=== PATIENT | male | born 1960 | race Caucasian/White ===

== ENCOUNTER → 2016-04-26 | Outpatient (CLI) | payer OTHER ==
[~2016-04-26] MED LIST: /LOR25TA PO; /PREG100CA PO; ASPI81TA85 PO; BACL10TA2 PO; BUPR1TAB17 PO; COLA50CA3 PO; CYCL5TAB PO; FENT12PA TOP; GABA100C PO; GABA300C2 PO; GABA600T PO; LIDOCAINE PRILOCAINE TOP; META800T82 PO; MOBI15TA PO; NICO21DI5 TD; NICO2GUM8 PO; OMEP40CA2 PO; OXYC15TA76 PO; PANT20TA PO; PERC7.5T12 PO; TIZA4CAP PO; TIZA4TAB3 PO; ULTR50TA PO
--- NOTE | 2016-05-07 00:36 | ECWPNPC ---
PATIENT NAME: FEDERICO FERREIRA : 1960 GENDER: MALE VISIT DATE: 04/26/2016 DISCHARGE DATE: 04/26/16 1024 VISIT LOCKED DATE TIME: PHYSICIAN: LAMINE SANTIAGO RESOURCE: LAMINE SANTIAGO REASON FOR APPOINTMENT 1. FOLLOWUP-LOW BACK HISTORY OF PRESENT ILLNESS HISTORY OF PRESENT ILLNESS: HERE FOR POST PROC. F/U.HAD TPI .REPORTS NO IMPROVEMENT IN PAIN POST PROCEDURE.INTERVENTIONS DONE HERE HAVE NOT PROVEN TO BE HELPFUL.CONTINUES W SEVERE LBP W RADIATION INTO LEGS BILAT.L>R.PAIN AGGREVATED WITH WALKING OR PROLONGED SITTING.DESCRIBES PAIN CONSTANT ACHING AND BURNING.HAS SEDENTARY LIFESTYLE.REVIEWED MEDICATION AND TREATMENT OPTIONS.RATING PAIN VAS 9/10. PAIN THE PATIENT DESCRIBES THE PAIN... THE PATIENT DESCRIBES THE PAIN... PAIN THE PATIENT DESCRIBES THE PAIN... THE PATIENT DESCRIBES THE PAIN... FALL RISK SCREENING: SCREENING :NO FALLS IN THE PAST YEAR CURRENT MEDICATIONS TAKING ASPIRIN ADULT LOW DOSE 81 MG TABLET DELAYED RELEASE 1 TABLET ORALLY ONCE A DAY TAKING LIDOCAINE-PRILOCAINE 2.5-2.5 % CREAM EXTERNALLY TAKING PANTOPRAZOLE SODIUM 20 MG TABLET DELAYED RELEASE 2 TABLETS ORALLY ONCE A DAY TAKING LORATADINE 10 MG TABLET 1 TABLET ORALLY ONCE A DAY TAKING FLUTICASONE PROPIONATE 50 MCG/DOSE SUSPENSION 1 SPRAY IN EACH NOSTRIL NASALLY ONCE A DAY TAKING LASIX 20 MG TABLET 1 TABLET ORALLY ONCE A DAY, PRN TAKING POTASSIUM CHLORIDE 10 MEQ CAPSULE PO DAILY PRN TAKING ALBUTEROL SULFATE HFA 108 (90 BASE) MCG/ACT AEROSOL SOLUTION 2 PUFFS NEEDED INHALATION EVERY 4 HRS TAKING ADVAIR DISKUS 250-50 MCG/DOSE AEROSOL POWDER BREATH ACTIVATED 1 PUFF INHALATION TWICE A DAY TAKING CYMBALTA 30 MG CAPSULE DELAYED RELEASE PARTICLES 1 CAPSULE ORALLY ONCE A DAY TAKING GABAPENTIN 600 600 MG TABLET 1 TAB(S) ORAL TID FOR PAIN TAKING TOPIRAMATE 50 MG TABLET 1 TABLET ORALLY TWICE A DAY TAKING SUCRALFATE 1 GM TABLET 1 TABLET ON AN EMPTY STOMACH ORALLY TWICE A DAY TAKING OXYBUTYNIN CHLORIDE 5 MG TABLET 1 TABLET ORALLY TWICE A DAY NOT-TAKING IBUPROFEN 800 MG TABLET 1 TABLET ORALLY WITH FOOD THREE TIMES A DAY FOR PAIN MDD3 NOT-TAKING GUAIFENESIN 400 MG TABLET 1 TABLET NEEDED ORALLY EVERY 4 HRS NOT-TAKING VALIUM 10 MG TABLET 1 ORALLY 1 TAB 1HR PRE PROC. MDD1 NOT-TAKING CIPROFLOXACIN HCL 750 MG TABLET 1 TABLET ORALLY BID NOT-TAKING TIZANIDINE HCL 2 MG TABLET 1 TO 2 TABLET NEEDED ORALLY AT NIGHT FOR SPASMS AND PAIN NOT-TAKING TIZANIDINE HCL 4 MG TABLET 1 TABLET NEEDED ORALLY DAILY AT BEDTIME NOT-TAKING TOPIRAMATE 50 MG TABLET 1 TABLET ORALLY TWICE A DAY NOT-TAKING OXYCODONE HCL 15 MG TABLET 1 TABLET NEEDED ORALLY EVERY 6 HRS MEDICATION LIST REVIEWED AND RECONCILED WITH THE PATIENT PAST MEDICAL HISTORY HEADACHE, NECK PAIN SLEEP AOPNEA ARTHRITIS DEPRESSION TINNITUS GERD LOWER BACK, NECK PROBLMES ARTHRITIS NERVE DAMAGE COPD SEASONAL ALLERGIES ALLERGIES SEASONAL: NASAL CONGESTION: ALLERGY SOCIAL HISTORY GENERAL: TOBACCO USE ARE YOU A:NONSMOKER LEARNING BARRIERS / SPECIAL NEEDS ORIENTED TO PLAN OF CARE: PATIENT, PAIN MANAGEMENT PATIENT, ORIENTED TO PLAN OF CARE: PATIENT, PAIN MANAGEMENT PATIENT. NEW PATIENT PAIN DIARY TODAY'S VISITNOTES FROM 0-10, WHAT LEVEL IS YOUR PAIN TODAY?0 PAIN CLINIC PFS, CLERGY, PUBLIC HEALTH REFERRALS PFS REFERRAL NEEDED?NO CLERGY REFERRAL NEEDED?NO PUBLIC HEALTH REFERRAL NEEDED?NO WAS THE PROVIDER NOTIFIED OF ANY PERTINENT INFO?NO PFS REFERRAL NEEDED?NO CLERGY REFERRAL NEEDED?NO PUBLIC HEALTH REFERRAL NEEDED?NO WAS THE PROVIDER NOTIFIED OF ANY PERTINENT INFO?NO REVIEW OF SYSTEMS CONSTITUTIONAL: ANY CHANGE IN YOUR MEDICAL CONDITION? NO . CHILLS NO . FEVER NO . INFECTION: DO YOU HAVE NEW INFECTIONS? NO . DO YOU HAVE HISTORY OF MRSA? NO . MUSCULOSKELETAL: ANY NEW PATTERNS OF PAIN OR NUMBNESS? NO . GASTROENTEROLOGY: ANY NEW CHANGE IN BOWEL CONTROL? NO . GENITOURINARY: ANY NEW CHANGE IN BLADDER CONTROL? YES PT REPORTS OVERACTIVE BLADDER, SEEING UROLOGY FOR THIS. . IS THERE A CHANCE YOU COULD BE ? NO . HEMATOLOGY/LYMPH: DO YOU TAKE ANY BLOOD THINNERS? (FOR EXAMPLE- COUMADIN, PLAVIX, AGGRENOX, PLATEL, PRADAXA, OR XARELTO) NO . WHEN WAS YOUR LAST DOSE? DATE: TIME: . NEUROLOGY: HAVE YOU FALLEN IN THE PAST 6 MONTHS? NO . ANY NEW EXTREMITY NUMBNESS OR WEAKNESS? NO . CARDIOLOGY: DO YOU HAVE A PACEMAKER OR DEFIBRILLATOR? NO . RESPIRATORY: HAVE YOU BEEN SICK IN THE PAST WEEK? NO . FEVER NO . FLU LIKE SYMPTOMS? NO . COUGH NO . INTEGUMENTARY: DO YOU HAVE ANY RASHES OR OPEN SORES? NO . ALLERGIC/IMMUNO: ARE YOU ALLERGIC TO SHELLFISH OR IV DYE? NO . ANY NEW ALLERGIES? NO . PSYCHIATRIC: DO YOU HAVE THOUGHTS OF HURTING YOURSELF OR SOMEONE ELSE? NO . ARE YOU ABUSED, NEGLECTED, OR IN AN UNSAFE ENVIRONMENT? NO . ENDOCRINOLOGY: ARE YOU DIABETIC? NO . OTHER: DO YOU NEED ANY PRESCRIPTIONS? NO . IF YES, PLEASE LIST: ____ . ANY NEW PROBLEMS WITH YOUR MEDICATIONS? NO . WHEN DID YOU LAST EAT? ____ . WHEN DID YOU LAST DRINK? ____ . WHAT DID YOU LAST DRINK? ____ . NAME OF PERSON DRIVING YOU HOME? ____ . DO YOU HAVE ANY OTHER QUESTIONS OR CONCERNS PT REPORTS HE TIRES EASILY, AND HAS A DRY COUGH. HE STATES HE COUGHS SO HARD, IT MAKES HIM DIZZY AND GIVES HIM A HEADACHE. . REVIEWED BY: PROVIDER: LAMINE WALLACE . VITAL SIGNS WT 231 LBS, HT 69 IN, BMI 34.11 INDEX, BP 140/86 MM HG, HR 66 /MIN, RR 16 /MIN, TEMP 97.4 F, OXYGEN SAT % 95%, SAFE IN ENV? (Y/N) YES, REVIEWED BY: MAXIMILIAN. EXAMINATION GENERAL EXAMINATION: LUNGS:LUNG SOUNDS ARE CLEAR. HEART:HEART RATE REGULAR. MUSCULOSKELETAL:*, MUSCLE STRENGTH TESTING 3/5 BILATERAL LOWER EXT., PALPATION: POSITIVE FOR PAIN OVER L/S SPINE. POSITIVE FOR PAIN OVER L/S PARSPINALS, DECREASED ROJM W/ COMPLAINTS OF INCREASED LBP.. DIAGNOSTIC:MRI-L/S SPINE-SEVERE OSTEOARTHRITIS L4/L5.. 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 IT IS NOT A COPY OF THE [employer] PROGRESS NOTE. MTDD
== END ==
LOC: M PAIN 09:20
PROVIDERS: ATTEND Nurse Practitioner Family
DX: Z09 Encounter for follow-up examination after completed treatment for conditions other than malignant neoplasm (principal); M12.88 Other specific arthropathies, not elsewhere classified, other specified site; M54.16 Radiculopathy, lumbar region; R51 Headache; M54.2 Cervicalgia; G47.30 Sleep apnea, unspecified; F32.9 Major depressive disorder, single episode, unspecified; K21.9 Gastro-esophageal reflux disease without esophagitis; J44.9 Chronic obstructive pulmonary disease, unspecified; J30.2 Other seasonal allergic rhinitis; Z79.82 Long term (current) use of aspirin; Z79.891 Long term (current) use of opiate analgesic; Z79.899 Other long term (current) drug therapy

== ENCOUNTER → 2016-07-07 | Outpatient (CLI) | payer OTHER ==
--- NOTE | 2016-07-07 10:02 | REP ---
Chest two views HISTORY: Epididymal cyst Comparison: None The lungs are clear. The heart is normal in size. The pulmonary vasculature is normal in appearance. The bony structure is intact. IMPRESSION: No acute disease. Signed by Zach Kelley MD 07/07/2016 09:53 A
[2016-07-07 10:22] LABS: MEAN CORPUSCULAR HEMOGLOBIN 30.7 pg (27.0-33.0); MEAN CORPUSCULAR HGB CONC 33.6 g/dl (32.0-36.5); MEAN CORPUSCULAR VOLUME 91.3 fl (80.0-96.0); RED CELL DISTRIBUTION WIDTH 12.8 % (11.5-14.5); WHITE BLOOD COUNT 4.9 K/mm3 (4.0-10.0)
[2016-07-07 10:24] LABS: INR 0.96
[2016-07-07 10:40] LABS: ANION GAP 6 MEQ/L (8-16); BLOOD UREA NITROGEN 17 MG/DL (7-18); CARBON DIOXIDE LEVEL 27 MEQ/L (21-32); CHLORIDE LEVEL 109 MEQ/L (98-107); CREATININE FOR GFR 1.13 MG/DL (0.70-1.30); GLOMERULAR FILTRATION RATE > 60.0 (>56); GLUCOSE, FASTING 85 MG/DL (70-105); POTASSIUM SERUM 4.2 MEQ/L (3.5-5.1); SODIUM LEVEL 142 MEQ/L (136-145)
--- NOTE | 2016-07-07 22:16 | ECGEPIP ---
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
== END ==
LOC: M LAB 09:22
PROVIDERS: ATTEND Urology
DX: Z01.818 Encounter for other preprocedural examination (principal); N50.3 Cyst of epididymis

== ENCOUNTER → 2016-07-18 | Day surgery (SDC) | payer OTHER ==
[~2016-07-18] VITALS: Ht 175.3 cm; Wt 107.5 kg
[~2016-07-18] MED LIST changes: +ADV100INH INH; +ASPI1TAB PO; +AZEL0.1S3; +BUPIVACAINE HCL 0.25% 30 ML VIAL As Ordered ONE; +CLAR10CA3 PO; +DULO1CAP3 PO; +FLOM5CAP PO; +FLUT1SPR2; +GLYCOPYRROLATE INJ 0.2 MG/ML 2 ML VIAL As Ordered ONE; +LIDOCAINE 1% SDV INJ 30 ML VIAL As Ordered ONE; +LIDOCAINE 2% INJ 100 MG/5 ML SDV (FOR ANES.) As Ordered ONE; +LR 1,000 ML IV SCH; +MIDAZOLAM INJ 2 MG/2 ML VIAL (J2250) As Ordered ONE; +ONDANSETRON 4MG/2ML VIAL (J2405) As Ordered ONE; +ONDANSETRON 4MG/2ML VIAL (J2405) IV PRN; +PERCOCET 5MG/325MG TAB As Ordered ONE; +PERCOCET 5MG/325MG TAB PO PRN; +PHENYLephrine HCL 500 MCG/5 ML (100MCG/ML) SYRINGE (J2370) As Ordered ONE; +PROPOFOL 200 MG/20 ML VIAL As Ordered ONE; +SUCCINYLCHOLINE 100 MG/5 ML SYRINGE (J0330) As Ordered ONE; +TOPA50TA7 PO; +dexameTHASONE 4 MG/ML 1ML VIAL (J1100) As Ordered ONE; +ePHEDrine SULFATE 25 MG/5 ML(5MG/ML) SYRINGE As Ordered ONE; +fentaNYL 100 MCG/2 ML INJECTION (J3010) IV PRN; +fentaNYL 250 MCG/5 ML INJECTION (J3010) As Ordered ONE
[2016-07-18] MEDS: PERCOCET 5MG/325MG TAB PO PRN ×2 (14:48→15:59)
[2016-07-18 16:10] VITALS: BP 120/79
--- NOTE | 2016-07-18 23:56 | RO ---
DATE OF PROCEDURE: 07/18/2016 PREPROCEDURE DIAGNOSIS: Left epididymal cyst. POSTPROCEDURE DIAGNOSIS: Left epididymal cyst. PROCEDURE: Left scrotal exploration with removal of epididymal cyst. SURGEON: Nate Tierney MD LICENSED PSYCHOLOGIST DIRECTOR: None. ANESTHESIA: General. OPERATIVE INDICATIONS: This is a 56-year-old male with large left epididymal cysts, and he appears to be symptomatic with them He was brought to the operating room today for the above listed procedure. DESCRIPTION OF PROCEDURE: Patient brought to the operating room and general anesthesia induced. Prophylactic antibiotics were infused. He was then prepped and draped in the supine position. An approximately 4 cm transverse incision was made over the left hemiscrotum. We then dissected down through the scrotal wall layers using a combination of scalpel and Bovie electrocautery. The testicle was then delivered out of the left hemiscrotum. The tunica vaginalis was opened, and multiple large left epididymal cysts were seen. We then carefully dissected the epididymal cysts away from the testicle and the epididymis. This was done using a combination of scissors and Bovie electrocautery. Once the cyst was completely dissected away, it was handed off and sent for pathologic analysis. At this point, we checked for hemostasis and any areas of bleeding were controlled with Bovie electrocautery. Once hemostasis was adequate, we examined the rest of the testicle and it appeared unremarkable. The testicle appeared viable. No other structures were damaged. We then placed the testicle back into the scrotum in its normal anatomic position. Once that was done, the left hemiscrotum was thoroughly irrigated out. We then closed the dartos with a running #3-0 chromic suture. Skin was closed with interrupted #2-0 chromic suture. Local anesthetic was then applied followed by application of a dressing, and this marked the conclusion of the procedure. The patient was then awakened from anesthesia and transported to the recovery room in stable condition. ESTIMATED BLOOD LOSS: Is 5 mL. COMPLICATIONS: None. SPECIMENS: Left epididymal cysts. PLAN: The patient will followup in the clinic in a few weeks for a postoperative visit.
== END ==
LOC: M SDC 10:55
PROVIDERS: ATTEND Urology
DX: N50.3 Cyst of epididymis (principal); N32.81 Overactive bladder; G47.30 Sleep apnea, unspecified; F32.9 Major depressive disorder, single episode, unspecified; H93.19 Tinnitus, unspecified ear; K21.9 Gastro-esophageal reflux disease without esophagitis; M54.9 Dorsalgia, unspecified; J44.9 Chronic obstructive pulmonary disease, unspecified; M19.90 Unspecified osteoarthritis, unspecified site; G58.9 Mononeuropathy, unspecified; K44.9 Diaphragmatic hernia without obstruction or gangrene; G43.909 Migraine, unspecified, not intractable, without status migrainosus; N40.0 Benign prostatic hyperplasia without lower urinary tract symptoms; Z79.899 Other long term (current) drug therapy; Z79.82 Long term (current) use of aspirin; Z79.51 Long term (current) use of inhaled steroids; Z79.2 Long term (current) use of antibiotics; Z88.8 Allergy status to other drugs, medicaments and biological substances; Z87.891 Personal history of nicotine dependence

== ENCOUNTER → 2016-08-05 | Outpatient (CLI) | payer OTHER ==
[~2016-08-05] MED LIST changes: -BUPIVACAINE HCL 0.25% 30 ML VIAL As Ordered ONE; -GLYCOPYRROLATE INJ 0.2 MG/ML 2 ML VIAL As Ordered ONE; -LIDOCAINE 1% SDV INJ 30 ML VIAL As Ordered ONE; -LIDOCAINE 2% INJ 100 MG/5 ML SDV (FOR ANES.) As Ordered ONE; -LR 1,000 ML IV SCH; -MIDAZOLAM INJ 2 MG/2 ML VIAL (J2250) As Ordered ONE; -ONDANSETRON 4MG/2ML VIAL (J2405) As Ordered ONE; -ONDANSETRON 4MG/2ML VIAL (J2405) IV PRN; -PERCOCET 5MG/325MG TAB As Ordered ONE; -PERCOCET 5MG/325MG TAB PO PRN; -PHENYLephrine HCL 500 MCG/5 ML (100MCG/ML) SYRINGE (J2370) As Ordered ONE; -PROPOFOL 200 MG/20 ML VIAL As Ordered ONE; -SUCCINYLCHOLINE 100 MG/5 ML SYRINGE (J0330) As Ordered ONE; -dexameTHASONE 4 MG/ML 1ML VIAL (J1100) As Ordered ONE; -ePHEDrine SULFATE 25 MG/5 ML(5MG/ML) SYRINGE As Ordered ONE; -fentaNYL 100 MCG/2 ML INJECTION (J3010) IV PRN; -fentaNYL 250 MCG/5 ML INJECTION (J3010) As Ordered ONE
--- NOTE | 2016-08-16 01:55 | ECWPNPC ---
PATIENT NAME: FEDERICO FERREIRA : 1960 GENDER: MALE VISIT DATE: 08/05/2016 DISCHARGE DATE: 08/05/16 1012 VISIT LOCKED DATE TIME: PHYSICIAN: LAMINE SANTIAGO RESOURCE: LAMINE SANTIAGO REASON FOR APPOINTMENT 1. BACK AND NECK HISTORY OF PRESENT ILLNESS HISTORY OF PRESENT ILLNESS: HERE FOR F/U.HAD TPI .INTERVENTIONS DONE HERE HAVE NOT PROVEN TO BE HELPFUL.CONTINUES W SEVERE LBP W RADIATION INTO LEGS BILAT.L>R.PAIN AGGREVATED WITH WALKING OR PROLONGED SITTING.DESCRIBES PAIN CONSTANT ACHING AND BURNING.HAS SEDENTARY LIFESTYLE.REVIEWED MEDICATION AND TREATMENT OPTIONS.RATING PAIN VAS 9/10.REPORTING NEW ONSET LEFT INNER LEG PAIN.THIS IS INTERMITTENT AND SHARP.HX OF CHRONIC NUMBNESS AND TINGLING IN LEFT LEG. PAIN THE PATIENT DESCRIBES THE PAIN... THE PATIENT DESCRIBES THE PAIN... THE PATIENT DESCRIBES THE PAIN... THE PATIENT DESCRIBES THE PAIN... FALL RISK SCREENING: SCREENING :NO FALLS IN THE PAST YEAR CURRENT MEDICATIONS TAKING ASPIRIN ADULT LOW DOSE 81 MG TABLET DELAYED RELEASE 1 TABLET ORALLY ONCE A DAY TAKING PANTOPRAZOLE SODIUM 20 MG TABLET DELAYED RELEASE 2 TABLETS ORALLY ONCE A DAY TAKING LORATADINE 10 MG TABLET 1 TABLET ORALLY ONCE A DAY TAKING FLUTICASONE PROPIONATE 50 MCG/DOSE SUSPENSION 1 SPRAY IN EACH NOSTRIL NASALLY ONCE A DAY TAKING ALBUTEROL SULFATE HFA 108 (90 BASE) MCG/ACT AEROSOL SOLUTION 2 PUFFS NEEDED INHALATION EVERY 4 HRS TAKING ADVAIR DISKUS 250-50 MCG/DOSE AEROSOL POWDER BREATH ACTIVATED 1 PUFF INHALATION TWICE A DAY TAKING GABAPENTIN 600 600 MG TABLET 1 TAB(S) ORAL TID FOR PAIN TAKING TOPIRAMATE 50 MG TABLET 1 TABLET ORALLY TWICE A DAY TAKING SUCRALFATE 1 GM TABLET 1 TABLET ON AN EMPTY STOMACH ORALLY TWICE A DAY TAKING OXYBUTYNIN CHLORIDE 5 MG TABLET 1 TABLET ORALLY TWICE A DAY TAKING FLOMAX 0.4 MG CAPSULE 1 CAPSULE ORALLY ONCE A DAY TAKING CYMBALTA 60 MG CAPSULE DELAYED RELEASE PARTICLES 1 CAPSULE ORALLY ONCE A DAY TAKING LIDOCAINE-PRILOCAINE 2.5-2.5 % CREAM SMALL AMT TO NECK/LOW BACK EXTERNALLY BID PRN TAKING MYRBETRIQ 50 MG TABLET 1 TABLET ORALLY ONCE A DAY TAKING DIFLUCAN 150 MG TABLET 1 TABLET ORALLY DAILY TAKING CLOTRIMAZOLE 1 % CREAM 1 APPLICATION TO AFFECTED AREA EXTERNALLY TWICE A DAY NOT-TAKING CEPHALEXIN 500 MG TABLET 1 TABLET ORALLY THREE TIMES DAILY NOT-TAKING PYRIDIUM 200 MG TABLET 1 TABLET AFTER MEALS ORALLY THREE TIMES A DAY NOT-TAKING PERCOCET 5-325 MG TABLET 1-2 TABLET(S) ORALLY EVERY 6 HRS NEEDED FOR PAIN (MDD 8) NOT-TAKING LASIX 20 MG TABLET 1 TABLET ORALLY ONCE A DAY, PRN NOT-TAKING POTASSIUM CHLORIDE 10 MEQ CAPSULE PO DAILY PRN NOT-TAKING CIPRO 500 MG TABLET 1 TABLET ORALLY DIRECTED- 1 HOUR PRIOR TO CYSTOSCOPY NOT-TAKING IBUPROFEN 800 MG TABLET 1 TABLET ORALLY WITH FOOD THREE TIMES A DAY FOR PAIN MDD3 NOT-TAKING GUAIFENESIN 400 MG TABLET 1 TABLET NEEDED ORALLY EVERY 4 HRS NOT-TAKING VALIUM 10 MG TABLET 1 ORALLY 1 TAB 1HR PRE PROC. MDD1 NOT-TAKING CIPROFLOXACIN HCL 750 MG TABLET 1 TABLET ORALLY BID NOT-TAKING TIZANIDINE HCL 2 MG TABLET 1 TO 2 TABLET NEEDED ORALLY AT NIGHT FOR SPASMS AND PAIN NOT-TAKING TIZANIDINE HCL 4 MG TABLET 1 TABLET NEEDED ORALLY DAILY AT BEDTIME NOT-TAKING TOPIRAMATE 50 MG TABLET 1 TABLET ORALLY TWICE A DAY NOT-TAKING OXYCODONE HCL 15 MG TABLET 1 TABLET NEEDED ORALLY EVERY 6 HRS MEDICATION LIST REVIEWED AND RECONCILED WITH THE PATIENT PAST MEDICAL HISTORY HEADACHE, NECK PAIN SLEEP AOPNEA ARTHRITIS DEPRESSION TINNITUS GERD LOWER BACK, NECK PROBLMES ARTHRITIS NERVE DAMAGE COPD SEASONAL ALLERGIES ALLERGIES SEASONAL: NASAL CONGESTION: ALLERGY SOCIAL HISTORY GENERAL: PAIN CLINIC PFS, CLERGY, PUBLIC HEALTH REFERRALS CLERGY REFERRAL NEEDED?NO WAS THE PROVIDER NOTIFIED OF ANY PERTINENT INFO?NO PFS REFERRAL NEEDED?NO PUBLIC HEALTH REFERRAL NEEDED?NO PATIENT: ____. REVIEW OF SYSTEMS CONSTITUTIONAL: ANY CHANGE IN YOUR MEDICAL CONDITION? YES . CHILLS NO . FEVER NO . INFECTION: DO YOU HAVE NEW INFECTIONS? NO . DO YOU HAVE HISTORY OF MRSA? NO . MUSCULOSKELETAL: ANY NEW PATTERNS OF PAIN OR NUMBNESS? YES . GASTROENTEROLOGY: ANY NEW CHANGE IN BOWEL CONTROL? NO . GENITOURINARY: ANY NEW CHANGE IN BLADDER CONTROL? NO . IS THERE A CHANCE YOU COULD BE ? NO . HEMATOLOGY/LYMPH: DO YOU TAKE ANY BLOOD THINNERS? (FOR EXAMPLE- COUMADIN, PLAVIX, AGGRENOX, PLATEL, PRADAXA, OR XARELTO) NO . WHEN WAS YOUR LAST DOSE? DATE: TIME: . NEUROLOGY: HAVE YOU FALLEN IN THE PAST 6 MONTHS? NO . ANY NEW EXTREMITY NUMBNESS OR WEAKNESS? NO . CARDIOLOGY: DO YOU HAVE A PACEMAKER OR DEFIBRILLATOR? NO . RESPIRATORY: HAVE YOU BEEN SICK IN THE PAST WEEK? NO . FEVER NO . FLU LIKE SYMPTOMS? NO . COUGH NO . INTEGUMENTARY: DO YOU HAVE ANY RASHES OR OPEN SORES? NO . ALLERGIC/IMMUNO: ARE YOU ALLERGIC TO SHELLFISH OR IV DYE? NO . ANY NEW ALLERGIES? NO . PSYCHIATRIC: DO YOU HAVE THOUGHTS OF HURTING YOURSELF OR SOMEONE ELSE? NO . ARE YOU ABUSED, NEGLECTED, OR IN AN UNSAFE ENVIRONMENT? NO . ENDOCRINOLOGY: ARE YOU DIABETIC? NO . OTHER: DO YOU NEED ANY PRESCRIPTIONS? NO . IF YES, PLEASE LIST: ____ . ANY NEW PROBLEMS WITH YOUR MEDICATIONS? NO . WHEN DID YOU LAST EAT? ____ . WHEN DID YOU LAST DRINK? ____ . WHAT DID YOU LAST DRINK? ____ . NAME OF PERSON DRIVING YOU HOME? ____ . DO YOU HAVE ANY OTHER QUESTIONS OR CONCERNS NO . REVIEWED BY: PROVIDER: LAMINE WALLACE . VITAL SIGNS WT 234 LBS, HT 69 IN, BMI 34.55 INDEX, BP 137/90 MM HG, HR 75 /MIN, RR 16 /MIN, TEMP 98.0 F, OXYGEN SAT % 98%, NA INITIALS SC 09:19. EXAMINATION GENERAL EXAMINATION: LUNGS:LUNG SOUNDS ARE CLEAR. HEART:HEART RATE REGULAR. MUSCULOSKELETAL:*, MUSCLE STRENGTH TESTING 3/5 BILATERAL LOWER EXT., PALPATION: POSITIVE FOR PAIN OVER L/S SPINE. POSITIVE FOR PAIN OVER L/S PARSPINALS, DECREASED ROJM W/ COMPLAINTS OF INCREASED LBP.. DIAGNOSTIC:MRI-L/S SPINE-SEVERE OSTEOARTHRITIS L4/L5.. 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) LUMBAR RADICULAR PAIN - M54.16 TREATMENT FACET ARTHROPATHY OF SPINE CONTINUE GABAPENTIN 600 TABLET, 600 MG, 1 TAB(S), ORAL, TID FOR PAIN CONTINUE CYMBALTA CAPSULE DELAYED RELEASE PARTICLES, 60 MG, 1 CAPSULE, ORALLY, ONCE A DAY START MOBIC TABLET, 15 MG, 1 TABLET, ORALLY, ONCE A DAY, 30 DAY(S), 30, REFILLS 2 LAB: ERYTHROCYTE SEDIMENTATION RATE LAB: RHEUMATOID FACTOR QUANT LAB: THYROID PROFILE LAB: [facility] LAB: LUPUS TYPE ANTICOAGULANT SCREE LAB: LYME DISEASE SCRN WITH CONFIRM PROCEDURE CODES FA211 ESTABILISHED PATIENT [facility] CHARGE DISPOSITION & COMMUNICATION FOLLOW UP 4 WEEKS ELECTRONICALLY SIGNED BY RODRIGO VALLE ON 08/15/2016 AT 04:27 PM EDT DISCLAIMER : THIS IS A VISIT SUMMARY EXTRACTED FROM THE [employer] CHART. IT IS NOT A COPY OF THE [employer] PROGRESS NOTE. NERY
== END | disposition home or self-care (01) ==
LOC: M PAIN 09:00
PROVIDERS: ATTEND Nurse Practitioner Family
DX: G89.29 Other chronic pain (principal); M12.88 Other specific arthropathies, not elsewhere classified, other specified site; M54.16 Radiculopathy, lumbar region; J44.9 Chronic obstructive pulmonary disease, unspecified; K21.9 Gastro-esophageal reflux disease without esophagitis; F33.9 Major depressive disorder, recurrent, unspecified; G47.30 Sleep apnea, unspecified; M54.2 Cervicalgia; J30.9 Allergic rhinitis, unspecified; Z79.899 Other long term (current) drug therapy; Z79.82 Long term (current) use of aspirin; Z79.51 Long term (current) use of inhaled steroids

== ENCOUNTER → 2016-08-16 | Outpatient (REF) ==
--- NOTE | 2016-08-17 03:04 | REP ---
Clinical: Pain and disability. Technique: AP, lateral, coned-down views of the lumbosacral spine. Findings: Alignment and lordosis maintained. No acute fracture / compression injury or subluxation. Moderate multilevel degenerative changes include anterior spurring, endplate sclerosis, minimal disc space narrowing and hypertrophic facet changes. Findings are most pronounced at the L5-S1, L3-L4, L4-L5 levels. Impression: Moderate multilevel degenerative changes. Signed by Lorenzo Zaldivar MD 08/17/2016 02:56 A
--- NOTE | 2016-08-17 03:07 | REP ---
Clinical: Pain and disability. Technique: AP, lateral, open mouth views of the cervical spine. Findings: Straightening and mild reversal of normal lordosis is suggested by lateral radiograph. Moderate degenerative disc osteophyte complex at the C5-6 and C6-7 levels noted including osteophytosis, endplate sclerosis and disc space narrowing. Chronic 2 mm of anterolisthesis at the C3-4 level suggested. No acute fracture / compression injury. Impression: Moderate degenerative changes as noted above. Signed by Lorenzo Zaldivar MD 08/17/2016 02:58 A
== END ==
LOC: M SMT 13:01
PROVIDERS: ATTEND Internal Medicine
DX: M51.37 Other intervertebral disc degeneration, lumbosacral region (principal); M50.30 Other cervical disc degeneration, unspecified cervical region

== ENCOUNTER → 2016-08-30 | Outpatient (REF) | payer OTHER ==
[2016-08-30 20:31] LABS: CALCIUM OXALATE CRYSTALS MODERATE
== END ==
LOC: M SMT 17:05
PROVIDERS: ATTEND Nurse Practitioner Family
DX: R35.0 Frequency of micturition (principal)

== ENCOUNTER → 2016-09-06 | Outpatient (CLI) | payer OTHER ==
--- NOTE | 2016-09-29 01:50 | ECWPNPC ---
PATIENT NAME: FEDERICO FERREIRA : 1960 GENDER: MALE VISIT DATE: 09/06/2016 DISCHARGE DATE: 09/06/16 1604 VISIT LOCKED DATE TIME: PHYSICIAN: LAMINE SANTIAGO RESOURCE: LAMINE SANTIAGO REASON FOR APPOINTMENT 1. BACK AND NECK HISTORY OF PRESENT ILLNESS HISTORY OF PRESENT ILLNESS: HERE FOR F/U OFLOW BACK PAIN AND GENERALIZED NEUROPATHY .INTERVENTIONS DONE HERE HAVE NOT PROVEN TO BE HELPFUL.CONTINUES W SEVERE LBP W RADIATION INTO LEGS BILAT.L>R.PAIN AGGREVATED WITH WALKING OR PROLONGED SITTING.DESCRIBES PAIN CONSTANT ACHING AND BURNING.HAS SEDENTARY LIFESTYLE.REVIEWED MEDICATION AND TREATMENT OPTIONS.RATING PAIN VAS 10/10.CONTINUES WITH COMPLAINTS OF LEFT INNER LEG PAIN.THIS IS INTERMITTENT AND SHARP.HX OF CHRONIC NUMBNESS AND TINGLING IN LEFT LEG. PAIN THE PATIENT DESCRIBES THE PAIN... THE PATIENT DESCRIBES THE PAIN... THE PATIENT DESCRIBES THE PAIN... THE PATIENT DESCRIBES THE PAIN... THE PATIENT DESCRIBES THE PAIN... FALL RISK SCREENING: SCREENING :NO FALLS IN THE PAST YEAR CURRENT MEDICATIONS TAKING ASPIRIN ADULT LOW DOSE 81 MG TABLET DELAYED RELEASE 1 TABLET ORALLY ONCE A DAY TAKING PANTOPRAZOLE SODIUM 20 MG TABLET DELAYED RELEASE 2 TABLETS ORALLY ONCE A DAY TAKING LORATADINE 10 MG TABLET 1 TABLET ORALLY ONCE A DAY TAKING FLUTICASONE PROPIONATE 50 MCG/DOSE SUSPENSION 1 SPRAY IN EACH NOSTRIL NASALLY ONCE A DAY TAKING ALBUTEROL SULFATE HFA 108 (90 BASE) MCG/ACT AEROSOL SOLUTION 2 PUFFS NEEDED INHALATION EVERY 4 HRS TAKING ADVAIR DISKUS 250-50 MCG/DOSE AEROSOL POWDER BREATH ACTIVATED 1 PUFF INHALATION TWICE A DAY TAKING TOPIRAMATE 50 MG TABLET 1 TABLET ORALLY TWICE A DAY TAKING SUCRALFATE 1 GM TABLET 1 TABLET ON AN EMPTY STOMACH ORALLY TWICE A DAY TAKING OXYBUTYNIN CHLORIDE 10 MG TABLET EXTENDED RELEASE 1 TABLET ORALLY ONCE A DAY TAKING FLOMAX 0.4 MG CAPSULE 1 CAPSULE ORALLY ONCE A DAY TAKING LIDOCAINE-PRILOCAINE 2.5-2.5 % CREAM SMALL AMT TO NECK/LOW BACK EXTERNALLY BID PRN TAKING MYRBETRIQ 50 MG TABLET 1 TABLET ORALLY ONCE A DAY TAKING DIFLUCAN 150 MG TABLET 1 TABLET ORALLY DAILY TAKING CLOTRIMAZOLE 1 % CREAM 1 APPLICATION TO AFFECTED AREA EXTERNALLY TWICE A DAY TAKING GABAPENTIN 600 600 MG TABLET 1 TAB(S) ORAL TID FOR PAIN TAKING CYMBALTA 60 MG CAPSULE DELAYED RELEASE PARTICLES 1 CAPSULE ORALLY ONCE A DAY TAKING MOBIC 15 MG TABLET 1 TABLET ORALLY ONCE A DAY TAKING VIAGRA 100 MG TABLET 1 TABLET NEEDED ORALLY ONCE A DAY TAKING OXYBUTYNIN CHLORIDE ER 10 MG TABLET EXTENDED RELEASE 24 HOUR 1 TABLET ORALLY ONCE A DAY NOT-TAKING CEPHALEXIN 500 MG TABLET 1 TABLET ORALLY THREE TIMES DAILY NOT-TAKING PYRIDIUM 200 MG TABLET 1 TABLET AFTER MEALS ORALLY THREE TIMES A DAY NOT-TAKING PERCOCET 5-325 MG TABLET 1-2 TABLET(S) ORALLY EVERY 6 HRS NEEDED FOR PAIN (MDD 8) NOT-TAKING LASIX 20 MG TABLET 1 TABLET ORALLY ONCE A DAY, PRN NOT-TAKING POTASSIUM CHLORIDE 10 MEQ CAPSULE PO DAILY PRN NOT-TAKING CIPRO 500 MG TABLET 1 TABLET ORALLY DIRECTED- 1 HOUR PRIOR TO CYSTOSCOPY NOT-TAKING IBUPROFEN 800 MG TABLET 1 TABLET ORALLY WITH FOOD THREE TIMES A DAY FOR PAIN MDD3 NOT-TAKING GUAIFENESIN 400 MG TABLET 1 TABLET NEEDED ORALLY EVERY 4 HRS NOT-TAKING VALIUM 10 MG TABLET 1 ORALLY 1 TAB 1HR PRE PROC. MDD1 NOT-TAKING CIPROFLOXACIN HCL 750 MG TABLET 1 TABLET ORALLY BID NOT-TAKING TIZANIDINE HCL 2 MG TABLET 1 TO 2 TABLET NEEDED ORALLY AT NIGHT FOR SPASMS AND PAIN NOT-TAKING TIZANIDINE HCL 4 MG TABLET 1 TABLET NEEDED ORALLY DAILY AT BEDTIME NOT-TAKING TOPIRAMATE 50 MG TABLET 1 TABLET ORALLY TWICE A DAY NOT-TAKING OXYCODONE HCL 15 MG TABLET 1 TABLET NEEDED ORALLY EVERY 6 HRS MEDICATION LIST REVIEWED AND RECONCILED WITH THE PATIENT PAST MEDICAL HISTORY HEADACHE, NECK PAIN SLEEP AOPNEA ARTHRITIS DEPRESSION TINNITUS GERD LOWER BACK, NECK PROBLMES ARTHRITIS NERVE DAMAGE COPD SEASONAL ALLERGIES ALLERGIES SEASONAL: NASAL CONGESTION: ALLERGY REVIEW OF SYSTEMS CONSTITUTIONAL: ANY CHANGE IN YOUR MEDICAL CONDITION? NO . CHILLS NO . FEVER NO . INFECTION: DO YOU HAVE NEW INFECTIONS? NO . DO YOU HAVE HISTORY OF MRSA? NO . MUSCULOSKELETAL: ANY NEW PATTERNS OF PAIN OR NUMBNESS? YES. PT STATES PAIN HAS GOTTEN WORSE TO BILAT LOWER BACK & LEFT LEG. PT RATES PAIN TODAY 01/24. . GASTROENTEROLOGY: ANY NEW CHANGE IN BOWEL CONTROL? NO . GENITOURINARY: ANY NEW CHANGE IN BLADDER CONTROL? YES, PT STATES HE URINATES ALOT AND NIGHT AND DURING THE DAY. PT STATES HE IS SEEING A UROLOGIST FOR THIS. . IS THERE A CHANCE YOU COULD BE ? NO . HEMATOLOGY/LYMPH: DO YOU TAKE ANY BLOOD THINNERS? (FOR EXAMPLE- COUMADIN, PLAVIX, AGGRENOX, PLATEL, PRADAXA, OR XARELTO) NO . WHEN WAS YOUR LAST DOSE? DATE: TIME: . NEUROLOGY: HAVE YOU FALLEN IN THE PAST 6 MONTHS? NO . ANY NEW EXTREMITY NUMBNESS OR WEAKNESS? NO . CARDIOLOGY: DO YOU HAVE A PACEMAKER OR DEFIBRILLATOR? NO . RESPIRATORY: HAVE YOU BEEN SICK IN THE PAST WEEK? NO . FEVER NO . FLU LIKE SYMPTOMS? NO . COUGH NO . INTEGUMENTARY: DO YOU HAVE ANY RASHES OR OPEN SORES? NO . ALLERGIC/IMMUNO: ARE YOU ALLERGIC TO SHELLFISH OR IV DYE? NO . ANY NEW ALLERGIES? NO . PSYCHIATRIC: DO YOU HAVE THOUGHTS OF HURTING YOURSELF OR SOMEONE ELSE? NO . ARE YOU ABUSED, NEGLECTED, OR IN AN UNSAFE ENVIRONMENT? NO . ENDOCRINOLOGY: ARE YOU DIABETIC? NO . OTHER: DO YOU NEED ANY PRESCRIPTIONS? YES, MELOXICAM, DULOXETINE . IF YES, PLEASE LIST: ____ . ANY NEW PROBLEMS WITH YOUR MEDICATIONS? NO . WHEN DID YOU LAST EAT? ____ . WHEN DID YOU LAST DRINK? ____ . WHAT DID YOU LAST DRINK? ____ . NAME OF PERSON DRIVING YOU HOME? ____ . DO YOU HAVE ANY OTHER QUESTIONS OR CONCERNS NO . REVIEWED BY: PROVIDER: LAMINE WALLACE . VITAL SIGNS WT 238 LBS, HT 69 IN, BMI 35.14 INDEX, BP 151/93 MM HG, HR 75 /MIN, RR 18 /MIN, TEMP 98.1 F, OXYGEN SAT % 97%, SAFE IN ENV? (Y/N) Y, NA INITIALS SC 15:15, REVIEWED BY: EM. EXAMINATION GENERAL EXAMINATION: LUNGS:LUNG SOUNDS ARE CLEAR. HEART:HEART RATE REGULAR. MUSCULOSKELETAL:*, MUSCLE STRENGTH TESTING 3/5 BILATERAL LOWER EXT., PALPATION: POSITIVE FOR PAIN OVER L/S SPINE. POSITIVE FOR PAIN OVER L/S PARSPINALS, DECREASED ROJM W/ COMPLAINTS OF INCREASED LBP.. DIAGNOSTIC:MRI-L/S SPINE-SEVERE OSTEOARTHRITIS L4/L5.. 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 PROCEDURE CODES FA211 ESTABILISHED PATIENT [facility] CHARGE DISPOSITION & COMMUNICATION FOLLOW UP 2WK POST (REASON: I AM GOING TO REQUEST A LUMBAR INTERLAMINAR EPIDURAL STEROID INJECTION L4/5) ELECTRONICALLY SIGNED BY RODRIGO VALLE ON 09/28/2016 AT 01:50 PM EDT DISCLAIMER : THIS IS A VISIT SUMMARY EXTRACTED FROM THE [employer] CHART. IT IS NOT A COPY OF THE [employer] PROGRESS NOTE. NERY
== END | disposition home or self-care (01) ==
LOC: M PAIN 15:00
PROVIDERS: ATTEND Nurse Practitioner Family
DX: G89.29 Other chronic pain (principal); M54.16 Radiculopathy, lumbar region; M48.06 Spinal stenosis, lumbar region; M54.2 Cervicalgia; G47.30 Sleep apnea, unspecified; M19.90 Unspecified osteoarthritis, unspecified site; K21.9 Gastro-esophageal reflux disease without esophagitis; J44.9 Chronic obstructive pulmonary disease, unspecified; J30.9 Allergic rhinitis, unspecified; Z79.899 Other long term (current) drug therapy; Z79.82 Long term (current) use of aspirin; Z79.51 Long term (current) use of inhaled steroids

== ENCOUNTER → 2016-09-21 | Outpatient (CLI) | payer OTHER ==
[~2016-09-21] MED LIST changes: +ISOVUE-M 300 61% 15ML VIAL (Q9967) As Ordered ONE; +LIDOCAINE 1% SDV INJ 30 ML VIAL As Ordered ONE; +diazePAM 5 MG TAB As Ordered ONE; +methylPREDNISolone SUSP 40 MG/ML (DEPO-medrol) VIAL (J1030) As Ordered ONE; +oxyCODONE 5MG TAB As Ordered ONE
--- NOTE | 2016-09-21 15:22 | REP ---
PARTIAL LUMBAR SPINE SERIES: Three views. HISTORY: Lumbar epidural steroid injection for pain. 12 seconds of fluoroscopy time is reported. FINDINGS: A sequence of three last image hold fluoro spot radiographs of the lumbar spine document needle position and contrast injection associated with lumbar epidural injection procedure. Signed by Delano Recinos MD 09/21/2016 04:32 P
--- NOTE | 2016-10-04 01:12 | ECWPNPC ---
PATIENT NAME: FEDERICO FERREIRA : 1960 GENDER: MALE VISIT DATE: 09/21/2016 DISCHARGE DATE: 09/21/16 1311 VISIT LOCKED DATE TIME: PHYSICIAN: SANDY STORY RESOURCE: SANDY STORY REASON FOR APPOINTMENT 1. INTERLAMINAL LE, L4/5 HISTORY OF PRESENT ILLNESS HISTORY OF PRESENT ILLNESS: PAIN THE PATIENT DESCRIBES THE PAIN... FALL RISK SCREENING: SCREENING :NO FALLS IN THE PAST YEAR CURRENT MEDICATIONS TAKING ASPIRIN ADULT LOW DOSE 81 MG TABLET DELAYED RELEASE 1 TABLET ORALLY ONCE A DAY, NOTES: 09-20-16799 TAKING PANTOPRAZOLE SODIUM 20 MG TABLET DELAYED RELEASE 2 TABLETS ORALLY ONCE A DAY, NOTES: 09-20-16799 TAKING LORATADINE 10 MG TABLET 1 TABLET ORALLY ONCE A DAY, NOTES: 09-20-16799 TAKING FLUTICASONE PROPIONATE 50 MCG/DOSE SUSPENSION 1 SPRAY IN EACH NOSTRIL NASALLY ONCE A DAY, NOTES: 09-20-16799 TAKING ALBUTEROL SULFATE HFA 108 (90 BASE) MCG/ACT AEROSOL SOLUTION 2 PUFFS NEEDED INHALATION EVERY 4 HRS, NOTES: NONE TAKING TOPIRAMATE 50 MG TABLET 1 TABLET ORALLY TWICE A DAY, NOTES: 09-20-16799 TAKING SUCRALFATE 1 GM TABLET 1 TABLET ON AN EMPTY STOMACH ORALLY TWICE A DAY, NOTES: 09-20-16799 TAKING FLOMAX 0.4 MG CAPSULE 1 CAPSULE ORALLY ONCE A DAY, NOTES: 09-20-16799 TAKING LIDOCAINE-PRILOCAINE 2.5-2.5 % CREAM SMALL AMT TO NECK/LOW BACK EXTERNALLY BID PRN, NOTES: NONE TAKING MYRBETRIQ 50 MG TABLET 1 TABLET ORALLY ONCE A DAY, NOTES: 09-20-16 TAKING CLOTRIMAZOLE 1 % CREAM 1 APPLICATION TO AFFECTED AREA EXTERNALLY TWICE A DAY TAKING GABAPENTIN 600 600 MG TABLET 1 TAB(S) ORAL TID FOR PAIN, NOTES: 09-20-16799 TAKING VIAGRA 100 MG TABLET 1 TABLET NEEDED ORALLY ONCE A DAY, NOTES: NONE TAKING CYMBALTA 60 MG CAPSULE DELAYED RELEASE PARTICLES 1 CAPSULE ORALLY ONCE A DAY, NOTES: 09-20-16799 TAKING MOBIC 15 MG TABLET 1 TABLET ORALLY ONCE A DAY, NOTES: 09-20-16799 NOT-TAKING ADVAIR DISKUS 250-50 MCG/DOSE AEROSOL POWDER BREATH ACTIVATED 1 PUFF INHALATION TWICE A DAY NOT-TAKING CEPHALEXIN 500 MG TABLET 1 TABLET ORALLY THREE TIMES DAILY NOT-TAKING PYRIDIUM 200 MG TABLET 1 TABLET AFTER MEALS ORALLY THREE TIMES A DAY NOT-TAKING PERCOCET 5-325 MG TABLET 1-2 TABLET(S) ORALLY EVERY 6 HRS NEEDED FOR PAIN (MDD 8) NOT-TAKING LASIX 20 MG TABLET 1 TABLET ORALLY ONCE A DAY, PRN NOT-TAKING POTASSIUM CHLORIDE 10 MEQ CAPSULE PO DAILY PRN NOT-TAKING CIPRO 500 MG TABLET 1 TABLET ORALLY DIRECTED- 1 HOUR PRIOR TO CYSTOSCOPY NOT-TAKING IBUPROFEN 800 MG TABLET 1 TABLET ORALLY WITH FOOD THREE TIMES A DAY FOR PAIN MDD3 NOT-TAKING GUAIFENESIN 400 MG TABLET 1 TABLET NEEDED ORALLY EVERY 4 HRS NOT-TAKING VALIUM 10 MG TABLET 1 ORALLY 1 TAB 1HR PRE PROC. MDD1 NOT-TAKING CIPROFLOXACIN HCL 750 MG TABLET 1 TABLET ORALLY BID NOT-TAKING TIZANIDINE HCL 2 MG TABLET 1 TO 2 TABLET NEEDED ORALLY AT NIGHT FOR SPASMS AND PAIN NOT-TAKING TIZANIDINE HCL 4 MG TABLET 1 TABLET NEEDED ORALLY DAILY AT BEDTIME NOT-TAKING TOPIRAMATE 50 MG TABLET 1 TABLET ORALLY TWICE A DAY NOT-TAKING OXYCODONE HCL 15 MG TABLET 1 TABLET NEEDED ORALLY EVERY 6 HRS DISCONTINUED OXYBUTYNIN CHLORIDE 10 MG TABLET EXTENDED RELEASE 1 TABLET ORALLY ONCE A DAY DISCONTINUED DIFLUCAN 150 MG TABLET 1 TABLET ORALLY DAILY DISCONTINUED OXYBUTYNIN CHLORIDE ER 10 MG TABLET EXTENDED RELEASE 24 HOUR 1 TABLET ORALLY ONCE A DAY DISCONTINUED CYMBALTA 30 MG CAPSULE DELAYED RELEASE PARTICLES 1 CAPSULE ORALLY ONCE A DAY MEDICATION LIST REVIEWED AND RECONCILED WITH THE PATIENT PAST MEDICAL HISTORY HEADACHE, NECK PAIN SLEEP AOPNEA ARTHRITIS DEPRESSION TINNITUS GERD LOWER BACK, NECK PROBLMES ARTHRITIS NERVE DAMAGE COPD SEASONAL ALLERGIES ALLERGIES SEASONAL: NASAL CONGESTION: ALLERGY REVIEW OF SYSTEMS CONSTITUTIONAL: ANY CHANGE IN YOUR MEDICAL CONDITION? NO . CHILLS NO . FEVER NO . INFECTION: DO YOU HAVE NEW INFECTIONS? NO . DO YOU HAVE HISTORY OF MRSA? NO . MUSCULOSKELETAL: ANY NEW PATTERNS OF PAIN OR NUMBNESS? YES, ARMS AND LEGS FEEL WEAK AT TIMES. PAIN GOING INTO THE HIPS. . GASTROENTEROLOGY: ANY NEW CHANGE IN BOWEL CONTROL? NO . GENITOURINARY: ANY NEW CHANGE IN BLADDER CONTROL? YES, BEING TREATED . IS THERE A CHANCE YOU COULD BE ? NO . HEMATOLOGY/LYMPH: DO YOU TAKE ANY BLOOD THINNERS? (FOR EXAMPLE- COUMADIN, PLAVIX, AGGRENOX, PLATEL, PRADAXA, OR XARELTO) NO . WHEN WAS YOUR LAST DOSE? DATE: TIME: . NEUROLOGY: HAVE YOU FALLEN IN THE PAST 6 MONTHS? NO . ANY NEW EXTREMITY NUMBNESS OR WEAKNESS? NO . CARDIOLOGY: DO YOU HAVE A PACEMAKER OR DEFIBRILLATOR? NO . RESPIRATORY: HAVE YOU BEEN SICK IN THE PAST WEEK? NO . FEVER NO . FLU LIKE SYMPTOMS? NO . COUGH NO . INTEGUMENTARY: DO YOU HAVE ANY RASHES OR OPEN SORES? NO . ALLERGIC/IMMUNO: ARE YOU ALLERGIC TO SHELLFISH OR IV DYE? NO . ANY NEW ALLERGIES? NO . PSYCHIATRIC: DO YOU HAVE THOUGHTS OF HURTING YOURSELF OR SOMEONE ELSE? NO . ARE YOU ABUSED, NEGLECTED, OR IN AN UNSAFE ENVIRONMENT? NO . ENDOCRINOLOGY: ARE YOU DIABETIC? NO . OTHER: DO YOU NEED ANY PRESCRIPTIONS? NO . IF YES, PLEASE LIST: ____ . ANY NEW PROBLEMS WITH YOUR MEDICATIONS? NO . WHEN DID YOU LAST EAT? 09-20-16 PM . WHEN DID YOU LAST DRINK? 09-21-16 0900 . WHAT DID YOU LAST DRINK? WATER . NAME OF PERSON DRIVING YOU HOME? WARD FERREIRA . DO YOU HAVE ANY OTHER QUESTIONS OR CONCERNS NO . REVIEWED BY: PROVIDER: . VITAL SIGNS WT 238.6 LBS, HT 69 IN, BMI 35.23 INDEX, BP 152/77 MM HG, HR 64 /MIN, RR 18 /MIN, TEMP 97.7 F, OXYGEN SAT % 99%, NA INITIALS SC 11:18, REVIEWED BY: CM. 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 I EVALUATE THE PATIENT AND REVIEWED THE CHART. I WENT OVER THE RISKS, ALTERNATIVES, AND BENEFITS ASSOCIATED WITH THIS PROCEDURE. THE PATIENT WOULD LIKE TO PROCEED AND GIVE CONSENT TO PERFORMED THE PROCEDURE. THE PATIENT DENIES UNEXPLAINABLE WEIGHT LOSS, FEVER, CHILLS, OR NEW CHANGES IN URINARY OR BOWEL CONTROL DESCRIPTION OF PROCEDURE THE PATIENT WAS BROUGHT TO THE PROCEDURE ROOM AND PLACED IN THE PRONE POSITION. THE LUMBOSACRAL AREA WAS CLEANED WITH BETADINE SOLUTION AND DRAPED ASEPTICALLY. THE PROCEDURE WAS DONE UNDER STERILE CONDITIONS. I CHECKED LATERALITY AND THE LEVEL WHERE THE PROCEDURE WAS GOING TO BE PERFORMED WITH THE PATIENT AND THE SUPPORTING STAFF AT THE MOMENT OF THE TIME OUT IN THE PROCEDURE ROOM. UNDER FLUOROSCOPIC GUIDANCE, THE TARGET POINT WAS SELECTED AT THE INTERLAMINAR LEVEL OF L4-L5. LIDOCAINE WAS USED TO NUMB THE SKIN AND THE SUBCUTANEOUS TISSUE BELOW IT. EPIDURAL TUOHY NEEDLE, 17-GAUGE, WAS ADVANCED UNDER FLUOROSCOPIC GUIDANCE AND FOLLOWING PATIENT FEEDBACK UNTIL THE EPIDURAL SPACE WAS REACHED, 7 CM DEEP INTO THE SKIN BY THE LOSS OF RESISTANCE TECHNIQUE. ISOVUE M DYE 30%, 0.25 ML, WAS INJECTED SHOWING ADEQUATE SPREAD OF THE DYE. THEN, A SOLUTION OF 3 ML OF NORMAL SALINE WITH DEPO-MEDROL 60 MG WAS INJECTED SLOWLY FOLLOWING PATIENT FEEDBACK. THERE WAS NO EVIDENCE OF BLOOD, PARESTHESIA OR CEREBROSPINAL FLUID DURING THE PROCEDURE. THE PATIENT WAS SENT TO THE RECOVERY ROOM. THE PATIENT WAS MOVING THE EXTREMITIES AND DOING WELL. THERE WAS NO COMPLICATION DURING THE PROCEDURE. FLUOROSCOPY TIME WAS 11 SECONDS POST PROCEDURE NOTE THE PATIENT WILL BE SEEN IN A FOLLOW UP IN THE NEXT FEW WEEKS. INSTRUCTIONS WERE GIVEN, QUESTIONS WERE ANSWERED, AND THE PATIENT EXPRESSED UNDERSTANDING AND AGREES WITH THE PLAN. I, STEFANIE TREVINO, DOCUMENTED THE ABOVE INFORMATION ACTING A SCRIBE FOR DR. STORY. I HAVE REVIEWED THE ABOVE DOCUMENT, WRITTEN BY STEFANIE LEE AND I VERIFY THAT IT IS [facility]AGNOST[facility] FLUORO GUIDE SPINE INJECTION (PAIN)[id number] PROCEDURE CODES 78669 LUMBAR/SACRAL W/ IMAGING 6045F RADXPS IN END [id number] PXD DISPOSITION & COMMUNICATION FOLLOW UP 3 WEEKS ELECTRONICALLY SIGNED BY SANDY STORY MD ON 10/03/2016 AT 03:10 PM EDT DISCLAIMER : THIS IS A VISIT SUMMARY EXTRACTED FROM THE [employer] CHART. IT IS NOT A COPY OF THE [employer] PROGRESS NOTE. [email or web address]
== END | disposition home or self-care (01) ==
LOC: M PAIN 11:40
PROVIDERS: ATTEND Anesthesiology
DX: G89.29 Other chronic pain (principal); M51.15 Intervertebral disc disorders with radiculopathy, thoracolumbar region; G47.30 Sleep apnea, unspecified; M19.90 Unspecified osteoarthritis, unspecified site; F33.9 Major depressive disorder, recurrent, unspecified; K21.9 Gastro-esophageal reflux disease without esophagitis; J44.9 Chronic obstructive pulmonary disease, unspecified; J30.9 Allergic rhinitis, unspecified; Z79.899 Other long term (current) drug therapy; Z79.51 Long term (current) use of inhaled steroids; Z79.82 Long term (current) use of aspirin

== ENCOUNTER → 2016-10-10 | Outpatient (CLI) | payer OTHER ==
[~2016-10-10] MED LIST changes: -ISOVUE-M 300 61% 15ML VIAL (Q9967) As Ordered ONE; -LIDOCAINE 1% SDV INJ 30 ML VIAL As Ordered ONE; -diazePAM 5 MG TAB As Ordered ONE; -methylPREDNISolone SUSP 40 MG/ML (DEPO-medrol) VIAL (J1030) As Ordered ONE; -oxyCODONE 5MG TAB As Ordered ONE
--- NOTE | 2016-10-10 23:02 | ECWPNPC ---
PATIENT NAME: FEDERICO FERREIRA : 1960 GENDER: MALE VISIT DATE: 10/10/2016 DISCHARGE DATE: 10/10/16 1502 VISIT LOCKED DATE TIME: PHYSICIAN: LAMINE SANTIAGO RESOURCE: LAMINE SANTIAGO HISTORY OF PRESENT ILLNESS HISTORY OF PRESENT ILLNESS: HERE FOR POST PROCEDURE F/U.HAD LESI ON 09-21-16.REPORTS NO IMPROVEMENT POST PROCEDURE. HAS LOW BACK PAIN AND GENERALIZED NEUROPATHY .INTERVENTIONS DONE HERE HAVE NOT PROVEN TO BE HELPFUL.CONTINUES W SEVERE LBP W RADIATION INTO LEGS BILAT.L>R.PAIN AGGREVATED WITH WALKING OR PROLONGED SITTING.DESCRIBES PAIN CONSTANT ACHING AND BURNING.HAS SEDENTARY LIFESTYLE.REVIEWED MEDICATION AND TREATMENT OPTIONS.RATING PAIN VAS 10/10.CONTINUES WITH COMPLAINTS OF LEFT INNER LEG PAIN.THIS IS INTERMITTENT AND SHARP.HX OF CHRONIC NUMBNESS AND TINGLING IN LEFT LEG.HAS TRIALED MULTIPLE DIFFERENT PAIN MEDICATIONS AND THEY HAVE NOT HELPED.COMPLAINING OF NECK PAIN AND HEADACHE WHICH IS A CHRONIC ISSUE.HAS RESPONDED TO TPI IN PAST. PAIN THE PATIENT DESCRIBES THE PAIN... THE PATIENT DESCRIBES THE PAIN... THE PATIENT DESCRIBES THE PAIN... THE PATIENT DESCRIBES THE PAIN... THE PATIENT DESCRIBES THE PAIN... THE PATIENT DESCRIBES THE PAIN... FALL RISK SCREENING: SCREENING :NO FALLS IN THE PAST YEAR CURRENT MEDICATIONS TAKING ASPIRIN ADULT LOW DOSE 81 MG TABLET DELAYED RELEASE 1 TABLET ORALLY ONCE A DAY TAKING PANTOPRAZOLE SODIUM 20 MG TABLET DELAYED RELEASE 2 TABLETS ORALLY ONCE A DAY TAKING LORATADINE 10 MG TABLET 1 TABLET ORALLY ONCE A DAY TAKING FLUTICASONE PROPIONATE 50 MCG/DOSE SUSPENSION 1 SPRAY IN EACH NOSTRIL NASALLY ONCE A DAY TAKING ALBUTEROL SULFATE HFA 108 (90 BASE) MCG/ACT AEROSOL SOLUTION 2 PUFFS NEEDED INHALATION EVERY 4 HRS TAKING TOPIRAMATE 50 MG TABLET 1 TABLET ORALLY TWICE A DAY TAKING LIDOCAINE-PRILOCAINE 2.5-2.5 % CREAM SMALL AMT TO NECK/LOW BACK EXTERNALLY BID PRN TAKING CLOTRIMAZOLE 1 % CREAM 1 APPLICATION TO AFFECTED AREA EXTERNALLY TWICE A DAY TAKING GABAPENTIN 600 600 MG TABLET 1 TAB(S) ORAL TID FOR PAIN TAKING VIAGRA 100 MG TABLET 1 TABLET NEEDED ORALLY ONCE A DAY TAKING CYMBALTA 60 MG CAPSULE DELAYED RELEASE PARTICLES 1 CAPSULE ORALLY ONCE A DAY TAKING MOBIC 15 MG TABLET 1 TABLET ORALLY ONCE A DAY TAKING OXYBUTYNIN CHLORIDE ER 10 MG TABLET EXTENDED RELEASE 24 HOUR 1 TABLET ORALLY ONCE A DAY TAKING AZELASTINE HCL 0.1 % SOLUTION 1 PUFF IN EACH NOSTRIL NASALLY TWICE A DAY TAKING OXYBUTYNIN CHLORIDE ER 10 MG TABLET EXTENDED RELEASE 24 HOUR 1 TABLET ORALLY ONCE A DAY TAKING FLOMAX 0.4 MG CAPSULE 1 CAPSULE ORALLY ONCE A DAY NOT-TAKING SUCRALFATE 1 GM TABLET 1 TABLET ON AN EMPTY STOMACH ORALLY TWICE A DAY NOT-TAKING MYRBETRIQ 50 MG TABLET 1 TABLET ORALLY ONCE A DAY, NOTES: 09-20-16 NOT-TAKING ADVAIR DISKUS 250-50 MCG/DOSE AEROSOL POWDER BREATH ACTIVATED 1 PUFF INHALATION TWICE A DAY NOT-TAKING CEPHALEXIN 500 MG TABLET 1 TABLET ORALLY THREE TIMES DAILY NOT-TAKING PYRIDIUM 200 MG TABLET 1 TABLET AFTER MEALS ORALLY THREE TIMES A DAY NOT-TAKING PERCOCET 5-325 MG TABLET 1-2 TABLET(S) ORALLY EVERY 6 HRS NEEDED FOR PAIN (MDD 8) NOT-TAKING LASIX 20 MG TABLET 1 TABLET ORALLY ONCE A DAY, PRN NOT-TAKING POTASSIUM CHLORIDE 10 MEQ CAPSULE PO DAILY PRN NOT-TAKING CIPRO 500 MG TABLET 1 TABLET ORALLY DIRECTED- 1 HOUR PRIOR TO CYSTOSCOPY NOT-TAKING IBUPROFEN 800 MG TABLET 1 TABLET ORALLY WITH FOOD THREE TIMES A DAY FOR PAIN MDD3 NOT-TAKING GUAIFENESIN 400 MG TABLET 1 TABLET NEEDED ORALLY EVERY 4 HRS NOT-TAKING VALIUM 10 MG TABLET 1 ORALLY 1 TAB 1HR PRE PROC. MDD1 NOT-TAKING CIPROFLOXACIN HCL 750 MG TABLET 1 TABLET ORALLY BID NOT-TAKING TIZANIDINE HCL 2 MG TABLET 1 TO 2 TABLET NEEDED ORALLY AT NIGHT FOR SPASMS AND PAIN NOT-TAKING TIZANIDINE HCL 4 MG TABLET 1 TABLET NEEDED ORALLY DAILY AT BEDTIME NOT-TAKING TOPIRAMATE 50 MG TABLET 1 TABLET ORALLY TWICE A DAY NOT-TAKING OXYCODONE HCL 15 MG TABLET 1 TABLET NEEDED ORALLY EVERY 6 HRS MEDICATION LIST REVIEWED AND RECONCILED WITH THE PATIENT PAST MEDICAL HISTORY HEADACHE, NECK PAIN SLEEP AOPNEA ARTHRITIS DEPRESSION TINNITUS GERD LOWER BACK, NECK PROBLMES ARTHRITIS NERVE DAMAGE COPD SEASONAL ALLERGIES ALLERGIES SEASONAL: NASAL CONGESTION: ALLERGY REVIEW OF SYSTEMS REVIEWED BY: PROVIDER: LAMINE WALLACE . CONSTITUTIONAL: ANY CHANGE IN YOUR MEDICAL CONDITION? NO . CHILLS NO . FEVER NO . INFECTION: DO YOU HAVE NEW INFECTIONS? NO . DO YOU HAVE HISTORY OF MRSA? NO . MUSCULOSKELETAL: ANY NEW PATTERNS OF PAIN OR NUMBNESS? NO . GASTROENTEROLOGY: ANY NEW CHANGE IN BOWEL CONTROL? NO . GENITOURINARY: ANY NEW CHANGE IN BLADDER CONTROL? YES, PT STATES HE IS SEEING UROLOGIST FOR BLADDER . IS THERE A CHANCE YOU COULD BE ? NO . HEMATOLOGY/LYMPH: DO YOU TAKE ANY BLOOD THINNERS? (FOR EXAMPLE- COUMADIN, PLAVIX, AGGRENOX, PLATEL, PRADAXA, OR XARELTO) NO . WHEN WAS YOUR LAST DOSE? DATE: TIME: . NEUROLOGY: HAVE YOU FALLEN IN THE PAST 6 MONTHS? NO . ANY NEW EXTREMITY NUMBNESS OR WEAKNESS? NO . CARDIOLOGY: DO YOU HAVE A PACEMAKER OR DEFIBRILLATOR? NO . RESPIRATORY: HAVE YOU BEEN SICK IN THE PAST WEEK? NO . FEVER NO . FLU LIKE SYMPTOMS? NO . COUGH NO . INTEGUMENTARY: DO YOU HAVE ANY RASHES OR OPEN SORES? NO . ALLERGIC/IMMUNO: ARE YOU ALLERGIC TO SHELLFISH OR IV DYE? NO . ANY NEW ALLERGIES? NO . PSYCHIATRIC: DO YOU HAVE THOUGHTS OF HURTING YOURSELF OR SOMEONE ELSE? NO . ARE YOU ABUSED, NEGLECTED, OR IN AN UNSAFE ENVIRONMENT? NO . ENDOCRINOLOGY: ARE YOU DIABETIC? NO . OTHER: DO YOU NEED ANY PRESCRIPTIONS? YES, MELOXICAM . IF YES, PLEASE LIST: ____ . ANY NEW PROBLEMS WITH YOUR MEDICATIONS? NO . WHEN DID YOU LAST EAT? ____ . WHEN DID YOU LAST DRINK? ____ . WHAT DID YOU LAST DRINK? ____ . NAME OF PERSON DRIVING YOU HOME? ____ . DO YOU HAVE ANY OTHER QUESTIONS OR CONCERNS NO . VITAL SIGNS WT 236.8 LBS, HT 69 IN, BMI 34.97 INDEX, BP 140/93 MM HG, HR 84 /MIN, RR 18 /MIN, TEMP 98.0 F, OXYGEN SAT % 95%, SAFE IN ENV? (Y/N) Y, NA INITIALS VT 13:53, REVIEWED BY: ANGELINA. EXAMINATION GENERAL EXAMINATION: GENERAL APPEARANCE:ALERT /ORIENTED. LUNGS:LUNG VIDAL ARE CLEAR TO AUSCULTATION BILATERALLY. GOOD MOVEMENT OF AIR. HEART:S1, S2 IN A REGULAR RATE AND RHYTHM. NO SIGNIFICANT MURMURS, RUBS OR GALLOPS NOTED. CERVICAL SPINE/NECK: VERTEBRAL SPINE TENDERNESS:PRESENT OVER CERVICAL AND LUMBAR SPINE. MYOFASCIAL TRIGGER POINTS:TRAPEZIUS BILAT. 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 PROCEDURE CODES FA211 ESTABILISHED PATIENT [facility] CHARGE DISPOSITION & COMMUNICATION FOLLOW UP 2WK POST (REASON: TPI NECK) ELECTRONICALLY SIGNED BY RODRIGO VALLE ON 10/10/2016 AT 04:44 PM EDT DISCLAIMER : THIS IS A VISIT SUMMARY EXTRACTED FROM THE [employer] CHART. IT IS NOT A COPY OF THE [employer] PROGRESS NOTE. NERY
== END | disposition home or self-care (01) ==
LOC: M PAIN 12:40
PROVIDERS: ATTEND Nurse Practitioner Family
DX: G89.29 Other chronic pain (principal); M12.88 Other specific arthropathies, not elsewhere classified, other specified site; M43.02 Spondylolysis, cervical region; M79.1 Myalgia; G47.30 Sleep apnea, unspecified; F33.9 Major depressive disorder, recurrent, unspecified; K21.9 Gastro-esophageal reflux disease without esophagitis; J44.9 Chronic obstructive pulmonary disease, unspecified; Z79.899 Other long term (current) drug therapy; Z79.82 Long term (current) use of aspirin; J30.9 Allergic rhinitis, unspecified

== ENCOUNTER → 2016-11-03 | Outpatient (CLI) | payer OTHER ==
[~2016-11-03] MED LIST changes: +BUPIVACAINE HCL 0.25% 10 ML VIAL As Ordered ONE; +BUPIVACAINE HCL 0.25% 30 ML VIAL As Ordered ONE; -BUPR1TAB17 PO; +BUPR1TAB53 PO; -TOPA50TA7 PO; +TOPA50TA8 PO; +TRIAMCINOLONE ACETONIDE SUSP 40 MG/ML VIAL (J3301) As Ordered ONE; +diazePAM 5 MG TAB As Ordered ONE; +oxyCODONE 5MG TAB As Ordered ONE
--- NOTE | 2016-11-13 23:29 | ECWPNPC ---
PATIENT NAME: FEDERICO FERREIRA : 1960 GENDER: MALE VISIT DATE: 11/03/2016 DISCHARGE DATE: 11/03/16 1001 VISIT LOCKED DATE TIME: PHYSICIAN: SANDY STORY RESOURCE: SANDY STORY REASON FOR APPOINTMENT 1. WC TPI HISTORY OF PRESENT ILLNESS HISTORY OF PRESENT ILLNESS: PAIN THE PATIENT DESCRIBES THE PAIN... FALL RISK SCREENING: SCREENING :NO FALLS IN THE PAST YEAR CURRENT MEDICATIONS TAKING ASPIRIN ADULT LOW DOSE 81 MG TABLET DELAYED RELEASE 1 TABLET ORALLY ONCE A DAY, NOTES: 11-02-16799 TAKING PANTOPRAZOLE SODIUM 20 MG TABLET DELAYED RELEASE 2 TABLETS ORALLY ONCE A DAY, NOTES: 11-02-16799 TAKING LORATADINE 10 MG TABLET 1 TABLET ORALLY ONCE A DAY, NOTES: 11-02-16799 TAKING FLUTICASONE PROPIONATE 50 MCG/DOSE SUSPENSION 1 SPRAY IN EACH NOSTRIL NASALLY ONCE A DAY, NOTES: 11-02-16799 TAKING ALBUTEROL SULFATE HFA 108 (90 BASE) MCG/ACT AEROSOL SOLUTION 2 PUFFS NEEDED INHALATION EVERY 4 HRS, NOTES: NONE TAKING TOPIRAMATE 50 MG TABLET 1 TABLET ORALLY TWICE A DAY, NOTES: 11-02-16799 TAKING LIDOCAINE-PRILOCAINE 2.5-2.5 % CREAM SMALL AMT TO NECK/LOW BACK EXTERNALLY BID PRN TAKING CLOTRIMAZOLE 1 % CREAM 1 APPLICATION TO AFFECTED AREA EXTERNALLY TWICE A DAY TAKING GABAPENTIN 600 600 MG TABLET 1 TAB(S) ORAL TID FOR PAIN, NOTES: 11-02-16799 TAKING VIAGRA 100 MG TABLET 1 TABLET NEEDED ORALLY ONCE A DAY TAKING CYMBALTA 60 MG CAPSULE DELAYED RELEASE PARTICLES 1 CAPSULE ORALLY ONCE A DAY, NOTES: 11-02-16799 TAKING MOBIC 15 MG TABLET 1 TABLET ORALLY ONCE A DAY, NOTES: 11-02-16799 TAKING OXYBUTYNIN CHLORIDE ER 10 MG TABLET EXTENDED RELEASE 24 HOUR 1 TABLET ORALLY ONCE A DAY, NOTES: 11-02-16799 TAKING AZELASTINE HCL 0.1 % SOLUTION 1 PUFF IN EACH NOSTRIL NASALLY TWICE A DAY, NOTES: 11-02-16799 TAKING FLOMAX 0.4 MG CAPSULE 1 CAPSULE ORALLY ONCE A DAY, NOTES: 11-02-16799 NOT-TAKING SUCRALFATE 1 GM TABLET 1 TABLET ON AN EMPTY STOMACH ORALLY TWICE A DAY NOT-TAKING MYRBETRIQ 50 MG TABLET 1 TABLET ORALLY ONCE A DAY, NOTES: 09-20-160800 NOT-TAKING ADVAIR DISKUS 250-50 MCG/DOSE AEROSOL POWDER BREATH ACTIVATED 1 PUFF INHALATION TWICE A DAY NOT-TAKING CEPHALEXIN 500 MG TABLET 1 TABLET ORALLY THREE TIMES DAILY NOT-TAKING PYRIDIUM 200 MG TABLET 1 TABLET AFTER MEALS ORALLY THREE TIMES A DAY NOT-TAKING PERCOCET 5-325 MG TABLET 1-2 TABLET(S) ORALLY EVERY 6 HRS NEEDED FOR PAIN (MDD 8) NOT-TAKING LASIX 20 MG TABLET 1 TABLET ORALLY ONCE A DAY, PRN NOT-TAKING POTASSIUM CHLORIDE 10 MEQ CAPSULE PO DAILY PRN NOT-TAKING CIPRO 500 MG TABLET 1 TABLET ORALLY DIRECTED- 1 HOUR PRIOR TO CYSTOSCOPY NOT-TAKING IBUPROFEN 800 MG TABLET 1 TABLET ORALLY WITH FOOD THREE TIMES A DAY FOR PAIN MDD3 NOT-TAKING GUAIFENESIN 400 MG TABLET 1 TABLET NEEDED ORALLY EVERY 4 HRS NOT-TAKING VALIUM 10 MG TABLET 1 ORALLY 1 TAB 1HR PRE PROC. MDD1 NOT-TAKING CIPROFLOXACIN HCL 750 MG TABLET 1 TABLET ORALLY BID NOT-TAKING TIZANIDINE HCL 2 MG TABLET 1 TO 2 TABLET NEEDED ORALLY AT NIGHT FOR SPASMS AND PAIN NOT-TAKING TIZANIDINE HCL 4 MG TABLET 1 TABLET NEEDED ORALLY DAILY AT BEDTIME NOT-TAKING TOPIRAMATE 50 MG TABLET 1 TABLET ORALLY TWICE A DAY NOT-TAKING OXYCODONE HCL 15 MG TABLET 1 TABLET NEEDED ORALLY EVERY 6 HRS DISCONTINUED OXYBUTYNIN CHLORIDE ER 10 MG TABLET EXTENDED RELEASE 24 HOUR 1 TABLET ORALLY ONCE A DAY MEDICATION LIST REVIEWED AND RECONCILED WITH THE PATIENT PAST MEDICAL HISTORY HEADACHE, NECK PAIN SLEEP AOPNEA ARTHRITIS DEPRESSION TINNITUS GERD LOWER BACK, NECK PROBLMES ARTHRITIS NERVE DAMAGE COPD SEASONAL ALLERGIES ALLERGIES SEASONAL: NASAL CONGESTION: ALLERGY REVIEW OF SYSTEMS REVIEWED BY: PROVIDER: . CONSTITUTIONAL: ANY CHANGE IN YOUR MEDICAL CONDITION? NO . CHILLS NO . FEVER NO . INFECTION: DO YOU HAVE NEW INFECTIONS? NO . DO YOU HAVE HISTORY OF MRSA? NO . MUSCULOSKELETAL: ANY NEW PATTERNS OF PAIN OR NUMBNESS? NO . GASTROENTEROLOGY: ANY NEW CHANGE IN BOWEL CONTROL? NO . GENITOURINARY: ANY NEW CHANGE IN BLADDER CONTROL? NO . IS THERE A CHANCE YOU COULD BE ? NO . HEMATOLOGY/LYMPH: DO YOU TAKE ANY BLOOD THINNERS? (FOR EXAMPLE- COUMADIN, PLAVIX, AGGRENOX, PLATEL, PRADAXA, OR XARELTO) NO . WHEN WAS YOUR LAST DOSE? DATE: TIME: . NEUROLOGY: HAVE YOU FALLEN IN THE PAST 6 MONTHS? NO . ANY NEW EXTREMITY NUMBNESS OR WEAKNESS? NO . CARDIOLOGY: DO YOU HAVE A PACEMAKER OR DEFIBRILLATOR? NO . RESPIRATORY: HAVE YOU BEEN SICK IN THE PAST WEEK? NO . FEVER NO . FLU LIKE SYMPTOMS? NO . COUGH NO . INTEGUMENTARY: DO YOU HAVE ANY RASHES OR OPEN SORES? NO . ALLERGIC/IMMUNO: ARE YOU ALLERGIC TO SHELLFISH OR IV DYE? NO . ANY NEW ALLERGIES? NO . PSYCHIATRIC: DO YOU HAVE THOUGHTS OF HURTING YOURSELF OR SOMEONE ELSE? NO . ARE YOU ABUSED, NEGLECTED, OR IN AN UNSAFE ENVIRONMENT? NO . ENDOCRINOLOGY: ARE YOU DIABETIC? NO . OTHER: DO YOU NEED ANY PRESCRIPTIONS? NO . IF YES, PLEASE LIST: ____ . ANY NEW PROBLEMS WITH YOUR MEDICATIONS? NO . WHEN DID YOU LAST EAT? 11-02-16 PM . WHEN DID YOU LAST DRINK? 11-03-16 0530 . WHAT DID YOU LAST DRINK? WATER . NAME OF PERSON DRIVING YOU HOME? WARD FERREIRA . DO YOU HAVE ANY OTHER QUESTIONS OR CONCERNS YES, NECK AND BACK, LEFT LEG IS HURTING. WORSE PAIN AND NUMBNESS DOESN'T LET UP. &NBSP;. VITAL SIGNS WT 234.4 LBS, HT 69 IN, BMI 34.61 INDEX, BP 139/91 MM HG, HR 65 /MIN, RR 18 /MIN, TEMP 97.4 F, OXYGEN SAT % 97%, NA INITIALS SC 08:42, REVIEWED BY: CM. ASSESSMENTS MYALGIA - M79.1 (PRIMARY) PROCEDURES PN TRIGGER POINT INJECTION WITH STEROIDS PRE PROCEDURE DIAGNOSIS 1. MYALGIA 2. PAIN AT BILATERAL NECK AREA AND LEFT SHOULDER AREA POST PROCEDURE DIAGNOSIS 1. MYALGIA 2. PAIN AT BILATERAL NECK AREA AND LEFT SHOULDER AREA PROCEDURE TRIGGER POINT INJECTION AT BILATERAL NECK AREA AND LEFT SHOULDER AREA SURGEON DR. SANDY STORY PHARMACY TECHNICIAN ASSISTANT NONE ANESTHESIA LOCAL PRE PROCEDURE NOTE THE PATIENT HAS A HISTORY OF CHRONIC PAIN AT THE RIGHT AND LEFT NECK AREA AND LEFT SHOULDER AREA. I EVALUATE THE PATIENT AND REVIEWED THE CHART. THERE IS EVIDENCE OF BANDS OF TISSUE WITH RESTRICTION OF MOVEMENT AND PRESENCE OF TRIGGER POINT AT THE AFFECTED AREA. I WENT OVER THE RISKS, ALTERNATIVES, AND BENEFITS ASSOCIATED WITH THIS PROCEDURE. THE PATIENT WOULD LIKE TO PROCEED AND GIVE CONSENT TO PERFORMED THE PROCEDURE. THE PATIENT DENIES UNEXPLAINABLE WEIGHT LOSS, FEVER, CHILLS, OR NEW CHANGES IN URINARY OR BOWEL CONTROL DESCRIPTION OF PROCEDURE THE PATIENT WAS BROUGHT TO THE PROCEDURE ROOM AND PLACED IN THE SITTING POSITION. THE AREA WAS CLEANED WITH ALCOHOL. THE PROCEDURE WAS DONE USING ASEPTIC STERILE TECHNIQUE. I CHECKED LATERALITY AND THE LEVEL WHERE THE PROCEDURE WAS GOING TO BE PERFORMED WITH THE PATIENT AND THE SUPPORTING STAFF AT THE MOMENT OF THE TIME OUT IN THE PROCEDURE ROOM. USING A 25-GAUGE NEEDLE, TRIGGER POINTS WERE INJECTED AT THE RIGHT AND LEFT NECK AREA AND LEFT SHOULDER AREA WITH A TOTAL OF 40 ML OF BUPIVACAINE 0.25% AND KENALOG 40 MG. THERE WAS NO EVIDENCE OF BLOOD, PARESTHESIA OR CEREBROSPINAL FLUID DURING THE PROCEDURE. THE PATIENT WAS SENT TO THE RECOVERY ROOM. THE PATIENT WAS MOVING THE EXTREMITIES AND DOING WELL. THERE WAS NO COMPLICATION DURING THE PROCEDURE POST PROCEDURE NOTE THE PATIENT WILL BE SEEN IN A FOLLOW UP IN THE NEXT FEW WEEKS. INSTRUCTIONS WERE GIVEN, QUESTIONS WERE ANSWERED, AND THE PATIENT EXPRESSED UNDERSTANDING AND AGREES WITH THE PLAN. I, STEFANIE TREVINO, DOCUMENTED THE ABOVE INFORMATION ACTING A SCRIBE FOR DR. STORY. I HAVE REVIEWED THE ABOVE DOCUMENT, WRITTEN BY STEFANIE LEE AND I VERIFY THAT IT IS ACCURATE PROCEDURE CODES 81210 INJECT TRIGGER POINTS 3/> DISPOSITION & COMMUNICATION FOLLOW UP 3 WEEKS ELECTRONICALLY SIGNED BY SANDY STORY MD ON 11/13/2016 AT 08:24 PM EDT DISCLAIMER : THIS IS A VISIT SUMMARY EXTRACTED FROM THE [employer] CHART. IT IS NOT A COPY OF THE [employer] PROGRESS NOTE. NERY
== END ==
LOC: M PAIN 08:30
PROVIDERS: ATTEND Anesthesiology
DX: M79.1 Myalgia (principal); G89.29 Other chronic pain; Z79.82 Long term (current) use of aspirin; Z79.899 Other long term (current) drug therapy; J30.9 Allergic rhinitis, unspecified

== ENCOUNTER → 2016-11-15 | Outpatient (CLI) | payer OTHER ==
[~2016-11-15] MED LIST changes: -BUPIVACAINE HCL 0.25% 10 ML VIAL As Ordered ONE; -BUPIVACAINE HCL 0.25% 30 ML VIAL As Ordered ONE; +METHACHOLINE KIT (J7674) INH ONE; -TRIAMCINOLONE ACETONIDE SUSP 40 MG/ML VIAL (J3301) As Ordered ONE; -diazePAM 5 MG TAB As Ordered ONE; -oxyCODONE 5MG TAB As Ordered ONE
--- NOTE | 2016-11-15 08:58 | PFTRPT ---
Tech: Mary MCKEON RRT Age: 56 Sex: Male Race: Height: 68.50 Inches Weight: 237.00 Lbs BSA: 2.21 Diagnosis: R06.00 METHACHOLINE CHALLENGE REPORT: ORDERING PROVIDER: Austin Coronado MD DATE OF SERVICE: 11/15/16 INTERPRETATION: The study was of excellent technical quality. Under protocol, methacholine was administered. At a dose of 2.5 mg (13.875 CDUs), a 34% decline in the FEV1 was noted. The PC20 of 0.5 is significant. Flow rates returned to baseline post bronchodilator administration. IMPRESSION: Positive methacholine challenge study. MTDD
== END ==
LOC: M CARPUL 07:50
PROVIDERS: ATTEND Internal Medicine Pulmonary Disease
DX: R06.00 Dyspnea, unspecified (principal)

== ENCOUNTER → 2016-11-17 | Outpatient (CLI) | payer OTHER ==
[~2016-11-17] MED LIST changes: -METHACHOLINE KIT (J7674) INH ONE
--- NOTE | 2016-12-02 00:35 | ECWPNPC ---
PATIENT NAME: FEDERICO FERREIRA : 1960 GENDER: MALE VISIT DATE: 11/17/2016 DISCHARGE DATE: 11/17/1659 VISIT LOCKED DATE TIME: PHYSICIAN: LAMINE SANTIAGO RESOURCE: LAMINE SANTIAGO REASON FOR APPOINTMENT 1. POST TPI HISTORY OF PRESENT ILLNESS HISTORY OF PRESENT ILLNESS: HERE FOR POST PROC. F/U.HAD TPI 11-03-16.NO IMPROVEMENT AND SOME AGGREVATION IN NECK AND SHOULDER PAIN BUT LESS FREQUENT AND LESS INTENSE LEFT POSTERIOR OCCIPITAL HEADACHE PAIN SINCE TPI.RATING PAIN VAS 8/10.CHIEF AREA OF PAIN IS LOW BACK WITH RADIATION INTO HIPSL>R.DISCUSSED MEDICATION AND TREATMENT OPTIONS. PAIN THE PATIENT DESCRIBES THE PAIN... FALL RISK SCREENING: SCREENING :NO FALLS IN THE PAST YEAR CURRENT MEDICATIONS TAKING ASPIRIN ADULT LOW DOSE 81 MG TABLET DELAYED RELEASE 1 TABLET ORALLY ONCE A DAY TAKING PANTOPRAZOLE SODIUM 20 MG TABLET DELAYED RELEASE 2 TABLETS ORALLY ONCE A DAY TAKING LORATADINE 10 MG TABLET 1 TABLET ORALLY ONCE A DAY TAKING FLUTICASONE PROPIONATE 50 MCG/DOSE SUSPENSION 1 SPRAY IN EACH NOSTRIL NASALLY ONCE A DAY TAKING ALBUTEROL SULFATE HFA 108 (90 BASE) MCG/ACT AEROSOL SOLUTION 2 PUFFS NEEDED INHALATION EVERY 4 HRS TAKING TOPIRAMATE 50 MG TABLET 1 TABLET ORALLY TWICE A DAY TAKING LIDOCAINE-PRILOCAINE 2.5-2.5 % CREAM SMALL AMT TO NECK/LOW BACK EXTERNALLY BID PRN TAKING GABAPENTIN 600 600 MG TABLET 1 TAB(S) ORAL TID FOR PAIN TAKING VIAGRA 100 MG TABLET 1 TABLET NEEDED ORALLY ONCE A DAY TAKING CYMBALTA 60 MG CAPSULE DELAYED RELEASE PARTICLES 1 CAPSULE ORALLY ONCE A DAY TAKING MOBIC 15 MG TABLET 1 TABLET ORALLY ONCE A DAY TAKING OXYBUTYNIN CHLORIDE ER 10 MG TABLET EXTENDED RELEASE 24 HOUR 1 TABLET ORALLY ONCE A DAY TAKING AZELASTINE HCL 0.1 % SOLUTION 1 PUFF IN EACH NOSTRIL NASALLY TWICE A DAY TAKING FLOMAX 0.4 MG CAPSULE 1 CAPSULE ORALLY ONCE A DAY NOT-TAKING CLOTRIMAZOLE 1 % CREAM 1 APPLICATION TO AFFECTED AREA EXTERNALLY TWICE A DAY NOT-TAKING SUCRALFATE 1 GM TABLET 1 TABLET ON AN EMPTY STOMACH ORALLY TWICE A DAY NOT-TAKING MYRBETRIQ 50 MG TABLET 1 TABLET ORALLY ONCE A DAY, NOTES: 09-20-16 NOT-TAKING ADVAIR DISKUS 250-50 MCG/DOSE AEROSOL POWDER BREATH ACTIVATED 1 PUFF INHALATION TWICE A DAY NOT-TAKING CEPHALEXIN 500 MG TABLET 1 TABLET ORALLY THREE TIMES DAILY NOT-TAKING PYRIDIUM 200 MG TABLET 1 TABLET AFTER MEALS ORALLY THREE TIMES A DAY NOT-TAKING PERCOCET 5-325 MG TABLET 1-2 TABLET(S) ORALLY EVERY 6 HRS NEEDED FOR PAIN (MDD 8) NOT-TAKING LASIX 20 MG TABLET 1 TABLET ORALLY ONCE A DAY, PRN NOT-TAKING POTASSIUM CHLORIDE 10 MEQ CAPSULE PO DAILY PRN NOT-TAKING CIPRO 500 MG TABLET 1 TABLET ORALLY DIRECTED- 1 HOUR PRIOR TO CYSTOSCOPY NOT-TAKING IBUPROFEN 800 MG TABLET 1 TABLET ORALLY WITH FOOD THREE TIMES A DAY FOR PAIN MDD3 NOT-TAKING GUAIFENESIN 400 MG TABLET 1 TABLET NEEDED ORALLY EVERY 4 HRS NOT-TAKING VALIUM 10 MG TABLET 1 ORALLY 1 TAB 1HR PRE PROC. MDD1 NOT-TAKING CIPROFLOXACIN HCL 750 MG TABLET 1 TABLET ORALLY BID NOT-TAKING TIZANIDINE HCL 2 MG TABLET 1 TO 2 TABLET NEEDED ORALLY AT NIGHT FOR SPASMS AND PAIN NOT-TAKING TIZANIDINE HCL 4 MG TABLET 1 TABLET NEEDED ORALLY DAILY AT BEDTIME NOT-TAKING TOPIRAMATE 50 MG TABLET 1 TABLET ORALLY TWICE A DAY NOT-TAKING OXYCODONE HCL 15 MG TABLET 1 TABLET NEEDED ORALLY EVERY 6 HRS MEDICATION LIST REVIEWED AND RECONCILED WITH THE PATIENT PAST MEDICAL HISTORY HEADACHE, NECK PAIN SLEEP AOPNEA ARTHRITIS DEPRESSION TINNITUS GERD LOWER BACK, NECK PROBLMES ARTHRITIS NERVE DAMAGE COPD SEASONAL ALLERGIES ALLERGIES SEASONAL: NASAL CONGESTION: ALLERGY SOCIAL HISTORY GENERAL: TOBACCO USE ARE YOU A:FORMER SMOKER HOW LONG HAS IT BEEN SINCE YOU LAST SMOKED?1-5 YEARS EPISCOPAL [id number] NONE LEARNING BARRIERS / SPECIAL NEEDS CHANGE FROM LAST VISIT?NO BARRIERS TO LEARNING?NO HEARING IMPAIRED?NO VISION IMPAIRED?YES :CORRECTIVE LENSES COGNITIVELY IMPAIRED?NO READINESS TO LEARN?YES LEARNING PREFERENCES?NO LEARNING CAPABILITIES PRESENT?YES EMOTIONAL BARRIERS?NO SPECIAL DEVICES?NO COMPUTER GAME PROGRAMMER NEEDED?NO PAIN CLINIC PFS, CLERGY, PUBLIC HEALTH REFERRALS PFS REFERRAL NEEDED?NO CLERGY REFERRAL NEEDED?NO PUBLIC HEALTH REFERRAL NEEDED?NO WAS THE PROVIDER NOTIFIED OF ANY PERTINENT INFO?NO HAS THE PATIENT BEEN EDUCATED REGARDING HIS/HER PLAN OF CARE?YES HAS THE PATIENT BEEN EDUCATED REGARDING PAIN, THE RISK FOR PAIN, THE IMPORTANCE OF EFFECTIVE PAIN MANAGEMENT, AND THE PAIN ASSESSMENT PROCESS?YES PATIENT: ____. ADVANCE DIRECTIVES HEALTH CARE PROXY?NO WOULD YOU LIKE MORE INFORMATION?NO DO YOU HAVE A DNR?NO WOULD YOU LIKE MORE INFORMATION?NO LIVING WILL?NO WOULD YOU LIKE MORE INFORMATION?NO POWER OF GRAPHICS EDIT TECHNICIAN?NO WOULD YOU LIKE MORE INFORMATION?NO REVIEW OF SYSTEMS REVIEWED BY: PROVIDER: LAMINE WALLCAE . CONSTITUTIONAL: ANY CHANGE IN YOUR MEDICAL CONDITION? NO . CHILLS NO . FEVER NO . INFECTION: DO YOU HAVE NEW INFECTIONS? NO . DO YOU HAVE HISTORY OF MRSA? NO . MUSCULOSKELETAL: ANY NEW PATTERNS OF PAIN OR NUMBNESS? YES, BEHIND LEFT KNEE CAP . GASTROENTEROLOGY: ANY NEW CHANGE IN BOWEL CONTROL? NO . GENITOURINARY: ANY NEW CHANGE IN BLADDER CONTROL? YES, BEING TREATED BY DR. MCKEON . IS THERE A CHANCE YOU COULD BE ? NO . HEMATOLOGY/LYMPH: DO YOU TAKE ANY BLOOD THINNERS? (FOR EXAMPLE- COUMADIN, PLAVIX, AGGRENOX, PLATEL, PRADAXA, OR XARELTO) NO . WHEN WAS YOUR LAST DOSE? DATE: TIME: . NEUROLOGY: HAVE YOU FALLEN IN THE PAST 6 MONTHS? NO . ANY NEW EXTREMITY NUMBNESS OR WEAKNESS? NO . CARDIOLOGY: DO YOU HAVE A PACEMAKER OR DEFIBRILLATOR? NO . RESPIRATORY: HAVE YOU BEEN SICK IN THE PAST WEEK? NO . FEVER NO . FLU LIKE SYMPTOMS? NO . COUGH NO . INTEGUMENTARY: DO YOU HAVE ANY RASHES OR OPEN SORES? NO . ALLERGIC/IMMUNO: ARE YOU ALLERGIC TO SHELLFISH OR IV DYE? NO . ANY NEW ALLERGIES? NO . PSYCHIATRIC: DO YOU HAVE THOUGHTS OF HURTING YOURSELF OR SOMEONE ELSE? NO . ARE YOU ABUSED, NEGLECTED, OR IN AN UNSAFE ENVIRONMENT? NO . ENDOCRINOLOGY: ARE YOU DIABETIC? NO . OTHER: DO YOU NEED ANY PRESCRIPTIONS? NO . IF YES, PLEASE LIST: ____ . ANY NEW PROBLEMS WITH YOUR MEDICATIONS? NO . WHEN DID YOU LAST EAT? ____ . WHEN DID YOU LAST DRINK? ____ . WHAT DID YOU LAST DRINK? ____ . NAME OF PERSON DRIVING YOU HOME? ____ . DO YOU HAVE ANY OTHER QUESTIONS OR CONCERNS YES,LEFT LEG BEHIND KNEE CAP SWELLS AND CAN FEEL A LUMP IN THERE AND HURTS TO WALK ON AND MOVE. . VITAL SIGNS WT 234.8 LBS, HT 69 IN, BMI 34.67 INDEX, BP 148/92 MM HG, HR 71 /MIN, RR 18 /MIN, TEMP 97.2 F, OXYGEN SAT % 98, SAFE IN ENV? (Y/N) Y, NA INITIALS MP 9:02, REVIEWED BY: ELIJAH. EXAMINATION GENERAL EXAMINATION: GENERAL APPEARANCE:ALERT /ORIENTED. LUNGS:LUNG VIDAL ARE CLEAR TO AUSCULTATION BILATERALLY. GOOD MOVEMENT OF AIR. HEART:S1, S2 IN A REGULAR RATE AND RHYTHM. NO SIGNIFICANT MURMURS, RUBS OR GALLOPS NOTED. CERVICAL SPINE/NECK: VERTEBRAL SPINE TENDERNESS:PRESENT OVER CERVICAL AND LUMBAR SPINE. MYOFASCIAL TRIGGER POINTS:TRAPEZIUS BILAT. 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 PREVENTIVE MEDICINE PAIN CLINIC TEACHING: MEDICATIONS ADDITIONAL 30 MG CYMBALTA DAILY. PATIENT VERBALIZES UNDERSTANDING.. PROCEDURE CODES FA211 ESTABILISHED PATIENT [facility] CHARGE DISPOSITION & COMMUNICATION FOLLOW UP F/U DEC/JAN (REASON: PT 2XWK X 6WK-MYOFASCIAL RELEASE UPPER BACK AND NECK L>R-REQUEST FIDELLIS) ELECTRONICALLY SIGNED BY RODRIGO VALLE ON 12/01/2016 AT 08:04 PM EDT DISCLAIMER : THIS IS A VISIT SUMMARY EXTRACTED FROM THE [employer] CHART. IT IS NOT A COPY OF THE [employer] PROGRESS NOTE. NERY
== END | disposition home or self-care (01) ==
LOC: M PAIN 09:00
PROVIDERS: ATTEND Nurse Practitioner Family
DX: G89.29 Other chronic pain (principal); M43.02 Spondylolysis, cervical region; M79.1 Myalgia; M19.90 Unspecified osteoarthritis, unspecified site; F33.9 Major depressive disorder, recurrent, unspecified; K21.9 Gastro-esophageal reflux disease without esophagitis; J44.9 Chronic obstructive pulmonary disease, unspecified; Z79.899 Other long term (current) drug therapy; Z79.82 Long term (current) use of aspirin; Z87.891 Personal history of nicotine dependence

== ENCOUNTER → 2016-12-28 | Outpatient (CLI) | payer OTHER ==
--- NOTE | 2017-01-08 23:42 | ECWPNPC ---
PATIENT NAME: FEDERICO FERREIRA : 1960 GENDER: MALE VISIT DATE: 12/28/2016 DISCHARGE DATE: 12/28/16 0943 VISIT LOCKED DATE TIME: PHYSICIAN: LAMINE SANTIAGO RESOURCE: LAMINE SANTIAGO REASON FOR APPOINTMENT 1. BACK/NECK HISTORY OF PRESENT ILLNESS HISTORY OF PRESENT ILLNESS: HERE FOR F/U.HAD TPI 11-03-16.NO IMPROVEMENT AND SOME AGGREVATION IN NECK AND SHOULDER PAIN BUT LESS FREQUENT AND LESS INTENSE LEFT POSTERIOR OCCIPITAL HEADACHE PAIN SINCE TPI.RATING PAIN VAS 8/10.CHIEF AREA OF PAIN IS LOW BACK WITH RADIATION INTO HIPSL>R.DISCUSSED MEDICATION AND TREATMENT OPTIONS.COMPLAINING OF MUSCLE SPASM TYPE LOW BACK PAIN. PAIN THE PATIENT DESCRIBES THE PAIN... THE PATIENT DESCRIBES THE PAIN... FALL RISK SCREENING: SCREENING :NO FALLS IN THE PAST YEAR CURRENT MEDICATIONS TAKING ASPIRIN ADULT LOW DOSE 81 MG TABLET DELAYED RELEASE 1 TABLET ORALLY ONCE A DAY TAKING PANTOPRAZOLE SODIUM 20 MG TABLET DELAYED RELEASE 2 TABLETS ORALLY ONCE A DAY TAKING LORATADINE 10 MG TABLET 1 TABLET ORALLY ONCE A DAY TAKING FLUTICASONE PROPIONATE 50 MCG/DOSE SUSPENSION 1 SPRAY IN EACH NOSTRIL NASALLY ONCE A DAY TAKING ALBUTEROL SULFATE HFA 108 (90 BASE) MCG/ACT AEROSOL SOLUTION 2 PUFFS NEEDED INHALATION EVERY 4 HRS TAKING TOPIRAMATE 50 MG TABLET 1 TABLET ORALLY TWICE A DAY TAKING VIAGRA 100 MG TABLET 1 TABLET NEEDED ORALLY ONCE A DAY TAKING OXYBUTYNIN CHLORIDE ER 10 MG TABLET EXTENDED RELEASE 24 HOUR 1 TABLET ORALLY ONCE A DAY TAKING AZELASTINE HCL 0.1 % SOLUTION 1 PUFF IN EACH NOSTRIL NASALLY TWICE A DAY TAKING FLOMAX 0.4 MG CAPSULE 1 CAPSULE ORALLY ONCE A DAY TAKING CYMBALTA 30 MG CAPSULE DELAYED RELEASE PARTICLES 1 CAPSULE ORALLY DAILY TAKING LIDOCAINE-PRILOCAINE 2.5-2.5 % CREAM SMALL AMT TO NECK/LOW BACK EXTERNALLY BID PRN TAKING GABAPENTIN 600 600 MG TABLET 1 TAB(S) ORAL TID FOR PAIN TAKING MOBIC 15 MG TABLET 1 TABLET ORALLY ONCE A DAY TAKING CYMBALTA 60 MG CAPSULE DELAYED RELEASE PARTICLES 1 CAPSULE ORALLY ONCE A DAY TAKING DULERA 200-5 MCG/ACT AEROSOL 2 PUFFS INHALATION TWICE A DAY NOT-TAKING CLOTRIMAZOLE 1 % CREAM 1 APPLICATION TO AFFECTED AREA EXTERNALLY TWICE A DAY NOT-TAKING SUCRALFATE 1 GM TABLET 1 TABLET ON AN EMPTY STOMACH ORALLY TWICE A DAY NOT-TAKING MYRBETRIQ 50 MG TABLET 1 TABLET ORALLY ONCE A DAY, NOTES: 09-20-160800 NOT-TAKING ADVAIR DISKUS 250-50 MCG/DOSE AEROSOL POWDER BREATH ACTIVATED 1 PUFF INHALATION TWICE A DAY NOT-TAKING CEPHALEXIN 500 MG TABLET 1 TABLET ORALLY THREE TIMES DAILY NOT-TAKING PYRIDIUM 200 MG TABLET 1 TABLET AFTER MEALS ORALLY THREE TIMES A DAY NOT-TAKING PERCOCET 5-325 MG TABLET 1-2 TABLET(S) ORALLY EVERY 6 HRS NEEDED FOR PAIN (MDD 8) NOT-TAKING LASIX 20 MG TABLET 1 TABLET ORALLY ONCE A DAY, PRN NOT-TAKING POTASSIUM CHLORIDE 10 MEQ CAPSULE PO DAILY PRN NOT-TAKING CIPRO 500 MG TABLET 1 TABLET ORALLY DIRECTED- 1 HOUR PRIOR TO CYSTOSCOPY NOT-TAKING IBUPROFEN 800 MG TABLET 1 TABLET ORALLY WITH FOOD THREE TIMES A DAY FOR PAIN MDD3 NOT-TAKING GUAIFENESIN 400 MG TABLET 1 TABLET NEEDED ORALLY EVERY 4 HRS NOT-TAKING VALIUM 10 MG TABLET 1 ORALLY 1 TAB 1HR PRE PROC. MDD1 NOT-TAKING CIPROFLOXACIN HCL 750 MG TABLET 1 TABLET ORALLY BID NOT-TAKING TIZANIDINE HCL 2 MG TABLET 1 TO 2 TABLET NEEDED ORALLY AT NIGHT FOR SPASMS AND PAIN NOT-TAKING TIZANIDINE HCL 4 MG TABLET 1 TABLET NEEDED ORALLY DAILY AT BEDTIME NOT-TAKING TOPIRAMATE 50 MG TABLET 1 TABLET ORALLY TWICE A DAY NOT-TAKING OXYCODONE HCL 15 MG TABLET 1 TABLET NEEDED ORALLY EVERY 6 HRS MEDICATION LIST REVIEWED AND RECONCILED WITH THE PATIENT PAST MEDICAL HISTORY HEADACHE, NECK PAIN SLEEP AOPNEA ARTHRITIS DEPRESSION TINNITUS GERD LOWER BACK, NECK PROBLMES ARTHRITIS NERVE DAMAGE COPD SEASONAL ALLERGIES ALLERGIES SEASONAL: NASAL CONGESTION: ALLERGY REVIEW OF SYSTEMS REVIEWED BY: PROVIDER: LAMINE WALLACE . CONSTITUTIONAL: ANY CHANGE IN YOUR MEDICAL CONDITION? NO . CHILLS NO . FEVER NO . INFECTION: DO YOU HAVE NEW INFECTIONS? NO . DO YOU HAVE HISTORY OF MRSA? NO . MUSCULOSKELETAL: ANY NEW PATTERNS OF PAIN OR NUMBNESS? NO . GASTROENTEROLOGY: ANY NEW CHANGE IN BOWEL CONTROL? NO . GENITOURINARY: ANY NEW CHANGE IN BLADDER CONTROL? NO . IS THERE A CHANCE YOU COULD BE ? NO . HEMATOLOGY/LYMPH: DO YOU TAKE ANY BLOOD THINNERS? (FOR EXAMPLE- COUMADIN, PLAVIX, AGGRENOX, PLATEL, PRADAXA, OR XARELTO) NO . WHEN WAS YOUR LAST DOSE? DATE: TIME: . NEUROLOGY: HAVE YOU FALLEN IN THE PAST 6 MONTHS? NO . ANY NEW EXTREMITY NUMBNESS OR WEAKNESS? NO . CARDIOLOGY: DO YOU HAVE A PACEMAKER OR DEFIBRILLATOR? NO . RESPIRATORY: HAVE YOU BEEN SICK IN THE PAST WEEK? NO . FEVER NO . FLU LIKE SYMPTOMS? NO . COUGH NO . INTEGUMENTARY: DO YOU HAVE ANY RASHES OR OPEN SORES? NO . ALLERGIC/IMMUNO: ARE YOU ALLERGIC TO SHELLFISH OR IV DYE? NO . ANY NEW ALLERGIES? NO . PSYCHIATRIC: DO YOU HAVE THOUGHTS OF HURTING YOURSELF OR SOMEONE ELSE? NO . ARE YOU ABUSED, NEGLECTED, OR IN AN UNSAFE ENVIRONMENT? NO . ENDOCRINOLOGY: ARE YOU DIABETIC? NO . OTHER: DO YOU NEED ANY PRESCRIPTIONS? YES . IF YES, PLEASE LIST: ____DULOXETINE, MELOXICAM, LIDOCAINE CREAM . ANY NEW PROBLEMS WITH YOUR MEDICATIONS? NO . WHEN DID YOU LAST EAT? ____ . WHEN DID YOU LAST DRINK? ____ . WHAT DID YOU LAST DRINK? ____ . NAME OF PERSON DRIVING YOU HOME? ____ . DO YOU HAVE ANY OTHER QUESTIONS OR CONCERNS YES PT REPORTS INCREASED CRAMPING OF HANDS, ARMS, FINGERS, LEGS, FEET, TOES, BACK, AND SHOULDERS. . VITAL SIGNS WT 234 LBS, HT 69 IN, BMI 34.55 INDEX, BP 137/93 MM HG, HR 63 /MIN, RR 18 /MIN, TEMP 97.0 F, OXYGEN SAT % 97%, SAFE IN ENV? (Y/N) YES, NA INITIALS AW 0853, REVIEWED BY: MAXIMILIAN. EXAMINATION GENERAL EXAMINATION: GENERAL APPEARANCE:ALERT /ORIENTED. LUNGS:LUNG VIDAL ARE CLEAR TO AUSCULTATION BILATERALLY. GOOD MOVEMENT OF AIR. HEART:S1, S2 IN A REGULAR RATE AND RHYTHM. NO SIGNIFICANT MURMURS, RUBS OR GALLOPS NOTED. CERVICAL SPINE/NECK: VERTEBRAL SPINE TENDERNESS:PRESENT OVER CERVICAL AND LUMBAR SPINE. MYOFASCIAL TRIGGER POINTS:TRAPEZIUS BILAT. 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 PROCEDURE CODES [id number] ESTABILISHED PATIENT [facility] CHARGE DISPOSITION & COMMUNICATION FOLLOW UP 6 WEEKS (REASON: F/U PT/MEDS) ELECTRONICALLY SIGNED BY RODRIGO VALLE ON 01/08/2017 AT 06:24 PM EDT DISCLAIMER : THIS IS A VISIT SUMMARY EXTRACTED FROM THE [employer] CHART. IT IS NOT A COPY OF THE [employer] PROGRESS NOTE. NERY
== END ==
LOC: M PAIN 08:30
PROVIDERS: ATTEND Nurse Practitioner Family
DX: M12.88 Other specific arthropathies, not elsewhere classified, other specified site (principal); M43.02 Spondylolysis, cervical region; M79.1 Myalgia; Z79.82 Long term (current) use of aspirin; Z79.899 Other long term (current) drug therapy; J30.9 Allergic rhinitis, unspecified

== ENCOUNTER → 2017-03-01 | Outpatient (CLI) | payer OTHER ==
--- NOTE | 2017-03-21 01:54 | ECWPNPC ---
PATIENT NAME: FEDERICO FERREIRA : 1960 GENDER: MALE VISIT DATE: 03/01/2017 DISCHARGE DATE: 03/01/17 1005 VISIT LOCKED DATE TIME: PHYSICIAN: LAMINE SANTIAGO RESOURCE: LAMINE SANTIAGO REASON FOR APPOINTMENT 1. BACK/NECK HISTORY OF PRESENT ILLNESS HISTORY OF PRESENT ILLNESS: HERE FOR F/U OF CHRONIC GENERALIZED BODY PAIN.WORSE AREA OF PAIN IS LOW BACK AND LEFT LEG PAIN.RATING PAIN VAS 9/10.FOLLOWING WITH DR. PRICE FOR CHRONIC NECK AND LOW BACK PAIN.FOLLOWING WITH PRIMARY CARE FOR LEFT LEG ISSUES AND IMAGING DONE DOESNT REVEAL ANY PROBLEMS. PAIN THE PATIENT DESCRIBES THE PAIN... FALL RISK SCREENING: SCREENING :NO FALLS IN THE PAST YEAR CURRENT MEDICATIONS TAKING ASPIRIN ADULT LOW DOSE 81 MG TABLET DELAYED RELEASE 1 TABLET ORALLY ONCE A DAY TAKING PANTOPRAZOLE SODIUM 20 MG TABLET DELAYED RELEASE 2 TABLETS ORALLY ONCE A DAY TAKING LORATADINE 10 MG TABLET 1 TABLET ORALLY ONCE A DAY TAKING FLUTICASONE PROPIONATE 50 MCG/DOSE SUSPENSION 1 SPRAY IN EACH NOSTRIL NASALLY ONCE A DAY TAKING ALBUTEROL SULFATE HFA 108 (90 BASE) MCG/ACT AEROSOL SOLUTION 2 PUFFS NEEDED INHALATION EVERY 4 HRS TAKING TOPIRAMATE 50 MG TABLET 1 TABLET ORALLY TWICE A DAY TAKING VIAGRA 100 MG TABLET 1 TABLET NEEDED ORALLY ONCE A DAY TAKING AZELASTINE HCL 0.1 % SOLUTION 1 PUFF IN EACH NOSTRIL NASALLY TWICE A DAY TAKING LIDOCAINE-PRILOCAINE 2.5-2.5 % CREAM SMALL AMT TO NECK/LOW BACK EXTERNALLY BID PRN TAKING GABAPENTIN 600 600 MG TABLET 1 TAB(S) ORAL TID FOR PAIN TAKING DULERA 200-5 MCG/ACT AEROSOL 2 PUFFS INHALATION TWICE A DAY TAKING OXYBUTYNIN CHLORIDE ER 15 MG TABLET EXTENDED RELEASE 24 HOUR 1 TABLET ORALLY ONCE A DAY TAKING FLOMAX 0.4 MG CAPSULE 1 CAPSULE ORALLY ONCE A DAY TAKING CYMBALTA 60 MG CAPSULE DELAYED RELEASE PARTICLES 1 CAPSULE ORALLY ONCE A DAY TAKING MOBIC 15 MG TABLET 1 TABLET ORALLY DIRECTED NOT-TAKING CYMBALTA 30 MG CAPSULE DELAYED RELEASE PARTICLES 1 CAPSULE ORALLY DAILY NOT-TAKING ROBAXIN-750 750 MG TABLET 1 TABLET ORALLY Q8H PRN MDD3 NOT-TAKING CLOTRIMAZOLE 1 % CREAM 1 APPLICATION TO AFFECTED AREA EXTERNALLY TWICE A DAY NOT-TAKING SUCRALFATE 1 GM TABLET 1 TABLET ON AN EMPTY STOMACH ORALLY TWICE A DAY NOT-TAKING MYRBETRIQ 50 MG TABLET 1 TABLET ORALLY ONCE A DAY, NOTES: 09-20-1608 NOT-TAKING ADVAIR DISKUS 250-50 MCG/DOSE AEROSOL POWDER BREATH ACTIVATED 1 PUFF INHALATION TWICE A DAY NOT-TAKING CEPHALEXIN 500 MG TABLET 1 TABLET ORALLY THREE TIMES DAILY NOT-TAKING PYRIDIUM 200 MG TABLET 1 TABLET AFTER MEALS ORALLY THREE TIMES A DAY NOT-TAKING PERCOCET 5-325 MG TABLET 1-2 TABLET(S) ORALLY EVERY 6 HRS NEEDED FOR PAIN (MDD 8) NOT-TAKING LASIX 20 MG TABLET 1 TABLET ORALLY ONCE A DAY, PRN NOT-TAKING POTASSIUM CHLORIDE 10 MEQ CAPSULE PO DAILY PRN NOT-TAKING CIPRO 500 MG TABLET 1 TABLET ORALLY DIRECTED- 1 HOUR PRIOR TO CYSTOSCOPY NOT-TAKING IBUPROFEN 800 MG TABLET 1 TABLET ORALLY WITH FOOD THREE TIMES A DAY FOR PAIN MDD3 NOT-TAKING GUAIFENESIN 400 MG TABLET 1 TABLET NEEDED ORALLY EVERY 4 HRS NOT-TAKING VALIUM 10 MG TABLET 1 ORALLY 1 TAB 1HR PRE PROC. MDD1 NOT-TAKING CIPROFLOXACIN HCL 750 MG TABLET 1 TABLET ORALLY BID NOT-TAKING TIZANIDINE HCL 2 MG TABLET 1 TO 2 TABLET NEEDED ORALLY AT NIGHT FOR SPASMS AND PAIN NOT-TAKING TIZANIDINE HCL 4 MG TABLET 1 TABLET NEEDED ORALLY DAILY AT BEDTIME NOT-TAKING TOPIRAMATE 50 MG TABLET 1 TABLET ORALLY TWICE A DAY NOT-TAKING OXYCODONE HCL 15 MG TABLET 1 TABLET NEEDED ORALLY EVERY 6 HRS MEDICATION LIST REVIEWED AND RECONCILED WITH THE PATIENT PAST MEDICAL HISTORY HEADACHE, NECK PAIN SLEEP AOPNEA ARTHRITIS DEPRESSION TINNITUS GERD LOWER BACK, NECK PROBLMES ARTHRITIS NERVE DAMAGE COPD SEASONAL ALLERGIES ALLERGIES SEASONAL: NASAL CONGESTION: ALLERGY SURGICAL HISTORY CARPAL TUNNEL SURGERY RIGHT 08/30 CARPAL TUNNEL SURGERY LEFT - DONE TWO TIMES 06/30 CHOLECYSTECTOMY LEFT KNEE SCOPE HERNIA REPAIR X3 NERVE BLOCKS VASECTOMY POLUPS REMOVED FROM SINUSES EPIDIDYMAL CYST REMOVAL 07/18/16 SOCIAL HISTORY GENERAL: TOBACCO USE ARE YOU A:FORMER SMOKER HOW LONG HAS IT BEEN SINCE YOU LAST SMOKED?1-5 YEARS LATTER DAY [id number] NONE LEARNING BARRIERS / SPECIAL NEEDS CHANGE FROM LAST VISIT?NO BARRIERS TO LEARNING?NO HEARING IMPAIRED?NO VISION IMPAIRED?YES :CORRECTIVE LENSES COGNITIVELY IMPAIRED?NO READINESS TO LEARN?YES LEARNING PREFERENCES?NO LEARNING CAPABILITIES PRESENT?YES EMOTIONAL BARRIERS?NO SPECIAL DEVICES?NO INDUSTRIAL HYGIENE TECHNICIAN NEEDED?NO PAIN CLINIC PFS, CLERGY, PUBLIC HEALTH REFERRALS PFS REFERRAL NEEDED?NO CLERGY REFERRAL NEEDED?NO PUBLIC HEALTH REFERRAL NEEDED?NO WAS THE PROVIDER NOTIFIED OF ANY PERTINENT INFO?NO HAS THE PATIENT BEEN EDUCATED REGARDING HIS/HER PLAN OF CARE?YES HAS THE PATIENT BEEN EDUCATED REGARDING PAIN, THE RISK FOR PAIN, THE IMPORTANCE OF EFFECTIVE PAIN MANAGEMENT, AND THE PAIN ASSESSMENT PROCESS?YES PATIENT: ____. ADVANCE DIRECTIVES HEALTH CARE PROXY?NO WOULD YOU LIKE MORE INFORMATION?NO DO YOU HAVE A DNR?NO WOULD YOU LIKE MORE INFORMATION?NO LIVING WILL?NO WOULD YOU LIKE MORE INFORMATION?NO POWER OF SILVERWARE BUFFING MACHINE OPERATOR?NO WOULD YOU LIKE MORE INFORMATION?NO HOSPITALIZATION/MAJOR DIAGNOSTIC PROCEDURE CHEST PAIN 07/2015 CYSTOSCOPY REVIEW OF SYSTEMS REVIEWED BY: PROVIDER: LAMINE WALLACE . CONSTITUTIONAL: ANY CHANGE IN YOUR MEDICAL CONDITION? YES, LEFT LEG PAIN AND BACK PAIN IS CREEPING UP BACK . CHILLS NO . FEVER NO . INFECTION: DO YOU HAVE NEW INFECTIONS? NO . DO YOU HAVE HISTORY OF MRSA? NO . MUSCULOSKELETAL: ANY NEW PATTERNS OF PAIN OR NUMBNESS? YES, PAIN IN BACK AND LEFT LEG . GASTROENTEROLOGY: ANY NEW CHANGE IN BOWEL CONTROL? NO . GENITOURINARY: ANY NEW CHANGE IN BLADDER CONTROL? YES, PT REPORTS OVERACTIVE BLADDER AT NIGHT, S/S HAVE RESOLVED WITH SEEING ABEL TROTTER FOR THIS, PT NOW TAKING OXYBUTININ ER 15MG DAILY . IS THERE A CHANCE YOU COULD BE ? NO . HEMATOLOGY/LYMPH: DO YOU TAKE ANY BLOOD THINNERS? (FOR EXAMPLE- COUMADIN, PLAVIX, AGGRENOX, PLATEL, PRADAXA, OR XARELTO) NO . WHEN WAS YOUR LAST DOSE? DATE: TIME: . NEUROLOGY: HAVE YOU FALLEN IN THE PAST 6 MONTHS? NO . ANY NEW EXTREMITY NUMBNESS OR WEAKNESS? NO . CARDIOLOGY: DO YOU HAVE A PACEMAKER OR DEFIBRILLATOR? NO . RESPIRATORY: HAVE YOU BEEN SICK IN THE PAST WEEK? NO . FEVER NO . FLU LIKE SYMPTOMS? NO . COUGH NO . INTEGUMENTARY: DO YOU HAVE ANY RASHES OR OPEN SORES? NO . ALLERGIC/IMMUNO: ARE YOU ALLERGIC TO SHELLFISH OR IV DYE? NO . ANY NEW ALLERGIES? NO . PSYCHIATRIC: DO YOU HAVE THOUGHTS OF HURTING YOURSELF OR SOMEONE ELSE? NO . ARE YOU ABUSED, NEGLECTED, OR IN AN UNSAFE ENVIRONMENT? NO . ENDOCRINOLOGY: ARE YOU DIABETIC? NO . OTHER: DO YOU NEED ANY PRESCRIPTIONS? NO . IF YES, PLEASE LIST: ____ . ANY NEW PROBLEMS WITH YOUR MEDICATIONS? YES, PT C/O HEADACHES WHEN TAKING ROBAXIN, PT D/C'D RX . WHEN DID YOU LAST EAT? ____ . WHEN DID YOU LAST DRINK? ____ . WHAT DID YOU LAST DRINK? ____ . NAME OF PERSON DRIVING YOU HOME? ____ . DO YOU HAVE ANY OTHER QUESTIONS OR CONCERNS NO, PT DENIES HAVING RECEIVED FLU VACCINE THIS SEASON, PLANS TO. DISCUSSED AVOIDING FLU VACCINE WITHIN 1 MONTH OF ANY PROCEDURES WITH US . VITAL SIGNS WT 240.4 LBS, HT 69 IN, BMI 35.50 INDEX, BP 151/91 MM HG, HR 70 /MIN, RR 18 /MIN, TEMP 96.7 F, OXYGEN SAT % 97%, NA INITIALS SC 09:04, REVIEWED BY: EM. EXAMINATION GENERAL EXAMINATION: GENERAL APPEARANCE:ALERT /ORIENTED . LUNGS:LUNG VIDAL ARE CLEAR TO AUSCULTATION BILATERALLY. GOOD MOVEMENT OF AIR . HEART:S1, S2 IN A REGULAR RATE AND RHYTHM. NO SIGNIFICANT MURMURS, RUBS OR GALLOPS NOTED . MUSCULOSKELETAL:MUSCLE STRENGTH TESTING 2/5 BILATERAL. NEUROLOGIC EXAM:NORMAL SENSATION LIGHT TOUCH BILATERAL LOWER EXTREMITIES. CERVICAL SPINE/NECK: VERTEBRAL SPINE TENDERNESS:PRESENT OVER CERVICAL AND LUMBAR SPINE. MYOFASCIAL TRIGGER POINTS:TRAPEZIUS BILAT. 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 CLINICAL NOTES: TRAMADOL PT HANDOUT PRINTED, REVIEWED AND GIVEN TO PT. EM. PROCEDURE CODES FA211 ESTABILISHED PATIENT [facility] CHARGE DISPOSITION & COMMUNICATION FOLLOW UP 2WK POST (REASON: L4/5 INTRALAMINAR LESI) ELECTRONICALLY SIGNED BY RODRIGO VALLE ON 03/20/2017 AT 08:33 AM EST DISCLAIMER : THIS IS A VISIT SUMMARY EXTRACTED FROM THE [employer] CHART. IT IS NOT A COPY OF THE [employer] PROGRESS NOTE. NERY
== END ==
LOC: M PAIN 09:00
PROVIDERS: ATTEND Nurse Practitioner Family
DX: M12.88 Other specific arthropathies, not elsewhere classified, other specified site (principal); M54.17 Radiculopathy, lumbosacral region; G89.29 Other chronic pain; K21.9 Gastro-esophageal reflux disease without esophagitis; J30.2 Other seasonal allergic rhinitis; J44.9 Chronic obstructive pulmonary disease, unspecified; N32.81 Overactive bladder; Z79.82 Long term (current) use of aspirin; Z79.891 Long term (current) use of opiate analgesic; Z79.899 Other long term (current) drug therapy; Z87.891 Personal history of nicotine dependence

== ENCOUNTER → 2017-04-05 | Outpatient (CLI) | payer OTHER ==
[~2017-04-05] MED LIST changes: -/LOR25TA PO; -/PREG100CA PO; -ADV100INH INH; -ASPI1TAB PO; -ASPI81TA85 PO; -AZEL0.1S3; -BACL10TA2 PO; -BUPR1TAB53 PO; -CLAR10CA3 PO; -COLA50CA3 PO; -CYCL5TAB PO; -DULO1CAP3 PO; -FENT12PA TOP; -FLOM5CAP PO; -FLUT1SPR2; -GABA100C PO; -GABA300C2 PO; -GABA600T PO; +ISOVUE-M 300 61% 15ML VIAL (Q9967) As Ordered; +LIDOCAINE 1% SDV INJ 30 ML VIAL As Ordered; -LIDOCAINE PRILOCAINE TOP; -META800T82 PO; -MOBI15TA PO; -NICO21DI5 TD; -NICO2GUM8 PO; -OMEP40CA2 PO; -OXYC15TA76 PO; -PANT20TA PO; -PERC7.5T12 PO; -TIZA4CAP PO; -TIZA4TAB3 PO; -TOPA50TA8 PO; -ULTR50TA PO; +diazePAM 5 MG TAB As Ordered; +methylPREDNISolone SUSP 40 MG/ML (DEPO-medrol) VIAL (J1030) As Ordered; +oxyCODONE 5MG TAB As Ordered
== END ==
LOC: M PAIN 10:00
DX: G89.29 Other chronic pain (principal); M51.16 Intervertebral disc disorders with radiculopathy, lumbar region; G47.30 Sleep apnea, unspecified; F32.9 Major depressive disorder, single episode, unspecified; K21.9 Gastro-esophageal reflux disease without esophagitis; J44.9 Chronic obstructive pulmonary disease, unspecified; Z79.82 Long term (current) use of aspirin; Z79.891 Long term (current) use of opiate analgesic; Z79.899 Other long term (current) drug therapy
CPT/HCPCS: J1030

== ENCOUNTER → 2017-06-14 | Outpatient (CLI) | payer OTHER | LOC: M PAIN 09:45 | DX: M79.1 Myalgia (principal); M12.88 Other specific arthropathies, not elsewhere classified, other specified site; M54.17 Radiculopathy, lumbosacral region; M54.2 Cervicalgia; Z79.82 Long term (current) use of aspirin; Z79.891 Long term (current) use of opiate analgesic; Z79.899 Other long term (current) drug therapy; J30.2 Other seasonal allergic rhinitis | CPT/HCPCS: G0463 ==

== ENCOUNTER → 2017-07-14 | Outpatient (CLI) | payer OTHER ==
[~2017-07-14] MED LIST changes: +BUPIVACAINE HCL 0.25% 10 ML VIAL As Ordered; +BUPIVACAINE HCL 0.25% 30 ML VIAL As Ordered; -ISOVUE-M 300 61% 15ML VIAL (Q9967) As Ordered; -LIDOCAINE 1% SDV INJ 30 ML VIAL As Ordered; +TRIAMCINOLONE ACETONIDE SUSP 40 MG/ML VIAL (J3301) As Ordered; -methylPREDNISolone SUSP 40 MG/ML (DEPO-medrol) VIAL (J1030) As Ordered
== END ==
LOC: M PAIN 13:30
DX: G89.29 Other chronic pain (principal); M79.1 Myalgia; J45.909 Unspecified asthma, uncomplicated; Z79.899 Other long term (current) drug therapy; Z79.82 Long term (current) use of aspirin
CPT/HCPCS: J3301

== ENCOUNTER → 2017-10-06 | Outpatient (CLI) | payer OTHER ==
[2017-10-06 12:19] LABS: FREE T4 0.73 NG/DL (0.76-1.46)
[2017-10-06 12:19] LABS: RHEUMATOID FACTOR QUANT < 10.0 IU/ML (<15.0)
[2017-10-06 12:34] LABS: ERYTHROCYTE SEDIMENTATION RATE 7 mm/hr (0-20)
[2017-10-08 00:08] LABS: ANTINUCLEAR ANTIBODIES DIRECT Negative (Negative); Lyme Disease IgG/IgM Antibodie <0.91 ISR (0.00-0.90); Lyme Disease IgM Ab Quantitati <0.80 index (0.00-0.79)
[2017-10-10 10:24] LABS: DRVV SCREEN 48.6 SEC
[2017-10-10 10:32] LABS: PTT LUPUS TYPE ANTICOAG SCREEN 1.1 (0-1.2)
== END ==
LOC: M LAB 10:39
DX: M12.9 Arthropathy, unspecified (principal)
CPT/HCPCS: 84439

== ENCOUNTER → 2017-10-06 | Outpatient (CLI) | payer OTHER | LOC: M PAIN 09:30 | DX: M79.1 Myalgia (principal); M46.97 Unspecified inflammatory spondylopathy, lumbosacral region; M25.50 Pain in unspecified joint; R51 Headache; F32.9 Major depressive disorder, single episode, unspecified; K21.9 Gastro-esophageal reflux disease without esophagitis; R39.15 Urgency of urination; J44.9 Chronic obstructive pulmonary disease, unspecified; Z79.82 Long term (current) use of aspirin; Z79.899 Other long term (current) drug therapy; J30.2 Other seasonal allergic rhinitis; Z87.891 Personal history of nicotine dependence | CPT/HCPCS: G0463 ==

== ENCOUNTER → 2017-11-07 | Outpatient (CLI) | payer OTHER | LOC: M PAIN 13:45 | DX: G89.29 Other chronic pain (principal); M79.1 Myalgia; M54.5 Low back pain; G47.30 Sleep apnea, unspecified; F32.9 Major depressive disorder, single episode, unspecified; K21.9 Gastro-esophageal reflux disease without esophagitis; M19.90 Unspecified osteoarthritis, unspecified site; J44.9 Chronic obstructive pulmonary disease, unspecified; Z79.82 Long term (current) use of aspirin; Z79.899 Other long term (current) drug therapy; Z86.69 Personal history of other diseases of the nervous system and sense organs; Z87.891 Personal history of nicotine dependence | CPT/HCPCS: J3301 ==

== ENCOUNTER → 2017-11-14 | Outpatient (CLI) | payer OTHER | LOC: M PAIN 10:15 | DX: M79.1 Myalgia (principal); M46.97 Unspecified inflammatory spondylopathy, lumbosacral region; M25.50 Pain in unspecified joint; M19.90 Unspecified osteoarthritis, unspecified site; F32.9 Major depressive disorder, single episode, unspecified; K21.9 Gastro-esophageal reflux disease without esophagitis; J44.9 Chronic obstructive pulmonary disease, unspecified; G47.30 Sleep apnea, unspecified; Z79.82 Long term (current) use of aspirin; Z79.899 Other long term (current) drug therapy; Z90.49 Acquired absence of other specified parts of digestive tract; Z86.69 Personal history of other diseases of the nervous system and sense organs; Z87.891 Personal history of nicotine dependence | CPT/HCPCS: G0463 ==

== ENCOUNTER → 2017-12-27 | Outpatient (CLI) | payer OTHER | LOC: M PAIN 09:00 | DX: M79.1 Myalgia (principal); M46.97 Unspecified inflammatory spondylopathy, lumbosacral region; M25.50 Pain in unspecified joint; M54.2 Cervicalgia; G47.30 Sleep apnea, unspecified; M19.90 Unspecified osteoarthritis, unspecified site; F32.9 Major depressive disorder, single episode, unspecified; K21.9 Gastro-esophageal reflux disease without esophagitis; J44.9 Chronic obstructive pulmonary disease, unspecified; J30.2 Other seasonal allergic rhinitis; K59.00 Constipation, unspecified; H93.19 Tinnitus, unspecified ear; R42 Dizziness and giddiness; Z87.891 Personal history of nicotine dependence; Z79.82 Long term (current) use of aspirin; Z79.899 Other long term (current) drug therapy | CPT/HCPCS: G0463 ==

== ENCOUNTER → 2017-12-27 | Outpatient (CLI) | payer OTHER | LOC: M LRY 11:53 | DX: M25.561 Pain in right knee (principal) | CPT/HCPCS: 73564 ==

== ENCOUNTER 2018-01-29 08:13 | Outpatient (RCR) | payer OTHER | END 2018-02-14 | LOC: M PT 08:13 | DX: M54.17 Radiculopathy, lumbosacral region (principal) | CPT/HCPCS: 97140 ==

== ENCOUNTER → 2018-02-07 | Outpatient (CLI) | payer OTHER | LOC: M PAIN 09:00 | DX: M47.22 Other spondylosis with radiculopathy, cervical region (principal); G47.30 Sleep apnea, unspecified; M19.90 Unspecified osteoarthritis, unspecified site; F32.9 Major depressive disorder, single episode, unspecified; K21.9 Gastro-esophageal reflux disease without esophagitis; J44.9 Chronic obstructive pulmonary disease, unspecified; J30.2 Other seasonal allergic rhinitis; R42 Dizziness and giddiness; Z87.891 Personal history of nicotine dependence; Z79.82 Long term (current) use of aspirin; Z79.899 Other long term (current) drug therapy | CPT/HCPCS: G0463 ==

== ENCOUNTER 2018-02-16 08:02 | Outpatient (RCR) | payer OTHER | END 2018-03-16 | LOC: M PT 08:02 | DX: M54.17 Radiculopathy, lumbosacral region (principal) | CPT/HCPCS: 97140 ==

== ENCOUNTER → 2018-03-01 | Outpatient (CLI) | payer OTHER ==
[~2018-03-01] MED LIST changes: -BUPIVACAINE HCL 0.25% 10 ML VIAL As Ordered; -BUPIVACAINE HCL 0.25% 30 ML VIAL As Ordered; +ISOVUE-M 300 61% 15ML VIAL (Q9967) As Ordered; +LIDOCAINE 1% SDV INJ 30 ML VIAL As Ordered; -TRIAMCINOLONE ACETONIDE SUSP 40 MG/ML VIAL (J3301) As Ordered; +methylPREDNISolone SUSP 40 MG/ML (DEPO-medrol) VIAL (J1030) As Ordered
== END ==
LOC: M PAIN 11:00
DX: G89.29 Other chronic pain (principal); M50.10 Cervical disc disorder with radiculopathy, unspecified cervical region; G47.30 Sleep apnea, unspecified; M19.90 Unspecified osteoarthritis, unspecified site; F32.9 Major depressive disorder, single episode, unspecified; K21.9 Gastro-esophageal reflux disease without esophagitis; J44.9 Chronic obstructive pulmonary disease, unspecified; Z79.82 Long term (current) use of aspirin; Z79.899 Other long term (current) drug therapy; Z87.891 Personal history of nicotine dependence; Z86.69 Personal history of other diseases of the nervous system and sense organs
CPT/HCPCS: J1030

== ENCOUNTER → 2018-03-05 | Outpatient (CLI) | payer OTHER | LOC: M RAD 08:00 | DX: Z12.2 Encounter for screening for malignant neoplasm of respiratory organs (principal); Z87.891 Personal history of nicotine dependence | CPT/HCPCS: G0297 ==

== ENCOUNTER → 2018-03-15 | Outpatient (CLI) | payer OTHER | LOC: M PAIN 09:00 | DX: M47.22 Other spondylosis with radiculopathy, cervical region (principal); M79.7 Fibromyalgia; K21.9 Gastro-esophageal reflux disease without esophagitis; J45.909 Unspecified asthma, uncomplicated; F32.9 Major depressive disorder, single episode, unspecified; M19.90 Unspecified osteoarthritis, unspecified site; G47.30 Sleep apnea, unspecified; Z79.82 Long term (current) use of aspirin; Z79.891 Long term (current) use of opiate analgesic; Z79.899 Other long term (current) drug therapy; Z86.69 Personal history of other diseases of the nervous system and sense organs; Z87.891 Personal history of nicotine dependence | CPT/HCPCS: G0463 ==

== ENCOUNTER → 2018-05-22 | Outpatient (CLI) | payer OTHER ==
[~2018-05-22] MED LIST changes: +/LOR25TA PO; +/PREG100CA PO; +ADV100INH INH; +ASPI1TAB PO; +ASPI81TA85 PO; +AZEL0.1S3; +BACL10TA2 PO; +BUPR1TAB53 PO; +CLAR10CA3 PO; +COLA50CA3 PO; +CYCL5TAB PO; +DULO1CAP3 PO; +FENT12PA TOP; +FLOM0.4C39 PO; +FLUT1SPR2; +GABA100C PO; +GABA300C2 PO; +GABA600T4 PO; -ISOVUE-M 300 61% 15ML VIAL (Q9967) As Ordered; -LIDOCAINE 1% SDV INJ 30 ML VIAL As Ordered; +LIDOCAINE PRILOCAINE TOP; +META800T82 PO; +MOBI15TA PO; +NICO21DI6 TD; +NICO2GUM8 PO; +OMEP40CA2 PO; +OXYC15TA76 PO; +PANT20TA2 PO; +PERC7.5T12 PO; +TIZA4CAP PO; +TIZA4TAB3 PO; +TOPA50TA8 PO; +ULTR50TA PO; -diazePAM 5 MG TAB As Ordered; -methylPREDNISolone SUSP 40 MG/ML (DEPO-medrol) VIAL (J1030) As Ordered; -oxyCODONE 5MG TAB As Ordered
--- NOTE | 2018-06-07 00:22 | ECWPNPC ---
PATIENT NAME: FEDERICO FERREIRA : 1960 GENDER: MALE VISIT DATE: 05/22/2018 DISCHARGE DATE: 05/22/18 1523 VISIT LOCKED DATE TIME: PHYSICIAN: LAMINE SANTIAGO RESOURCE: LAMINE SANTIAGO REASON FOR APPOINTMENT 1. BACK/NECK HISTORY OF PRESENT ILLNESS HISTORY OF PRESENT ILLNESS: HERE FOR F/U OF CHRONIC GENERALIZED BODY PAIN.CHIEF AREA OF PAIN IS LOW BACK.STATES HE IS HAVING INCREASE IN LOW BACK PAIN THAT HAS BEEN A PROBLEM SINCE FINISHING PT LATELY.ALSO REPORTING PERSISTENT LEFT LEG PAIN.DIDNT NOTICE MUCH IMPROVEMENT IN PAIN WITH INCREASE OF LYRICA 150MG BID AT LAST VISIT.RATING PAIN VAS 9/10. PAIN THE PATIENT DESCRIBES THE PAIN... FALL RISK SCREENING: SCREENING :NO FALLS IN THE PAST YEAR CURRENT MEDICATIONS TAKING ASPIRIN ADULT LOW DOSE 81 MG TABLET DELAYED RELEASE 1 TABLET ORALLY ONCE A DAY TAKING PANTOPRAZOLE SODIUM 20 MG TABLET DELAYED RELEASE 2 TABLETS ORALLY ONCE A DAY TAKING LORATADINE 10 MG TABLET 1 TABLET ORALLY ONCE A DAY TAKING TOPIRAMATE 50 MG TABLET 1 TABLET ORALLY TWICE A DAY TAKING TRAVEL SICKNESS 25 MG TABLET CHEWABLE 1 TABLET NEEDED ORALLY ONCE A DAY TAKING VENTOLIN HFA 108 (90 BASE) MCG/ACT AEROSOL SOLUTION 2 PUFFS NEEDED INHALATION 2-3X/WEEK X 4 WEEKS TAKING COLACE 100 MG CAPSULE 2 ORALLY Q8H TID PRN TAKING ROPINIROLE HCL 0.25 MG TABLET 1 TABLET ORALLY BEFORE BEDTIME TAKING TRAMADOL HCL 50 MG TABLET 1 TABLET NEEDED ORALLY EVERY 6 HRS PRN MDD4 TAKING CYMBALTA 60 MG CAPSULE DELAYED RELEASE PARTICLES 1 CAPSULE ORALLY ONCE A DAY TAKING LOSARTAN POTASSIUM 25 MG TABLET 1 TABLET ORALLY ONCE A DAY TAKING OXYBUTYNIN CHLORIDE ER 15 MG TABLET EXTENDED RELEASE 24 HOUR 1 TABLET ORALLY ONCE A DAY TAKING LYRICA 150 MG CAPSULE 1 CAPSULE ORALLY BID TAKING TAMSULOSIN HCL 0.4 MG CAPSULE 1 TAB ORALLY DAILY TAKING MOBIC 15 MG TABLET 1 TABLET ORALLY DAILY NOT-TAKING GABAPENTIN 600 600 MG TABLET 1 TAB(S) ORAL TID FOR PAIN MEDICATION LIST REVIEWED AND RECONCILED WITH THE PATIENT PAST MEDICAL HISTORY HEADACHE, NECK PAIN SLEEP AOPNEA ARTHRITIS DEPRESSION TINNITUS GERD LOWER BACK, NECK PROBLMES NERVE DAMAGE ASTHMA SEASONAL ALLERGIES DIZZINESS ALLERGIES SEASONAL: NASAL CONGESTION: ALLERGY SURGICAL HISTORY CARPAL TUNNEL SURGERY RIGHT 08/30 CARPAL TUNNEL SURGERY LEFT - DONE TWO TIMES 06/30 CHOLECYSTECTOMY LEFT KNEE SCOPE HERNIA REPAIR X3 NERVE BLOCKS VASECTOMY POLYPS REMOVED FROM SINUSES EPIDIDYMAL CYST REMOVAL 07/18/16 FAMILY HISTORY FATHER: , DIAGNOSED WITH CANCER MOTHER: ALIVE, CKD STAGE 4, DIAGNOSED WITH HYPERTENSION SIBLINGS: ALIVE SON(S): ALIVE, DIAGNOSED WITH HYPERTENSION 1 BROTHER(S) , 1 SISTER(S) . 1 SON(S) , 2 DAUGHTER(S) - HEALTHY. FATHER-PROSTATE CANCERUNKNOWN OF ANY AUTOIMMUNE. SOCIAL HISTORY GENERAL: TOBACCO USE ARE YOU A:FORMER SMOKER HOW LONG HAS IT BEEN SINCE YOU LAST SMOKED?1-5 YEARS ALCOHOL SCREENING DID YOU HAVE A DRINK CONTAINING ALCOHOL IN THE PAST YEAR?YES HOW OFTEN DID YOU HAVE A DRINK CONTAINING ALCOHOL IN THE PAST YEAR?MONTHLY OR LESS (1 POINT) HOW MANY DRINKS DID YOU HAVE ON A TYPICAL DAY WHEN YOU WERE DRINKING IN THE PAST YEAR?1 OR 2 (0 POINTS) HOW OFTEN DID YOU HAVE SIX OR MORE DRINKS ON ONE OCCASION IN THE PAST YEAR?NEVER (0 POINTS) POINTS1 INTERPRETATIONNEGATIVE RECREATIONAL DRUG USE DRUG USE?NO CAFFEINE CAFFEINE USE?YES HOW OFTEN AND HOW MUCH? 2-3 CUPS DAILY UATSDIN [id number] WORSHIP NO RESTORATION BELIEFS THAT WOULD IMPACT HEALTH CARE. LANGUAGE LANGUAGES SPOKEN:KYRGYZ EDUCATION LEVEL OF EDUCATION:NOT FINISHED HIGH SCHOOL LEARNING BARRIERS / SPECIAL NEEDS CHANGE FROM LAST VISIT?NO BARRIERS TO LEARNING?NO HEARING IMPAIRED?NO VISION IMPAIRED?YES :CORRECTIVE LENSES COGNITIVELY IMPAIRED?NO READINESS TO LEARN?YES LEARNING PREFERENCES?NO LEARNING CAPABILITIES PRESENT?YES EMOTIONAL BARRIERS?NO SPECIAL DEVICES?NO DIRECTOR GLOBAL INTELLIGENCE NEEDED?NO DOMESTIC VIOLENCE DO YOU FEEL SAFE IN YOUR ENVIRONMENT?YES PAIN CLINIC PFS, CLERGY, PUBLIC HEALTH REFERRALS PFS REFERRAL NEEDED?NO CLERGY REFERRAL NEEDED?NO PUBLIC HEALTH REFERRAL NEEDED?NO WAS THE PROVIDER NOTIFIED OF ANY PERTINENT INFO? N/A HAS THE PATIENT BEEN EDUCATED REGARDING HIS/HER PLAN OF CARE?YES HAS THE PATIENT BEEN EDUCATED REGARDING PAIN, THE RISK FOR PAIN, THE IMPORTANCE OF EFFECTIVE PAIN MANAGEMENT, AND THE PAIN ASSESSMENT PROCESS?YES ADVANCE DIRECTIVE ADVANCE DIRECTIVE DISCUSSED WITH PATIENT:YES HCP ON FILE MALIK FERREIRA [phone] 11/14/17 1127 REVIEWED REANNAN PTREVIEWED WITH PT 12/27/17 BVREVIEWED WITH PT 02/07/18 0908 BVREVIEWED WITH PATIENT 03/01/18 1127 JS03/15/18 0948 REVIEWED WITH PT. AD05/22/18 6898 REVIEWED WITH PT LAS. HOSPITALIZATION/MAJOR DIAGNOSTIC PROCEDURE CHEST PAIN 07/2015 REVIEW OF SYSTEMS REVIEWED BY: PROVIDER: LAMINE WALLACE . CONSTITUTIONAL: ANY CHANGE IN YOUR MEDICAL CONDITION? NO . CHILLS NO . FEVER NO . INFECTION: DO YOU HAVE NEW INFECTIONS? NO . DO YOU HAVE HISTORY OF MRSA? NO . MUSCULOSKELETAL: ANY NEW PATTERNS OF PAIN OR NUMBNESS? YES PT REPORTS INCREASED NUMBNESS IN RIGHT ARM. NEW PAIN IN BETWEEN HIPS, THIS STARTED DURING AND AFTER PHYSICAL THERAPY SESSIONS, WHICH ARE NOW COMPLETE. THE PAIN IS INTERMITTANT, BUT VERY INTENSE. "LIKE A [employer] TRAIN" . GASTROENTEROLOGY: ANY NEW CHANGE IN BOWEL CONTROL? NO . GENITOURINARY: ANY NEW CHANGE IN BLADDER CONTROL? NO . IS THERE A CHANCE YOU COULD BE ? NO . HEMATOLOGY/LYMPH: DO YOU TAKE ANY BLOOD THINNERS? (FOR EXAMPLE- COUMADIN, PLAVIX, AGGRENOX, PLATEL, PRADAXA, OR XARELTO) NO . WHEN WAS YOUR LAST DOSE? DATE: TIME: . NEUROLOGY: HAVE YOU FALLEN IN THE PAST 12 MONTHS? NO . ANY NEW EXTREMITY NUMBNESS OR WEAKNESS? YES C/O NUMBNESS IN RIGHT FINGERS INCREASED IN INTENSITY. . CARDIOLOGY: DO YOU HAVE A PACEMAKER OR DEFIBRILLATOR? NO . RESPIRATORY: HAVE YOU BEEN SICK IN THE PAST WEEK? NO . FEVER NO . FLU LIKE SYMPTOMS? NO . COUGH NO . INTEGUMENTARY: DO YOU HAVE ANY RASHES OR OPEN SORES? NO . ALLERGIC/IMMUNO: ARE YOU ALLERGIC TO IV DYE? NO . ANY NEW ALLERGIES? NO . PSYCHIATRIC: DO YOU HAVE THOUGHTS OF HURTING YOURSELF OR SOMEONE ELSE? NO . ARE YOU ABUSED, NEGLECTED, OR IN AN UNSAFE ENVIRONMENT? NO . ENDOCRINOLOGY: ARE YOU DIABETIC? NO . OTHER: DO YOU NEED ANY PRESCRIPTIONS? NO . IF YES, PLEASE LIST: ____ . ANY NEW PROBLEMS WITH YOUR MEDICATIONS? NO . WHEN DID YOU LAST EAT? ____ . WHEN DID YOU LAST DRINK? ____ . WHAT DID YOU LAST DRINK? ____ . NAME OF PERSON DRIVING YOU HOME? ____ . DO YOU HAVE ANY OTHER QUESTIONS OR CONCERNS NO . VITAL SIGNS WT 254.0 LBS, HT 69 IN, BMI 37.51 INDEX, BP 141/74 MM HG, HR 92 /MIN, RR 18 /MIN, TEMP 98.0 F, OXYGEN SAT % 96%, SAFE IN ENV? (Y/N) YES, NA INITIALS AW 1423, REVIEWED BY: MAXIMILIAN. EXAMINATION GENERAL EXAMINATION: GENERAL APPEARANCE:ALERT,NO DISTRESS . PSYCHAFFECT NORMAL . LUNGS:LUNG SOUNDS ARE CLEAR . HEART:HEART RATE REGULAR . MUSCULOSKELETAL:MST 5/5 BILAT. LOWER EXTREMITIES . LUMBAR SACRAL SPINE TENDERNESS BILAT. SIJ .POSITIVE MOELILI TEST. DIAGNOSTIC TESTS REVIEWEDCT L/S [id number] . ASSESSMENTS BILATERAL SACROILIITIS - M46.1 (PRIMARY) FIBROMYALGIA - M79.7 TREATMENT BILATERAL SACROILIITIS INCREASE LYRICA CAPSULE, 200 MG, 1 CAPSULE, ORALLY, THREE TIMES DAILYMDD3, 30 DAY(S), 90, REFILLS 2 CONTINUE CYMBALTA CAPSULE DELAYED RELEASE PARTICLES, 60 MG, 1 CAPSULE, ORALLY, ONCE A DAY CONTINUE TRAMADOL HCL TABLET, 50 MG, 1 TABLET NEEDED, ORALLY, EVERY 6 HRS PRN MDD4 CONTINUE ROPINIROLE HCL TABLET, 0.25 MG, 1 TABLET, ORALLY, BEFORE BEDTIME CONTINUE MOBIC TABLET, 15 MG, 1 TABLET, ORALLY, DAILY NOTES: BILAT. JIMENES. PREVENTIVE MEDICINE PAIN CLINIC TEACHING: MEDICATIONS DISCUSSED MEDICATION INCREASE WITH PT WHO VERBALIZES UNDERSTANDING. PROCEDURE CODES FA211 ESTABILISHED PATIENT [facility] CHARGE DISPOSITION & COMMUNICATION FOLLOW UP POST (REASON: BILAT. SIJ) ELECTRONICALLY SIGNED BY RODRIGO HARTMANN ON 06/06/2018 AT 01:21 PM EST DISCLAIMER : THIS IS A VISIT SUMMARY EXTRACTED FROM THE [employer] CHART. IT IS NOT A COPY OF THE [employer] PROGRESS NOTE. NERY
== END ==
LOC: M PAIN 14:15
PROVIDERS: ATTEND Nurse Practitioner Family
DX: M46.1 Sacroiliitis, not elsewhere classified (principal); M79.7 Fibromyalgia; R51 Headache; G47.30 Sleep apnea, unspecified; F32.9 Major depressive disorder, single episode, unspecified; K21.9 Gastro-esophageal reflux disease without esophagitis; J45.909 Unspecified asthma, uncomplicated; R42 Dizziness and giddiness; M19.90 Unspecified osteoarthritis, unspecified site; H93.19 Tinnitus, unspecified ear; Z90.49 Acquired absence of other specified parts of digestive tract; Z87.891 Personal history of nicotine dependence; Z79.82 Long term (current) use of aspirin; Z79.899 Other long term (current) drug therapy

== ENCOUNTER → 2018-07-30 | Outpatient (CLI) | payer OTHER ==
[~2018-07-30] MED LIST changes: -/PREG100CA PO; -ASPI1TAB PO; +ASPI81TA26 PO; +FENT12DI12 TOP; -FENT12PA TOP; +LYRI100C PO
--- NOTE | 2018-08-01 01:52 | ECWPNPC ---
PATIENT NAME: FEDERICO FERREIRA : 1960 GENDER: MALE VISIT DATE: 07/30/2018 DISCHARGE DATE: 07/30/18 0955 VISIT LOCKED DATE TIME: PHYSICIAN: SUREKHA PIRES RESOURCE: SUREKHA PIRES REASON FOR APPOINTMENT 1. POST BILATERAL SACROILIAC JOINT INJECTION. HISTORY OF PRESENT ILLNESS HISTORY OF PRESENT ILLNESS: PAIN THE PATIENT DESCRIBES THE PAINDURING THE LAST MONTH SEVERITY - PAIN SCORE OF9/10 PAT IS HERE FOR F/U FROM [facility] IN 07/03. PT SAYS HE HAS INCREASED PRESSURE IN THE SI AREA SINCE THE INJECTION. HE DESCRIBES PAIN ACHY AND SAYS HE CONTINUES TO HAVE NUMBNESS DOWN LEFT LEG.HE SAYS HE WAS TOLD BY THE [facility], HE NEEDS SURGERY. FALL RISK SCREENING: SCREENING :NO FALLS REPORTED IN THE LAST YEAR CURRENT MEDICATIONS TAKING ASPIRIN ADULT LOW DOSE 81 MG TABLET DELAYED RELEASE 1 TABLET ORALLY ONCE A DAY TAKING PANTOPRAZOLE SODIUM 20 MG TABLET DELAYED RELEASE 2 TABLETS ORALLY ONCE A DAY TAKING TOPIRAMATE 50 MG TABLET 1 TABLET ORALLY TWICE A DAY TAKING TRAVEL SICKNESS 25 MG TABLET CHEWABLE 1 TABLET NEEDED ORALLY ONCE A DAY TAKING VENTOLIN HFA 108 (90 BASE) MCG/ACT AEROSOL SOLUTION 2 PUFFS NEEDED INHALATION 2-3X/WEEK X 4 WEEKS TAKING COLACE 100 MG CAPSULE 2 ORALLY Q8H TID PRN TAKING LOSARTAN POTASSIUM 25 MG TABLET 1 TABLET ORALLY ONCE A DAY TAKING TAMSULOSIN HCL 0.4 MG CAPSULE 1 TAB ORALLY DAILY TAKING LYRICA 200 MG CAPSULE 1 CAPSULE ORALLY THREE TIMES DAILYMDD3 TAKING TRAMADOL HCL 50 MG TABLET 1 TABLET NEEDED ORALLY EVERY 6 HRS PRN MDD4 TAKING ROPINIROLE HCL 0.25 MG TABLET 1 TABLET ORALLY BEFORE BEDTIME TAKING MOBIC 15 MG TABLET 1 TABLET ORALLY DAILY TAKING CYMBALTA 60 MG CAPSULE DELAYED RELEASE PARTICLES 1 CAPSULE ORALLY ONCE A DAY NOT-TAKING LORATADINE 10 MG TABLET 1 TABLET ORALLY ONCE A DAY NOT-TAKING OXYBUTYNIN CHLORIDE ER 15 MG TABLET EXTENDED RELEASE 24 HOUR 1 TABLET ORALLY ONCE A DAY NOT-TAKING GABAPENTIN 600 600 MG TABLET 1 TAB(S) ORAL TID FOR PAIN MEDICATION LIST REVIEWED AND RECONCILED WITH THE PATIENT PAST MEDICAL HISTORY HEADACHE, NECK PAIN SLEEP AOPNEA ARTHRITIS DEPRESSION TINNITUS GERD LOWER BACK, NECK PROBLMES NERVE DAMAGE ASTHMA SEASONAL ALLERGIES DIZZINESS ALLERGIES SEASONAL: NASAL CONGESTION - ALLERGY SURGICAL HISTORY CARPAL TUNNEL SURGERY RIGHT 08/30 CARPAL TUNNEL SURGERY LEFT - DONE TWO TIMES 06/30 CHOLECYSTECTOMY LEFT KNEE SCOPE HERNIA REPAIR X3 NERVE BLOCKS VASECTOMY POLYPS REMOVED FROM SINUSES EPIDIDYMAL CYST REMOVAL 07/18/16 FAMILY HISTORY FATHER: , DIAGNOSED WITH CANCER MOTHER: ALIVE, CKD STAGE 4, HYPERTENSION SIBLINGS: ALIVE SON(S): ALIVE, HYPERTENSION 1 BROTHER(S) , 1 SISTER(S) . 1 SON(S) , 2 DAUGHTER(S) - HEALTHY. FATHER-PROSTATE CANCER\\N\\NUNKNOWN OF ANY AUTOIMMUNE. SOCIAL HISTORY GENERAL: TOBACCO USE ARE YOU A:FORMER SMOKER HOW LONG HAS IT BEEN SINCE YOU LAST SMOKED?1-5 YEARS LATEX QUESTIONNAIRE LATEX ALLERGY : HAVE YOU EVER DEVELOPED ANY TYPE OF REACTION AFTER HANDLING LATEX PRODUCTS SUCH RUBBER GLOVES, CONDOMS, DIAPHRAGMS, BALLOONS, SOCKS, OR UNDERWEAR?NO LATEX ALLERGY : HAVE YOU EVER DEVELOPED ANY TYPE OF REACTION DURING OR AFTER DENTAL APPOINTMENT, VAGINAL/RECTAL EXAMINATION, SURGICAL PROCEDURE, OR ANY OTHER EXPOSURE?NO LATEX RISK : HAVE YOU EVER HAD ANY DIFFICULTY BREATHING OR HIVES AFTER EATING OR HANDLING ANY FRUITS, OR VEGETABLES; SUCH KIWI, BANANAS, STONE FRUITS, OR CHESTNUTSNO LATEX RISK : DO YOU HAVE A PREVIOUS PERSONAL HISTORY OF MORE THAN NINE SURGERIES, SPINA BIFIDA, OR REPEATED CATHERTIZATIONS? NO LATEX RISK : ARE YOU FREQUENTLY EXPOSED TO LATEX PRODUCTS IN YOUR OCCUPATION?NO DATE ASKED : 07/30/2018 ALCOHOL SCREENING DID YOU HAVE A DRINK CONTAINING ALCOHOL IN THE PAST YEAR?YES HOW OFTEN DID YOU HAVE A DRINK CONTAINING ALCOHOL IN THE PAST YEAR?MONTHLY OR LESS (1 POINT) HOW MANY DRINKS DID YOU HAVE ON A TYPICAL DAY WHEN YOU WERE DRINKING IN THE PAST YEAR?1 OR 2 (0 POINTS) HOW OFTEN DID YOU HAVE SIX OR MORE DRINKS ON ONE OCCASION IN THE PAST YEAR?NEVER (0 POINTS) POINTS1 INTERPRETATIONNEGATIVE RECREATIONAL DRUG USE DRUG USE?NO CAFFEINE CAFFEINE USE?YES HOW OFTEN AND HOW MUCH? 2-3 CUPS DAILY [employer] [id number] LUTHERAN NO MANDAEISM BELIEFS THAT WOULD IMPACT HEALTH CARE. LANGUAGE LANGUAGES SPOKEN:AMHARIC EDUCATION LEVEL OF EDUCATION:NOT FINISHED HIGH SCHOOL LEARNING BARRIERS / SPECIAL NEEDS CHANGE FROM LAST VISIT?NO BARRIERS TO LEARNING?NO HEARING IMPAIRED?NO VISION IMPAIRED?YES :CORRECTIVE LENSES COGNITIVELY IMPAIRED?NO READINESS TO LEARN?YES LEARNING PREFERENCES?NO LEARNING CAPABILITIES PRESENT?YES EMOTIONAL BARRIERS?NO SPECIAL DEVICES?NO SENIOR FIRE PROTECTION ENGINEER NEEDED?NO DOMESTIC VIOLENCE DO YOU FEEL SAFE IN YOUR ENVIRONMENT?YES PAIN CLINIC PFS, CLERGY, PUBLIC HEALTH REFERRALS PFS REFERRAL NEEDED?NO CLERGY REFERRAL NEEDED?NO PUBLIC HEALTH REFERRAL NEEDED?NO WAS THE PROVIDER NOTIFIED OF ANY PERTINENT INFO?YES N/A HAS THE PATIENT BEEN EDUCATED REGARDING HIS/HER PLAN OF CARE?YES HAS THE PATIENT BEEN EDUCATED REGARDING PAIN, THE RISK FOR PAIN, THE IMPORTANCE OF EFFECTIVE PAIN MANAGEMENT, AND THE PAIN ASSESSMENT PROCESS?YES ADVANCE DIRECTIVE ADVANCE DIRECTIVE DISCUSSED WITH PATIENT:YES HCP ON FILE MALIK FERREIRA [phone] 11/14/17 1127 REVIEWED WITN PTREVIEWED WITH PT 12/27/17 BVREVIEWED WITH PT 02/07/18 0908 BVREVIEWED WITH PATIENT 03/01/18 1127 JS03/15/18 0925 REVIEWED WITH PT. AD05/22/18 2442 REVIEWED WITH PT LASREVIEWED WITH PT 07/30/18 0905 BV. HOSPITALIZATION/MAJOR DIAGNOSTIC PROCEDURE CHEST PAIN 07/2015 REVIEW OF SYSTEMS REVIEWED BY: PROVIDER: ANNA Whittaker CONSTITUTIONAL: ANY CHANGE IN YOUR MEDICAL CONDITION? NO . CHILLS NO . FEVER NO . INFECTION: DO YOU HAVE NEW INFECTIONS? NO . DO YOU HAVE HISTORY OF MRSA? NO . MUSCULOSKELETAL: ANY NEW PATTERNS OF PAIN OR NUMBNESS? YES, PT REPORTS INCREASED "PRESSURE AND NUMBNESS" IN BILATERAL HIPS FOR THE PAST MONTH. STATES IT HURTS TO WALK AND STAND. . GASTROENTEROLOGY: ANY NEW CHANGE IN BOWEL CONTROL? NO . GENITOURINARY: ANY NEW CHANGE IN BLADDER CONTROL? NO . IS THERE A CHANCE YOU COULD BE ? NO . HEMATOLOGY/LYMPH: DO YOU TAKE ANY BLOOD THINNERS? (FOR EXAMPLE- COUMADIN, PLAVIX, AGGRENOX, PLATEL, PRADAXA, OR XARELTO) NO . WHEN WAS YOUR LAST DOSE? DATE: TIME: . NEUROLOGY: HAVE YOU FALLEN IN THE PAST 12 MONTHS? NO . ANY NEW EXTREMITY NUMBNESS OR WEAKNESS? NO . CARDIOLOGY: DO YOU HAVE A PACEMAKER OR DEFIBRILLATOR? NO . RESPIRATORY: HAVE YOU BEEN SICK IN THE PAST WEEK? NO . FEVER NO . FLU LIKE SYMPTOMS? NO . COUGH NO . INTEGUMENTARY: DO YOU HAVE ANY RASHES OR OPEN SORES? NO . ALLERGIC/IMMUNO: ARE YOU ALLERGIC TO IV DYE? NO . ANY NEW ALLERGIES? NO . PSYCHIATRIC: DO YOU HAVE THOUGHTS OF HURTING YOURSELF OR SOMEONE ELSE? NO . ARE YOU ABUSED, NEGLECTED, OR IN AN UNSAFE ENVIRONMENT? NO . ENDOCRINOLOGY: ARE YOU DIABETIC? NO . OTHER: DO YOU NEED ANY PRESCRIPTIONS? NO . IF YES, PLEASE LIST: ____ . ANY NEW PROBLEMS WITH YOUR MEDICATIONS? NO . WHEN DID YOU LAST EAT? ____ . WHEN DID YOU LAST DRINK? ____ . WHAT DID YOU LAST DRINK? ____ . NAME OF PERSON DRIVING YOU HOME? ____ . DO YOU HAVE ANY OTHER QUESTIONS OR CONCERNS NO . VITAL SIGNS WT 250.8 LBS, HT 69 IN, BMI 37.03 INDEX, BP 154/102 MM HG, HR 70 /MIN, RR 18 /MIN, TEMP 97.6 F, OXYGEN SAT % 97%, NA INITIALS AW 0855LET NURSE KNOW ABOUT BP. EXAMINATION GENERAL EXAMINATION: GENERAL APPEARANCE:NO ACUTE DISTRESS, WELL NOURISHED AND HYDRATED. PSYCHAPPROPRIATE MOOD AND AFFECT . LUNGS:CLEAR TO AUSCULTATION BILATERALLY, NO WHEEZES, RHONCHI, RALES. HEART:NO MURMURS, REGULAR RATE AND RHYTHM. BACK: LIMITED ROM TENDERNESS TO PALPATION IN LUMBAR SPINE L5 PAIN WITH EXTENSIONAND ROTATION OF LUMBAR SPINE SLR POS LEFT SIDE NICK TEST POS LEFT SIDE.. 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 MATERIAL WAS PRINTED,LUMBAR EPIDURAL INJECTION: YOUR PROCEDURE MATERIAL WAS PRINTED,LUMBAR EPIDURAL INJECTION: YOUR PROCEDURE MATERIAL WAS PRINTED. CLINICAL NOTES: ISTOP REGISTRY REVIEWED AND DEMONSTRATES COMPLLIANCE. (REF # [id number] ) BRINGS IN MEDICATIONS WHICH IS APPROPRIATE FOR WHAT WAS DISPENSED. RECENT URINE TOXICOLOGY REVIEWED. NO UNAUTHORIZED MEDICATIONS. NO ILLICIT SUBSTANCES AND PRESCRIBED MEDICATIONS WERE PRESENT. LES1 L4-5, L5-S1. PREVENTIVE MEDICINE PAIN CLINIC TEACHING: PROCEDURE TEACHING PT GIVEN WRITTEN AND VERBAL PRE-PROCEDURE INSTRUCTIONS FOR EPIDURAL INJECTION. PT VERBALIZES UNDERSTANDING OF ALL INSTRUCTIONS. INDU TOBAR 07/30/2018 9:56:41 AM > . PROCEDURE CODES FA211 ESTABILISHED PATIENT [facility] CHARGE DISPOSITION & COMMUNICATION FOLLOW UP POST PROCEDURE (REASON: LES1 L4-5, L5-S1) ELECTRONICALLY SIGNED BY RODRIGO LUTHER ON 07/31/2018 AT 08:34 AM EDT DISCLAIMER : THIS IS A VISIT SUMMARY EXTRACTED FROM THE [employer] CHART. IT IS NOT A COPY OF THE [employer] PROGRESS NOTE. NERY
== END ==
LOC: M PAIN 08:30
PROVIDERS: ATTEND Nurse Practitioner Family
DX: M51.16 Intervertebral disc disorders with radiculopathy, lumbar region (principal); M12.88 Other specific arthropathies, not elsewhere classified, other specified site; G47.30 Sleep apnea, unspecified; Z86.59 Personal history of other mental and behavioral disorders; K21.9 Gastro-esophageal reflux disease without esophagitis; J45.909 Unspecified asthma, uncomplicated; Z87.891 Personal history of nicotine dependence; Z79.1 Long term (current) use of non-steroidal anti-inflammatories (NSAID); Z79.82 Long term (current) use of aspirin; Z79.899 Other long term (current) drug therapy

== ENCOUNTER → 2018-10-23 | Outpatient (CLI) | payer OTHER ==
[~2018-10-23] MED LIST changes: -DULO1CAP3 PO; +DULO1CAP6 PO
--- NOTE | 2018-11-06 02:41 | ECWPNPC ---
PATIENT NAME: FEDERICO FERREIRA : 1960 GENDER: MALE VISIT DATE: 10/23/2018 DISCHARGE DATE: 10/23/18 1124 VISIT LOCKED DATE TIME: PHYSICIAN: LAMINE SANTIAGO RESOURCE: LAMINE SANTIAGO REASON FOR APPOINTMENT 1. POST PROC HISTORY OF PRESENT ILLNESS HISTORY OF PRESENT ILLNESS: HERE FOR POST PROCEDURE F/U.HAD LESI 09/05/18.REPORTING NO IMPROVEMENT IN PAIN POST PROCEDURE.HAS UPCOMING F/U WITH RHEUMATOLOGY.RATING PAIN VAS 9/10. PAIN THE PATIENT DESCRIBES THE PAIN... FALL RISK SCREENING: SCREENING :NO FALLS REPORTED IN THE LAST YEAR CURRENT MEDICATIONS TAKING ASPIRIN ADULT LOW DOSE 81 MG TABLET DELAYED RELEASE 1 TABLET ORALLY ONCE A DAY TAKING PANTOPRAZOLE SODIUM 20 MG TABLET DELAYED RELEASE 2 TABLETS ORALLY ONCE A DAY TAKING TOPIRAMATE 50 MG TABLET 1 TABLET ORALLY TWICE A DAY TAKING VENTOLIN HFA 108 (90 BASE) MCG/ACT AEROSOL SOLUTION 2 PUFFS NEEDED INHALATION 2-3X/WEEK X 4 WEEKS TAKING COLACE 100 MG CAPSULE 2 ORALLY Q8H TID PRN TAKING LOSARTAN POTASSIUM 25 MG TABLET 1 TABLET ORALLY ONCE A DAY TAKING TAMSULOSIN HCL 0.4 MG CAPSULE 1 TAB ORALLY DAILY TAKING LYRICA 200 MG CAPSULE 1 CAPSULE ORALLY THREE TIMES DAILYMDD3 TAKING TRAMADOL HCL 50 MG TABLET 1 TABLET NEEDED ORALLY EVERY 6 HRS PRN MDD4 TAKING MOBIC 15 MG TABLET 1 TABLET ORALLY DAILY TAKING LORATADINE 10 MG TABLET 1 TABLET ORALLY ONCE A DAY TAKING ROPINIROLE HCL 0.25 MG TABLET 1 TABLET ORALLY BEFORE BEDTIME NOT-TAKING CYMBALTA 60 MG CAPSULE DELAYED RELEASE PARTICLES 1 CAPSULE ORALLY ONCE A DAY MEDICATION LIST REVIEWED AND RECONCILED WITH THE PATIENT PAST MEDICAL HISTORY HEADACHE, NECK PAIN SLEEP AOPNEA ARTHRITIS DEPRESSION TINNITUS GERD LOWER BACK, NECK PROBLMES NERVE DAMAGE ASTHMA SEASONAL ALLERGIES DIZZINESS ALLERGIES SEASONAL: NASAL CONGESTION - ALLERGY SURGICAL HISTORY CARPAL TUNNEL SURGERY RIGHT 08/30 CARPAL TUNNEL SURGERY LEFT - DONE TWO TIMES 06/30 CHOLECYSTECTOMY LEFT KNEE SCOPE HERNIA REPAIR X3 NERVE BLOCKS VASECTOMY POLYPS REMOVED FROM SINUSES EPIDIDYMAL CYST REMOVAL 07/18/16 FAMILY HISTORY FATHER: , DIAGNOSED WITH CANCER MOTHER: ALIVE, CKD STAGE 4, HYPERTENSION SIBLINGS: ALIVE, OTHER SON(S): ALIVE, HYPERTENSION 1 BROTHER(S) , 1 SISTER(S) . 1 SON(S) , 2 DAUGHTER(S) - HEALTHY. FATHER-PROSTATE CANCER\N\NUNKNOWN OF ANY AUTOIMMUNE BROTHER IS HAVING CARDIAC STENTS PLACED TOMORROW 10/24/18. SOCIAL HISTORY GENERAL: TOBACCO USE ARE YOU A:FORMER SMOKER HOW LONG HAS IT BEEN SINCE YOU LAST SMOKED?1-5 YEARS EDUCATION LEVEL OF EDUCATION:NOT FINISHED HIGH SCHOOL DIET: REGULAR. LANGUAGE LANGUAGES SPOKEN:COOK ISLANDER DOMESTIC VIOLENCE DO YOU FEEL SAFE IN YOUR ENVIRONMENT?YES RECREATIONAL DRUG USE DRUG USE?NO EXERCISE: NO REGULAR EXERCISE. LEARNING BARRIERS / SPECIAL NEEDS CHANGE FROM LAST VISIT?NO BARRIERS TO LEARNING?NO HEARING IMPAIRED?NO VISION IMPAIRED?YES :CORRECTIVE LENSES COGNITIVELY IMPAIRED?NO READINESS TO LEARN?YES LEARNING PREFERENCES?NO LEARNING CAPABILITIES PRESENT?YES EMOTIONAL BARRIERS?NO SPECIAL DEVICES?NO MANAGER CONSTRUCTION NEEDED?NO PAIN CLINIC PFS, CLERGY, PUBLIC HEALTH REFERRALS PFS REFERRAL NEEDED?NO CLERGY REFERRAL NEEDED?NO PUBLIC HEALTH REFERRAL NEEDED?NO WAS THE PROVIDER NOTIFIED OF ANY PERTINENT INFO?YES N/A HAS THE PATIENT BEEN EDUCATED REGARDING HIS/HER PLAN OF CARE?YES HAS THE PATIENT BEEN EDUCATED REGARDING PAIN, THE RISK FOR PAIN, THE IMPORTANCE OF EFFECTIVE PAIN MANAGEMENT, AND THE PAIN ASSESSMENT PROCESS?YES LATEX QUESTIONNAIRE LATEX ALLERGY : HAVE YOU EVER DEVELOPED ANY TYPE OF REACTION AFTER HANDLING LATEX PRODUCTS SUCH RUBBER GLOVES, CONDOMS, DIAPHRAGMS, BALLOONS, SOCKS, OR UNDERWEAR?NO LATEX ALLERGY : HAVE YOU EVER DEVELOPED ANY TYPE OF REACTION DURING OR AFTER DENTAL APPOINTMENT, VAGINAL/RECTAL EXAMINATION, SURGICAL PROCEDURE, OR ANY OTHER EXPOSURE?NO LATEX RISK : HAVE YOU EVER HAD ANY DIFFICULTY BREATHING OR HIVES AFTER EATING OR HANDLING ANY FRUITS, OR VEGETABLES; SUCH KIWI, BANANAS, STONE FRUITS, OR CHESTNUTSNO LATEX RISK : DO YOU HAVE A PREVIOUS PERSONAL HISTORY OF MORE THAN NINE SURGERIES, SPINA BIFIDA, OR REPEATED CATHERIZATIONS? NO LATEX RISK : ARE YOU FREQUENTLY EXPOSED TO LATEX PRODUCTS IN YOUR OCCUPATION?NO DATE ASKED : 09/05/2018 CAFFEINE CAFFEINE USE?YES HOW OFTEN AND HOW MUCH? 2-3 CUPS DAILY ADVANCE DIRECTIVE ADVANCE DIRECTIVE DISCUSSED WITH PATIENT:YES HCP ON FILE MALIK FERREIRA [phone] MORMON [id number] CHEONDOISM NO BAPTIST BELIEFS THAT WOULD IMPACT HEALTH CARE. MARITAL STATUS: .. ALCOHOL SCREENING DID YOU HAVE A DRINK CONTAINING ALCOHOL IN THE PAST YEAR?YES HOW OFTEN DID YOU HAVE A DRINK CONTAINING ALCOHOL IN THE PAST YEAR?MONTHLY OR LESS (1 POINT) HOW MANY DRINKS DID YOU HAVE ON A TYPICAL DAY WHEN YOU WERE DRINKING IN THE PAST YEAR?1 OR 2 (0 POINTS) HOW OFTEN DID YOU HAVE SIX OR MORE DRINKS ON ONE OCCASION IN THE PAST YEAR?NEVER (0 POINTS) POINTS1 INTERPRETATIONNEGATIVE OCCUPATION: DISABLED. 11/14/17 1127 REVIEWED WITN PTREVIEWED WITH PT 12/27/17 BVREVIEWED WITH PT 02/07/18 0908 BVREVIEWED WITH PATIENT 03/01/18 1127 JS03/15/18 0925 REVIEWED WITH PT. ADREVIEWED WITH PATIENT 10/23/18 NL05/22/18 2442 REVIEWED WITH PT LASREVIEWED WITH PT 07/30/18 0905 BV. HOSPITALIZATION/MAJOR DIAGNOSTIC PROCEDURE CHEST PAIN 07/2015 REVIEW OF SYSTEMS REVIEWED BY: PROVIDER: LAMINE WALLACE . CONSTITUTIONAL: ANY CHANGE IN YOUR MEDICAL CONDITION? NO . CHILLS NO . FEVER NO . INFECTION: DO YOU HAVE NEW INFECTIONS? NO . DO YOU HAVE HISTORY OF MRSA? NO . MUSCULOSKELETAL: ANY NEW PATTERNS OF PAIN OR NUMBNESS? YES- LEFT LEG PAIN, NUMBENESS AND TINGLING CONTINUES, RIGHT LEG PAIN, NUMBENESS AND TINGLING ARE WORSENING, PATIENT STATES WEAKNESS IS WORSENING BILATERALLY IN LEGS . GASTROENTEROLOGY: ANY NEW CHANGE IN BOWEL CONTROL? NO . GENITOURINARY: ANY NEW CHANGE IN BLADDER CONTROL? NO . IS THERE A CHANCE YOU COULD BE ? NO . HEMATOLOGY/LYMPH: DO YOU TAKE ANY BLOOD THINNERS? (FOR EXAMPLE- COUMADIN, PLAVIX, AGGRENOX, PLATEL, PRADAXA, OR XARELTO) NO . WHEN WAS YOUR LAST DOSE? DATE: TIME: . NEUROLOGY: HAVE YOU FALLEN IN THE PAST 12 MONTHS? NO . ANY NEW EXTREMITY NUMBNESS OR WEAKNESS? NO . CARDIOLOGY: DO YOU HAVE A PACEMAKER OR DEFIBRILLATOR? NO . RESPIRATORY: HAVE YOU BEEN SICK IN THE PAST WEEK? NO . FEVER NO . FLU LIKE SYMPTOMS? NO . COUGH NO . INTEGUMENTARY: DO YOU HAVE ANY RASHES OR OPEN SORES? NO . ALLERGIC/IMMUNO: ARE YOU ALLERGIC TO IV DYE? NO . ANY NEW ALLERGIES? NO . PSYCHIATRIC: DO YOU HAVE THOUGHTS OF HURTING YOURSELF OR SOMEONE ELSE? NO . ARE YOU ABUSED, NEGLECTED, OR IN AN UNSAFE ENVIRONMENT? NO . ENDOCRINOLOGY: ARE YOU DIABETIC? NO . OTHER: DO YOU NEED ANY PRESCRIPTIONS? NO . IF YES, PLEASE LIST: ____ . ANY NEW PROBLEMS WITH YOUR MEDICATIONS? NO . WHEN DID YOU LAST EAT? ____ . WHEN DID YOU LAST DRINK? ____ . WHAT DID YOU LAST DRINK? ____ . NAME OF PERSON DRIVING YOU HOME? ____ . DO YOU HAVE ANY OTHER QUESTIONS OR CONCERNS YES- PATIENT FEELS THAT LUMBAR EPIDURAL DID NOT WORK, STATES HE HAD ALOT OF PAIN POST PROCEDURE AND PAIN HAS RETURNED TO PRE-PROCEDURE. WOULD LIKE KNOW WHAT CAN CAN BE DONE NECT TO HELP . VITAL SIGNS WT 250.6 LBS, HT 69 IN, BMI 37.00 INDEX, BP 154/95 MM HG, HR 72 /MIN, RR 18 /MIN, TEMP 97.4 F, OXYGEN SAT % 97%, SAFE IN ENV? (Y/N) YES, NA INITIALS SC 10:00. EXAMINATION GENERAL EXAMINATION: GENERALALERT,NO DISTRESS . PSYCHAFFECT NORMAL . LUNGS:LUNG SOUNDS ARE CLEAR . HEART:HEART RATE REGULAR . MUSCULOSKELETAL:MST 5/5 BILAT. LOWER EXTREMITIES . LUMBAR SACRAL SPINE TENDERNESS BILAT. SIJ .POSITIVE MOELILI TEST SPECIFIC POINT TENDERNESS OVER BILAT.L4/5-L5/S1 W FACET LOADING. DIAGNOSTIC TESTS REVIEWEDCT L/S SEQHP-[id number] . 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 L4/5-L5/S1 LFBT LOOK INTO [employer] -NOT ONLINE. OTHERS NOTES: OPTIONS: FACET JOINT INJECTION MATERIAL WAS PRINTED. PROCEDURE CODES FA211 ESTABILISHED PATIENT [facility] FACILITY CHARGE DISPOSITION & COMMUNICATION FOLLOW UP POST (REASON: BILAT. L4/5-L5/S1 LFBT) ELECTRONICALLY SIGNED BY RODRIGO HARTMANN ON 11/05/2018 AT 08:45 AM EDT DISCLAIMER : THIS IS A VISIT SUMMARY EXTRACTED FROM THE [employer] CHART. IT IS NOT A COPY OF THE [employer] PROGRESS NOTE. MTDD
== END ==
LOC: M PAIN 09:45
PROVIDERS: ATTEND Nurse Practitioner Family
DX: M47.817 Spondylosis without myelopathy or radiculopathy, lumbosacral region (principal); R51 Headache; M54.2 Cervicalgia; G47.30 Sleep apnea, unspecified; M19.90 Unspecified osteoarthritis, unspecified site; F32.9 Major depressive disorder, single episode, unspecified; K21.9 Gastro-esophageal reflux disease without esophagitis; J45.909 Unspecified asthma, uncomplicated; R42 Dizziness and giddiness; Z87.891 Personal history of nicotine dependence; Z79.82 Long term (current) use of aspirin; Z79.891 Long term (current) use of opiate analgesic; Z79.899 Other long term (current) drug therapy; Z90.49 Acquired absence of other specified parts of digestive tract

== ENCOUNTER 2019-01-01 10:01 | Emergency (ER) | payer OTHER ==
[~2019-01-01] VITALS: Ht 175.3 cm; Wt 111.8 kg
[~2019-01-01 10:01] MED LIST changes: -LOSA25TA14 PO; -LYRI200C PO; -MELO15TA28 PO; -MM S100C PO; -ROPI0.253 PO; -TRAM50TA2 PO
[2019-01-01] MEDS ORDERED: LYRI200C PO (10:29)
[2019-01-01] MEDS ORDERED: MM S100C PO (10:29)
[2019-01-01] MEDS ORDERED: MELO15TA28 PO (10:29)
[2019-01-01] MEDS ORDERED: TRAM50TA2 PO (10:29)
[2019-01-01] MEDS ORDERED: LOSA25TA14 PO (10:29)
[2019-01-01] MEDS ORDERED: ROPI0.253 PO (10:29)
--- NOTE | 2019-01-01 11:19 | REP ---
Left lower extremity Duplex Doppler venous ultrasound: Real time compression and duplex Doppler interrogation of the left lower extremity deep venous system is performed. The left common femoral, superficial femoral and popliteal veins are fully compressible with transducer pressure and demonstrate normal spontaneous and phasic flow, without evidence of deep venous thrombosis. Impression: No evidence of deep venous thrombosis of the left lower extremity femoral popliteal venous system. Electronically Signed by Ceasar Canchola MD 01/01/2019 11:11 A
[2019-01-01 11:46] VITALS: BP 140/91
== END 2019-01-01 11:51 | disposition home or self-care (01) ==
LOC: M ED 10:01
DX: R60.0 Localized edema (principal); M54.5 Low back pain; I10 Essential (primary) hypertension; K21.9 Gastro-esophageal reflux disease without esophagitis; N40.0 Benign prostatic hyperplasia without lower urinary tract symptoms; Z88.8 Allergy status to other drugs, medicaments and biological substances; Z79.899 Other long term (current) drug therapy; Z79.82 Long term (current) use of aspirin

== ENCOUNTER → 2019-01-01 | Outpatient (CLI) | payer OTHER ==
[~2019-01-01] MED LIST changes: +LOSA25TA14 PO; +LYRI200C PO; +MELO15TA28 PO; +MM S100C PO; +ROPI0.253 PO; +TRAM50TA2 PO
--- NOTE | 2019-01-15 02:13 | ECWPNPC ---
PATIENT NAME: FEDERICO FERREIRA : 1960 GENDER: MALE VISIT DATE: 01/01/2019 DISCHARGE DATE: 01/01/19 0954 VISIT LOCKED DATE TIME: PHYSICIAN: LAMINE SANTIAGO RESOURCE: LAMINE SANTIAGO REASON FOR APPOINTMENT 1. POST BILAT. L4/5-L5/S1 LFBT) HISTORY OF PRESENT ILLNESS HISTORY OF PRESENT ILLNESS: HERE FOR POST PROCEDURE F/U.HAD BILAT. L4/5-L5/S1 LFBT ON 12/11/18.REPORTING NO IMPROVEMENT IN PAIN POST PROCEDURE.RATING PAIN VAS 10/10.REPORTING ONSET OF LEFT CALF SWELLING AND PAIN SINCE PROCEDURE.REPORTING INTERMITTENT SHARP PAIN THAT TRAVELS UP LEFT POSTERIOR THIGH.REVIEWED HISTORY WITH DR STORY WHO CAME IN TO EXAMINE PATIENT.HE ADVISED PATIENT TO BE EVALUATED AT ER TO R/O BLOOD CLOT. PAIN THE PATIENT DESCRIBES THE PAIN... THE PATIENT DESCRIBES THE PAIN... FALL RISK SCREENING: SCREENING :NO FALLS REPORTED IN THE LAST YEAR CURRENT MEDICATIONS TAKING ASPIRIN ADULT LOW DOSE 81 MG TABLET DELAYED RELEASE 1 TABLET ORALLY ONCE A DAY TAKING PANTOPRAZOLE SODIUM 20 MG TABLET DELAYED RELEASE 2 TABLETS ORALLY ONCE A DAY TAKING TOPIRAMATE 50 MG TABLET 1 TABLET ORALLY TWICE A DAY TAKING VENTOLIN HFA 108 (90 BASE) MCG/ACT AEROSOL SOLUTION 2 PUFFS NEEDED INHALATION 2-3X/WEEK X 4 WEEKS TAKING COLACE 100 MG CAPSULE 2 ORALLY Q8H TID PRN TAKING LOSARTAN POTASSIUM 25 MG TABLET 1 TABLET ORALLY ONCE A DAY TAKING TAMSULOSIN HCL 0.4 MG CAPSULE 1 TAB ORALLY DAILY TAKING LORATADINE 10 MG TABLET 1 TABLET ORALLY ONCE A DAY TAKING ROPINIROLE HCL 0.25 MG TABLET 1 TABLET ORALLY BEFORE BEDTIME TAKING LYRICA 200 MG CAPSULE 1 CAPSULE ORALLY THREE TIMES DAILYMDD3 TAKING TRAMADOL HCL 50 MG TABLET 1 TABLET NEEDED ORALLY EVERY 6 HRS PRN MDD4 TAKING MOBIC 15 MG TABLET 1 TABLET ORALLY DAILY TAKING CYMBALTA 60 MG CAPSULE DELAYED RELEASE PARTICLES 1 CAPSULE ORALLY ONCE A DAY DISCONTINUED ADVAIR DISKUS 250-50 MCG/DOSE AEROSOL POWDER BREATH ACTIVATED 1 PUFF INHALATION TWICE A DAY MEDICATION LIST REVIEWED AND RECONCILED WITH THE PATIENT PAST MEDICAL HISTORY HEADACHE, NECK PAIN SLEEP AOPNEA ARTHRITIS DEPRESSION TINNITUS GERD LOWER BACK, NECK PROBLMES NERVE DAMAGE ASTHMA SEASONAL ALLERGIES DIZZINESS ALLERGIES SEASONAL: NASAL CONGESTION - ALLERGY SURGICAL HISTORY CARPAL TUNNEL SURGERY RIGHT 08/30 CARPAL TUNNEL SURGERY LEFT - DONE TWO TIMES 06/30 CHOLECYSTECTOMY LEFT KNEE SCOPE HERNIA REPAIR X3 NERVE BLOCKS VASECTOMY POLYPS REMOVED FROM SINUSES EPIDIDYMAL CYST REMOVAL 07/18/16 FAMILY HISTORY FATHER: , DIAGNOSED WITH OTHER MALIGNANT NEOPLASM OF UNSPECIFIED SITE MOTHER: ALIVE, CKD STAGE 4, HYPERTENSION SIBLINGS: ALIVE, OTHER SPECIFIED CONDITIONS INFLUENCING HEALTH STATUS SON(S): ALIVE, HYPERTENSION 1 BROTHER(S) , 1 SISTER(S) . 1 SON(S) , 2 DAUGHTER(S) - HEALTHY. FATHER-PROSTATE CANCER\N\NUNKNOWN OF ANY AUTOIMMUNE BROTHER IS HAVING CARDIAC STENTS PLACED TOMORROW 10/24/18. SOCIAL HISTORY GENERAL: TOBACCO USE ARE YOU A:FORMER SMOKER HOW LONG HAS IT BEEN SINCE YOU LAST SMOKED?1-5 YEARS EDUCATION LEVEL OF EDUCATION:NOT FINISHED HIGH SCHOOL DIET: REGULAR. LANGUAGE LANGUAGES SPOKEN:DANISH DOMESTIC VIOLENCE DO YOU FEEL SAFE IN YOUR ENVIRONMENT?YES RECREATIONAL DRUG USE DRUG USE?NO EXERCISE: NO REGULAR EXERCISE. LEARNING BARRIERS / SPECIAL NEEDS CHANGE FROM LAST VISIT?NO BARRIERS TO LEARNING?NO HEARING IMPAIRED?NO VISION IMPAIRED?YES COGNITIVELY IMPAIRED?NO :CORRECTIVE LENSES READINESS TO LEARN?YES LEARNING PREFERENCES?NO LEARNING CAPABILITIES PRESENT?YES EMOTIONAL BARRIERS?NO SPECIAL DEVICES?NO RECEIVABLE MANAGER NEEDED?NO PAIN CLINIC PFS, CLERGY, PUBLIC HEALTH REFERRALS PFS REFERRAL NEEDED?NO CLERGY REFERRAL NEEDED?NO PUBLIC HEALTH REFERRAL NEEDED?NO WAS THE PROVIDER NOTIFIED OF ANY PERTINENT INFO?YES N/A HAS THE PATIENT BEEN EDUCATED REGARDING HIS/HER PLAN OF CARE?YES HAS THE PATIENT BEEN EDUCATED REGARDING PAIN, THE RISK FOR PAIN, THE IMPORTANCE OF EFFECTIVE PAIN MANAGEMENT, AND THE PAIN ASSESSMENT PROCESS?YES LATEX QUESTIONNAIRE LATEX ALLERGY : HAVE YOU EVER DEVELOPED ANY TYPE OF REACTION AFTER HANDLING LATEX PRODUCTS SUCH RUBBER GLOVES, CONDOMS, DIAPHRAGMS, BALLOONS, SOCKS, OR UNDERWEAR?NO LATEX ALLERGY : HAVE YOU EVER DEVELOPED ANY TYPE OF REACTION DURING OR AFTER DENTAL APPOINTMENT, VAGINAL/RECTAL EXAMINATION, SURGICAL PROCEDURE, OR ANY OTHER EXPOSURE?NO DATE ASKED : 12/11/2018 LATEX RISK : HAVE YOU EVER HAD ANY DIFFICULTY BREATHING OR HIVES AFTER EATING OR HANDLING ANY FRUITS, OR VEGETABLES; SUCH KIWI, BANANAS, STONE FRUITS, OR CHESTNUTSNO LATEX RISK : DO YOU HAVE A PREVIOUS PERSONAL HISTORY OF MORE THAN NINE SURGERIES, SPINA BIFIDA, OR REPEATED CATHERIZATIONS? NO LATEX RISK : ARE YOU FREQUENTLY EXPOSED TO LATEX PRODUCTS IN YOUR OCCUPATION?NO CAFFEINE CAFFEINE USE?YES HOW OFTEN AND HOW MUCH? 2-3 CUPS DAILY ADVANCE DIRECTIVE ADVANCE DIRECTIVE DISCUSSED WITH PATIENT:YES HCP ON FILE FILI-BERTIN FERREIRA [phone] [facility] [id number] CONGREGATION NO UATSDIN BELIEFS THAT WOULD IMPACT HEALTH CARE. MARITAL STATUS: .. ALCOHOL SCREENING DID YOU HAVE A DRINK CONTAINING ALCOHOL IN THE PAST YEAR?YES HOW OFTEN DID YOU HAVE SIX OR MORE DRINKS ON ONE OCCASION IN THE PAST YEAR?NEVER (0 POINTS) HOW MANY DRINKS DID YOU HAVE ON A TYPICAL DAY WHEN YOU WERE DRINKING IN THE PAST YEAR?1 OR 2 (0 POINTS) HOW OFTEN DID YOU HAVE A DRINK CONTAINING ALCOHOL IN THE PAST YEAR?MONTHLY OR LESS (1 POINT) POINTS1 INTERPRETATIONNEGATIVE OCCUPATION: DISABLED. 11/14/17 1127 REVIEWED WITN PTREVIEWED WITH PT 12/27/17 BVREVIEWED WITH PT 02/07/18 0908 BVREVIEWED WITH PATIENT 03/01/18 1127 JS03/15/18 0925 REVIEWED WITH PT. ADREVIEWED WITH PATIENT 10/23/18 NL05/22/18 2442 REVIEWED WITH PT LASREVIEWED WITH PT 07/30/18 0905 BV. HOSPITALIZATION/MAJOR DIAGNOSTIC PROCEDURE CHEST PAIN 07/2015 REVIEW OF SYSTEMS REVIEWED BY: PROVIDER: LAMINE WALLACE . CONSTITUTIONAL: ANY CHANGE IN YOUR MEDICAL CONDITION? NO . CHILLS NO . FEVER NO . INFECTION: DO YOU HAVE NEW INFECTIONS? NO . DO YOU HAVE HISTORY OF MRSA? NO . MUSCULOSKELETAL: ANY NEW PATTERNS OF PAIN OR NUMBNESS? YES, LEFT LEG MORE NUMB AND EDEMA . GASTROENTEROLOGY: ANY NEW CHANGE IN BOWEL CONTROL? NO . GENITOURINARY: ANY NEW CHANGE IN BLADDER CONTROL? YES, URINATING MORE FREQUENTLY AND GETTING UP IN MIDDLE OF NIGHT TO URINATE, PCP NOT AWARE, BUT PT IS GOING TO SCHEDULE APPT W THEM . IS THERE A CHANCE YOU COULD BE ? NO . HEMATOLOGY/LYMPH: DO YOU TAKE ANY BLOOD THINNERS? (FOR EXAMPLE- COUMADIN, PLAVIX, AGGRENOX, PLATEL, PRADAXA, OR XARELTO) NO . WHEN WAS YOUR LAST DOSE? DATE: TIME: . NEUROLOGY: HAVE YOU FALLEN IN THE PAST 12 MONTHS? NO . ANY NEW EXTREMITY NUMBNESS OR WEAKNESS? YES, LEFT LEG MORE NUMB AND SHOOTING PAIN DOWN POSTERIOR LEFT LEG . CARDIOLOGY: DO YOU HAVE A PACEMAKER OR DEFIBRILLATOR? NO . RESPIRATORY: HAVE YOU BEEN SICK IN THE PAST WEEK? NO . FEVER NO . FLU LIKE SYMPTOMS? NO . COUGH NO . INTEGUMENTARY: DO YOU HAVE ANY RASHES OR OPEN SORES? NO . ALLERGIC/IMMUNO: ARE YOU ALLERGIC TO IV DYE? NO . ANY NEW ALLERGIES? NO . PSYCHIATRIC: DO YOU HAVE THOUGHTS OF HURTING YOURSELF OR SOMEONE ELSE? NO . ARE YOU ABUSED, NEGLECTED, OR IN AN UNSAFE ENVIRONMENT? NO . ENDOCRINOLOGY: ARE YOU DIABETIC? NO . OTHER: DO YOU NEED ANY PRESCRIPTIONS? NO . IF YES, PLEASE LIST: ____ . ANY NEW PROBLEMS WITH YOUR MEDICATIONS? NO . WHEN DID YOU LAST EAT? ____ . WHEN DID YOU LAST DRINK? ____ . WHAT DID YOU LAST DRINK? ____ . NAME OF PERSON DRIVING YOU HOME? ____ . DO YOU HAVE ANY OTHER QUESTIONS OR CONCERNS YES, WHAT IS MAKING MY LEFT LEG SWOLLEN AND HURTS TO POINT OF HARDLY WALK OR DO ANYTHING . VITAL SIGNS WT 246.6 LBS, HT 69 IN, BMI 36.41 INDEX, BP 135/85 MM HG, HR 79 /MIN, RR 18 /MIN, TEMP 96.5 F, OXYGEN SAT % 97%, NA INITIALS SC 09:13, REVIEWED BY: EM. EXAMINATION GENERAL EXAMINATION: GENERAL AWAKE,ALERT.WALKS W ANTALGIC GAIT WITH LIMP OVER LEFT LEG. LUNGS: LUNG SOUNDS ARE CLEAR. HEART: HEART RATE REGULAR. LUMBAR SACRAL SPINE TENDER W PALPATION.NO REDDNESS OR SWELLING. EXTREMITIES: EDEMA 3+ NOTE OVER LEFT CALF AND ANKLE.PAINFUL TO LIGHT PRESSURE. ASSESSMENTS SPONDYLOSIS OF LUMBAR REGION WITHOUT MYELOPATHY OR RADICULOPATHY - M47.816 (PRIMARY) PAIN OF LEFT CALF - M79.662 TREATMENT SPONDYLOSIS OF LUMBAR REGION WITHOUT MYELOPATHY OR RADICULOPATHY NOTES: REFER TO ER. PROCEDURE CODES FA211 ESTABILISHED PATIENT [facility] F[facility] CHARGE DISPOSITION & COMMUNICATION FOLLOW UP 2 WEEKS (REASON: LEFT CALF SWELLING) ELECTRONICALLY SIGNED BY RODRIGO HARTMANN ON 01/14/2019 AT 08:50 AM EDT DISCLAIMER : THIS IS A VISIT SUMMARY EXTRACTED FROM THE [employer] CHART. IT IS NOT A COPY OF THE [employer] PROGRESS NOTE. NERY
== END ==
LOC: M PAIN 09:00
PROVIDERS: ATTEND Nurse Practitioner Family
DX: M47.816 Spondylosis without myelopathy or radiculopathy, lumbar region (principal); M79.662 Pain in left lower leg; G47.30 Sleep apnea, unspecified; M19.90 Unspecified osteoarthritis, unspecified site; Z86.59 Personal history of other mental and behavioral disorders; K21.9 Gastro-esophageal reflux disease without esophagitis; J45.909 Unspecified asthma, uncomplicated; Z87.891 Personal history of nicotine dependence; Z79.82 Long term (current) use of aspirin; Z79.899 Other long term (current) drug therapy

== ENCOUNTER → 2019-01-15 | Outpatient (CLI) | payer OTHER ==
[~2019-01-15] MED LIST changes: +LOSA25TA14 PO; +LYRI200C PO; +MELO15TA28 PO; +MM S100C PO; +ROPI0.253 PO; +TRAM50TA2 PO
== END ==
LOC: M PAIN 09:30
PROVIDERS: ATTEND Nurse Practitioner Family
DX: M79.18 Myalgia, other site (principal); M54.2 Cervicalgia; M54.5 Low back pain; R51 Headache; R22.42 Localized swelling, mass and lump, left lower limb; M79.605 Pain in left leg; Z79.82 Long term (current) use of aspirin; Z79.891 Long term (current) use of opiate analgesic; Z79.899 Other long term (current) drug therapy; Z87.891 Personal history of nicotine dependence

== ENCOUNTER → 2019-03-05 | Outpatient (CLI) | payer OTHER ==
[~2019-03-05] MED LIST changes: +BUPIVACAINE HCL 0.25% 10 ML VIAL As Ordered ONE; +BUPIVACAINE HCL 0.25% 30 ML VIAL As Ordered ONE; +TRIAMCINOLONE ACETONIDE SUSP 40 MG/ML VIAL (J3301) As Ordered ONE; +diazePAM 5 MG TAB As Ordered ONE; +oxyCODONE 5MG TAB As Ordered ONE
--- NOTE | 2019-03-12 02:33 | ECWPNPC ---
PATIENT NAME: FEDERICO FERREIRA : 1960 GENDER: MALE VISIT DATE: 03/05/2019 DISCHARGE DATE: 03/05/19 1059 VISIT LOCKED DATE TIME: PHYSICIAN: SANDY STORY MD RESOURCE: SANDY STORY MD REASON FOR APPOINTMENT 1. TPI BILAT NECK HISTORY OF PRESENT ILLNESS HISTORY OF PRESENT ILLNESS: PAIN THE PATIENT DESCRIBES THE PAIN... FALL RISK SCREENING: SCREENING :NO FALLS REPORTED IN THE LAST YEAR CURRENT MEDICATIONS TAKING ASPIRIN ADULT LOW DOSE 81 MG TABLET DELAYED RELEASE 1 TABLET ORALLY ONCE A DAY, NOTES: 03/04/19 TAKING PANTOPRAZOLE SODIUM 20 MG TABLET DELAYED RELEASE 2 TABLETS ORALLY ONCE A DAY, NOTES: 03/04/19 TAKING TOPIRAMATE 50 MG TABLET 1 TABLET ORALLY TWICE A DAY, NOTES: 03/04/19 TAKING COLACE 100 MG CAPSULE 2 ORALLY Q8H TID PRN, NOTES: 03/04/19 TAKING LOSARTAN POTASSIUM 25 MG TABLET 1 TABLET ORALLY ONCE A DAY, NOTES: 03/04/19 TAKING TAMSULOSIN HCL 0.4 MG CAPSULE 1 TAB ORALLY DAILY, NOTES: 03/04/19 TAKING LORATADINE 10 MG TABLET 1 TABLET ORALLY ONCE A DAY, NOTES: 03/04/19 TAKING ROPINIROLE HCL 0.25 MG TABLET 1 TABLET ORALLY BEFORE BEDTIME, NOTES: 03/04/19 TAKING TRAMADOL HCL 50 MG TABLET 1 TABLET NEEDED ORALLY EVERY 6 HRS PRN MDD4, NOTES: FEW WEEKS AGO TAKING MOBIC 15 MG TABLET 1 TABLET ORALLY DAILY, NOTES: 03/04/19 TAKING CYMBALTA 60 MG CAPSULE DELAYED RELEASE PARTICLES 1 CAPSULE ORALLY ONCE A DAY, NOTES: 03/04/19 NOT-TAKING VENTOLIN HFA 108 (90 BASE) MCG/ACT AEROSOL SOLUTION 2 PUFFS NEEDED INHALATION 2-3X/WEEK X 4 WEEKS NOT-TAKING LYRICA 200 MG CAPSULE 1 CAPSULE ORALLY THREE TIMES DAILYMDD3, NOTES: CURRENTLY OUT OF MEDICATION LIST REVIEWED AND RECONCILED WITH THE PATIENT PAST MEDICAL HISTORY HEADACHE, NECK PAIN SLEEP AOPNEA ARTHRITIS DEPRESSION TINNITUS GERD LOWER BACK, NECK PROBLMES NERVE DAMAGE ASTHMA SEASONAL ALLERGIES DIZZINESS ALLERGIES SEASONAL: NASAL CONGESTION - ALLERGY SURGICAL HISTORY CARPAL TUNNEL SURGERY RIGHT 08/30 CARPAL TUNNEL SURGERY LEFT - DONE TWO TIMES 06/30 CHOLECYSTECTOMY LEFT KNEE SCOPE HERNIA REPAIR X3 NERVE BLOCKS VASECTOMY POLYPS REMOVED FROM SINUSES EPIDIDYMAL CYST REMOVAL 4/3/17 FAMILY HISTORY FATHER: , DIAGNOSED WITH OTHER MALIGNANT NEOPLASM OF UNSPECIFIED SITE MOTHER: ALIVE, CKD STAGE 4, HYPERTENSION SIBLINGS: ALIVE, OTHER SPECIFIED CONDITIONS INFLUENCING HEALTH STATUS SON(S): ALIVE, HYPERTENSION 1 BROTHER(S) , 1 SISTER(S) . 1 SON(S) , 2 DAUGHTER(S) - HEALTHY. FATHER-PROSTATE CANCER\N\NUNKNOWN OF ANY AUTOIMMUNE BROTHER IS HAVING CARDIAC STENTS PLACED TOMORROW 10/24/18. SOCIAL HISTORY GENERAL: TOBACCO USE ARE YOU A:FORMER SMOKER HOW LONG HAS IT BEEN SINCE YOU LAST SMOKED?1-5 YEARS EDUCATION LEVEL OF EDUCATION:NOT FINISHED HIGH SCHOOL DIET: REGULAR. LANGUAGE LANGUAGES SPOKEN:SAMI DOMESTIC VIOLENCE DO YOU FEEL SAFE IN YOUR ENVIRONMENT?YES RECREATIONAL DRUG USE DRUG USE?NO EXERCISE: NO REGULAR EXERCISE. LEARNING BARRIERS / SPECIAL NEEDS CHANGE FROM LAST VISIT?NO BARRIERS TO LEARNING?NO HEARING IMPAIRED?NO VISION IMPAIRED?YES COGNITIVELY IMPAIRED?NO :CORRECTIVE LENSES READINESS TO LEARN?YES LEARNING PREFERENCES?NO LEARNING CAPABILITIES PRESENT?YES EMOTIONAL BARRIERS?NO SPECIAL DEVICES?NO LAUNDROMAT WORKER NEEDED?NO PAIN CLINIC PFS, CLERGY, PUBLIC HEALTH REFERRALS PFS REFERRAL NEEDED?NO CLERGY REFERRAL NEEDED?NO PUBLIC HEALTH REFERRAL NEEDED?NO WAS THE PROVIDER NOTIFIED OF ANY PERTINENT INFO?YES N/A HAS THE PATIENT BEEN EDUCATED REGARDING HIS/HER PLAN OF CARE?YES HAS THE PATIENT BEEN EDUCATED REGARDING PAIN, THE RISK FOR PAIN, THE IMPORTANCE OF EFFECTIVE PAIN MANAGEMENT, AND THE PAIN ASSESSMENT PROCESS?YES LATEX QUESTIONNAIRE LATEX ALLERGY : HAVE YOU EVER DEVELOPED ANY TYPE OF REACTION AFTER HANDLING LATEX PRODUCTS SUCH RUBBER GLOVES, CONDOMS, DIAPHRAGMS, BALLOONS, SOCKS, OR UNDERWEAR?NO LATEX ALLERGY : HAVE YOU EVER DEVELOPED ANY TYPE OF REACTION DURING OR AFTER DENTAL APPOINTMENT, VAGINAL/RECTAL EXAMINATION, SURGICAL PROCEDURE, OR ANY OTHER EXPOSURE?NO DATE ASKED : 12/11/2018 LATEX RISK : HAVE YOU EVER HAD ANY DIFFICULTY BREATHING OR HIVES AFTER EATING OR HANDLING ANY FRUITS, OR VEGETABLES; SUCH KIWI, BANANAS, STONE FRUITS, OR CHESTNUTSNO LATEX RISK : DO YOU HAVE A PREVIOUS PERSONAL HISTORY OF MORE THAN NINE SURGERIES, SPINA BIFIDA, OR REPEATED CATHERIZATIONS? NO LATEX RISK : ARE YOU FREQUENTLY EXPOSED TO LATEX PRODUCTS IN YOUR OCCUPATION?NO CAFFEINE CAFFEINE USE?YES HOW OFTEN AND HOW MUCH? 2-3 CUPS DAILY ADVANCE DIRECTIVE ADVANCE DIRECTIVE DISCUSSED WITH PATIENT:YES HCP ON FILE MOM-BERTIN FERREIRA [phone] YAZIDISM [id number] ANGLICAN NO HINDU BELIEFS THAT WOULD IMPACT HEALTH CARE. MARITAL STATUS: .. ALCOHOL SCREENING DID YOU HAVE A DRINK CONTAINING ALCOHOL IN THE PAST YEAR?YES HOW OFTEN DID YOU HAVE SIX OR MORE DRINKS ON ONE OCCASION IN THE PAST YEAR?NEVER (0 POINTS) HOW MANY DRINKS DID YOU HAVE ON A TYPICAL DAY WHEN YOU WERE DRINKING IN THE PAST YEAR?1 OR 2 (0 POINTS) HOW OFTEN DID YOU HAVE A DRINK CONTAINING ALCOHOL IN THE PAST YEAR?MONTHLY OR LESS (1 POINT) POINTS1 INTERPRETATIONNEGATIVE OCCUPATION: DISABLED. 11/14/17 1127 REVIEWED WITN PTREVIEWED WITH PT 12/27/17 BVREVIEWED WITH PT 02/07/18 0908 BVREVIEWED WITH PATIENT 03/01/18 1127 JS03/15/18 0925 REVIEWED WITH PT. ADREVIEWED WITH PATIENT 10/23/18 NL/09/02 2442 REVIEWED WITH PT LASREVIEWED WITH PT 07/30/18 0905 BV REVIEWED WITH PT 01/15/19 09 NLJREVIEWED WITH PATIENT 03/05/19 0920 BV. HOSPITALIZATION/MAJOR DIAGNOSTIC PROCEDURE CHEST PAIN 07/2015 REVIEW OF SYSTEMS REVIEWED BY: PROVIDER: . CONSTITUTIONAL: ANY CHANGE IN YOUR MEDICAL CONDITION? NO . CHILLS NO . FEVER NO . INFECTION: DO YOU HAVE NEW INFECTIONS? NO . DO YOU HAVE HISTORY OF MRSA? NO . MUSCULOSKELETAL: ANY NEW PATTERNS OF PAIN OR NUMBNESS? NO . GASTROENTEROLOGY: ANY NEW CHANGE IN BOWEL CONTROL? NO . GENITOURINARY: ANY NEW CHANGE IN BLADDER CONTROL? NO . IS THERE A CHANCE YOU COULD BE ? NO . HEMATOLOGY/LYMPH: DO YOU TAKE ANY BLOOD THINNERS? (FOR EXAMPLE- COUMADIN, PLAVIX, AGGRENOX, PLATEL, PRADAXA, OR XARELTO) NO . WHEN WAS YOUR LAST DOSE? DATE: TIME: . NEUROLOGY: HAVE YOU FALLEN IN THE PAST 12 MONTHS? NO . ANY NEW EXTREMITY NUMBNESS OR WEAKNESS? NO . CARDIOLOGY: DO YOU HAVE A PACEMAKER OR DEFIBRILLATOR? NO . RESPIRATORY: HAVE YOU BEEN SICK IN THE PAST WEEK? NO . FEVER NO . FLU LIKE SYMPTOMS? NO . COUGH NO . INTEGUMENTARY: DO YOU HAVE ANY RASHES OR OPEN SORES? NO . ALLERGIC/IMMUNO: ARE YOU ALLERGIC TO IV DYE? NO . ANY NEW ALLERGIES? NO . PSYCHIATRIC: DO YOU HAVE THOUGHTS OF HURTING YOURSELF OR SOMEONE ELSE? NO . ARE YOU ABUSED, NEGLECTED, OR IN AN UNSAFE ENVIRONMENT? NO . ENDOCRINOLOGY: ARE YOU DIABETIC? NO . OTHER: DO YOU NEED ANY PRESCRIPTIONS? NO . IF YES, PLEASE LIST: ____ . ANY NEW PROBLEMS WITH YOUR MEDICATIONS? NO . WHEN DID YOU LAST EAT? 03/04/19 1800 . WHEN DID YOU LAST DRINK? 03/05/19 0600 . WHAT DID YOU LAST DRINK? WATER . NAME OF PERSON DRIVING YOU HOME? WARD . DO YOU HAVE ANY OTHER QUESTIONS OR CONCERNS NO . VITAL SIGNS WT 256.4 LBS, HT 69 IN, BMI 37.86 INDEX, BP 177/100 MM HG, HR 70 /MIN, RR 18 /MIN, TEMP 96.4 F, OXYGEN SAT % 96%, NA INITIALS AW 0912, REVIEWED BY: BVLET NURSE KNOW ABOUT BP. ASSESSMENTS MYALGIA, OTHER SITE - M79.18 (PRIMARY) PROCEDURES PN TRIGGER POINT INJECTION WITH STEROIDS PRE PROCEDURE DIAGNOSIS 1. MYALGIA 2. PAIN AT BILATERAL NECK AREA AND BILATERAL SHOULDER AREA. POST PROCEDURE DIAGNOSIS 1. MYALGIA 2. PAIN AT BILATERAL NECK AREA AND BILATERAL SHOULDER AREA. PROCEDURE TRIGGER POINT INJECTION AT RIGHT AND LEFT NECK AREA AND RIGHT AND LEFT SHOULDER AREA. SURGEON DR. SANDY STORY GOLDSMITH APPRENTICE NONE ANESTHESIA LOCAL PRE PROCEDURE NOTE THE PATIENT HAS A HISTORY OF CHRONIC PAIN AT THE RIGHT AND LEFT NECK ARE AND RIGHT AND LEFT SHOULDER AREA. I EVALUATED THE PATIENT AND REVIEWED THE CHART. THERE IS EVIDENCE OF BANDS OF TISSUE WITH RESTRICTION OF MOVEMENT AND PRESENCE OF TRIGGER POINT AT THE AFFECTED AREA. I WENT OVER THE RISKS, ALTERNATIVES, AND BENEFITS ASSOCIATED WITH THIS PROCEDURE. THE PATIENT WOULD LIKE TO PROCEED AND GIVES CONSENT TO PERFORM THE PROCEDURE. THE PATIENT DENIES UNEXPLAINABLE WEIGHT LOSS, FEVER, CHILLS, OR NEW CHANGES IN URINARY OR BOWEL CONTROL DESCRIPTION OF PROCEDURE THE PATIENT WAS BROUGHT TO THE PROCEDURE ROOM AND PLACED IN THE SITTING POSITION. THE AREA WAS CLEANED WITH ALCOHOL. THE PROCEDURE WAS DONE USING ASEPTIC STERILE TECHNIQUE. I CHECKED LATERALITY AND THE LEVEL WHERE THE PROCEDURE WAS GOING TO BE PERFORMED WITH THE PATIENT AND THE SUPPORTING STAFF AT THE MOMENT OF THE TIME OUT IN THE PROCEDURE ROOM. USING A 25-GAUGE NEEDLE, TRIGGER POINTS WERE INJECTED AT THE RIGHT AND LEFT NECK AREA AND RIGHT AND LEFT SHOULDER AREA WITH A TOTAL OF 40 ML OF BUPIVACAINE 0.25% AND KENALOG 40 MG. THERE WAS NO EVIDENCE OF BLOOD, PARESTHESIA OR CEREBROSPINAL FLUID DURING THE PROCEDURE. THE PATIENT WAS SENT TO THE RECOVERY ROOM. THE PATIENT WAS MOVING THE EXTREMITIES AND DOING WELL. THERE WAS NO COMPLICATION DURING THE PROCEDURE POST PROCEDURE NOTE THE PATIENT WILL BE SEEN IN A FOLLOW UP IN THE NEXT FEW WEEKS. INSTRUCTIONS WERE GIVEN, QUESTIONS WERE ANSWERED, AND THE PATIENT EXPRESSED UNDERSTANDING AND AGREES WITH THE PLAN. I, LUCY CROCKER, DOCUMENTED THE ABOVE INFORMATION ACTING A SCRIBE FOR DR. STORY. I HAVE REVIEWED THE ABOVE DOCUMENT, WRITTEN BY LUCY CROCKER SCRIBE AND I VERIFY THAT IT IS ACCURATE. PROCEDURE CODES 67433 INJECT TRIGGER POINTS 3/> DISPOSITION & COMMUNICATION FOLLOW UP 3 WEEKS ELECTRONICALLY SIGNED BY SANDY STORY MD, MD ON 03/11/2019 AT 01:54 PM EST DISCLAIMER : THIS IS A VISIT SUMMARY EXTRACTED FROM THE [employer] CHART. IT IS NOT A COPY OF THE [employer] PROGRESS NOTE. NERY
== END ==
LOC: M PAIN 09:30
PROVIDERS: ATTEND Anesthesiology
DX: M79.18 Myalgia, other site (principal)
CPT/HCPCS: 20553; J3301

== ENCOUNTER → 2019-03-18 | Outpatient (CLI) | payer OTHER ==
[~2019-03-18] MED LIST changes: -BUPIVACAINE HCL 0.25% 10 ML VIAL As Ordered ONE; -BUPIVACAINE HCL 0.25% 30 ML VIAL As Ordered ONE; -TRIAMCINOLONE ACETONIDE SUSP 40 MG/ML VIAL (J3301) As Ordered ONE; -diazePAM 5 MG TAB As Ordered ONE; -oxyCODONE 5MG TAB As Ordered ONE
--- NOTE | 2019-03-19 01:48 | ECWPNPC ---
PATIENT NAME: FEDERICO FERREIRA : 1960 GENDER: MALE VISIT DATE: 03/18/2019 DISCHARGE DATE: 03/18/19 1024 VISIT LOCKED DATE TIME: PHYSICIAN: LAMINE SANTIAGO RESOURCE: LAMINE SANTIAGO REASON FOR APPOINTMENT 1. POST TPI/MEDS HISTORY OF PRESENT ILLNESS HISTORY OF PRESENT ILLNESS: HERE FOR F/U OF CHRONIC NECK AND LBP.HAD TPI IN NECK ON 03/05/19.REPORTING SIGNIFICANT REDUCTION IN HEADACHES SINCE TPI NECK.CHIEF AREA OF PAIN IS LOW BACK.RATING PAIN VAS 9/10.STOPPED LYRICA APPROXIMATLEY 1 MONTH AGO AND REALLY DOESNT CARE IF WE RESTART HE DOESNT FEEL IT HELPS.CURRENT CHRONIC PAIN MEDICATION HE FEELS IS ONLY MARGINALLY EFFECTIVE PER PATIENT.HAS EXPERIMENTED WITH CBD LATELY BUT DOESNT FEEL ITS HELPFUL. PAIN THE PATIENT DESCRIBES THE PAIN... FALL RISK SCREENING: SCREENING :NO FALLS REPORTED IN THE LAST YEAR CURRENT MEDICATIONS TAKING ASPIRIN ADULT LOW DOSE 81 MG TABLET DELAYED RELEASE 1 TABLET ORALLY ONCE A DAY TAKING PANTOPRAZOLE SODIUM 20 MG TABLET DELAYED RELEASE 2 TABLETS ORALLY ONCE A DAY TAKING TOPIRAMATE 50 MG TABLET 1 TABLET ORALLY TWICE A DAY TAKING COLACE 100 MG CAPSULE 2 ORALLY Q8H TID PRN TAKING LOSARTAN POTASSIUM 25 MG TABLET 1 TABLET ORALLY ONCE A DAY TAKING TAMSULOSIN HCL 0.4 MG CAPSULE 1 TAB ORALLY DAILY TAKING LORATADINE 10 MG TABLET 1 TABLET ORALLY ONCE A DAY TAKING TRAMADOL HCL 50 MG TABLET 1 TABLET NEEDED ORALLY EVERY 6 HRS PRN MDD4 TAKING CYMBALTA 60 MG CAPSULE DELAYED RELEASE PARTICLES 1 CAPSULE ORALLY ONCE A DAY TAKING ROPINIROLE HCL 0.25 MG TABLET 1 TABLET ORALLY BEFORE BEDTIME TAKING MOBIC 15 MG TABLET 1 TABLET ORALLY DAILY TAKING LYRICA 200 MG CAPSULE 1 CAPSULE ORALLY THREE TIMES DAILYMDD3, NOTES: CURRENTLY OUT OF NOT-TAKING VENTOLIN HFA 108 (90 BASE) MCG/ACT AEROSOL SOLUTION 2 PUFFS NEEDED INHALATION 2-3X/WEEK X 4 WEEKS MEDICATION LIST REVIEWED AND RECONCILED WITH THE PATIENT PAST MEDICAL HISTORY HEADACHE, NECK PAIN SLEEP AOPNEA ARTHRITIS DEPRESSION TINNITUS GERD LOWER BACK, NECK PROBLMES NERVE DAMAGE ASTHMA SEASONAL ALLERGIES DIZZINESS ALLERGIES SEASONAL: NASAL CONGESTION - ALLERGY SURGICAL HISTORY CARPAL TUNNEL SURGERY RIGHT 08/30 CARPAL TUNNEL SURGERY LEFT - DONE TWO TIMES 06/30 CHOLECYSTECTOMY LEFT KNEE SCOPE HERNIA REPAIR X3 NERVE BLOCKS VASECTOMY POLYPS REMOVED FROM SINUSES EPIDIDYMAL CYST REMOVAL 07/18/16 FAMILY HISTORY FATHER: , DIAGNOSED WITH OTHER MALIGNANT NEOPLASM OF UNSPECIFIED SITE MOTHER: ALIVE, CKD STAGE 4, HYPERTENSION SIBLINGS: ALIVE, OTHER SPECIFIED CONDITIONS INFLUENCING HEALTH STATUS SON(S): ALIVE, HYPERTENSION 1 BROTHER(S) , 1 SISTER(S) . 1 SON(S) , 2 DAUGHTER(S) - HEALTHY. FATHER-PROSTATE CANCER\N\NUNKNOWN OF ANY AUTOIMMUNE BROTHER IS HAVING CARDIAC STENTS PLACED TOMORROW 10/24/18. SOCIAL HISTORY GENERAL: TOBACCO USE ARE YOU A:FORMER SMOKER HOW LONG HAS IT BEEN SINCE YOU LAST SMOKED?1-5 YEARS EDUCATION LEVEL OF EDUCATION:NOT FINISHED HIGH SCHOOL DIET: REGULAR. LANGUAGE LANGUAGES SPOKEN:KHMER DOMESTIC VIOLENCE DO YOU FEEL SAFE IN YOUR ENVIRONMENT?YES RECREATIONAL DRUG USE DRUG USE?NO EXERCISE: NO REGULAR EXERCISE. LEARNING BARRIERS / SPECIAL NEEDS CHANGE FROM LAST VISIT?NO BARRIERS TO LEARNING?NO HEARING IMPAIRED?NO VISION IMPAIRED?YES COGNITIVELY IMPAIRED?NO :CORRECTIVE LENSES READINESS TO LEARN?YES LEARNING PREFERENCES?NO LEARNING CAPABILITIES PRESENT?YES EMOTIONAL BARRIERS?NO SPECIAL DEVICES?NO BENCH ASSEMBLY INSPECTOR NEEDED?NO PAIN CLINIC PFS, CLERGY, PUBLIC HEALTH REFERRALS PFS REFERRAL NEEDED?NO CLERGY REFERRAL NEEDED?NO PUBLIC HEALTH REFERRAL NEEDED?NO WAS THE PROVIDER NOTIFIED OF ANY PERTINENT INFO?YES N/A HAS THE PATIENT BEEN EDUCATED REGARDING HIS/HER PLAN OF CARE?YES HAS THE PATIENT BEEN EDUCATED REGARDING PAIN, THE RISK FOR PAIN, THE IMPORTANCE OF EFFECTIVE PAIN MANAGEMENT, AND THE PAIN ASSESSMENT PROCESS?YES LATEX QUESTIONNAIRE LATEX ALLERGY : HAVE YOU EVER DEVELOPED ANY TYPE OF REACTION AFTER HANDLING LATEX PRODUCTS SUCH RUBBER GLOVES, CONDOMS, DIAPHRAGMS, BALLOONS, SOCKS, OR UNDERWEAR?NO LATEX ALLERGY : HAVE YOU EVER DEVELOPED ANY TYPE OF REACTION DURING OR AFTER DENTAL APPOINTMENT, VAGINAL/RECTAL EXAMINATION, SURGICAL PROCEDURE, OR ANY OTHER EXPOSURE?NO LATEX RISK : HAVE YOU EVER HAD ANY DIFFICULTY BREATHING OR HIVES AFTER EATING OR HANDLING ANY FRUITS, OR VEGETABLES; SUCH KIWI, BANANAS, STONE FRUITS, OR CHESTNUTSNO LATEX RISK : DO YOU HAVE A PREVIOUS PERSONAL HISTORY OF MORE THAN NINE SURGERIES, SPINA BIFIDA, OR REPEATED CATHERIZATIONS? NO LATEX RISK : ARE YOU FREQUENTLY EXPOSED TO LATEX PRODUCTS IN YOUR OCCUPATION?NO DATE ASKED : 12/11/2018 CAFFEINE CAFFEINE USE?YES HOW OFTEN AND HOW MUCH? 2-3 CUPS DAILY ADVANCE DIRECTIVE ADVANCE DIRECTIVE DISCUSSED WITH PATIENT:YES HCP ON FILE MALIK FERREIRA [phone] [place] [id number] RELIGION NO SIKH BELIEFS THAT WOULD IMPACT HEALTH CARE. MARITAL STATUS: .. ALCOHOL SCREENING DID YOU HAVE A DRINK CONTAINING ALCOHOL IN THE PAST YEAR?YES HOW OFTEN DID YOU HAVE SIX OR MORE DRINKS ON ONE OCCASION IN THE PAST YEAR?NEVER (0 POINTS) HOW MANY DRINKS DID YOU HAVE ON A TYPICAL DAY WHEN YOU WERE DRINKING IN THE PAST YEAR?1 OR 2 (0 POINTS) HOW OFTEN DID YOU HAVE A DRINK CONTAINING ALCOHOL IN THE PAST YEAR?MONTHLY OR LESS (1 POINT) POINTS1 INTERPRETATIONNEGATIVE OCCUPATION: DISABLED. 11/14/17 1127 REVIEWED WITN PTREVIEWED WITH PT 12/27/17 BVREVIEWED WITH PT 02/07/18 0908 BVREVIEWED WITH PATIENT 03/01/18 1127 JS03/15/18 0925 REVIEWED WITH PT. ADREVIEWED WITH PATIENT 10/23/18 NL05/22/18 2442 REVIEWED WITH PT LASREVIEWED WITH PT 07/30/18 0905 BV REVIEWED WITH PT 01/15/19 0918 NLJREVIEWED WITH PATIENT 03/05/19 0920 BVREVIEWED WITH PATIENT 03/18/19 0942 JS. HOSPITALIZATION/MAJOR DIAGNOSTIC PROCEDURE CHEST PAIN 07/2015 REVIEW OF SYSTEMS REVIEWED BY: PROVIDER: LAMINE WALLACE . CONSTITUTIONAL: ANY CHANGE IN YOUR MEDICAL CONDITION? NO . CHILLS NO . FEVER NO . INFECTION: DO YOU HAVE NEW INFECTIONS? NO . DO YOU HAVE HISTORY OF MRSA? NO . MUSCULOSKELETAL: ANY NEW PATTERNS OF PAIN OR NUMBNESS? NO . GASTROENTEROLOGY: ANY NEW CHANGE IN BOWEL CONTROL? NO . GENITOURINARY: ANY NEW CHANGE IN BLADDER CONTROL? NO . IS THERE A CHANCE YOU COULD BE ? NO . HEMATOLOGY/LYMPH: DO YOU TAKE ANY BLOOD THINNERS? (FOR EXAMPLE- COUMADIN, PLAVIX, AGGRENOX, PLATEL, PRADAXA, OR XARELTO) NO . WHEN WAS YOUR LAST DOSE? DATE: TIME: . NEUROLOGY: HAVE YOU FALLEN IN THE PAST 12 MONTHS? NO . ANY NEW EXTREMITY NUMBNESS OR WEAKNESS? NO . CARDIOLOGY: DO YOU HAVE A PACEMAKER OR DEFIBRILLATOR? NO . RESPIRATORY: HAVE YOU BEEN SICK IN THE PAST WEEK? NO . FEVER NO . FLU LIKE SYMPTOMS? NO . COUGH NO . INTEGUMENTARY: DO YOU HAVE ANY RASHES OR OPEN SORES? NO . ALLERGIC/IMMUNO: ARE YOU ALLERGIC TO IV DYE? NO . ANY NEW ALLERGIES? NO . PSYCHIATRIC: DO YOU HAVE THOUGHTS OF HURTING YOURSELF OR SOMEONE ELSE? NO . ARE YOU ABUSED, NEGLECTED, OR IN AN UNSAFE ENVIRONMENT? NO . ENDOCRINOLOGY: ARE YOU DIABETIC? NO . OTHER: DO YOU NEED ANY PRESCRIPTIONS? YES . IF YES, PLEASE LIST: ____LYRICA, MELOXICAM, DULOXETINE, ROPINEROLE . ANY NEW PROBLEMS WITH YOUR MEDICATIONS? NO . WHEN DID YOU LAST EAT? ____ . WHEN DID YOU LAST DRINK? ____ . WHAT DID YOU LAST DRINK? ____ . NAME OF PERSON DRIVING YOU HOME? ____ . DO YOU HAVE ANY OTHER QUESTIONS OR CONCERNS YES, WANTS TO DISCUSS MEDICATIONS AND POSSIBLY CHANGING SOME . VITAL SIGNS WT 254.8 LBS, HT 69 IN, BMI 37.62 INDEX, BP 166/107 MM HG, REPEAT BP 158/94 MANUAL, HR 74 /MIN, RR 18 /MIN, TEMP 97.7 F, OXYGEN SAT % 97%, SAFE IN ENV? (Y/N) YES, NA INITIALS SC 09:38, REVIEWED BY: LUCINDA IS AWERE OF PT'S BP.03/18/19 DISCUSSED PATIENT'S ELEVATED BP, STATES HE HAS AN APPOINTMENT WITH THE PUBLIC HEALTH STAFF NURSE IN THE NEXT COUPLE OF WEEKS AND WILL DISCUSS WITH HIM. LAMINE SANTIAGO AWARE. 0947 JS. EXAMINATION GENERAL EXAMINATION: GENERAL AWAKE,ALERT ,PLEAASANT . PSYCH AFFECT NORMAL . LUNGS: LUNG VIDAL ARE CLEAR TO AUSCULTATION BILATERALLY. GOOD MOVEMENT OF AIR . HEART: S1, S2 IN A REGULAR RATE AND RHYTHM. NO SIGNIFICANT MURMURS, RUBS OR GALLOPS NOTED . CERVICAL TRIGGER POINTS: CERVICAL AND TRAPEZIUS BILAT..PAIN IS AGGREVATED WITH ROJM NECK. DIAGNOSTIC TESTS REVIEWED MRI C SPINE-2017. ASSESSMENTS MYALGIA, OTHER SITE - M79.18 (PRIMARY) SPONDYLOSIS WITHOUT MYELOPATHY OR RADICULOPATHY, LUMBOSACRAL REGION - M47.817 TREATMENT MYALGIA, OTHER SITE STOP TRAMADOL HCL TABLET, 50 MG, 1 TABLET NEEDED, ORALLY, EVERY 6 HRS PRN MDD4 REFILL CYMBALTA CAPSULE DELAYED RELEASE PARTICLES, 60 MG, 1 CAPSULE, ORALLY, ONCE A DAY, 30 DAY(S), 30 CAPSULE, REFILLS 1 INCREASE ROPINIROLE HCL TABLET, 0.25 MG, 1 TO 2, ORALLY, BEFORE BEDTIME, 30 DAY(S), 60, REFILLS 1 REFILL MOBIC TABLET, 15 MG, 1 TABLET, ORALLY, DAILY, 30 DAYS, 30 TABLET, REFILLS 1 NOTES: TPI NECKGET NEUROLOGY NOTES. REFERRAL TO:[facility] [place] [facility]:CHRONIC GENERALIZED PAIN-ASSESS FOR ALTERNATIVE TREATMENT MODALITIES PREVENTIVE MEDICINE PAIN CLINIC TEACHING: PROCEDURE TEACHING REVIEWED INFORMATION ON TRIGGER POINT INJECTION PROCEDURE WITH PATIENT. ALSO REVIEWED PRE-RPOCEDURE INSTRUCTIONS. PATIENT VERBALIZED AN UNDERSTANDING. ULISES HAMILTON 03/18/2019 11:30:14 AM > . PROCEDURE CODES FA211 ESTABILISHED PATIENT [facility] CHARGE DISPOSITION & COMMUNICATION FOLLOW UP POST (REASON: TPI NECK) ELECTRONICALLY SIGNED BY RODRIGO HARTMANN ON 03/18/2019 AT 02:11 PM EST DISCLAIMER : THIS IS A VISIT SUMMARY EXTRACTED FROM THE [employer] CHART. IT IS NOT A COPY OF THE [employer] PROGRESS NOTE. NERY
== END ==
LOC: M PAIN 09:00
PROVIDERS: ATTEND Nurse Practitioner Family
DX: M79.18 Myalgia, other site (principal); M47.817 Spondylosis without myelopathy or radiculopathy, lumbosacral region

== ENCOUNTER → 2019-05-24 | Outpatient (CLI) | payer OTHER | LOC: M PAIN 11:45 | PROVIDERS: ATTEND Anesthesiology | DX: Z53.20 Procedure and treatment not carried out because of patient's decision for unspecified reasons (principal) ==

== ENCOUNTER → 2019-06-21 | Outpatient (CLI) | payer OTHER ==
[~2019-06-21] MED LIST changes: +BUPIVACAINE HCL 0.25% 30 ML VIAL As Ordered ONE; +TRIAMCINOLONE ACETONIDE SUSP 40 MG/ML VIAL (J3301) As Ordered ONE; +diazePAM 5 MG TAB As Ordered ONE; +oxyCODONE 5MG TAB As Ordered ONE
--- NOTE | 2019-06-27 04:45 | ECWPNPC ---
PATIENT NAME: FEDERICO FERREIRA : 1960 GENDER: MALE VISIT DATE: 06/21/2019 DISCHARGE DATE: 06/21/19 1116 VISIT LOCKED DATE TIME: PHYSICIAN: SANDY STORY MD RESOURCE: SANDY STORY MD REASON FOR APPOINTMENT 1. TPI HISTORY OF PRESENT ILLNESS HISTORY OF PRESENT ILLNESS: PAIN THE PATIENT DESCRIBES THE PAIN... FALL RISK SCREENING: SCREENING :NO FALLS REPORTED IN THE LAST YEAR CURRENT MEDICATIONS TAKING ASPIRIN ADULT LOW DOSE 81 MG TABLET DELAYED RELEASE 1 TABLET ORALLY ONCE A DAY, NOTES: 06-21-19699 TAKING PANTOPRAZOLE SODIUM 20 MG TABLET DELAYED RELEASE 2 TABLETS ORALLY ONCE A DAY, NOTES: 06-21-19699 TAKING TOPIRAMATE 50 MG TABLET 1 TABLET ORALLY TWICE A DAY, NOTES: 06-21-19 TAKING COLACE 100 MG CAPSULE 2 ORALLY Q8H TID PRN, NOTES: 06-21-19699 TAKING LOSARTAN POTASSIUM 25 MG TABLET 1 TABLET ORALLY ONCE A DAY, NOTES: 06-21-19599 TAKING TAMSULOSIN HCL 0.4 MG CAPSULE 1 TAB ORALLY DAILY, NOTES: 06-21-19699 TAKING LORATADINE 10 MG TABLET 1 TABLET ORALLY ONCE A DAY, NOTES: 06-21-19699 TAKING CYMBALTA 60 MG CAPSULE DELAYED RELEASE PARTICLES 1 CAPSULE ORALLY ONCE A DAY, NOTES: 06-21-19699 TAKING ROPINIROLE HCL 0.25 MG TABLET 1 TO 2 ORALLY BEFORE BEDTIME, NOTES: 06-21-19799 TAKING LASIX 20 MG TABLET 1 TABLET ORALLY ONCE A DAY STATES HE DOES NOT KNOW DOSE AND WAS RECENTLY PLACED ON MED DUE TO RECENT CP AND SOB, NOTES: 06-20-19799 NOT-TAKING LYRICA 200 MG CAPSULE 1 CAPSULE ORALLY THREE TIMES DAILYMDD3, NOTES: CURRENTLY OUT OF NOT-TAKING VENTOLIN HFA 108 (90 BASE) MCG/ACT AEROSOL SOLUTION 2 PUFFS NEEDED INHALATION 2-3X/WEEK X 4 WEEKS UNKNOWN MOBIC 15 MG TABLET 1 TABLET ORALLY DAILY MEDICATION LIST REVIEWED AND RECONCILED WITH THE PATIENT PAST MEDICAL HISTORY HEADACHE, NECK PAIN SLEEP AOPNEA ARTHRITIS DEPRESSION TINNITUS GERD LOWER BACK, NECK PROBLMES NERVE DAMAGE ASTHMA SEASONAL ALLERGIES DIZZINESS ALLERGIES SEASONAL: NASAL CONGESTION - ALLERGY SURGICAL HISTORY CARPAL TUNNEL SURGERY RIGHT 08/30 CARPAL TUNNEL SURGERY LEFT - DONE TWO TIMES 3/16 CHOLECYSTECTOMY LEFT KNEE SCOPE HERNIA REPAIR X3 NERVE BLOCKS VASECTOMY POLYPS REMOVED FROM SINUSES EPIDIDYMAL CYST REMOVAL 07/18/16 FAMILY HISTORY FATHER: , DIAGNOSED WITH OTHER MALIGNANT NEOPLASM OF UNSPECIFIED SITE MOTHER: ALIVE, CKD STAGE 4, HYPERTENSION SIBLINGS: ALIVE, OTHER SPECIFIED CONDITIONS INFLUENCING HEALTH STATUS SON(S): ALIVE, HYPERTENSION 1 BROTHER(S) , 1 SISTER(S) . 1 SON(S) , 2 DAUGHTER(S) - HEALTHY. FATHER-PROSTATE CANCER\N\NUNKNOWN OF ANY AUTOIMMUNE BROTHER IS HAVING CARDIAC STENTS PLACED TOMORROW 10/24/18. SOCIAL HISTORY GENERAL: TOBACCO USE ARE YOU A:FORMER SMOKER HOW LONG HAS IT BEEN SINCE YOU LAST SMOKED?1-5 YEARS EDUCATION LEVEL OF EDUCATION:NOT FINISHED HIGH SCHOOL DIET: REGULAR. LANGUAGE LANGUAGES SPOKEN:UKRAINIAN DOMESTIC VIOLENCE DO YOU FEEL SAFE IN YOUR ENVIRONMENT?YES RECREATIONAL DRUG USE DRUG USE?NO EXERCISE: NO REGULAR EXERCISE. LEARNING BARRIERS / SPECIAL NEEDS CHANGE FROM LAST VISIT?NO BARRIERS TO LEARNING?NO HEARING IMPAIRED?NO VISION IMPAIRED?YES COGNITIVELY IMPAIRED?NO :CORRECTIVE LENSES READINESS TO LEARN?YES LEARNING PREFERENCES?NO LEARNING CAPABILITIES PRESENT?YES EMOTIONAL BARRIERS?NO SPECIAL DEVICES?NO INFANTRY SENIOR SERGEANT NEEDED?NO PAIN CLINIC PFS, CLERGY, PUBLIC HEALTH REFERRALS PFS REFERRAL NEEDED?NO CLERGY REFERRAL NEEDED?NO PUBLIC HEALTH REFERRAL NEEDED?NO WAS THE PROVIDER NOTIFIED OF ANY PERTINENT INFO?YES N/A HAS THE PATIENT BEEN EDUCATED REGARDING HIS/HER PLAN OF CARE?YES HAS THE PATIENT BEEN EDUCATED REGARDING PAIN, THE RISK FOR PAIN, THE IMPORTANCE OF EFFECTIVE PAIN MANAGEMENT, AND THE PAIN ASSESSMENT PROCESS?YES LATEX QUESTIONNAIRE LATEX ALLERGY : HAVE YOU EVER DEVELOPED ANY TYPE OF REACTION AFTER HANDLING LATEX PRODUCTS SUCH RUBBER GLOVES, CONDOMS, DIAPHRAGMS, BALLOONS, SOCKS, OR UNDERWEAR?NO LATEX ALLERGY : HAVE YOU EVER DEVELOPED ANY TYPE OF REACTION DURING OR AFTER DENTAL APPOINTMENT, VAGINAL/RECTAL EXAMINATION, SURGICAL PROCEDURE, OR ANY OTHER EXPOSURE?NO DATE ASKED : 12/11/2018 LATEX RISK : HAVE YOU EVER HAD ANY DIFFICULTY BREATHING OR HIVES AFTER EATING OR HANDLING ANY FRUITS, OR VEGETABLES; SUCH KIWI, BANANAS, STONE FRUITS, OR CHESTNUTSNO LATEX RISK : DO YOU HAVE A PREVIOUS PERSONAL HISTORY OF MORE THAN NINE SURGERIES, SPINA BIFIDA, OR REPEATED CATHERIZATIONS? NO LATEX RISK : ARE YOU FREQUENTLY EXPOSED TO LATEX PRODUCTS IN YOUR OCCUPATION?NO CAFFEINE CAFFEINE USE?YES HOW OFTEN AND HOW MUCH? 2-3 CUPS DAILY ADVANCE DIRECTIVE ADVANCE DIRECTIVE DISCUSSED WITH PATIENT:YES HCP ON FILE MALIK FERREIRA [phone] [employer] [id number] RESTORATIONISM NO RASTAFARI BELIEFS THAT WOULD IMPACT HEALTH CARE. MARITAL STATUS: .. ALCOHOL SCREENING DID YOU HAVE A DRINK CONTAINING ALCOHOL IN THE PAST YEAR?YES HOW OFTEN DID YOU HAVE SIX OR MORE DRINKS ON ONE OCCASION IN THE PAST YEAR?NEVER (0 POINTS) HOW MANY DRINKS DID YOU HAVE ON A TYPICAL DAY WHEN YOU WERE DRINKING IN THE PAST YEAR?1 OR 2 (0 POINTS) HOW OFTEN DID YOU HAVE A DRINK CONTAINING ALCOHOL IN THE PAST YEAR?MONTHLY OR LESS (1 POINT) POINTS1 INTERPRETATIONNEGATIVE OCCUPATION: DISABLED. 11/14/17 1127 REVIEWED WITN PTREVIEWED WITH PT 12/27/17 BVREVIEWED WITH PT 02/07/18 0908 BVREVIEWED WITH PATIENT 03/01/18 1127 JS03/15/18 0925 REVIEWED WITH PT. ADREVIEWED WITH PATIENT 10/23/18 NL05/22/18 2442 REVIEWED WITH PT LASREVIEWED WITH PT 07/30/18 0905 BV REVIEWED WITH PT 01/15/19 0918 NLJREVIEWED WITH PATIENT 03/05/19 0920 BVREVIEWED WITH PATIENT 03/18/19 0942 JSPRE PROCEDURE PHONE CALL COMPLETED 04/23/19 1747 NLJPRE-SCREENING PHONE CALL DONE 06/11/19. HOSPITALIZATION/MAJOR DIAGNOSTIC PROCEDURE CHEST PAIN 07/2015 REVIEW OF SYSTEMS REVIEWED BY: PROVIDER: . CONSTITUTIONAL: ANY CHANGE IN YOUR MEDICAL CONDITION? NO . CHILLS NO . FEVER NO . INFECTION: DO YOU HAVE NEW INFECTIONS? NO . DO YOU HAVE HISTORY OF MRSA? NO . MUSCULOSKELETAL: ANY NEW PATTERNS OF PAIN OR NUMBNESS? YES INCREASED . GASTROENTEROLOGY: ANY NEW CHANGE IN BOWEL CONTROL? NO . GENITOURINARY: ANY NEW CHANGE IN BLADDER CONTROL? NO . IS THERE A CHANCE YOU COULD BE ? NO . HEMATOLOGY/LYMPH: DO YOU TAKE ANY BLOOD THINNERS? (FOR EXAMPLE- COUMADIN, PLAVIX, AGGRENOX, PLATEL, PRADAXA, OR XARELTO) NO . WHEN WAS YOUR LAST DOSE? DATE: TIME: . NEUROLOGY: HAVE YOU FALLEN IN THE PAST 12 MONTHS? NO . ANY NEW EXTREMITY NUMBNESS OR WEAKNESS? NO . CARDIOLOGY: DO YOU HAVE A PACEMAKER OR DEFIBRILLATOR? NO . RESPIRATORY: HAVE YOU BEEN SICK IN THE PAST WEEK? NO . FEVER NO . FLU LIKE SYMPTOMS? NO . COUGH NO . INTEGUMENTARY: DO YOU HAVE ANY RASHES OR OPEN SORES? NO . ALLERGIC/IMMUNO: ARE YOU ALLERGIC TO IV DYE? NO . ANY NEW ALLERGIES? NO . PSYCHIATRIC: DO YOU HAVE THOUGHTS OF HURTING YOURSELF OR SOMEONE ELSE? NO . ARE YOU ABUSED, NEGLECTED, OR IN AN UNSAFE ENVIRONMENT? NO . ENDOCRINOLOGY: ARE YOU DIABETIC? NO . OTHER: DO YOU NEED ANY PRESCRIPTIONS? NO . IF YES, PLEASE LIST: ____ . ANY NEW PROBLEMS WITH YOUR MEDICATIONS? NO . WHEN DID YOU LAST EAT? ____06-20-19 . WHEN DID YOU LAST DRINK? ____06-21-19 0700 . WHAT DID YOU LAST DRINK? ____WATER . NAME OF PERSON DRIVING YOU HOME? ____ . DO YOU HAVE ANY OTHER QUESTIONS OR CONCERNS NOLAIRE . VITAL SIGNS WT 97.7 LBS, HT 69 IN, BMI 14.43 INDEX, BP 186/107 MM HG, REPEAT BP 148/*70 MANUAL, HR 74 /MIN, RR 18 /MIN, TEMP 97.7 F, OXYGEN SAT % 98%, SAFE IN ENV? (Y/N) YES, NA INITIALS AW 1009, REVIEWED BY: KG. ASSESSMENTS MYALGIA, OTHER SITE - M79.18 (PRIMARY) PROCEDURES PN TRIGGER POINT INJECTION WITH STEROIDS PRE PROCEDURE DIAGNOSIS 1. MYALGIA 2. PAIN AT LEFT NECK AREA. POST PROCEDURE DIAGNOSIS 1. MYALGIA 2. PAIN AT LEFT NECK AREA. PROCEDURE TRIGGER POINT INJECTION AT LEFT NECK AREA. SURGEON DR. SANDY STORY CUT PLUG PACKER NONE ANESTHESIA LOCAL PRE PROCEDURE NOTE THE PATIENT HAS A HISTORY OF CHRONIC PAIN AT THE LEFT NECK AREA. I EVALUATED THE PATIENT AND REVIEWED THE CHART. THERE IS EVIDENCE OF BANDS OF TISSUE WITH RESTRICTION OF MOVEMENT AND PRESENCE OF TRIGGER POINT AT THE AFFECTED AREA. I WENT OVER THE RISKS, ALTERNATIVES, AND BENEFITS ASSOCIATED WITH THIS PROCEDURE. THE PATIENT WOULD LIKE TO PROCEED AND GIVES CONSENT TO PERFORM THE PROCEDURE. THE PATIENT DENIES UNEXPLAINABLE WEIGHT LOSS, FEVER, CHILLS, OR NEW CHANGES IN URINARY OR BOWEL CONTROL DESCRIPTION OF PROCEDURE THE PATIENT WAS BROUGHT TO THE PROCEDURE ROOM AND PLACED IN THE SITTING POSITION. THE AREA WAS CLEANED WITH ALCOHOL. THE PROCEDURE WAS DONE USING ASEPTIC STERILE TECHNIQUE. I CHECKED LATERALITY AND THE LEVEL WHERE THE PROCEDURE WAS GOING TO BE PERFORMED WITH THE PATIENT AND THE SUPPORTING STAFF AT THE MOMENT OF THE TIME OUT IN THE PROCEDURE ROOM. USING A 25-GAUGE NEEDLE, TRIGGER POINTS WERE INJECTED AT THE LEFT NECK AREA WITH A TOTAL OF 40 ML OF BUPIVACAINE 0.25% AND KENALOG 40 MG. THERE WAS NO EVIDENCE OF BLOOD, PARESTHESIA OR CEREBROSPINAL FLUID DURING THE PROCEDURE. THE PATIENT WAS SENT TO THE RECOVERY ROOM. THE PATIENT WAS MOVING THE EXTREMITIES AND DOING WELL. THERE WAS NO COMPLICATION DURING THE PROCEDURE POST PROCEDURE NOTE THE PATIENT WILL BE SEEN IN A FOLLOW UP IN THE NEXT FEW WEEKS TO SEE HOW THE INJECTION IS HELPING WITH HIS PAIN. I AM LOOKING FOR LONG LASTING PAIN RELIEF FOR THE PATIENT WITH THIS INJECTION. INSTRUCTIONS WERE GIVEN, QUESTIONS WERE ANSWERED, AND THE PATIENT EXPRESSED UNDERSTANDING AND AGREES WITH THE PLAN. I, LUCY CROCKER, DOCUMENTED THE ABOVE INFORMATION ACTING A SCRIBE FOR DR. STORY. I HAVE REVIEWED THE ABOVE DOCUMENT, WRITTEN BY LUCY CROCKER SCRIBYanira AND I VERIFY THAT IT IS ACCURATE. PROCEDURE CODES 89668 INJ TRIGGER POINT 04/18 [facility] [place] DISPOSITION & COMMUNICATION FOLLOW UP 3 WEEKS ELECTRONICALLY SIGNED BY SANDY STORY MD, MD ON 06/26/2019 AT 11:46 AM EDT DISCLAIMER : THIS IS A VISIT SUMMARY EXTRACTED FROM THE [employer] CHART. IT IS NOT A COPY OF THE [employer] PROGRESS NOTE. NERY
== END ==
LOC: M PAIN 10:15
PROVIDERS: ATTEND Anesthesiology
DX: M79.18 Myalgia, other site (principal)
CPT/HCPCS: 20552; J3301

== ENCOUNTER → 2019-07-04 | Outpatient (CLI) | payer OTHER ==
[~2019-07-04] MED LIST changes: -BUPIVACAINE HCL 0.25% 30 ML VIAL As Ordered ONE; -TRIAMCINOLONE ACETONIDE SUSP 40 MG/ML VIAL (J3301) As Ordered ONE; -diazePAM 5 MG TAB As Ordered ONE; -oxyCODONE 5MG TAB As Ordered ONE
--- NOTE | 2019-07-04 23:23 | ECWPNPC ---
PATIENT NAME: FEDERICO FERREIRA : 1960 GENDER: MALE VISIT DATE: 07/04/2019 DISCHARGE DATE: 07/04/19 1028 VISIT LOCKED DATE TIME: PHYSICIAN: LAMINE SANTIAGO RESOURCE: LAMINE SANTIAGO REASON FOR APPOINTMENT 1. POST TPI HISTORY OF PRESENT ILLNESS HISTORY OF PRESENT ILLNESS: HERE FOR POST PROCEDURE FOLLOW-UP. HAD TRIGGER POINT INJECTIONS, LEFT NECK ON 06/21/2019. REPORTING MARKED REDUCTION IN HEADACHES THAT CONTINUES TODAY. CHIEF AREA OF PAIN IS NECK AND LOW BACK. DESCRIBES PAIN CONTINUOUS AND BURNING. PAIN RANGES FROM A 7 TO AN 8/10 VAS. REPORTS THAT PAIN WAKES HIM FROM SLEEP. HAS STOPPED CELEBREX AND CYMBALTA. STATES HE IS HAVING DIFFICULTY GETTING MEDICATION FROM OUR OFFICE. STATES THAT MEDICAL MARIJUANA WAS STARTED RECENTLY AND SEEMS TO BE HELPING A BIT. STATES IT IS HELPING WITH HIS SLEEP. PAIN THE PATIENT DESCRIBES THE PAIN... FALL RISK SCREENING: SCREENING :NO FALLS REPORTED IN THE LAST YEAR CURRENT MEDICATIONS TAKING ASPIRIN ADULT LOW DOSE 81 MG TABLET DELAYED RELEASE 1 TABLET ORALLY ONCE A DAY TAKING PANTOPRAZOLE SODIUM 20 MG TABLET DELAYED RELEASE 2 TABLETS ORALLY ONCE A DAY TAKING TOPIRAMATE 50 MG TABLET 1 TABLET ORALLY TWICE A DAY TAKING LOSARTAN POTASSIUM 25 MG TABLET 1 TABLET ORALLY ONCE A DAY TAKING LORATADINE 10 MG TABLET 1 TABLET ORALLY ONCE A DAY TAKING ROPINIROLE HCL 0.25 MG TABLET 1 TO 2 ORALLY BEFORE BEDTIME TAKING LASIX 20 MG TABLET 1 TABLET ORALLY ONCE A DAY STATES HE DOES NOT KNOW DOSE AND WAS RECENTLY PLACED ON MED DUE TO RECENT CP AND SOB TAKING SIMVASTATIN 20 MG TABLET 1 TABLET IN THE EVENING ORALLY ONCE A DAY TAKING MAY HAVE - - MEDICAL MARIJUANA DIRECTED NOT-TAKING COLACE 100 MG CAPSULE 2 ORALLY Q8H TID PRN NOT-TAKING TAMSULOSIN HCL 0.4 MG CAPSULE 1 TAB ORALLY DAILY NOT-TAKING CYMBALTA 60 MG CAPSULE DELAYED RELEASE PARTICLES 1 CAPSULE ORALLY ONCE A DAY NOT-TAKING LYRICA 200 MG CAPSULE 1 CAPSULE ORALLY THREE TIMES DAILYMDD3, NOTES: CURRENTLY OUT OF NOT-TAKING VENTOLIN HFA 108 (90 BASE) MCG/ACT AEROSOL SOLUTION 2 PUFFS NEEDED INHALATION 2-3X/WEEK X 4 WEEKS NOT-TAKING MOBIC 15 MG TABLET 1 TABLET ORALLY DAILY PAST MEDICAL HISTORY HEADACHE, NECK PAIN SLEEP AOPNEA ARTHRITIS DEPRESSION TINNITUS GERD LOWER BACK, NECK PROBLMES NERVE DAMAGE ASTHMA SEASONAL ALLERGIES DIZZINESS ALLERGIES SEASONAL: NASAL CONGESTION - ALLERGY SURGICAL HISTORY CARPAL TUNNEL SURGERY RIGHT 08/30 CARPAL TUNNEL SURGERY LEFT - DONE TWO TIMES 06/30 CHOLECYSTECTOMY LEFT KNEE SCOPE HERNIA REPAIR X3 NERVE BLOCKS VASECTOMY POLYPS REMOVED FROM SINUSES EPIDIDYMAL CYST REMOVAL 07/18/16 FAMILY HISTORY FATHER: , DIAGNOSED WITH OTHER MALIGNANT NEOPLASM OF UNSPECIFIED SITE MOTHER: ALIVE, CKD STAGE 4, HYPERTENSION SIBLINGS: ALIVE, OTHER SPECIFIED CONDITIONS INFLUENCING HEALTH STATUS SON(S): ALIVE, HYPERTENSION 1 BROTHER(S) , 1 SISTER(S) . 1 SON(S) , 2 DAUGHTER(S) - HEALTHY. FATHER-PROSTATE CANCER\N\NUNKNOWN OF ANY AUTOIMMUNE BROTHER IS HAVING CARDIAC STENTS PLACED TOMORROW 10/24/18. SOCIAL HISTORY GENERAL: TOBACCO USE ARE YOU A:FORMER SMOKER HOW LONG HAS IT BEEN SINCE YOU LAST SMOKED?1-5 YEARS EDUCATION LEVEL OF EDUCATION:NOT FINISHED HIGH SCHOOL DIET: REGULAR. LANGUAGE LANGUAGES SPOKEN:[place] IS[place]ER DOMESTIC VIOLENCE DO YOU FEEL SAFE IN YOUR ENVIRONMENT?YES NEW PATIENT PAIN DIARY TODAY'S VISITNOTES 07/04/2019 PATIENT DESCRIBES PAIN :ACHING, STABBING, THROBBING, SHOOTING FROM 0-10, WHAT LEVEL IS YOUR PAIN TODAY?7 RECREATIONAL DRUG USE DRUG USE?NO MEDICAL MARIJUANA EXERCISE: NO REGULAR EXERCISE. LEARNING BARRIERS / SPECIAL NEEDS CHANGE FROM LAST VISIT?NO BARRIERS TO LEARNING?NO HEARING IMPAIRED?NO VISION IMPAIRED?YES COGNITIVELY IMPAIRED?NO :CORRECTIVE LENSES READINESS TO LEARN?YES LEARNING PREFERENCES?NO LEARNING CAPABILITIES PRESENT?YES EMOTIONAL BARRIERS?NO SPECIAL DEVICES?NO RAIL SWITCH OPERATOR NEEDED?NO PAIN CLINIC PFS, CLERGY, PUBLIC HEALTH REFERRALS PFS REFERRAL NEEDED?NO CLERGY REFERRAL NEEDED?NO PUBLIC HEALTH REFERRAL NEEDED?NO WAS THE PROVIDER NOTIFIED OF ANY PERTINENT INFO?YES N/A HAS THE PATIENT BEEN EDUCATED REGARDING HIS/HER PLAN OF CARE?YES HAS THE PATIENT BEEN EDUCATED REGARDING PAIN, THE RISK FOR PAIN, THE IMPORTANCE OF EFFECTIVE PAIN MANAGEMENT, AND THE PAIN ASSESSMENT PROCESS?YES LATEX QUESTIONNAIRE LATEX ALLERGY : HAVE YOU EVER DEVELOPED ANY TYPE OF REACTION AFTER HANDLING LATEX PRODUCTS SUCH RUBBER GLOVES, CONDOMS, DIAPHRAGMS, BALLOONS, SOCKS, OR UNDERWEAR?NO LATEX ALLERGY : HAVE YOU EVER DEVELOPED ANY TYPE OF REACTION DURING OR AFTER DENTAL APPOINTMENT, VAGINAL/RECTAL EXAMINATION, SURGICAL PROCEDURE, OR ANY OTHER EXPOSURE?NO LATEX RISK : HAVE YOU EVER HAD ANY DIFFICULTY BREATHING OR HIVES AFTER EATING OR HANDLING ANY FRUITS, OR VEGETABLES; SUCH KIWI, BANANAS, STONE FRUITS, OR CHESTNUTSNO LATEX RISK : DO YOU HAVE A PREVIOUS PERSONAL HISTORY OF MORE THAN NINE SURGERIES, SPINA BIFIDA, OR REPEATED CATHERIZATIONS? NO LATEX RISK : ARE YOU FREQUENTLY EXPOSED TO LATEX PRODUCTS IN YOUR OCCUPATION?NO DATE ASKED : 12/11/2018 CAFFEINE CAFFEINE USE?YES HOW OFTEN AND HOW MUCH? 2-3 CUPS DAILY ADVANCE DIRECTIVE ADVANCE DIRECTIVE DISCUSSED WITH PATIENT:YES HCP ON FILE MALIK FERREIRA [phone] HOLINESS [id number] [place] NO CHRISTIANITY BELIEFS THAT WOULD IMPACT HEALTH CARE. MARITAL STATUS: .. ALCOHOL SCREENING DID YOU HAVE A DRINK CONTAINING ALCOHOL IN THE PAST YEAR?YES HOW OFTEN DID YOU HAVE SIX OR MORE DRINKS ON ONE OCCASION IN THE PAST YEAR?NEVER (0 POINTS) HOW MANY DRINKS DID YOU HAVE ON A TYPICAL DAY WHEN YOU WERE DRINKING IN THE PAST YEAR?1 OR 2 (0 POINTS) HOW OFTEN DID YOU HAVE A DRINK CONTAINING ALCOHOL IN THE PAST YEAR?MONTHLY OR LESS (1 POINT) POINTS1 INTERPRETATIONNEGATIVE OCCUPATION: DISABLED. HOSPITALIZATION/MAJOR DIAGNOSTIC PROCEDURE CHEST PAIN 07/2015 REVIEW OF SYSTEMS REVIEWED BY: PROVIDER: LAMINE WALLACE . CONSTITUTIONAL: ANY CHANGE IN YOUR MEDICAL CONDITION? NO . CHILLS NO . FEVER NO . INFECTION: DO YOU HAVE NEW INFECTIONS? NO . DO YOU HAVE HISTORY OF MRSA? NO . MUSCULOSKELETAL: ANY NEW PATTERNS OF PAIN OR NUMBNESS? NO . GASTROENTEROLOGY: ANY NEW CHANGE IN BOWEL CONTROL? NO . GENITOURINARY: ANY NEW CHANGE IN BLADDER CONTROL? NO . IS THERE A CHANCE YOU COULD BE ? NO . HEMATOLOGY/LYMPH: DO YOU TAKE ANY BLOOD THINNERS? (FOR EXAMPLE- COUMADIN, PLAVIX, AGGRENOX, PLATEL, PRADAXA, OR XARELTO) NO . WHEN WAS YOUR LAST DOSE? DATE: TIME: . NEUROLOGY: HAVE YOU FALLEN IN THE PAST 12 MONTHS? NO . ANY NEW EXTREMITY NUMBNESS OR WEAKNESS? NO . CARDIOLOGY: DO YOU HAVE A PACEMAKER OR DEFIBRILLATOR? NO . RESPIRATORY: HAVE YOU BEEN SICK IN THE PAST WEEK? NO . FEVER NO . FLU LIKE SYMPTOMS? NO . COUGH NO . INTEGUMENTARY: DO YOU HAVE ANY RASHES OR OPEN SORES? NO . ALLERGIC/IMMUNO: ARE YOU ALLERGIC TO IV DYE? NO . ANY NEW ALLERGIES? NO . PSYCHIATRIC: DO YOU HAVE THOUGHTS OF HURTING YOURSELF OR SOMEONE ELSE? NO . ARE YOU ABUSED, NEGLECTED, OR IN AN UNSAFE ENVIRONMENT? NO . ENDOCRINOLOGY: ARE YOU DIABETIC? NO . OTHER: DO YOU NEED ANY PRESCRIPTIONS? YES . IF YES, PLEASE LIST: ____ROPINIROLE . ANY NEW PROBLEMS WITH YOUR MEDICATIONS? NO . WHEN DID YOU LAST EAT? ____ . WHEN DID YOU LAST DRINK? ____ . WHAT DID YOU LAST DRINK? ____ . NAME OF PERSON DRIVING YOU HOME? ____ . DO YOU HAVE ANY OTHER QUESTIONS OR CONCERNS YES, HAS NOT BEEN TAKING CYMBALTA OR MOBIC IN THE LAST MONTH IN A HALF; STARTED MEDICAL MARIJUANA MONDAY WHICH SEEMS TO BE HELPING SO FAR . VITAL SIGNS WT 263 LBS, HT 69 IN, BMI 38.83 INDEX, BP 129/85 MM HG, HR 70 /MIN, RR 18 /MIN, TEMP 96.0 F, OXYGEN SAT % 98%, SAFE IN ENV? (Y/N) YES, NA INITIALS AW 0930, REVIEWED BY: ESEQUIEL. EXAMINATION GENERAL EXAMINATION: GENERALAWAKE,ALERT ,PLEASANT . PSYCHAFFECT NORMAL . LUNGS:LUNG VIDAL ARE CLEAR TO AUSCULTATION BILATERALLY. GOOD MOVEMENT OF AIR . HEART:S1, S2 IN A REGULAR RATE AND RHYTHM. NO SIGNIFICANT MURMURS, RUBS OR GALLOPS NOTED . ASSESSMENTS MYALGIA, OTHER SITE - M79.18 (PRIMARY) SPONDYLOSIS WITHOUT MYELOPATHY OR RADICULOPATHY, LUMBOSACRAL REGION - M47.817 PROCEDURE CODES FA211 ESTABILISHED PATIENT [facility] CHARGE DISPOSITION & COMMUNICATION FOLLOW UP 3 MONTHS (REASON: H/A-GEN JOINT PAIN) ELECTRONICALLY SIGNED BY RODRIGO HARTMANN ON 07/04/2019 AT 11:26 AM EDT DISCLAIMER : THIS IS A VISIT SUMMARY EXTRACTED FROM THE [employer] CHART. IT IS NOT A COPY OF THE [employer] PROGRESS NOTE. NERY
== END ==
LOC: M PAIN 09:45
PROVIDERS: ATTEND Nurse Practitioner Family
DX: M79.18 Myalgia, other site (principal); M47.817 Spondylosis without myelopathy or radiculopathy, lumbosacral region; G47.30 Sleep apnea, unspecified; Z86.59 Personal history of other mental and behavioral disorders; K21.9 Gastro-esophageal reflux disease without esophagitis; J45.909 Unspecified asthma, uncomplicated; Z87.891 Personal history of nicotine dependence; Z79.82 Long term (current) use of aspirin; Z79.899 Other long term (current) drug therapy

== ENCOUNTER → 2019-10-10 | Outpatient (CLI) | payer OTHER ==
[~2019-10-10] MED LIST changes: +OXYC-1 PO; -OXYC15TA76 PO
--- NOTE | 2019-10-12 00:46 | ECWPNPC ---
PATIENT NAME: FEDERICO FERREIRA : 1960 GENDER: MALE VISIT DATE: 10/10/2019 DISCHARGE DATE: 10/10/19 1147 VISIT LOCKED DATE TIME: PHYSICIAN: LAMINE SANTIAGO RESOURCE: LAMINE SANTIAGO REASON FOR APPOINTMENT 1. 3 MONTH HISTORY OF PRESENT ILLNESS GENERAL: HERE FOR ROUTINE 3 MONTH FOLLOW-UP OF CHRONIC GENERALIZED PAIN. WORST AREA OF PAIN OVER THE PAST FEW MONTHS HAS BEEN HIS LOWER BACK RADIATING INTO HIS HIPS. HE FEELS THAT HAS GOTTEN WORSE OVER THE PAST MONTH. FINDING IT DIFFICULT TO AMBULATE DUE TO PAIN. REPORTING POOR SLEEP DUE TO PAIN. WAS USING MEDICAL MARIJUANA, BUT FINDING IT DIFFICULT TO AFFORD. REVIEWED MRI DONE IN 2017 OF THE LS-SPINE. DISCUSSED TREATMENT OPTIONS. CONTINUES TO BENEFIT FROM LESS HEADACHES STATUS POST CERVICAL FACET BLOCKS SEVERAL MONTHS AGO. -. FALL RISK SCREENING: SCREENING :NO FALLS REPORTED IN THE LAST YEAR PAIN SCREENING: PATIENT HAS A COMPLAINT OF ACUTE OR CHRONIC PAIN :YES LOCATION OF PAIN:NECK, LOW BACK, LEG(S) INTENSITY OF PAIN (SCALE OF 1 TO 10):9 WHAT DOES YOUR PAIN FEEL LIKE:ACHING, BURNING, SHOOTING NUMBNESS DURATION:CONSTANT PAIN IS INCREASED BY:ACTIVITIES, PROLONGED STANDING PAIN IS DECREASED BY:SITTING ELEVATING LEGS NURSING NOTE: -. PAIN CENTER INTAKE QUESTIONS: DO YOU HAVE A HISTORY OF MRSA? :NO DO YOU TAKE A BLOOD THINNERS? :NO ASPIRIN DO YOU HAVE ANY BLEEDING DISORDERS? :NO ANY NEW NUMBNESS OR WEAKNESS IN YOUR LEGS OR ARMS? :NO NOT NEW BUT HAS WORSENED ANY PACEMAKER,DEFIBRILLATOR, OR DORSAL COLUMN STIMULATOR? :NO DO YOU HAVE ANY RASHES OR OPEN SORES? :NO ARE YOU ALLERGIC TO IV DYE? :NO ARE YOU DIABETIC? :NO ANY NEW PROBLEMS WITH YOUR MEDICATIONS? :NO HAVE YOU RECEIVED A VACCINE IN THE PAST 30 DAYS? :NO DO YOU PLAN TO RECEIVE A VACCINE IN THE NEXT 21 DAYS? :NO DO YOU NEED ANY PRESCRIPTION? :YES WOULD LIKE TO DISCUSS PAIN MEDICATION DO YOU TAKE ANY IMMUNOSUPPRESSIVE MEDICATIONS? :NO IS THERE A CHANCE YOU COULD BE ? :NO ARE YOU BREAST FEEDING? :NO CURRENT MEDICATIONS TAKING ASPIRIN ADULT LOW DOSE 81 MG TABLET DELAYED RELEASE 1 TABLET ORALLY ONCE A DAY TAKING PANTOPRAZOLE SODIUM 20 MG TABLET DELAYED RELEASE 2 TABLETS ORALLY ONCE A DAY TAKING TOPIRAMATE 50 MG TABLET 1 TABLET ORALLY TWICE A DAY TAKING LOSARTAN POTASSIUM 50 MG TABLET 1 TABLET ORALLY ONCE A DAY TAKING LORATADINE 10 MG TABLET 1 TABLET ORALLY ONCE A DAY TAKING LASIX 20 MG TABLET 1 TABLET ORALLY ONCE A DAY TAKING SIMVASTATIN 20 MG TABLET 1 TABLET IN THE EVENING ORALLY ONCE A DAY TAKING ROPINIROLE HCL 0.25 MG TABLET 1 TO 2 ORALLY BEFORE BEDTIME NOT-TAKING MAY HAVE - - MEDICAL MARIJUANA DIRECTED NOT-TAKING COLACE 100 MG CAPSULE 2 ORALLY Q8H TID PRN NOT-TAKING TAMSULOSIN HCL 0.4 MG CAPSULE 1 TAB ORALLY DAILY NOT-TAKING CYMBALTA 60 MG CAPSULE DELAYED RELEASE PARTICLES 1 CAPSULE ORALLY ONCE A DAY NOT-TAKING LYRICA 200 MG CAPSULE 1 CAPSULE ORALLY THREE TIMES DAILYMDD3, NOTES: CURRENTLY OUT OF NOT-TAKING VENTOLIN HFA 108 (90 BASE) MCG/ACT AEROSOL SOLUTION 2 PUFFS NEEDED INHALATION 2-3X/WEEK X 4 WEEKS NOT-TAKING MOBIC 15 MG TABLET 1 TABLET ORALLY DAILY MEDICATION LIST REVIEWED AND RECONCILED WITH THE PATIENT PAST MEDICAL HISTORY HEADACHE, NECK PAIN SLEEP APNEA ARTHRITIS DEPRESSION TINNITUS GERD LOWER BACK, NECK PROBLMES NERVE DAMAGE ASTHMA SEASONAL ALLERGIES DIZZINESS ALLERGIES SEASONAL: NASAL CONGESTION - ALLERGY SURGICAL HISTORY CARPAL TUNNEL SURGERY RIGHT 08/30 CARPAL TUNNEL SURGERY LEFT - DONE TWO TIMES 06/30 CHOLECYSTECTOMY LEFT KNEE SCOPE HERNIA REPAIR X3 NERVE BLOCKS VASECTOMY POLYPS REMOVED FROM SINUSES EPIDIDYMAL CYST REMOVAL 07/18/16 UPPER GI ENDOSCOPY AND COLONOSCOPY - 1 POLYP REMOVED 09/2019 FAMILY HISTORY FATHER: , DIAGNOSED WITH OTHER MALIGNANT NEOPLASM OF UNSPECIFIED SITE MOTHER: ALIVE, CKD STAGE 4, HYPERTENSION SIBLINGS: ALIVE, OTHER SPECIFIED CONDITIONS INFLUENCING HEALTH STATUS SON(S): ALIVE, HYPERTENSION 1 BROTHER(S) , 1 SISTER(S) . 1 SON(S) , 2 DAUGHTER(S) - HEALTHY. FATHER-PROSTATE CANCER\N\NUNKNOWN OF ANY AUTOIMMUNE BROTHER IS HAVING CARDIAC STENTS PLACED TOMORROW 10/24/18. SOCIAL HISTORY GENERAL: TOBACCO USE ARE YOU A:FORMER SMOKER HOW LONG HAS IT BEEN SINCE YOU LAST SMOKED?1-5 YEARS LATEX QUESTIONNAIRE LATEX ALLERGY : HAVE YOU EVER DEVELOPED ANY TYPE OF REACTION AFTER HANDLING LATEX PRODUCTS SUCH RUBBER GLOVES, CONDOMS, DIAPHRAGMS, BALLOONS, SOCKS, OR UNDERWEAR?NO LATEX ALLERGY : HAVE YOU EVER DEVELOPED ANY TYPE OF REACTION DURING OR AFTER DENTAL APPOINTMENT, VAGINAL/RECTAL EXAMINATION, SURGICAL PROCEDURE, OR ANY OTHER EXPOSURE?NO DATE ASKED : 12/11/2018 LATEX RISK : HAVE YOU EVER HAD ANY DIFFICULTY BREATHING OR HIVES AFTER EATING OR HANDLING ANY FRUITS, OR VEGETABLES; SUCH KIWI, BANANAS, STONE FRUITS, OR CHESTNUTSNO LATEX RISK : DO YOU HAVE A PREVIOUS PERSONAL HISTORY OF MORE THAN NINE SURGERIES, SPINA BIFIDA, OR REPEATED CATHERIZATIONS? NO LATEX RISK : ARE YOU FREQUENTLY EXPOSED TO LATEX PRODUCTS IN YOUR OCCUPATION?NO ALCOHOL SCREENING DID YOU HAVE A DRINK CONTAINING ALCOHOL IN THE PAST YEAR?YES HOW OFTEN DID YOU HAVE SIX OR MORE DRINKS ON ONE OCCASION IN THE PAST YEAR?NEVER (0 POINTS) HOW MANY DRINKS DID YOU HAVE ON A TYPICAL DAY WHEN YOU WERE DRINKING IN THE PAST YEAR?1 OR 2 (0 POINTS) HOW OFTEN DID YOU HAVE A DRINK CONTAINING ALCOHOL IN THE PAST YEAR?MONTHLY OR LESS (1 POINT) POINTS1 INTERPRETATIONNEGATIVE RECREATIONAL DRUG USE DRUG USE?NO CAFFEINE CAFFEINE USE?YES HOW OFTEN AND HOW MUCH? 2-3 CUPS DAILY JEWISH [id number] MU-ISM NO UATSDIN BELIEFS THAT WOULD IMPACT HEALTH CARE. LANGUAGE LANGUAGES SPOKEN:ITALIAN EDUCATION LEVEL OF EDUCATION:NOT FINISHED HIGH SCHOOL LEARNING BARRIERS / SPECIAL NEEDS CHANGE FROM LAST VISIT?NO BARRIERS TO LEARNING?NO HEARING IMPAIRED?NO VISION IMPAIRED?YES COGNITIVELY IMPAIRED?NO :CORRECTIVE LENSES READINESS TO LEARN?YES LEARNING PREFERENCES?NO LEARNING CAPABILITIES PRESENT?YES EMOTIONAL BARRIERS?NO SPECIAL DEVICES?NO CAPITAL EQUIPMENT SPECIALIST NEEDED?NO DOMESTIC VIOLENCE DO YOU FEEL SAFE IN YOUR ENVIRONMENT?YES OCCUPATION: DISABLED. DIET: REGULAR. EXERCISE: NO REGULAR EXERCISE. MARITAL STATUS: .. NEW PATIENT PAIN DIARY TODAY'S VISITNOTES 10/10/19 PATIENT DESCRIBES PAIN :ACHING, STABBING, THROBBING, SHOOTING FROM 0-10, WHAT LEVEL IS YOUR PAIN TODAY?9 PAIN CLINIC PFS, CLERGY, PUBLIC HEALTH REFERRALS PFS REFERRAL NEEDED?NO CLERGY REFERRAL NEEDED?NO PUBLIC HEALTH REFERRAL NEEDED?NO WAS THE PROVIDER NOTIFIED OF ANY PERTINENT INFO?YES N/A HAS THE PATIENT BEEN EDUCATED REGARDING HIS/HER PLAN OF CARE?YES HAS THE PATIENT BEEN EDUCATED REGARDING PAIN, THE RISK FOR PAIN, THE IMPORTANCE OF EFFECTIVE PAIN MANAGEMENT, AND THE PAIN ASSESSMENT PROCESS?YES ADVANCE DIRECTIVE ADVANCE DIRECTIVE DISCUSSED WITH PATIENT:YES HCP ON FILE MALIK FERREIRA [phone] HOSPITALIZATION/MAJOR DIAGNOSTIC PROCEDURE CHEST PAIN 07/2015 REVIEW OF SYSTEMS CONSTITUTIONAL: ANY RECENT FEVER NO . CHILLS NO . WEIGHT CHANGE OF UNKNOWN REASONS NO . GASTROENTEROLOGY: NEW UNEXPLAINABLE CHANGES IN BOWEL CONTROL NO . CONSTIPATION NO . GENITOURINARY: ANY NEW CHANGE IN BLADDER CONTROL? NO . NEUROLOGY: NEW ONSET DIZZINESS OR NEUROLOGICAL CHANGES NOT MENTIONED NO . NEW NUMBNESS OR PAIN PATTERNS NOT MENTIONED AND PERTINENT TO TODAY'S VISIT NO . CARDIOLOGY: NEW CHEST PRESSURE NO . NEW CHEST PAIN NO . RESPIRATORY: UNEXPLAINABLE COUGH NO . NEW SHORTNESS OF BREATH NO . VITAL SIGNS WT 259.2 LBS, HT 69 IN, BMI 38.27 INDEX, BP 141/77 MM HG, HR 67 /MIN, RR 18 /MIN, TEMP 97.6 F, OXYGEN SAT % 97%, SAFE IN ENV? (Y/N) YES, NA INITIALS AW 1019, REVIEWED BY: SAMUEL. EXAMINATION GENERAL EXAMINATION: GENERALAPPEARS UNCOMFORTABLE , ANTALGIC GAIT. PSYCHAPPROPRIATE MOOD AND AFFECT . NECK:NO LYMPHADENOPATHY, SUPPLE, NO THYROMEGALLY. LUNGS:CLEAR TO AUSCULTATION BILATERALLY, NO WHEEZES, RHONCHI, RALES. HEART:NO MURMURS, REGULAR RATE AND RHYTHM. MUSCULOSKELETAL:MARKED WEAKNESS BILATERAL LOWER EXTREMITIES . NORMAL SENSATION TO LIGHT TOUCH LOWER EXTREMITIES . DIAGNOSTIC TESTS REVIEWEDMRI L/S SPINE. 2017 . ASSESSMENTS INTERVERTEBRAL DISC DISORDERS WITH RADICULOPATHY, LUMBAR REGION - M51.16 (PRIMARY) TREATMENT INTERVERTEBRAL DISC DISORDERS WITH RADICULOPATHY, LUMBAR REGION START TIZANIDINE HCL TABLET, 4 MG, 1 TABLET NEEDED, ORALLY, THREE TIMES A DAY NEEDED FOR SEVERE PAIN EPISODES, 30 DAYS, 45, REFILLS 1 PLZ PORTABLE LUMBAR SPINE AP/[id number] NOTES: DISCUSSED TREATMENT OPTIONS. DUE TO INCREASE IN LOW BACK PAIN AND CHANGE IN LOCATION OF PAIN I WILL ORDER AN X-RAY OF THE LUMBAR SPINE. ADVISED TO START TIZANIDINE 4 MG 1 TABLET EVERY 8 HOURS NEEDED FOR SEVERE PAIN EPISODES. HE IS GOING TO INVESTIGATE OPTIONS IN REGARDS TO MEDICAL MARIJUANA. AFFORDABILITY IS A PROBLEM FOR HIM. FOLLOW-UP AT PAIN CLINIC IN 6-8 WEEKS TO REVIEW X-RAY IMAGING. IT SHOULD BE NOTED THE PATIENT HAS HAD PHYSICAL THERAPY IN THE PAST THAT HAS AGGRAVATED HIS CONDITION. PREVENTIVE MEDICINE PAIN CLINIC TEACHING: MEDICATIONS NEW MEDICATION TIZANIDINE INSTRUCTIONS PROVIDED TO PT AND DISCUSSED.. PROCEDURE CODES FA211 ESTABILISHED PATIENT [facility] CHARGE DISPOSITION & COMMUNICATION FOLLOW UP 6-8 WEEKS. REVIEW LUMBAR X-RAY ELECTRONICALLY SIGNED BY RODRIGO HARTMANN ON 10/11/2019 AT 03:35 PM EDT DISCLAIMER : THIS IS A VISIT SUMMARY EXTRACTED FROM THE [email or web address] CHART. IT IS NOT A COPY OF THE [email or web address] PROGRESS NOTE. NERY
== END ==
LOC: M PAIN 10:30
PROVIDERS: ATTEND Nurse Practitioner Family
DX: M51.16 Intervertebral disc disorders with radiculopathy, lumbar region (principal)

== ENCOUNTER → 2019-11-26 | Outpatient (POV) | payer OTHER ==
[~2019-11-26] MED LIST changes: -PANT20TA2 PO; +PANT20TA6 PO
== END ==
LOC: M PAIN 09:00
PROVIDERS: ATTEND Nurse Practitioner Family
DX: M51.36 Other intervertebral disc degeneration, lumbar region (principal); M54.2 Cervicalgia

== ENCOUNTER → 2020-04-07 | Outpatient (CLI) | payer OTHER ==
--- NOTE | 2020-04-13 23:55 | ECWPNPC ---
PATIENT NAME: FEDERICO FERREIRA : 1960 GENDER: MALE VISIT DATE: 04/07/2020 DISCHARGE DATE: 04/07/20 1147 VISIT LOCKED DATE TIME: PHYSICIAN: LAMINE SANTIAGO RESOURCE: LAMINE SANTIAGO REASON FOR APPOINTMENT 1. MED MGMNT HISTORY OF PRESENT ILLNESS DEPRESSION SCREENING: PHQ-2 (2015 EDITION) LITTLE INTEREST OR PLEASURE IN DOING THINGS?NOT AT ALL FEELING DOWN, DEPRESSED, OR HOPELESS?NOT AT ALL TOTAL SCORE0 GENERAL: HERE FOR FOLLOW-UP AND MEDICATION MANAGEMENT OF PERSISTENT NECK AND LOW BACK PAIN. STATES TIZANIDINE 4 MG AT BEDTIME IS HELPFUL. REPORTING SIGNIFICANT INCREASE IN HEADACHES OVER THE PAST MONTH. HAS HAD GOOD RESULTS WITH CERVICAL FACET BLOCKS IN REGARDS TO HEADACHE CONTROL IN THE PAST. ALSO REPORTING LOW BACK PAIN THAT RADIATES INTO LEFT LEG. HE WOULD LIKE TO CONSIDER INTERVENTIONAL TREATMENT OPTIONS. UNFORTUNATELY WE DID NOT HAVE ANY RECENT MRI IMAGING OF HIS NECK OR LOW BACK.-. FALL RISK SCREENING: SCREENING :NO FALLS REPORTED IN THE LAST YEAR PAIN SCREENING: PATIENT HAS A COMPLAINT OF ACUTE OR CHRONIC PAIN :YES LOCATION OF PAIN:NECK, LOW BACK, LEG(S) INTENSITY OF PAIN (SCALE OF 1 TO 10):8 WHAT DOES YOUR PAIN FEEL LIKE:ACHING, BURNING, SHARP, STABBING, THROBBING, SORE, SHOOTING DURATION:CONTINOUS, CONSTANT PAIN IS INCREASED BY:ACTIVITIES PAIN IS DECREASED BY:OTHERS RESTING LEVEL OF RELIEF FROM PAIN TREATMENTS IN THE PAST:50% PAIN HAS INTERFERED WITH THE FOLLOWING:BATHING/DRESSING, WALKING ABILITY, HOUSEWORK, SLEEP, TRANSPORTATION, TOILETING NURSING NOTE: -. PAIN CENTER INTAKE QUESTIONS: DO YOU HAVE A HISTORY OF MRSA? :NO DO YOU TAKE A BLOOD THINNERS? :NO DO YOU HAVE ANY BLEEDING DISORDERS? :NO ANY NEW NUMBNESS OR WEAKNESS IN YOUR LEGS OR ARMS? :YES RIGHT WRIST ANY PACEMAKER,DEFIBRILLATOR, OR DORSAL COLUMN STIMULATOR? :NO DO YOU HAVE ANY RASHES OR OPEN SORES? :NO ARE YOU ALLERGIC TO IV DYE? :NO ARE YOU DIABETIC? :YES ANY NEW PROBLEMS WITH YOUR MEDICATIONS? :NO HAVE YOU RECEIVED A VACCINE IN THE PAST 30 DAYS? :NO DO YOU PLAN TO RECEIVE A VACCINE IN THE NEXT 21 DAYS? :NO DO YOU NEED ANY PRESCRIPTION? :YES NOT SURE DO YOU TAKE ANY IMMUNOSUPPRESSIVE MEDICATIONS? :NO IS THERE A CHANCE YOU COULD BE ? :NO ARE YOU BREAST FEEDING? :NO CURRENT MEDICATIONS TAKING ASPIRIN ADULT LOW DOSE 81 MG TABLET DELAYED RELEASE 1 TABLET ORALLY ONCE A DAY TAKING PANTOPRAZOLE SODIUM 20 MG TABLET DELAYED RELEASE 2 TABLETS ORALLY ONCE A DAY TAKING TOPIRAMATE 50 MG TABLET 1 TABLET ORALLY TWICE A DAY TAKING LOSARTAN POTASSIUM 50 MG TABLET 1 TABLET ORALLY ONCE A DAY TAKING LORATADINE 10 MG TABLET 1 TABLET ORALLY ONCE A DAY TAKING LASIX 20 MG TABLET 1 TABLET ORALLY ONCE A DAY TAKING SIMVASTATIN 20 MG TABLET 1 TABLET IN THE EVENING ORALLY ONCE A DAY TAKING ROPINIROLE HCL 0.25 MG TABLET 1 TO 2 ORALLY BEFORE BEDTIME TAKING TIZANIDINE HCL 4 MG TABLET 1 TABLET NEEDED ORALLY THREE TIMES A DAY NEEDED FOR SEVERE PAIN EPISODES TAKING MOBIC 15 MG TABLET 1 TABLET ORALLY DAILY NOT-TAKING MAY HAVE - - MEDICAL MARIJUANA DIRECTED NOT-TAKING COLACE 100 MG CAPSULE 2 ORALLY Q8H TID PRN NOT-TAKING TAMSULOSIN HCL 0.4 MG CAPSULE 1 TAB ORALLY DAILY NOT-TAKING CYMBALTA 60 MG CAPSULE DELAYED RELEASE PARTICLES 1 CAPSULE ORALLY ONCE A DAY NOT-TAKING LYRICA 200 MG CAPSULE 1 CAPSULE ORALLY THREE TIMES DAILYMDD3, NOTES: CURRENTLY OUT OF NOT-TAKING VENTOLIN HFA 108 (90 BASE) MCG/ACT AEROSOL SOLUTION 2 PUFFS NEEDED INHALATION 2-3X/WEEK X 4 WEEKS MEDICATION LIST REVIEWED AND RECONCILED WITH THE PATIENT PAST MEDICAL HISTORY HEADACHE, NECK PAIN SLEEP APNEA ARTHRITIS DEPRESSION TINNITUS GERD LOWER BACK, NECK PROBLMES NERVE DAMAGE ASTHMA SEASONAL ALLERGIES DIZZINESS ALLERGIES SEASONAL: NASAL CONGESTION - ALLERGY SURGICAL HISTORY CARPAL TUNNEL SURGERY RIGHT 08/30 CARPAL TUNNEL SURGERY LEFT - DONE TWO TIMES 06/30 CHOLECYSTECTOMY LEFT KNEE SCOPE HERNIA REPAIR X3 NERVE BLOCKS VASECTOMY POLYPS REMOVED FROM SINUSES EPIDIDYMAL CYST REMOVAL 07/18/16 UPPER GI ENDOSCOPY AND COLONOSCOPY - 1 POLYP REMOVED 09/2019 FAMILY HISTORY FATHER: , DIAGNOSED WITH OTHER MALIGNANT NEOPLASM OF UNSPECIFIED SITE MOTHER: ALIVE, CKD STAGE 4, HYPERTENSION SIBLINGS: ALIVE, OTHER SPECIFIED CONDITIONS INFLUENCING HEALTH STATUS SON(S): ALIVE, HYPERTENSION 1 BROTHER(S) , 1 SISTER(S) . 1 SON(S) , 2 DAUGHTER(S) - HEALTHY. FATHER-PROSTATE CANCER\N\NUNKNOWN OF ANY AUTOIMMUNE BROTHER IS HAVING CARDIAC STENTS PLACED TOMORROW 10/24/18. SOCIAL HISTORY GENERAL: TOBACCO USE ARE YOU A:FORMER SMOKER HOW LONG HAS IT BEEN SINCE YOU LAST SMOKED?1-5 YEARS LATEX QUESTIONNAIRE LATEX ALLERGY : HAVE YOU EVER DEVELOPED ANY TYPE OF REACTION AFTER HANDLING LATEX PRODUCTS SUCH RUBBER GLOVES, CONDOMS, DIAPHRAGMS, BALLOONS, SOCKS, OR UNDERWEAR?NO LATEX ALLERGY : HAVE YOU EVER DEVELOPED ANY TYPE OF REACTION DURING OR AFTER DENTAL APPOINTMENT, VAGINAL/RECTAL EXAMINATION, SURGICAL PROCEDURE, OR ANY OTHER EXPOSURE?NO LATEX RISK : HAVE YOU EVER HAD ANY DIFFICULTY BREATHING OR HIVES AFTER EATING OR HANDLING ANY FRUITS, OR VEGETABLES; SUCH KIWI, BANANAS, STONE FRUITS, OR CHESTNUTSNO LATEX RISK : DO YOU HAVE A PREVIOUS PERSONAL HISTORY OF MORE THAN NINE SURGERIES, SPINA BIFIDA, OR REPEATED CATHERIZATIONS? NO LATEX RISK : ARE YOU FREQUENTLY EXPOSED TO LATEX PRODUCTS IN YOUR OCCUPATION?NO DATE ASKED : 04/07/2020 ALCOHOL SCREENING DID YOU HAVE A DRINK CONTAINING ALCOHOL IN THE PAST YEAR?YES HOW OFTEN DID YOU HAVE SIX OR MORE DRINKS ON ONE OCCASION IN THE PAST YEAR?NEVER (0 POINTS) HOW MANY DRINKS DID YOU HAVE ON A TYPICAL DAY WHEN YOU WERE DRINKING IN THE PAST YEAR?1 OR 2 (0 POINTS) HOW OFTEN DID YOU HAVE A DRINK CONTAINING ALCOHOL IN THE PAST YEAR?MONTHLY OR LESS (1 POINT) POINTS1 INTERPRETATIONNEGATIVE RECREATIONAL DRUG USE DRUG USE?NO CAFFEINE CAFFEINE USE?YES HOW OFTEN AND HOW MUCH? 2-3 CUPS DAILY CAODAISM [id number] MORMON NO SCIENTOLOGIST BELIEFS THAT WOULD IMPACT HEALTH CARE. LANGUAGE LANGUAGES SPOKEN:[place] EDUCATION LEVEL OF EDUCATION:NOT FINISHED HIGH SCHOOL LEARNING BARRIERS / SPECIAL NEEDS CHANGE FROM LAST VISIT?NO BARRIERS TO LEARNING?NO HEARING IMPAIRED?NO VISION IMPAIRED?YES COGNITIVELY IMPAIRED?NO :CORRECTIVE LENSES READINESS TO LEARN?YES LEARNING PREFERENCES?NO LEARNING CAPABILITIES PRESENT?YES EMOTIONAL BARRIERS?NO SPECIAL DEVICES?NO COOK VEGETABLE NEEDED?NO DOMESTIC VIOLENCE DO YOU FEEL SAFE IN YOUR ENVIRONMENT?YES OCCUPATION: DISABLED. DIET: REGULAR. EXERCISE: NO REGULAR EXERCISE. MARITAL STATUS: .. TODAY'S VISITNOTES 10/10/19 PATIENT DESCRIBES PAIN :ACHING, STABBING, THROBBING, SHOOTING FROM 0-10, WHAT LEVEL IS YOUR PAIN TODAY?9 PAIN CLINIC PFS, CLERGY, PUBLIC HEALTH REFERRALS PFS REFERRAL NEEDED?NO CLERGY REFERRAL NEEDED?NO PUBLIC HEALTH REFERRAL NEEDED?NO WAS THE PROVIDER NOTIFIED OF ANY PERTINENT INFO?YES N/A HAS THE PATIENT BEEN EDUCATED REGARDING HIS/HER PLAN OF CARE?YES HAS THE PATIENT BEEN EDUCATED REGARDING PAIN, THE RISK FOR PAIN, THE IMPORTANCE OF EFFECTIVE PAIN MANAGEMENT, AND THE PAIN ASSESSMENT PROCESS?YES ADVANCE DIRECTIVE ADVANCE DIRECTIVE DISCUSSED WITH PATIENT:YES HCP ON FILE MALIK FERREIRA [phone] HOSPITALIZATION/MAJOR DIAGNOSTIC PROCEDURE CHEST PAIN 07/2015 REVIEW OF SYSTEMS CONSTITUTIONAL: ANY RECENT FEVER NO . CHILLS NO . WEIGHT CHANGE OF UNKNOWN REASONS NO . GASTROENTEROLOGY: NEW UNEXPLAINABLE CHANGES IN BOWEL CONTROL NO . CONSTIPATION NO . GENITOURINARY: ANY NEW CHANGE IN BLADDER CONTROL? NO . NEUROLOGY: NEW ONSET DIZZINESS OR NEUROLOGICAL CHANGES NOT MENTIONED NO . NEW NUMBNESS OR PAIN PATTERNS NOT MENTIONED AND PERTINENT TO TODAY'S VISIT NO . CARDIOLOGY: NEW CHEST PRESSURE NO . NEW CHEST PAIN NO . RESPIRATORY: UNEXPLAINABLE COUGH NO . NEW SHORTNESS OF BREATH NO . VITAL SIGNS WT 254.8 LBS, HT 69 IN, BMI 37.62 INDEX, BP 176/88 MM HG, HR 70 /MIN, RR 18 /MIN, TEMP 97.5 F, OXYGEN SAT % 97%, SAFE IN ENV? (Y/N) Y, NA INITIALS AW 1058, REVIEWED BY: EM. EXAMINATION GENERAL EXAMINATION: GENERAL AWAKE,ALERT ,PLEASANT . PSYCH AFFECT NORMAL . LUNGS: LUNG VIDAL ARE CLEAR TO AUSCULTATION BILATERALLY. GOOD MOVEMENT OF AIR . HEART: S1, S2 IN A REGULAR RATE AND RHYTHM. NO SIGNIFICANT MURMURS, RUBS OR GALLOPS NOTED . LUMBAR: PALPATION: + FOR PAIN OVER L/S SPINE. + FOR PAIN OVER L/S PARASPINALS MODIFIED SLE: POSITIVE OVER LEFT LEG AT 45 DEGREES.. NEUROLOGIC EXAM:DECREASED SENSATION TO LIGHT TOUCH OVER LEFT LATERAL THIGH COMPARED TO RIGHT. . 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 DUE TO SIGNIFICANT INCREASE IN NECK PAIN AND HEADACHES OVER THE PAST MONTH MRI OF CERVICAL SPINE IS ORDERED TO EVALUATE AND PLAN INTERVENTIONAL TREATMENT OPTIONS. INTERVERTEBRAL DISC DISORDERS WITH RADICULOPATHY, LUMBAR REGION [facility] MRI LUMBAR W/O CONTRAST (CPT [id number] PROCEDURE CODES FA211 ESTABILISHED PATIENT [facility] FACILITY CHARGE DISPOSITION & COMMUNICATION FOLLOW UP 6 WEEKS (REASON: EVALUATE MRI OF CERVICAL SPINE AND LUMBAR SPINE/CONSIDER INTERVENTIONAL TREATMENT TO INCLUDE CERVICAL FACET BLOCK FOR INCREASE IN HEADACHES) ELECTRONICALLY SIGNED BY RODRIGO HARTMANN ON 04/13/2020 AT 08:27 PM EST DISCLAIMER : THIS IS A VISIT SUMMARY EXTRACTED FROM THE [employer] CHART. IT IS NOT A COPY OF THE [employer] PROGRESS NOTE. NERY
== END ==
LOC: M PAIN 11:00
PROVIDERS: ATTEND Nurse Practitioner Family
DX: M47.813 Spondylosis without myelopathy or radiculopathy, cervicothoracic region (principal); M51.16 Intervertebral disc disorders with radiculopathy, lumbar region; E11.9 Type 2 diabetes mellitus without complications; G47.30 Sleep apnea, unspecified; K21.9 Gastro-esophageal reflux disease without esophagitis; J45.909 Unspecified asthma, uncomplicated; Z86.59 Personal history of other mental and behavioral disorders; Z87.891 Personal history of nicotine dependence; Z79.82 Long term (current) use of aspirin; Z79.899 Other long term (current) drug therapy

== ENCOUNTER → 2020-05-19 | Outpatient (CLI) | payer OTHER ==
--- NOTE | 2020-05-20 04:05 | ECWPNPC ---
PATIENT NAME: FEDERICO FERREIRA : 1960 GENDER: MALE VISIT DATE: 05/19/2020 DISCHARGE DATE: 05/19/20 1108 VISIT LOCKED DATE TIME: PHYSICIAN: LAMINE SANTIAGO RESOURCE: LAMINE SANTIAGO REASON FOR APPOINTMENT 1. EVALUATE MRI OF CERVICAL SPINE AND LUMBAR SPINE/CONSIDER INTERVENTIONAL TREATMENT TO INCLUDE CERVICAL FACET BLOCK FOR INCREASE IN HEADACHES HISTORY OF PRESENT ILLNESS GENERAL: HERE FOR FOLLOW-UP OF CHRONIC NECK AND LOW BACK PAIN. MRI OF THE CERVICAL AND LUMBAR SPINE IS REVIEWED. SHOWING MULTILEVEL DEGENERATIVE CHANGES BOTH IN THE CERVICAL AND LUMBAR SPINE. CONTINUES TO HAVE SIGNIFICANT LOW BACK PAIN AND NECK PAIN. NECK PAIN RADIATES INTO HEADACHE. DISCUSSED TREATMENT OPTIONS.-. FALL RISK SCREENING: SCREENING :ONE FALL WITHOUT INJURY IN THE PAST YEAR PAIN SCREENING: PATIENT HAS A COMPLAINT OF ACUTE OR CHRONIC PAIN :YES LOCATION OF PAIN:NECK, LOW BACK INTENSITY OF PAIN (SCALE OF 1 TO 10):8 WHAT DOES YOUR PAIN FEEL LIKE:ACHING, BURNING, THROBBING, SHOOTING DURATION:CONTINOUS, CONSTANT, ALL DAY PAIN IS INCREASED BY:ACTIVITIES, PROLONGED STANDING PAIN IS DECREASED BY:USE OF PAIN MEDICATIONS NURSING NOTE: -. PAIN CENTER INTAKE QUESTIONS: DO YOU HAVE A HISTORY OF MRSA? :NO DO YOU TAKE A BLOOD THINNERS? :NO DO YOU HAVE ANY BLEEDING DISORDERS? :NO ANY NEW NUMBNESS OR WEAKNESS IN YOUR LEGS OR ARMS? :YES RIGHT WRIST ANY PACEMAKER,DEFIBRILLATOR, OR DORSAL COLUMN STIMULATOR? :NO DO YOU HAVE ANY RASHES OR OPEN SORES? :NO ARE YOU ALLERGIC TO IV DYE? :NO ARE YOU DIABETIC? :YES ANY NEW PROBLEMS WITH YOUR MEDICATIONS? :NO HAVE YOU RECEIVED A VACCINE IN THE PAST 30 DAYS? :NO DO YOU PLAN TO RECEIVE A VACCINE IN THE NEXT 21 DAYS? :NO DO YOU NEED ANY PRESCRIPTION? :YES TIZANDINE 4MG, MELOXICAM 15 MG, ROPINIROLE 0.25 MG DO YOU TAKE ANY IMMUNOSUPPRESSIVE MEDICATIONS? :NO IS THERE A CHANCE YOU COULD BE ? :NO ARE YOU BREAST FEEDING? :NO CURRENT MEDICATIONS TAKING ASPIRIN ADULT LOW DOSE 81 MG TABLET DELAYED RELEASE 1 TABLET ORALLY ONCE A DAY TAKING PANTOPRAZOLE SODIUM 40 MG TABLET DELAYED RELEASE 2 TABLETS ORALLY ONCE A DAY TAKING TOPIRAMATE 50 MG TABLET 1 TABLET ORALLY TWICE A DAY TAKING LOSARTAN POTASSIUM 50 MG TABLET 1 TABLET ORALLY ONCE A DAY TAKING LORATADINE 10 MG TABLET 1 TABLET ORALLY ONCE A DAY TAKING LASIX 20 MG TABLET 1 TABLET ORALLY ONCE A DAY TAKING SIMVASTATIN 20 MG TABLET 1 TABLET IN THE EVENING ORALLY ONCE A DAY TAKING ROPINIROLE HCL 0.25 MG TABLET 1 TO 2 ORALLY BEFORE BEDTIME TAKING TIZANIDINE HCL 4 MG TABLET 1 TABLET NEEDED ORALLY THREE TIMES A DAY NEEDED FOR SEVERE PAIN EPISODES TAKING MOBIC 15 MG TABLET 1 TABLET ORALLY DAILY TAKING METFORMIN HCL 500 MG TABLET 1 TABLET WITH A MEAL ORALLY ONCE A DAY TAKING MELOXICAM 15 MG TABLET 1 TABLET ORALLY ONCE A DAY TAKING FUROSEMIDE 20 MG TABLET 1 TABLET ORALLY ONCE A DAY NOT-TAKING MAY HAVE - - MEDICAL MARIJUANA DIRECTED NOT-TAKING COLACE 100 MG CAPSULE 2 ORALLY Q8H TID PRN NOT-TAKING TAMSULOSIN HCL 0.4 MG CAPSULE 1 TAB ORALLY DAILY NOT-TAKING CYMBALTA 60 MG CAPSULE DELAYED RELEASE PARTICLES 1 CAPSULE ORALLY ONCE A DAY NOT-TAKING LYRICA 200 MG CAPSULE 1 CAPSULE ORALLY THREE TIMES DAILYMDD3, NOTES: CURRENTLY OUT OF NOT-TAKING VENTOLIN HFA 108 (90 BASE) MCG/ACT AEROSOL SOLUTION 2 PUFFS NEEDED INHALATION 2-3X/WEEK X 4 WEEKS MEDICATION LIST REVIEWED AND RECONCILED WITH THE PATIENT PAST MEDICAL HISTORY HEADACHE, NECK PAIN SLEEP APNEA ARTHRITIS DEPRESSION TINNITUS GERD LOWER BACK, NECK PROBLMES NERVE DAMAGE ASTHMA SEASONAL ALLERGIES DIZZINESS ALLERGIES SEASONAL: NASAL CONGESTION - ALLERGY SOCIAL HISTORY GENERAL: TOBACCO USE ARE YOU A:FORMER SMOKER HOW LONG HAS IT BEEN SINCE YOU LAST SMOKED?1-5 YEARS LATEX QUESTIONNAIRE LATEX ALLERGY : HAVE YOU EVER DEVELOPED ANY TYPE OF REACTION AFTER HANDLING LATEX PRODUCTS SUCH RUBBER GLOVES, CONDOMS, DIAPHRAGMS, BALLOONS, SOCKS, OR UNDERWEAR?NO LATEX ALLERGY : HAVE YOU EVER DEVELOPED ANY TYPE OF REACTION DURING OR AFTER DENTAL APPOINTMENT, VAGINAL/RECTAL EXAMINATION, SURGICAL PROCEDURE, OR ANY OTHER EXPOSURE?NO LATEX RISK : HAVE YOU EVER HAD ANY DIFFICULTY BREATHING OR HIVES AFTER EATING OR HANDLING ANY FRUITS, OR VEGETABLES; SUCH KIWI, BANANAS, STONE FRUITS, OR CHESTNUTSNO LATEX RISK : DO YOU HAVE A PREVIOUS PERSONAL HISTORY OF MORE THAN NINE SURGERIES, SPINA BIFIDA, OR REPEATED CATHERIZATIONS? NO LATEX RISK : ARE YOU FREQUENTLY EXPOSED TO LATEX PRODUCTS IN YOUR OCCUPATION?NO DATE ASKED : 05/19/2020 ALCOHOL USE: NO. ALCOHOL SCREENING DID YOU HAVE A DRINK CONTAINING ALCOHOL IN THE PAST YEAR?YES HOW OFTEN DID YOU HAVE SIX OR MORE DRINKS ON ONE OCCASION IN THE PAST YEAR?NEVER (0 POINTS) HOW MANY DRINKS DID YOU HAVE ON A TYPICAL DAY WHEN YOU WERE DRINKING IN THE PAST YEAR?1 OR 2 (0 POINTS) HOW OFTEN DID YOU HAVE A DRINK CONTAINING ALCOHOL IN THE PAST YEAR?MONTHLY OR LESS (1 POINT) POINTS1 INTERPRETATIONNEGATIVE RECREATIONAL DRUG USE DRUG USE?NO CAFFEINE CAFFEINE USE?YES HOW OFTEN AND HOW MUCH? 2-3 CUPS DAILY [facility] [id number] YARSANI NO SCIENTOLOGIST BELIEFS THAT WOULD IMPACT HEALTH CARE. LANGUAGE LANGUAGES SPOKEN:[place] EDUCATION LEVEL OF EDUCATION:NOT FINISHED HIGH SCHOOL LEARNING BARRIERS / SPECIAL NEEDS CHANGE FROM LAST VISIT?NO BARRIERS TO LEARNING?NO HEARING IMPAIRED?NO VISION IMPAIRED?YES :CORRECTIVE LENSES COGNITIVELY IMPAIRED?NO READINESS TO LEARN?YES LEARNING PREFERENCES?NO LEARNING CAPABILITIES PRESENT?YES EMOTIONAL BARRIERS?NO SPECIAL DEVICES?NO VEHICLE MONITOR TECHNICIAN NEEDED?NO DOMESTIC VIOLENCE DO YOU FEEL SAFE IN YOUR ENVIRONMENT?YES OCCUPATION: DISABLED. DIET: REGULAR. EXERCISE: NO REGULAR EXERCISE. MARITAL STATUS: .. TODAY'S VISITNOTES 10/10/19 PATIENT DESCRIBES PAIN :ACHING, STABBING, THROBBING, SHOOTING FROM 0-10, WHAT LEVEL IS YOUR PAIN TODAY?9 - PFS REFERRAL NEEDED?NO CLERGY REFERRAL NEEDED?NO PUBLIC HEALTH REFERRAL NEEDED?NO WAS THE PROVIDER NOTIFIED OF ANY PERTINENT INFO?YES N/A HAS THE PATIENT BEEN EDUCATED REGARDING HIS/HER PLAN OF CARE?YES HAS THE PATIENT BEEN EDUCATED REGARDING PAIN, THE RISK FOR PAIN, THE IMPORTANCE OF EFFECTIVE PAIN MANAGEMENT, AND THE PAIN ASSESSMENT PROCESS?YES ADVANCE DIRECTIVE ADVANCE DIRECTIVE DISCUSSED WITH PATIENT:YES HCP ON FILE MALIK FERREIRA [phone] REVIEW OF SYSTEMS CONSTITUTIONAL: ANY RECENT FEVER NO . CHILLS NO . WEIGHT CHANGE OF UNKNOWN REASONS NO . GASTROENTEROLOGY: NEW UNEXPLAINABLE CHANGES IN BOWEL CONTROL NO . CONSTIPATION NO . GENITOURINARY: ANY NEW CHANGE IN BLADDER CONTROL? NO . NEUROLOGY: NEW ONSET DIZZINESS OR NEUROLOGICAL CHANGES NOT MENTIONED NO . NEW NUMBNESS OR PAIN PATTERNS NOT MENTIONED AND PERTINENT TO TODAY'S VISIT NO . CARDIOLOGY: NEW CHEST PRESSURE NO . NEW CHEST PAIN NO . RESPIRATORY: UNEXPLAINABLE COUGH NO . NEW SHORTNESS OF BREATH NO . VITAL SIGNS WT 259 LBS, HT 69 IN, BMI 38.24 INDEX, BP 168/97 MM HG, HR 64 /MIN, RR 18 /MIN, TEMP 98.7 F, OXYGEN SAT % 98%, SAFE IN ENV? (Y/N) YEST.LATONIA PATTERSON [facility] PROVIDER ABOUT BP. EXAMINATION GENERAL EXAMINATION: GENERALNO ACUTE DISTRESS, WELL NOURISHED AND HYDRATED. PSYCHAPPROPRIATE MOOD AND AFFECT . LUNGS:CLEAR TO AUSCULTATION BILATERALLY, NO WHEEZES, RHONCHI, RALES. HEART:NO MURMURS, REGULAR RATE AND RHYTHM. CERVICAL:SPECIFIC POINT TENDERNESS NOTED OVER CERVICAL FACETS WITH FACET LOADING. SPECIFIC POINT TENDERNESS NOTED OVER C5-6 AND C6-7 WITH FACET LOADING. . DIAGNOSTIC TESTS REVIEWED CERVICAL MRI 2020. ASSESSMENTS SPONDYLOSIS OF CERVICAL REGION WITHOUT MYELOPATHY OR RADICULOPATHY - M47.812 (PRIMARY) TREATMENT SPONDYLOSIS OF CERVICAL REGION WITHOUT MYELOPATHY OR RADICULOPATHY NOTES: BILATERAL CERVICAL THERAPEUTIC FACET BLOCK C5/6-C6/7 PRINTED AND REVIEWED PRE-PROCEDURE WITH PATIENT TG PATTERSON. PROCEDURE CODES FA211 ESTABILISHED PATIENT [facility] FACILITY CHARGE DISPOSITION & COMMUNICATION FOLLOW UP POST PROCEDURE (REASON: BILATERAL CERVICAL THERAPEUTIC FACET BLOCK C5/6-C6/7) ELECTRONICALLY SIGNED BY RODRIGO HARTMANN ON 05/19/2020 AT 12:23 PM EST DISCLAIMER : THIS IS A VISIT SUMMARY EXTRACTED FROM THE [employer] CHART. IT IS NOT A COPY OF THE [employer] PROGRESS NOTE. NERY
== END ==
LOC: M PAIN 10:30
PROVIDERS: ATTEND Nurse Practitioner Family
DX: M47.812 Spondylosis without myelopathy or radiculopathy, cervical region (principal); G47.30 Sleep apnea, unspecified; F32.9 Major depressive disorder, single episode, unspecified; E11.9 Type 2 diabetes mellitus without complications; K21.9 Gastro-esophageal reflux disease without esophagitis; J45.909 Unspecified asthma, uncomplicated; R42 Dizziness and giddiness; Z87.891 Personal history of nicotine dependence; Z79.82 Long term (current) use of aspirin; Z79.84 Long term (current) use of oral hypoglycemic drugs; Z79.1 Long term (current) use of non-steroidal anti-inflammatories (NSAID); Z79.899 Other long term (current) drug therapy

== ENCOUNTER → 2020-05-27 | Outpatient (CLI) | payer OTHER ==
--- NOTE | 2020-05-31 23:08 | ECWPNPC ---
PATIENT NAME: FEDERICO FERREIRA : 1960 GENDER: MALE VISIT DATE: 05/27/2020 DISCHARGE DATE: 05/27/20 1549 VISIT LOCKED DATE TIME: PHYSICIAN: LAMINE SANTIAGO RESOURCE: LAMINE SANTIAGO REASON FOR APPOINTMENT 1. DISCUSS DENIAL - [phone] HISTORY OF PRESENT ILLNESS GENERAL: PATIENT IS AGREEABLE TO TELEPHONE VISIT TODAY. CONTINUES WITH SEVERE NECK AND HEAD PAIN. PAIN ORIGINATES IN THE NECK REGION AND TRAVELS UP THE OCCIPITAL REGION. HAS RESPONDED WELL TO TRIGGER POINT INJECTIONS WITH LESS HEADACHES AND LESS NEED FOR PAIN MEDICATION AFTER RECEIVING TRIGGER POINTS IN THE PAST. REPORTING DIFFICULTY WITH SLEEP DUE TO SEVERE HEADACHE PAIN. HAS TRIED MULTIPLE MEDICATIONS AND OTHER TREATMENTS WITHOUT IMPROVEMENT. -. FALL RISK SCREENING: SCREENING :ONE FALL WITHOUT INJURY IN THE PAST YEAR PAIN SCREENING: PATIENT HAS A COMPLAINT OF ACUTE OR CHRONIC PAIN :YES LOCATION OF PAIN:NECK INTENSITY OF PAIN (SCALE OF 1 TO 10):7 WHAT DOES YOUR PAIN FEEL LIKE:SHARP, STABBING, THROBBING DURATION:CONTINOUS, CONSTANT, ALL DAY PAIN IS INCREASED BY:ACTIVITIES PAIN IS DECREASED BY:USE OF PAIN MEDICATIONS NURSING NOTE: -. PAIN CENTER INTAKE QUESTIONS: DO YOU HAVE A HISTORY OF MRSA? :NO DO YOU TAKE A BLOOD THINNERS? :NO DO YOU HAVE ANY BLEEDING DISORDERS? :NO ANY NEW NUMBNESS OR WEAKNESS IN YOUR LEGS OR ARMS? :NO ANY PACEMAKER,DEFIBRILLATOR, OR DORSAL COLUMN STIMULATOR? :NO DO YOU HAVE ANY RASHES OR OPEN SORES? :NO ARE YOU ALLERGIC TO IV DYE? :NO ARE YOU DIABETIC? :YES ANY NEW PROBLEMS WITH YOUR MEDICATIONS? :NO HAVE YOU RECEIVED A VACCINE IN THE PAST 30 DAYS? :NO DO YOU PLAN TO RECEIVE A VACCINE IN THE NEXT 21 DAYS? :NO DO YOU NEED ANY PRESCRIPTION? :NO DO YOU TAKE ANY IMMUNOSUPPRESSIVE MEDICATIONS? :NO IS THERE A CHANCE YOU COULD BE ? :NO ARE YOU BREAST FEEDING? :NO CURRENT MEDICATIONS TAKING ASPIRIN ADULT LOW DOSE 81 MG TABLET DELAYED RELEASE 1 TABLET ORALLY ONCE A DAY TAKING PANTOPRAZOLE SODIUM 40 MG TABLET DELAYED RELEASE 2 TABLETS ORALLY ONCE A DAY TAKING TOPIRAMATE 50 MG TABLET 1 TABLET ORALLY TWICE A DAY TAKING LOSARTAN POTASSIUM 50 MG TABLET 1 TABLET ORALLY ONCE A DAY TAKING LORATADINE 10 MG TABLET 1 TABLET ORALLY ONCE A DAY TAKING LASIX 20 MG TABLET 1 TABLET ORALLY ONCE A DAY TAKING SIMVASTATIN 20 MG TABLET 1 TABLET IN THE EVENING ORALLY ONCE A DAY TAKING ROPINIROLE HCL 0.25 MG TABLET 1 TO 2 ORALLY BEFORE BEDTIME TAKING METFORMIN HCL 500 MG TABLET 1 TABLET WITH A MEAL ORALLY ONCE A DAY TAKING MELOXICAM 15 MG TABLET 1 TABLET ORALLY ONCE A DAY TAKING FUROSEMIDE 20 MG TABLET 1 TABLET ORALLY ONCE A DAY TAKING TIZANIDINE HCL 4 MG TABLET 1 TABLET NEEDED ORALLY THREE TIMES A DAY NEEDED FOR SEVERE PAIN EPISODES TAKING MOBIC 15 MG TABLET 1 TABLET ORALLY DAILY NOT-TAKING MAY HAVE - - MEDICAL MARIJUANA DIRECTED NOT-TAKING COLACE 100 MG CAPSULE 2 ORALLY Q8H TID PRN NOT-TAKING TAMSULOSIN HCL 0.4 MG CAPSULE 1 TAB ORALLY DAILY NOT-TAKING CYMBALTA 60 MG CAPSULE DELAYED RELEASE PARTICLES 1 CAPSULE ORALLY ONCE A DAY NOT-TAKING LYRICA 200 MG CAPSULE 1 CAPSULE ORALLY THREE TIMES DAILYMDD3, NOTES: CURRENTLY OUT OF NOT-TAKING VENTOLIN HFA 108 (90 BASE) MCG/ACT AEROSOL SOLUTION 2 PUFFS NEEDED INHALATION 2-3X/WEEK X 4 WEEKS MEDICATION LIST REVIEWED AND RECONCILED WITH THE PATIENT PAST MEDICAL HISTORY HEADACHE, NECK PAIN SLEEP APNEA ARTHRITIS DEPRESSION TINNITUS GERD LOWER BACK, NECK PROBLMES NERVE DAMAGE ASTHMA SEASONAL ALLERGIES DIZZINESS ALLERGIES SEASONAL: NASAL CONGESTION - ALLERGY SURGICAL HISTORY CARPAL TUNNEL SURGERY RIGHT 08/30 CARPAL TUNNEL SURGERY LEFT - DONE TWO TIMES 06/30 CHOLECYSTECTOMY LEFT KNEE SCOPE HERNIA REPAIR X3 NERVE BLOCKS VASECTOMY POLYPS REMOVED FROM SINUSES EPIDIDYMAL CYST REMOVAL 07/18/16 UPPER GI ENDOSCOPY AND COLONOSCOPY - 1 POLYP REMOVED 09/2019 FAMILY HISTORY FATHER: , DIAGNOSED WITH OTHER MALIGNANT NEOPLASM OF UNSPECIFIED SITE MOTHER: ALIVE, CKD STAGE 4, HYPERTENSION SIBLINGS: ALIVE, OTHER SPECIFIED CONDITIONS INFLUENCING HEALTH STATUS SON(S): ALIVE, HYPERTENSION 1 BROTHER(S) , 1 SISTER(S) . 1 SON(S) , 2 DAUGHTER(S) - HEALTHY. FATHER-PROSTATE CANCER\N\NUNKNOWN OF ANY AUTOIMMUNE BROTHER IS HAVING CARDIAC STENTS PLACED TOMORROW 10/24/18. SOCIAL HISTORY GENERAL: TOBACCO USE ARE YOU A:FORMER SMOKER HOW LONG HAS IT BEEN SINCE YOU LAST SMOKED?1-5 YEARS LATEX QUESTIONNAIRE LATEX ALLERGY : HAVE YOU EVER DEVELOPED ANY TYPE OF REACTION AFTER HANDLING LATEX PRODUCTS SUCH RUBBER GLOVES, CONDOMS, DIAPHRAGMS, BALLOONS, SOCKS, OR UNDERWEAR?NO LATEX ALLERGY : HAVE YOU EVER DEVELOPED ANY TYPE OF REACTION DURING OR AFTER DENTAL APPOINTMENT, VAGINAL/RECTAL EXAMINATION, SURGICAL PROCEDURE, OR ANY OTHER EXPOSURE?NO LATEX RISK : HAVE YOU EVER HAD ANY DIFFICULTY BREATHING OR HIVES AFTER EATING OR HANDLING ANY FRUITS, OR VEGETABLES; SUCH KIWI, BANANAS, STONE FRUITS, OR CHESTNUTSNO LATEX RISK : DO YOU HAVE A PREVIOUS PERSONAL HISTORY OF MORE THAN NINE SURGERIES, SPINA BIFIDA, OR REPEATED CATHERIZATIONS? NO LATEX RISK : ARE YOU FREQUENTLY EXPOSED TO LATEX PRODUCTS IN YOUR OCCUPATION?NO DATE ASKED : 05/27/2020 ALCOHOL USE: NO. ALCOHOL SCREENING DID YOU HAVE A DRINK CONTAINING ALCOHOL IN THE PAST YEAR?YES HOW OFTEN DID YOU HAVE SIX OR MORE DRINKS ON ONE OCCASION IN THE PAST YEAR?NEVER (0 POINTS) HOW MANY DRINKS DID YOU HAVE ON A TYPICAL DAY WHEN YOU WERE DRINKING IN THE PAST YEAR?1 OR 2 (0 POINTS) HOW OFTEN DID YOU HAVE A DRINK CONTAINING ALCOHOL IN THE PAST YEAR?MONTHLY OR LESS (1 POINT) POINTS1 INTERPRETATIONNEGATIVE RECREATIONAL DRUG USE DRUG USE?NO CAFFEINE CAFFEINE USE?YES HOW OFTEN AND HOW MUCH? 2-3 CUPS DAILY GNOSTICIST [id number] GNOSTICISM NO RESTORATIONIST BELIEFS THAT WOULD IMPACT HEALTH CARE. LANGUAGE LANGUAGES SPOKEN:[place]DA EDUCATION LEVEL OF EDUCATION:NOT FINISHED HIGH SCHOOL LEARNING BARRIERS / SPECIAL NEEDS CHANGE FROM LAST VISIT?NO BARRIERS TO LEARNING?NO HEARING IMPAIRED?NO VISION IMPAIRED?YES :CORRECTIVE LENSES COGNITIVELY IMPAIRED?NO READINESS TO LEARN?YES LEARNING PREFERENCES?NO LEARNING CAPABILITIES PRESENT?YES EMOTIONAL BARRIERS?NO SPECIAL DEVICES?NO RETAIL MANAGER IN TRAINING NEEDED?NO DOMESTIC VIOLENCE DO YOU FEEL SAFE IN YOUR ENVIRONMENT?YES OCCUPATION: DISABLED. DIET: REGULAR. EXERCISE: NO REGULAR EXERCISE. MARITAL STATUS: .. TODAY'S VISITNOTES 10/10/19 PATIENT DESCRIBES PAIN :ACHING, STABBING, THROBBING, SHOOTING FROM 0-10, WHAT LEVEL IS YOUR PAIN TODAY?9 - PFS REFERRAL NEEDED?NO CLERGY REFERRAL NEEDED?NO PUBLIC HEALTH REFERRAL NEEDED?NO WAS THE PROVIDER NOTIFIED OF ANY PERTINENT INFO?YES N/A HAS THE PATIENT BEEN EDUCATED REGARDING HIS/HER PLAN OF CARE?YES HAS THE PATIENT BEEN EDUCATED REGARDING PAIN, THE RISK FOR PAIN, THE IMPORTANCE OF EFFECTIVE PAIN MANAGEMENT, AND THE PAIN ASSESSMENT PROCESS?YES ADVANCE DIRECTIVE ADVANCE DIRECTIVE DISCUSSED WITH PATIENT:YES HCP ON FILE MALIK FERREIRA [phone] HOSPITALIZATION/MAJOR DIAGNOSTIC PROCEDURE CHEST PAIN 07/2015 REVIEW OF SYSTEMS CONSTITUTIONAL: ANY RECENT FEVER NO . CHILLS NO . WEIGHT CHANGE OF UNKNOWN REASONS NO . GASTROENTEROLOGY: NEW UNEXPLAINABLE CHANGES IN BOWEL CONTROL NO . CONSTIPATION NO . GENITOURINARY: ANY NEW CHANGE IN BLADDER CONTROL? NO . NEUROLOGY: NEW ONSET DIZZINESS OR NEUROLOGICAL CHANGES NOT MENTIONED NO . NEW NUMBNESS OR PAIN PATTERNS NOT MENTIONED AND PERTINENT TO TODAY'S VISIT NO . CARDIOLOGY: NEW CHEST PRESSURE NO . NEW CHEST PAIN NO . RESPIRATORY: UNEXPLAINABLE COUGH NO . NEW SHORTNESS OF BREATH NO . VITAL SIGNS WT 259 LBS, HT 69 IN, BMI 38.24 INDEX, BP 168/97 MM HG, HR 64 /MIN, RR 18 /MIN, TEMP 98.7 F, OXYGEN SAT % 98%, SAFE IN ENV? (Y/N) YEST.LATONIA PATTERSON. ASSESSMENTS MYALGIA OF MUSCLE OF NECK - M79.18 (PRIMARY) TREATMENT MYALGIA OF MUSCLE OF NECK NOTES: TRIGGER POINT INJECTIONS BILATERAL NECK TREATMENT PLAN WAS REVIEWED WITH PATIENT. QUESTIONS WERE ANSWERED. FOLLOW-UP POST-TRIGGER POINT INJECTIONS. TOTAL TIME SPENT DURING TELEPHONE VISIT WAS APPROXIMATELY 11 MINUTES. DISPOSITION & COMMUNICATION FOLLOW UP POST PROCEDURE (REASON: TRIGGER POINT INJECTIONS BILATERAL NECK) ELECTRONICALLY SIGNED BY RODRIGO HARTMANN ON 05/31/2020 AT 06:17 PM EST DISCLAIMER : THIS IS A VISIT SUMMARY EXTRACTED FROM THE [employer] CHART. IT IS NOT A COPY OF THE [employer] PROGRESS NOTE. NERY
== END ==
LOC: M PAIN 14:30
PROVIDERS: ATTEND Nurse Practitioner Family
DX: M79.18 Myalgia, other site (principal); M54.2 Cervicalgia; G47.30 Sleep apnea, unspecified; F32.9 Major depressive disorder, single episode, unspecified; K21.9 Gastro-esophageal reflux disease without esophagitis; J45.909 Unspecified asthma, uncomplicated; R42 Dizziness and giddiness; M19.90 Unspecified osteoarthritis, unspecified site; H93.19 Tinnitus, unspecified ear; Z87.891 Personal history of nicotine dependence; Z79.82 Long term (current) use of aspirin; Z79.84 Long term (current) use of oral hypoglycemic drugs; Z79.899 Other long term (current) drug therapy; Z79.1 Long term (current) use of non-steroidal anti-inflammatories (NSAID)

== ENCOUNTER → 2020-06-01 | Outpatient (CLI) | payer OTHER ==
--- NOTE | 2020-06-02 23:24 | ECWPNPC ---
PATIENT NAME: FEDERICO FERREIRA : 1960 GENDER: MALE VISIT DATE: 06/01/2020 DISCHARGE DATE: 06/01/20 1148 VISIT LOCKED DATE TIME: PHYSICIAN: LAMINE SANTIAGO RESOURCE: LAMINE SANTIAGO REASON FOR APPOINTMENT 1. TRIGGER POINT PHYSICAL EXAM-ADDRESS DENIAL HISTORY OF PRESENT ILLNESS GENERAL: HERE FOR FOLLOW-UP OF PERSISTENT NECK PAIN. PAIN IN THIS REGION IS AGGRAVATED BY RANGE OF JOINT MOTION OF THE NECK AND USE OF HIS ARMS. PATIENT HAS HAD MARKED REDUCTION IN PAIN AND IMPROVED FUNCTIONAL ABILITY WITH TRIGGER POINT INJECTIONS IN THIS AREA IN THE PAST. STATES PHYSICAL THERAPY MAKES PAIN WORSE. DISCUSSED HOME STRETCHING EXERCISES AND USE OF NONSTEROIDAL MEDICATIONS. GETTING SOME BENEFIT FROM MUSCLE RELAXANT. -. FALL RISK SCREENING: SCREENING :ONE FALL WITHOUT INJURY IN THE PAST YEAR PAIN SCREENING: PATIENT HAS A COMPLAINT OF ACUTE OR CHRONIC PAIN :YES LOCATION OF PAIN:NECK INTENSITY OF PAIN (SCALE OF 1 TO 10):9 WHAT DOES YOUR PAIN FEEL LIKE:CONTINOUS, SHARP, STABBING, TENDER, OTHER DULL, NUMBNESS, MUSCLE SPASMS DURATION:CONTINOUS, CONSTANT, AWAKENS FROM SLEEP PAIN IS INCREASED BY:ACTIVITIES, PROLONGED STANDING PAIN IS DECREASED BY:SITTING, OTHERS LAYING OR SITTING EASES THE PAIN. NURSING NOTE: -. PAIN CENTER INTAKE QUESTIONS: DO YOU HAVE A HISTORY OF MRSA? :NO DO YOU TAKE A BLOOD THINNERS? :NO ASPIRIN 81MG DO YOU HAVE ANY BLEEDING DISORDERS? :NO ANY NEW NUMBNESS OR WEAKNESS IN YOUR LEGS OR ARMS? :NO ANY PACEMAKER,DEFIBRILLATOR, OR DORSAL COLUMN STIMULATOR? :NO DO YOU HAVE ANY RASHES OR OPEN SORES? :NO ARE YOU ALLERGIC TO IV DYE? :NO ARE YOU DIABETIC? :YES ANY NEW PROBLEMS WITH YOUR MEDICATIONS? :NO HAVE YOU RECEIVED A VACCINE IN THE PAST 30 DAYS? :NO DO YOU PLAN TO RECEIVE A VACCINE IN THE NEXT 21 DAYS? :YES IF SO WHAT VACCINE AND WHEN? WOULD LIKE THE COVID VACCINATION WHEN AVAILABLE. DO YOU NEED ANY PRESCRIPTION? :NO DO YOU TAKE ANY IMMUNOSUPPRESSIVE MEDICATIONS? :NO IS THERE A CHANCE YOU COULD BE ? :NO ARE YOU BREAST FEEDING? :NO CURRENT MEDICATIONS TAKING ASPIRIN ADULT LOW DOSE 81 MG TABLET DELAYED RELEASE 1 TABLET ORALLY ONCE A DAY TAKING PANTOPRAZOLE SODIUM 40 MG TABLET DELAYED RELEASE 2 TABLETS ORALLY ONCE A DAY TAKING LOSARTAN POTASSIUM 50 MG TABLET 1 TABLET ORALLY ONCE A DAY TAKING LORATADINE 10 MG TABLET 1 TABLET ORALLY ONCE A DAY TAKING SIMVASTATIN 20 MG TABLET 1 TABLET IN THE EVENING ORALLY ONCE A DAY TAKING ROPINIROLE HCL 0.25 MG TABLET 1 TO 2 ORALLY BEFORE BEDTIME TAKING METFORMIN HCL 500 MG TABLET 1 TABLET WITH A MEAL ORALLY BID TAKING MELOXICAM 15 MG TABLET 1 TABLET ORALLY ONCE A DAY TAKING FUROSEMIDE 20 MG TABLET 1 TABLET ORALLY ONCE A DAY TAKING TIZANIDINE HCL 4 MG TABLET 1 TABLET NEEDED ORALLY THREE TIMES A DAY NEEDED FOR SEVERE PAIN EPISODES TAKING MOBIC 15 MG TABLET 1 TABLET ORALLY DAILY TAKING FLUTICASONE PROPIONATE 50 MCG/DOSE SUSPENSION 1 SPRAY IN EACH NOSTRIL NASALLY ONCE A DAY TAKING VENTOLIN HFA 108 (90 BASE) MCG/ACT AEROSOL SOLUTION 2 PUFFS NEEDED INHALATION 2-3X/WEEK X 4 WEEKS NOT-TAKING TOPIRAMATE 50 MG TABLET 1 TABLET ORALLY TWICE A DAY NOT-TAKING LASIX 20 MG TABLET 1 TABLET ORALLY ONCE A DAY UNKNOWN MAY HAVE - - MEDICAL MARIJUANA DIRECTED UNKNOWN COLACE 100 MG CAPSULE 2 ORALLY Q8H TID PRN UNKNOWN TAMSULOSIN HCL 0.4 MG CAPSULE 1 TAB ORALLY DAILY UNKNOWN CYMBALTA 60 MG CAPSULE DELAYED RELEASE PARTICLES 1 CAPSULE ORALLY ONCE A DAY UNKNOWN LYRICA 200 MG CAPSULE 1 CAPSULE ORALLY THREE TIMES DAILYMDD3, NOTES: CURRENTLY OUT OF MEDICATION LIST REVIEWED AND RECONCILED WITH THE PATIENT PAST MEDICAL HISTORY HEADACHE, NECK PAIN SLEEP APNEA ARTHRITIS DEPRESSION TINNITUS GERD LOWER BACK, NECK PROBLMES NERVE DAMAGE ASTHMA SEASONAL ALLERGIES DIZZINESS ALLERGIES SEASONAL: NASAL CONGESTION - ALLERGY SOCIAL HISTORY GENERAL: TOBACCO USE ARE YOU A:FORMER SMOKER HOW LONG HAS IT BEEN SINCE YOU LAST SMOKED?1-5 YEARS LATEX QUESTIONNAIRE LATEX ALLERGY : HAVE YOU EVER DEVELOPED ANY TYPE OF REACTION AFTER HANDLING LATEX PRODUCTS SUCH RUBBER GLOVES, CONDOMS, DIAPHRAGMS, BALLOONS, SOCKS, OR UNDERWEAR?NO LATEX ALLERGY : HAVE YOU EVER DEVELOPED ANY TYPE OF REACTION DURING OR AFTER DENTAL APPOINTMENT, VAGINAL/RECTAL EXAMINATION, SURGICAL PROCEDURE, OR ANY OTHER EXPOSURE?NO LATEX RISK : HAVE YOU EVER HAD ANY DIFFICULTY BREATHING OR HIVES AFTER EATING OR HANDLING ANY FRUITS, OR VEGETABLES; SUCH KIWI, BANANAS, STONE FRUITS, OR CHESTNUTSNO LATEX RISK : DO YOU HAVE A PREVIOUS PERSONAL HISTORY OF MORE THAN NINE SURGERIES, SPINA BIFIDA, OR REPEATED CATHERIZATIONS? NO LATEX RISK : ARE YOU FREQUENTLY EXPOSED TO LATEX PRODUCTS IN YOUR OCCUPATION?NO DATE ASKED : 06/01/2020 ALCOHOL USE: NO. ALCOHOL SCREENING DID YOU HAVE A DRINK CONTAINING ALCOHOL IN THE PAST YEAR?YES HOW OFTEN DID YOU HAVE SIX OR MORE DRINKS ON ONE OCCASION IN THE PAST YEAR?NEVER (0 POINTS) HOW MANY DRINKS DID YOU HAVE ON A TYPICAL DAY WHEN YOU WERE DRINKING IN THE PAST YEAR?1 OR 2 (0 POINTS) HOW OFTEN DID YOU HAVE A DRINK CONTAINING ALCOHOL IN THE PAST YEAR?MONTHLY OR LESS (1 POINT) POINTS1 INTERPRETATIONNEGATIVE RECREATIONAL DRUG USE DRUG USE?NO CAFFEINE CAFFEINE USE?YES HOW OFTEN AND HOW MUCH? 2-3 CUPS DAILY CAODAISM [id number] TENRIISM NO ANGLICAN BELIEFS THAT WOULD IMPACT HEALTH CARE. LANGUAGE LANGUAGES SPOKEN:[place] EDUCATION LEVEL OF EDUCATION:NOT FINISHED HIGH SCHOOL LEARNING BARRIERS / SPECIAL NEEDS CHANGE FROM LAST VISIT?NO BARRIERS TO LEARNING?NO HEARING IMPAIRED?NO VISION IMPAIRED?YES :CORRECTIVE LENSES COGNITIVELY IMPAIRED?NO READINESS TO LEARN?YES LEARNING PREFERENCES?NO LEARNING CAPABILITIES PRESENT?YES EMOTIONAL BARRIERS?NO SPECIAL DEVICES?NO BOTTLE WASHER NEEDED?NO DOMESTIC VIOLENCE DO YOU FEEL SAFE IN YOUR ENVIRONMENT?YES OCCUPATION: DISABLED. DIET: REGULAR. EXERCISE: NO REGULAR EXERCISE. MARITAL STATUS: .. TODAY'S VISITNOTES 10/10/19 PATIENT DESCRIBES PAIN :ACHING, STABBING, THROBBING, SHOOTING FROM 0-10, WHAT LEVEL IS YOUR PAIN TODAY?9 - PFS REFERRAL NEEDED?NO CLERGY REFERRAL NEEDED?NO PUBLIC HEALTH REFERRAL NEEDED?NO WAS THE PROVIDER NOTIFIED OF ANY PERTINENT INFO?YES N/A HAS THE PATIENT BEEN EDUCATED REGARDING HIS/HER PLAN OF CARE?YES HAS THE PATIENT BEEN EDUCATED REGARDING PAIN, THE RISK FOR PAIN, THE IMPORTANCE OF EFFECTIVE PAIN MANAGEMENT, AND THE PAIN ASSESSMENT PROCESS?YES ADVANCE DIRECTIVE ADVANCE DIRECTIVE DISCUSSED WITH PATIENT:YES HCP ON FILE MALIK FERREIRA [phone] REVIEW OF SYSTEMS CONSTITUTIONAL: ANY RECENT FEVER NO . CHILLS NO . WEIGHT CHANGE OF UNKNOWN REASONS NO . GASTROENTEROLOGY: NEW UNEXPLAINABLE CHANGES IN BOWEL CONTROL NO . CONSTIPATION NO . GENITOURINARY: ANY NEW CHANGE IN BLADDER CONTROL? NO . NEUROLOGY: NEW ONSET DIZZINESS OR NEUROLOGICAL CHANGES NOT MENTIONED NO . NEW NUMBNESS OR PAIN PATTERNS NOT MENTIONED AND PERTINENT TO TODAY'S VISIT NO . CARDIOLOGY: NEW CHEST PRESSURE NO . NEW CHEST PAIN NO . RESPIRATORY: UNEXPLAINABLE COUGH NO . NEW SHORTNESS OF BREATH NO . VITAL SIGNS WT 260.2 LBS, HT 69 IN, BMI 38.42 INDEX, BP 163/91 MM HG, HR 75 /MIN, RR 18 /MIN, TEMP 98.2 F, OXYGEN SAT % 98%, SAFE IN ENV? (Y/N) YES, NA INITIALS AW 1052, REVIEWED BY: ASPEN MUNIZ MA. EXAMINATION GENERAL EXAMINATION: GENERAL AWAKE,ALERT ,PLEAASANT . PSYCH AFFECT NORMAL . LUNGS: LUNG VIDAL ARE CLEAR TO AUSCULTATION BILATERALLY. GOOD MOVEMENT OF AIR . HEART: S1, S2 IN A REGULAR RATE AND RHYTHM. NO SIGNIFICANT MURMURS, RUBS OR GALLOPS NOTED . CERVICAL: TRIGGER POINTS: NOTED OVER CERVICAL AND TRAPEZIUS BILAT..PAIN IS AGGREVATED WITH ROJM NECK. ASSESSMENTS MYALGIA OF MUSCLE OF NECK - M79.18 (PRIMARY) TREATMENT MYALGIA OF MUSCLE OF NECK NOTES: PATIENT WAS GIVEN INSTRUCTION ON HOME EXERCISES AND STRETCHING FOR NECK REGION. ADVISED TO START MELOXICAM 15 MG DAILY. FOLLOW-UP IS SCHEDULED IN CLINIC IN 6 WEEKS. PRINTED EDUCATION SHEETS ON NECK EXERCISES AND STRETCHING FOR PATIENT TO PERFORM AT HOME. PATIENT VERBALIZED AN UNDERSTANDING. Daniel HAMILTON RN. PROCEDURE CODES [id number] ESTABILISHED PATIENT [facility] CHARGE DISPOSITION & COMMUNICATION FOLLOW UP 6 WEEKS (REASON: EVALUATE HOME EXERCISE AND NONSTEROIDAL TREATMENT FOR NECK PAIN/MYALGIA. CONSIDER TRIGGER POINT INJECTIONS IF NO IMPROVEMENT.) ELECTRONICALLY SIGNED BY RODRIGO HARTMANN ON 06/02/2020 AT 10:29 PM EST DISCLAIMER : THIS IS A VISIT SUMMARY EXTRACTED FROM THE [employer] CHART. IT IS NOT A COPY OF THE [employer] PROGRESS NOTE. NERY
== END ==
LOC: M PAIN 10:45
PROVIDERS: ATTEND Nurse Practitioner Family
DX: M79.18 Myalgia, other site (principal); E11.9 Type 2 diabetes mellitus without complications; G47.30 Sleep apnea, unspecified; K21.9 Gastro-esophageal reflux disease without esophagitis; J45.909 Unspecified asthma, uncomplicated; Z86.59 Personal history of other mental and behavioral disorders; Z87.891 Personal history of nicotine dependence; Z79.82 Long term (current) use of aspirin; Z79.84 Long term (current) use of oral hypoglycemic drugs; Z79.899 Other long term (current) drug therapy

== ENCOUNTER → 2020-07-13 | Outpatient (CLI) | payer OTHER ==
--- NOTE | 2020-07-15 04:29 | ECWPNPC ---
PATIENT NAME: FEDERICO FERREIRA : 1960 GENDER: MALE VISIT DATE: 07/13/2020 DISCHARGE DATE: 07/13/20 1200 VISIT LOCKED DATE TIME: PHYSICIAN: LAMINE SANTIAGO RESOURCE: LAMINE SANTIAGO REASON FOR APPOINTMENT 1. EVALUATE HOME EXERCISE AND NONSTEROIDAL TREATMENT FOR NECK PAIN/MYALGIA. CONSIDER TRIGGER POINT INJECTIONS IF NO IMPROVEMENT. HISTORY OF PRESENT ILLNESS GENERAL: HERE FOR F/U OF PERSISTENT NECK PAIN/MYALGIA.OVER THE PAST 3 MONTHS PATIENT HAS BEEN DOING HOME EXERCISE AND STRETCHING FOR HIS NECK AND LOW BACK. UNFORTUNATELY EXERCISE AND STRETCHING HAS MADE PAIN WORSE. STARTED ON MOBIC 15 MG 1 A DAY 3 MONTHS AGO WITHOUT IMPROVEMENT IN PAIN. WAS UNABLE TO TOLERATE TIZANIDINE, A MUSCLE RELAXANT DUE TO IT CAUSING CHEST PALPITATIONS. CONTINUES TO SUFFER FROM DAILY NECK PAIN AND HEADACHES. ALSO COMPLAINING OF LOW BACK PAIN THAT RADIATES INTO LEFT LEG. FINDING IT DIFFICULT TO SLEEP DUE TO NECK AND LOW BACK PAIN. PATIENT FEELS HIS PAIN HAS PROGRESSIVELY GOTTEN WORSE OVER THE PAST 3 MONTHS. HAS RESPONDED WELL TO TRIGGER POINT INJECTIONS IN HIS NECK FOR PERSISTENT HEADACHES AND NECK PAIN. FALL RISK SCREENING: SCREENING : NO FALLS REPORTED IN THE LAST YEAR. PAIN SCREENING: PATIENT HAS A COMPLAINT OF ACUTE OR CHRONIC PAIN :YES LOCATION OF PAIN:NECK, LOW BACK INTENSITY OF PAIN (SCALE OF 1 TO 10):10 WHAT DOES YOUR PAIN FEEL LIKE:ACHING, BURNING, TENDER, THROBBING, SORE, SHOOTING DURATION:CONTINOUS, CONSTANT, ALL DAY PAIN IS INCREASED BY:ACTIVITIES, PROLONGED STANDING PAIN IS DECREASED BY:SITTING NURSING NOTE: -. PAIN CENTER INTAKE QUESTIONS: DO YOU HAVE A HISTORY OF MRSA? :NO DO YOU TAKE A BLOOD THINNERS? :NO ASPIRIN 81MG DO YOU HAVE ANY BLEEDING DISORDERS? :NO ANY NEW NUMBNESS OR WEAKNESS IN YOUR LEGS OR ARMS? :NO ANY PACEMAKER,DEFIBRILLATOR, OR DORSAL COLUMN STIMULATOR? :NO DO YOU HAVE ANY RASHES OR OPEN SORES? :NO ARE YOU ALLERGIC TO IV DYE? :NO ARE YOU DIABETIC? :YES ANY NEW PROBLEMS WITH YOUR MEDICATIONS? :NO HAVE YOU RECEIVED A VACCINE IN THE PAST 30 DAYS? :NO DO YOU PLAN TO RECEIVE A VACCINE IN THE NEXT 21 DAYS? :YES IF SO WHAT VACCINE AND WHEN? 1ST COVID 07/30/2020 DO YOU NEED ANY PRESCRIPTION? :NO DO YOU TAKE ANY IMMUNOSUPPRESSIVE MEDICATIONS? :NO IS THERE A CHANCE YOU COULD BE ? :NO ARE YOU BREAST FEEDING? :NO CURRENT MEDICATIONS TAKING ASPIRIN ADULT LOW DOSE 81 MG TABLET DELAYED RELEASE 1 TABLET ORALLY ONCE A DAY TAKING PANTOPRAZOLE SODIUM 40 MG TABLET DELAYED RELEASE 2 TABLETS ORALLY ONCE A DAY TAKING LOSARTAN POTASSIUM 50 MG TABLET 1 TABLET ORALLY ONCE A DAY TAKING LORATADINE 10 MG TABLET 1 TABLET ORALLY ONCE A DAY TAKING SIMVASTATIN 20 MG TABLET 1 TABLET IN THE EVENING ORALLY ONCE A DAY TAKING ROPINIROLE HCL 0.25 MG TABLET 1 TO 2 ORALLY BEFORE BEDTIME TAKING METFORMIN HCL 500 MG TABLET 1 TABLET WITH A MEAL ORALLY BID TAKING MELOXICAM 15 MG TABLET 1 TABLET ORALLY ONCE A DAY TAKING FUROSEMIDE 20 MG TABLET 1 TABLET ORALLY ONCE A DAY TAKING TIZANIDINE HCL 4 MG TABLET 1 TABLET NEEDED ORALLY THREE TIMES A DAY NEEDED FOR SEVERE PAIN EPISODES TAKING MOBIC 15 MG TABLET 1 TABLET ORALLY DAILY TAKING FLUTICASONE PROPIONATE 50 MCG/DOSE SUSPENSION 1 SPRAY IN EACH NOSTRIL NASALLY ONCE A DAY TAKING VENTOLIN HFA 108 (90 BASE) MCG/ACT AEROSOL SOLUTION 2 PUFFS NEEDED INHALATION 2-3X/WEEK X 4 WEEKS NOT-TAKING TOPIRAMATE 50 MG TABLET 1 TABLET ORALLY TWICE A DAY NOT-TAKING LASIX 20 MG TABLET 1 TABLET ORALLY ONCE A DAY NOT-TAKING MAY HAVE - - MEDICAL MARIJUANA DIRECTED NOT-TAKING COLACE 100 MG CAPSULE 2 ORALLY Q8H TID PRN NOT-TAKING TAMSULOSIN HCL 0.4 MG CAPSULE 1 TAB ORALLY DAILY NOT-TAKING CYMBALTA 60 MG CAPSULE DELAYED RELEASE PARTICLES 1 CAPSULE ORALLY ONCE A DAY NOT-TAKING LYRICA 200 MG CAPSULE 1 CAPSULE ORALLY THREE TIMES DAILYMDD3, NOTES: CURRENTLY OUT OF MEDICATION LIST REVIEWED AND RECONCILED WITH THE PATIENT PAST MEDICAL HISTORY HEADACHE, NECK PAIN SLEEP APNEA ARTHRITIS DEPRESSION TINNITUS GERD LOWER BACK, NECK PROBLMES NERVE DAMAGE ASTHMA SEASONAL ALLERGIES DIZZINESS ALLERGIES SEASONAL: NASAL CONGESTION - ALLERGY SOCIAL HISTORY GENERAL: TOBACCO USE ARE YOU A:FORMER SMOKER HOW LONG HAS IT BEEN SINCE YOU LAST SMOKED?1-5 YEARS LATEX QUESTIONNAIRE LATEX ALLERGY : HAVE YOU EVER DEVELOPED ANY TYPE OF REACTION AFTER HANDLING LATEX PRODUCTS SUCH RUBBER GLOVES, CONDOMS, DIAPHRAGMS, BALLOONS, SOCKS, OR UNDERWEAR?NO LATEX ALLERGY : HAVE YOU EVER DEVELOPED ANY TYPE OF REACTION DURING OR AFTER DENTAL APPOINTMENT, VAGINAL/RECTAL EXAMINATION, SURGICAL PROCEDURE, OR ANY OTHER EXPOSURE?NO LATEX RISK : HAVE YOU EVER HAD ANY DIFFICULTY BREATHING OR HIVES AFTER EATING OR HANDLING ANY FRUITS, OR VEGETABLES; SUCH KIWI, BANANAS, STONE FRUITS, OR CHESTNUTSNO LATEX RISK : DO YOU HAVE A PREVIOUS PERSONAL HISTORY OF MORE THAN NINE SURGERIES, SPINA BIFIDA, OR REPEATED CATHERIZATIONS? NO LATEX RISK : ARE YOU FREQUENTLY EXPOSED TO LATEX PRODUCTS IN YOUR OCCUPATION?NO DATE ASKED : 07/13/2020 ALCOHOL USE: NO. ALCOHOL SCREENING DID YOU HAVE A DRINK CONTAINING ALCOHOL IN THE PAST YEAR?YES HOW OFTEN DID YOU HAVE SIX OR MORE DRINKS ON ONE OCCASION IN THE PAST YEAR?NEVER (0 POINTS) HOW MANY DRINKS DID YOU HAVE ON A TYPICAL DAY WHEN YOU WERE DRINKING IN THE PAST YEAR?1 OR 2 (0 POINTS) HOW OFTEN DID YOU HAVE A DRINK CONTAINING ALCOHOL IN THE PAST YEAR?MONTHLY OR LESS (1 POINT) POINTS1 INTERPRETATIONNEGATIVE RECREATIONAL DRUG USE DRUG USE?NO CAFFEINE CAFFEINE USE?YES HOW OFTEN AND HOW MUCH? 2-3 CUPS DAILY ISLAM [id number] SIKHISM NO SYNAGOGUE BELIEFS THAT WOULD IMPACT HEALTH CARE. LANGUAGE LANGUAGES SPOKEN:ST HELENIAN EDUCATION LEVEL OF EDUCATION:NOT FINISHED HIGH SCHOOL LEARNING BARRIERS / SPECIAL NEEDS CHANGE FROM LAST VISIT?NO BARRIERS TO LEARNING?NO HEARING IMPAIRED?NO VISION IMPAIRED?YES :CORRECTIVE LENSES COGNITIVELY IMPAIRED?NO READINESS TO LEARN?YES LEARNING PREFERENCES?NO LEARNING CAPABILITIES PRESENT?YES EMOTIONAL BARRIERS?NO SPECIAL DEVICES?NO GEAR TOOTH LAPPING MACHINE OPERATOR NEEDED?NO DOMESTIC VIOLENCE DO YOU FEEL SAFE IN YOUR ENVIRONMENT?YES OCCUPATION: DISABLED. DIET: REGULAR. EXERCISE: NO REGULAR EXERCISE. MARITAL STATUS: .. TODAY'S VISITNOTES 10/10/19 PATIENT DESCRIBES PAIN :ACHING, STABBING, THROBBING, SHOOTING FROM 0-10, WHAT LEVEL IS YOUR PAIN TODAY?9 - PFS REFERRAL NEEDED?NO CLERGY REFERRAL NEEDED?NO PUBLIC HEALTH REFERRAL NEEDED?NO WAS THE PROVIDER NOTIFIED OF ANY PERTINENT INFO?YES N/A HAS THE PATIENT BEEN EDUCATED REGARDING HIS/HER PLAN OF CARE?YES HAS THE PATIENT BEEN EDUCATED REGARDING PAIN, THE RISK FOR PAIN, THE IMPORTANCE OF EFFECTIVE PAIN MANAGEMENT, AND THE PAIN ASSESSMENT PROCESS?YES ADVANCE DIRECTIVE ADVANCE DIRECTIVE DISCUSSED WITH PATIENT:YES HCP ON FILE MALIK FERREIRA [phone] REVIEW OF SYSTEMS CONSTITUTIONAL: ANY RECENT FEVER NO . CHILLS NO . WEIGHT CHANGE OF UNKNOWN REASONS NO . GASTROENTEROLOGY: NEW UNEXPLAINABLE CHANGES IN BOWEL CONTROL NO . CONSTIPATION NO . GENITOURINARY: ANY NEW CHANGE IN BLADDER CONTROL? NO . NEUROLOGY: NEW ONSET DIZZINESS OR NEUROLOGICAL CHANGES NOT MENTIONED NO . NEW NUMBNESS OR PAIN PATTERNS NOT MENTIONED AND PERTINENT TO TODAY'S VISIT NO . CARDIOLOGY: NEW CHEST PRESSURE NO . PATIENT DENIES NO . RESPIRATORY: UNEXPLAINABLE COUGH NO . NEW SHORTNESS OF BREATH NO . VITAL SIGNS WT 264.6 LBS, HT 69 IN, BMI 39.07 INDEX, BP 148/79 MM HG, HR 74 /MIN, RR 18 /MIN, TEMP 96.0 F, OXYGEN SAT % 96%, SAFE IN ENV? (Y/N) YES, NA INITIALS AW 1116T.LATONIA PATTERSON. EXAMINATION GENERAL EXAMINATION: GENERALAWAKE,ALERT ,PLEAASANT . PSYCHAFFECT NORMAL . LUNGS:LUNG VIDAL ARE CLEAR TO AUSCULTATION BILATERALLY. GOOD MOVEMENT OF AIR . HEART:S1, S2 IN A REGULAR RATE AND RHYTHM. NO SIGNIFICANT MURMURS, RUBS OR GALLOPS NOTED . CERVICAL:TRIGGER POINTS: CERVICAL AND TRAPEZIUS BILAT..PAIN IS AGGREVATED WITH ROJM NECK. ASSESSMENTS MYALGIA OF MUSCLE OF NECK - M79.18 (PRIMARY) TREATMENT MYALGIA OF MUSCLE OF NECK NOTES: TRIGGER POINT INJECTIONS BILATERAL NECK, BILATERAL THORACIC PRINTED AND REVIEWED PRE PROCEDURE WITH PATIENT AnivalLATONIA PATTERSON. PROCEDURE CODES FA211 ESTABILISHED PATIENT [facility] F[facility] CHARGE DISPOSITION & COMMUNICATION FOLLOW UP POST PROCEDURE (REASON: TRIGGER POINT INJECTIONS BILATERAL NECK, BILATERAL THORACIC) ELECTRONICALLY SIGNED BY RODRIGO HARTMANN ON 07/14/2020 AT 01:28 PM EDT DISCLAIMER : THIS IS A VISIT SUMMARY EXTRACTED FROM THE [employer] CHART. IT IS NOT A COPY OF THE [employer] PROGRESS NOTE. MTDD
== END ==
LOC: M PAIN 10:45
PROVIDERS: ATTEND Nurse Practitioner Family
DX: M79.18 Myalgia, other site (principal); F32.9 Major depressive disorder, single episode, unspecified; K21.9 Gastro-esophageal reflux disease without esophagitis; J45.909 Unspecified asthma, uncomplicated; R42 Dizziness and giddiness; Z79.82 Long term (current) use of aspirin; Z79.1 Long term (current) use of non-steroidal anti-inflammatories (NSAID); Z79.899 Other long term (current) drug therapy; Z79.84 Long term (current) use of oral hypoglycemic drugs; Z87.891 Personal history of nicotine dependence

== ENCOUNTER → 2020-09-07 | Outpatient (CLI) | payer OTHER ==
[~2020-09-07] MED LIST changes: +BUPIVACAINE HCL 0.25% 10ML VIAL As Ordered ONE; +BUPIVACAINE HCL 0.25% 30ML VIAL As Ordered ONE; +TRIAMCINOLONE ACETONIDE SUSP 40 MG/ML VIAL (J3301) As Ordered ONE; +diazePAM 5MG TABLET As Ordered ONE; +oxyCODONE 5MG TAB As Ordered ONE
--- NOTE | 2020-09-11 04:24 | ECWPNPC ---
PATIENT NAME: FEDERICO FERREIRA : 1960 GENDER: MALE VISIT DATE: 09/07/2020 DISCHARGE DATE: 09/07/20 1002 VISIT LOCKED DATE TIME: PHYSICIAN: SANDY STORY MD RESOURCE: SANDY STORY MD REASON FOR APPOINTMENT 1. TRIGGER POINT INJECTIONS BILATERAL NECK, BILATERAL THORACIC HISTORY OF PRESENT ILLNESS GENERAL: -. FALL RISK SCREENING: SCREENING : NO FALLS REPORTED IN THE LAST YEAR. PAIN SCREENING: PATIENT HAS A COMPLAINT OF ACUTE OR CHRONIC PAIN :YES LOCATION OF PAIN:NECK, LOW BACK INTENSITY OF PAIN (SCALE OF 1 TO 10):9 WHAT DOES YOUR PAIN FEEL LIKE:SHARP, STABBING, TENDER DURATION:CONTINOUS, AWAKENS FROM SLEEP PAIN IS INCREASED BY:ACTIVITIES, PROLONGED STANDING PAIN IS DECREASED BY:USE OF PAIN MEDICATIONS, SITTING PLAN/GOALS/TREATMENT/INTERVENTION/FOLLOW UP:SEE PLAN NURSING NOTE: -. PAIN CENTER INTAKE QUESTIONS: DO YOU HAVE A HISTORY OF MRSA? :NO DO YOU TAKE A BLOOD THINNERS? :NO DO YOU HAVE ANY BLEEDING DISORDERS? :NO ANY NEW NUMBNESS OR WEAKNESS IN YOUR LEGS OR ARMS? :NO ANY PACEMAKER,DEFIBRILLATOR, OR DORSAL COLUMN STIMULATOR? :NO DO YOU HAVE ANY RASHES OR OPEN SORES? :NO ARE YOU ALLERGIC TO IV DYE? :NO ARE YOU DIABETIC? :YES FSBS THIS MORNING AT 0545 WAS 149 ANY NEW PROBLEMS WITH YOUR MEDICATIONS? :NO HAVE YOU RECEIVED A VACCINE IN THE PAST 30 DAYS? :YES IF SO WHAT VACCINE AND WHEN? 2ND COVID 08/20/20 DO YOU PLAN TO RECEIVE A VACCINE IN THE NEXT 21 DAYS? :NO DO YOU NEED ANY PRESCRIPTION? :NO DO YOU TAKE ANY IMMUNOSUPPRESSIVE MEDICATIONS? :NO ANY HISTORY OF SEIZURES? :NO ANY HISTORY OF CARDIAC ISSUES OR EVENTS? :NO DO YOU HAVE ANY KIDNEY OR LIVER DISEASE? :NO ANY RECENT HEAD INJURY? :NO DO YOU HAVE ANY NEW INFECTIONS? :NO IS THERE A CHANCE YOU COULD BE ? :N/A ARE YOU BREAST FEEDING? :N/A WHEN DID YOU LAST EAT? : 09/06 2099 WHEN DID YOU LAST DRINK? : 09/07 05 WHAT DID YOU LAST DRINK? : BLACK COFFEE NAME OF PERSON DRIVING YOU HOME? : WARD FERREIRA (MOTHER) DO YOU HAVE ANY OTHER QUESTIONS OR CONCERNS? : NO CURRENT MEDICATIONS TAKING ASPIRIN ADULT LOW DOSE 81 MG TABLET DELAYED RELEASE 1 TABLET ORALLY ONCE A DAY TAKING PANTOPRAZOLE SODIUM 40 MG TABLET DELAYED RELEASE 2 TABLETS ORALLY ONCE A DAY TAKING LOSARTAN POTASSIUM 50 MG TABLET 1 TABLET ORALLY ONCE A DAY, NOTES: 09/07 529 TAKING LORATADINE 10 MG TABLET 1 TABLET ORALLY ONCE A DAY TAKING SIMVASTATIN 20 MG TABLET 1 TABLET IN THE EVENING ORALLY ONCE A DAY TAKING METFORMIN HCL 500 MG TABLET 1 TABLET WITH A MEAL ORALLY BID, NOTES: 09/06 2199 TAKING FUROSEMIDE 20 MG TABLET 1 TABLET ORALLY ONCE A DAY TAKING TIZANIDINE HCL 4 MG TABLET 1 TABLET NEEDED ORALLY THREE TIMES A DAY NEEDED FOR SEVERE PAIN EPISODES, NOTES: 09/07 529 TAKING MOBIC 15 MG TABLET 1 TABLET ORALLY DAILY, NOTES: 09/07 529 TAKING FLUTICASONE PROPIONATE 50 MCG/DOSE SUSPENSION 1 SPRAY IN EACH NOSTRIL NASALLY ONCE A DAY TAKING VENTOLIN HFA 108 (90 BASE) MCG/ACT AEROSOL SOLUTION 2 PUFFS NEEDED INHALATION 2-3X/WEEK X 4 WEEKS, NOTES: 09/07 529 TAKING ROPINIROLE HCL 0.25 MG TABLET 1 TO 2 ORALLY BEFORE BEDTIME NOT-TAKING MELOXICAM 15 MG TABLET 1 TABLET ORALLY ONCE A DAY, NOTES: DUPLICATE NOT-TAKING TOPIRAMATE 50 MG TABLET 1 TABLET ORALLY TWICE A DAY NOT-TAKING LASIX 20 MG TABLET 1 TABLET ORALLY ONCE A DAY NOT-TAKING MAY HAVE - - MEDICAL MARIJUANA DIRECTED NOT-TAKING COLACE 100 MG CAPSULE 2 ORALLY Q8H TID PRN NOT-TAKING TAMSULOSIN HCL 0.4 MG CAPSULE 1 TAB ORALLY DAILY NOT-TAKING CYMBALTA 60 MG CAPSULE DELAYED RELEASE PARTICLES 1 CAPSULE ORALLY ONCE A DAY NOT-TAKING LYRICA 200 MG CAPSULE 1 CAPSULE ORALLY THREE TIMES DAILYMDD3, NOTES: CURRENTLY OUT OF MEDICATION LIST REVIEWED AND RECONCILED WITH THE PATIENT PAST MEDICAL HISTORY HEADACHE, NECK PAIN SLEEP APNEA ARTHRITIS DEPRESSION TINNITUS GERD LOWER BACK, NECK PROBLMES NERVE DAMAGE ASTHMA SEASONAL ALLERGIES DIZZINESS ALLERGIES SEASONAL: NASAL CONGESTION - ALLERGY SOCIAL HISTORY GENERAL: TOBACCO USE ARE YOU A:FORMER SMOKER HOW LONG HAS IT BEEN SINCE YOU LAST SMOKED?1-5 YEARS LATEX QUESTIONNAIRE LATEX ALLERGY : HAVE YOU EVER DEVELOPED ANY TYPE OF REACTION AFTER HANDLING LATEX PRODUCTS SUCH RUBBER GLOVES, CONDOMS, DIAPHRAGMS, BALLOONS, SOCKS, OR UNDERWEAR?NO LATEX ALLERGY : HAVE YOU EVER DEVELOPED ANY TYPE OF REACTION DURING OR AFTER DENTAL APPOINTMENT, VAGINAL/RECTAL EXAMINATION, SURGICAL PROCEDURE, OR ANY OTHER EXPOSURE?NO LATEX RISK : HAVE YOU EVER HAD ANY DIFFICULTY BREATHING OR HIVES AFTER EATING OR HANDLING ANY FRUITS, OR VEGETABLES; SUCH KIWI, BANANAS, STONE FRUITS, OR CHESTNUTSNO LATEX RISK : DO YOU HAVE A PREVIOUS PERSONAL HISTORY OF MORE THAN NINE SURGERIES, SPINA BIFIDA, OR REPEATED CATHERIZATIONS? NO LATEX RISK : ARE YOU FREQUENTLY EXPOSED TO LATEX PRODUCTS IN YOUR OCCUPATION?NO DATE ASKED : 09/04/2020 ALCOHOL USE: NO. ALCOHOL SCREENING DID YOU HAVE A DRINK CONTAINING ALCOHOL IN THE PAST YEAR?YES HOW OFTEN DID YOU HAVE SIX OR MORE DRINKS ON ONE OCCASION IN THE PAST YEAR?NEVER (0 POINTS) HOW MANY DRINKS DID YOU HAVE ON A TYPICAL DAY WHEN YOU WERE DRINKING IN THE PAST YEAR?1 OR 2 (0 POINTS) HOW OFTEN DID YOU HAVE A DRINK CONTAINING ALCOHOL IN THE PAST YEAR?MONTHLY OR LESS (1 POINT) POINTS1 INTERPRETATIONNEGATIVE RECREATIONAL DRUG USE DRUG USE?NO CAFFEINE CAFFEINE USE?YES HOW OFTEN AND HOW MUCH? 2-3 CUPS DAILY MU-ISM [id number] HINDU NO RESTORATIONISM BELIEFS THAT WOULD IMPACT HEALTH CARE. LANGUAGE LANGUAGES SPOKEN:[place]AT[place] EDUCATION LEVEL OF EDUCATION:NOT FINISHED HIGH SCHOOL LEARNING BARRIERS / SPECIAL NEEDS CHANGE FROM LAST VISIT?NO BARRIERS TO LEARNING?NO HEARING IMPAIRED?NO VISION IMPAIRED?YES :CORRECTIVE LENSES COGNITIVELY IMPAIRED?NO READINESS TO LEARN?YES LEARNING PREFERENCES?NO LEARNING CAPABILITIES PRESENT?YES EMOTIONAL BARRIERS?NO SPECIAL DEVICES?NO CRISIS COUNSELOR NEEDED?NO DOMESTIC VIOLENCE DO YOU FEEL SAFE IN YOUR ENVIRONMENT?YES OCCUPATION: DISABLED. DIET: REGULAR. EXERCISE: NO REGULAR EXERCISE. MARITAL STATUS: .. TODAY'S VISITNOTES 10/10/19 PATIENT DESCRIBES PAIN :ACHING, STABBING, THROBBING, SHOOTING FROM 0-10, WHAT LEVEL IS YOUR PAIN TODAY?9 - PFS REFERRAL NEEDED?NO CLERGY REFERRAL NEEDED?NO PUBLIC HEALTH REFERRAL NEEDED?NO WAS THE PROVIDER NOTIFIED OF ANY PERTINENT INFO?YES N/A HAS THE PATIENT BEEN EDUCATED REGARDING HIS/HER PLAN OF CARE?YES HAS THE PATIENT BEEN EDUCATED REGARDING PAIN, THE RISK FOR PAIN, THE IMPORTANCE OF EFFECTIVE PAIN MANAGEMENT, AND THE PAIN ASSESSMENT PROCESS?YES ADVANCE DIRECTIVE ADVANCE DIRECTIVE DISCUSSED WITH PATIENT:YES HCP ON FILE MALIK FERREIRA [phone] VITAL SIGNS WT 265 LBS, HT 69 IN, BMI 39.13 INDEX, BP 185/101 MM HG, HR 57 /MIN, RR 18 /MIN, TEMP 97.7 F, OXYGEN SAT % 100%, SAFE IN ENV? (Y/N) Y, NA INITIALS SC 08:52, REVIEWED BY: Austin GILBERT RNRN WILL RECHECK BP-0847 RECHECK B/P 156/88 MANUAL Austin GILBERT RN. EXAMINATION GENERAL: THE PATIENT IS ALERT, ORIENTED TIMES THREE AND COOPERATIVE. LUNGS ARE CLEAR TO AUSCULTATION. HEART SHOWS REGULAR RHYTHM, NO MURMURS AND NO GALLOPS. ASSESSMENTS MYALGIA - M79.10 (PRIMARY) TREATMENT MYALGIA MEDICATION: VALIUM TAB 10MG ORALLY (DIAZEPAM)ULISES HAMILTON 09/07/2020 9:21:06 AM > VERIFIED. SANDER GILBERT 09/07/2020 9:24:58 AM > ADMINISTERED MEDICATION: OXYCODONE HCL TAB 10MG ORALLYSYULISES PAGE L 09/07/2020 9:21:22 AM > VERIFIED. SANDER GILBERT 09/07/2020 9:25:21 AM > ADMINISTERED COMPLETION OF PROCEDURAL VISIT WHEN MEETS CRITERIADESANDER BAE 09/07/2020 10:05:10 AM > CRITERIA MET 0959 OTHERS NOTES: 09/04/20 1000 PAT COMPLETED. Moris MCGOWAN BARREL RAISER HELPER. PROCEDURES PAIN NURSING RECORD PROCEDURE IN ROOM 0835, PHYSICIAN IN ROOM 0937, START 0941, FINISH 0944, PHYSICIAN OUT OF ROOM 0945, OUT OF ROOM 0959, ECG N/A, PATIENT SHIELDED N/A, SAFETY STRAP N/A, PREP ALCOHOL DR. STORY, DRESSING TEGADERM Austin GILBERT RN LOC: SANDER GILBERT 09/07/2020 8:58:20 AM > 1. ALERT, ORIENTED RESP: SANDER GILBERT 09/07/2020 8:58:25 AM > 1. REGULAR, NO DYSPNEA COLOR: SANDER GILBERT 09/07/2020 8:58:29 AM > 1. PINK SKIN: SANDER GILBERT 09/07/2020 8:58:33 AM > 1. WARM, DRY POSITION: SANDER GILBERT 09/07/2020 8:58:38 AM > 5. SITTING VITALS: SANDER GILBERT 09/07/2020 9:49:18 AM > 154/90,57,18, 98% COMPLETION OF PROCEDURE APPOINTMENT: POST PAIN 1, DRESSING SITE DRY AND INTACT, IV N/A, GAIT STEADY, TEACHING COMPLETED, PATIENT ACKNOWLEDGES UNDERSTANDING YES, PROCEDURE APPOINTMENT COMPLETED AT 0959 BY: Austin GILBERT RN PN TRIGGER POINT INJECTION WITH STEROIDS PRE PROCEDURE DIAGNOSIS 1. MYALGIA 2. PAIN AT BILATERAL NECK AREA AND BILATERAL THORACIC AREA POST PROCEDURE DIAGNOSIS 1. MYALGIA 2. PAIN AT BILATERAL NECK AREA AND BILATERAL THORACIC AREA PROCEDURE TRIGGER POINT INJECTION AT BILATERAL NECK AREA AND BILATERAL THORACIC AREA SURGEON DR. SANDY STORY PROFESSOR OF BUSINESS NONE ANESTHESIA LOCAL PRE PROCEDURE NOTE THE PATIENT HAS A HISTORY OF CHRONIC PAIN AT THE RIGHT AND LEFT NECK AREA AND RIGHT AND LEFT THORACIC AREA. I EVALUATED THE PATIENT AND REVIEWED THE CHART. THERE IS EVIDENCE OF BANDS OF TISSUE WITH RESTRICTION OF MOVEMENT AND PRESENCE OF TRIGGER POINT AT THE RIGHT AND LEFT NECK AREA AND RIGHT AND LEFT THORACIC AREA. I WENT OVER THE RISKS, ALTERNATIVES, AND BENEFITS ASSOCIATED WITH THIS PROCEDURE. THE PATIENT WOULD LIKE TO PROCEED AND GIVE CONSENT TO PERFORMED THE PROCEDURE. THE PATIENT DENIES UNEXPLAINABLE WEIGHT LOSS, FEVER, CHILLS, OR NEW CHANGES IN URINARY OR BOWEL CONTROL. THE PATIENT IS COVID-19 NEGATIVE DESCRIPTION OF PROCEDURE THE PATIENT WAS BROUGHT TO THE PROCEDURE ROOM AND PLACED IN THE SITTING POSITION. THE AREA WAS CLEANED WITH ALCOHOL. THE PROCEDURE WAS DONE USING ASEPTIC STERILE TECHNIQUE. A TIMEOUT WAS PERFORMED WHERE THE CONSENTED SITE WAS VERIFIED WITH EVERYONE IN THE ROOM. USING A 25-GAUGE NEEDLE, TRIGGER POINTS WERE INJECTED AT THE RIGHT AND LEFT NECK AREA AND RIGHT AND LEFT THORACIC AREA WITH A TOTAL OF 40 ML OF BUPIVACAINE 0.25% AND KENALOG 40 MG. THE MEDICATIONS WERE VERIFIED WITH THE NURSE. THERE WAS NO EVIDENCE OF BLOOD OR PARESTHESIA DURING THE PROCEDURE. THE PATIENT WAS SENT TO THE RECOVERY ROOM. THE PATIENT WAS MOVING THE EXTREMITIES AND DOING WELL. THERE WERE NO COMPLICATIONS DURING THE PROCEDURE. ESTIMATED BLOOD LOSS WAS LESS THAN 5 ML POST PROCEDURE NOTE IF THE NECK PAIN PERSITS, CONSIDER WORKING WITH THE FACETS, INCLUDING RADIOFREQUENCY. THE PROCEDURE DONE WAS DISCUSSED WITH THE PATIENT. THE PATIENT WILL BE SEEN IN A FOLLOW UP IN THE NEXT FEW WEEKS. I AM LOOKING FOR LONG LASTING PAIN RELIEF FOR THE PATIENT WITH THIS INTERVENTION. INSTRUCTIONS WERE GIVEN, QUESTIONS WERE ANSWERED, AND THE PATIENT EXPRESSED UNDERSTANDING AND AGREES WITH THE PLAN. I, JEFFREY KATHLEEN, DOCUMENTED THE ABOVE INFORMATION ACTING A SCRIBE FOR DR. STORY. I HAVE REVIEWED THE ABOVE DOCUMENT, WRITTEN BY JEFFREY KATHLEEN, NURSES SUPERVISOR, AND I VERIFY THAT IT IS ACCURATE PROCEDURE CODES 53103 INJECT TRIGGER POINTS 3/> DISPOSITION & COMMUNICATION FOLLOW UP FOLLOW UP WITH MOSAIC TILE MAKER (REASON: POST TRIGGER POINT INJECTIONS BILATERAL NECK AND BILATERAL THORACIC) ELECTRONICALLY SIGNED BY SANDY STORY MD, ON 09/10/2020 AT 04:14 PM EDT DISCLAIMER : THIS IS A VISIT SUMMARY EXTRACTED FROM THE [employer] CHART. IT IS NOT A COPY OF THE [employer] PROGRESS NOTE. NERY
== END ==
LOC: M PAIN 08:30
PROVIDERS: ATTEND Anesthesiology
DX: M79.18 Myalgia, other site (principal); G47.30 Sleep apnea, unspecified; F32.9 Major depressive disorder, single episode, unspecified; H93.19 Tinnitus, unspecified ear; K21.9 Gastro-esophageal reflux disease without esophagitis; J45.909 Unspecified asthma, uncomplicated; R42 Dizziness and giddiness; M54.2 Cervicalgia; M54.5 Low back pain; Z87.891 Personal history of nicotine dependence
CPT/HCPCS: 20553; J3301

== ENCOUNTER → 2020-09-21 | Outpatient (CLI) | payer OTHER ==
[~2020-09-21] MED LIST changes: -BUPIVACAINE HCL 0.25% 10ML VIAL As Ordered ONE; -BUPIVACAINE HCL 0.25% 30ML VIAL As Ordered ONE; -TRIAMCINOLONE ACETONIDE SUSP 40 MG/ML VIAL (J3301) As Ordered ONE; -diazePAM 5MG TABLET As Ordered ONE; -oxyCODONE 5MG TAB As Ordered ONE
--- NOTE | 2020-09-22 04:35 | ECWPNPC ---
PATIENT NAME: FEDERICO FERREIRA : 1960 GENDER: MALE VISIT DATE: 09/21/2020 DISCHARGE DATE: 09/21/20 1010 VISIT LOCKED DATE TIME: PHYSICIAN: LAMINE SANTIAGO RESOURCE: LAMINE SANTIAGO REASON FOR APPOINTMENT 1. POST TRIGGER POINT INJECTIONS BILATERAL NECK, BILATERAL THORACIC HISTORY OF PRESENT ILLNESS DEPRESSION SCREENING: PHQ-2 (2015 EDITION) LITTLE INTEREST OR PLEASURE IN DOING THINGS?NOT AT ALL FEELING DOWN, DEPRESSED, OR HOPELESS?NOT AT ALL TOTAL SCORE0 GENERAL: HERE FOR POST PROCEDURE FOLLOW-UP. HAD BILATERAL NECK AND SHOULDER TRIGGER POINT INJECTIONS ON 09/07/2020. REPORTS IMPROVEMENT WITH HEADACHE. CONTINUES WITH SEVERE NECK PAIN THAT IS AGGRAVATED WITH RANGE OF JOINT MOTION OF THE NECK. REVIEWED MRI OF THE CERVICAL SPINE. SHOWING MODERATELY TO SEVERE CERVICAL FACET ARTHRITIS WITH NEURAL FORAMINAL NARROWING. DISCUSSED RADIOFREQUENCY PROCEDURE AND DIAGNOSTIC TESTING. PATIENT WOULD LIKE TO PROCEED. -. FALL RISK SCREENING: SCREENING : NO FALLS REPORTED IN THE LAST YEAR. PAIN SCREENING: PATIENT HAS A COMPLAINT OF ACUTE OR CHRONIC PAIN :YES INTENSITY OF PAIN (SCALE OF 1 TO 10):8 WHAT DOES YOUR PAIN FEEL LIKE:BURNING AND IT POPS DURATION:MAINLY DURING THE NIGHT, AWAKENS FROM SLEEP MOSTLY IN THE MORNING PAIN IS INCREASED BY:ACTIVITIES PAIN IS DECREASED BY:SITTING NURSING NOTE: -. PAIN CENTER INTAKE QUESTIONS: DO YOU HAVE A HISTORY OF MRSA? :NO DO YOU TAKE A BLOOD THINNERS? :NO ASPIRIN 81MG DO YOU HAVE ANY BLEEDING DISORDERS? :NO ANY NEW NUMBNESS OR WEAKNESS IN YOUR LEGS OR ARMS? :NO ANY PACEMAKER,DEFIBRILLATOR, OR DORSAL COLUMN STIMULATOR? :NO DO YOU HAVE ANY RASHES OR OPEN SORES? :NO ARE YOU ALLERGIC TO IV DYE? :NO ARE YOU DIABETIC? :YES ANY NEW PROBLEMS WITH YOUR MEDICATIONS? :NO HAVE YOU RECEIVED A VACCINE IN THE PAST 30 DAYS? :NO PFIZER 1ST: 07/30/2020 2ND : 08/20/2020 DO YOU PLAN TO RECEIVE A VACCINE IN THE NEXT 21 DAYS? :NO DO YOU NEED ANY PRESCRIPTION? :NO DO YOU TAKE ANY IMMUNOSUPPRESSIVE MEDICATIONS? :NO IS THERE A CHANCE YOU COULD BE ? :NO ARE YOU BREAST FEEDING? :NO CURRENT MEDICATIONS TAKING ASPIRIN ADULT LOW DOSE 81 MG TABLET DELAYED RELEASE 1 TABLET ORALLY ONCE A DAY TAKING PANTOPRAZOLE SODIUM 40 MG TABLET DELAYED RELEASE 2 TABLETS ORALLY ONCE A DAY TAKING LOSARTAN POTASSIUM 50 MG TABLET 1 TABLET ORALLY ONCE A DAY TAKING LORATADINE 10 MG TABLET 1 TABLET ORALLY ONCE A DAY TAKING SIMVASTATIN 20 MG TABLET 1 TABLET IN THE EVENING ORALLY ONCE A DAY TAKING METFORMIN HCL 500 MG TABLET 1 TABLET WITH A MEAL ORALLY BID TAKING FUROSEMIDE 20 MG TABLET 1 TABLET ORALLY ONCE A DAY TAKING TIZANIDINE HCL 4 MG TABLET 1 TABLET NEEDED ORALLY THREE TIMES A DAY NEEDED FOR SEVERE PAIN EPISODES TAKING MOBIC 15 MG TABLET 1 TABLET ORALLY DAILY TAKING VENTOLIN HFA 108 (90 BASE) MCG/ACT AEROSOL SOLUTION 2 PUFFS NEEDED INHALATION 2-3X/WEEK X 4 WEEKS TAKING ROPINIROLE HCL 0.25 MG TABLET 1 TO 2 ORALLY BEFORE BEDTIME NOT-TAKING FLUTICASONE PROPIONATE 50 MCG/DOSE SUSPENSION 1 SPRAY IN EACH NOSTRIL NASALLY ONCE A DAY NOT-TAKING MELOXICAM 15 MG TABLET 1 TABLET ORALLY ONCE A DAY, NOTES: DUPLICATE NOT-TAKING TOPIRAMATE 50 MG TABLET 1 TABLET ORALLY TWICE A DAY NOT-TAKING LASIX 20 MG TABLET 1 TABLET ORALLY ONCE A DAY NOT-TAKING MAY HAVE - - MEDICAL MARIJUANA DIRECTED NOT-TAKING COLACE 100 MG CAPSULE 2 ORALLY Q8H TID PRN NOT-TAKING TAMSULOSIN HCL 0.4 MG CAPSULE 1 TAB ORALLY DAILY NOT-TAKING CYMBALTA 60 MG CAPSULE DELAYED RELEASE PARTICLES 1 CAPSULE ORALLY ONCE A DAY NOT-TAKING LYRICA 200 MG CAPSULE 1 CAPSULE ORALLY THREE TIMES DAILYMDD3, NOTES: CURRENTLY OUT OF MEDICATION LIST REVIEWED AND RECONCILED WITH THE PATIENT PAST MEDICAL HISTORY HEADACHE, NECK PAIN SLEEP APNEA ARTHRITIS DEPRESSION TINNITUS GERD LOWER BACK, NECK PROBLMES NERVE DAMAGE ASTHMA SEASONAL ALLERGIES DIZZINESS PFIZER 1ST: 07/30/2020 2ND : 08/20/2020 ALLERGIES SEASONAL: NASAL CONGESTION - ALLERGY SURGICAL HISTORY CARPAL TUNNEL SURGERY RIGHT 08/30 CARPAL TUNNEL SURGERY LEFT - DONE TWO TIMES 06/30 CHOLECYSTECTOMY LEFT KNEE SCOPE HERNIA REPAIR X3 NERVE BLOCKS VASECTOMY POLYPS REMOVED FROM SINUSES EPIDIDYMAL CYST REMOVAL 07/18/16 UPPER GI ENDOSCOPY AND COLONOSCOPY - 1 POLYP REMOVED 09/2019 FAMILY HISTORY FATHER: , DIAGNOSED WITH OTHER MALIGNANT NEOPLASM OF UNSPECIFIED SITE MOTHER: ALIVE, CKD STAGE 4, HYPERTENSION SIBLINGS: ALIVE, OTHER SPECIFIED CONDITIONS INFLUENCING HEALTH STATUS SON(S): ALIVE, HYPERTENSION 1 BROTHER(S) , 1 SISTER(S) . 1 SON(S) , 2 DAUGHTER(S) - HEALTHY. FATHER-PROSTATE CANCER\N\NUNKNOWN OF ANY AUTOIMMUNE BROTHER IS HAVING CARDIAC STENTS PLACED TOMORROW 10/24/18, BROTHER HAS RED DEVIL DISEASE. SOCIAL HISTORY GENERAL: TOBACCO USE ARE YOU A:FORMER SMOKER HOW LONG HAS IT BEEN SINCE YOU LAST SMOKED?1-5 YEARS LATEX QUESTIONNAIRE LATEX ALLERGY : HAVE YOU EVER DEVELOPED ANY TYPE OF REACTION AFTER HANDLING LATEX PRODUCTS SUCH RUBBER GLOVES, CONDOMS, DIAPHRAGMS, BALLOONS, SOCKS, OR UNDERWEAR?NO LATEX ALLERGY : HAVE YOU EVER DEVELOPED ANY TYPE OF REACTION DURING OR AFTER DENTAL APPOINTMENT, VAGINAL/RECTAL EXAMINATION, SURGICAL PROCEDURE, OR ANY OTHER EXPOSURE?NO LATEX RISK : HAVE YOU EVER HAD ANY DIFFICULTY BREATHING OR HIVES AFTER EATING OR HANDLING ANY FRUITS, OR VEGETABLES; SUCH KIWI, BANANAS, STONE FRUITS, OR CHESTNUTSNO LATEX RISK : DO YOU HAVE A PREVIOUS PERSONAL HISTORY OF MORE THAN NINE SURGERIES, SPINA BIFIDA, OR REPEATED CATHERIZATIONS? NO LATEX RISK : ARE YOU FREQUENTLY EXPOSED TO LATEX PRODUCTS IN YOUR OCCUPATION?NO DATE ASKED : 09/21/2020 ALCOHOL USE: NO. ALCOHOL SCREENING DID YOU HAVE A DRINK CONTAINING ALCOHOL IN THE PAST YEAR?YES HOW OFTEN DID YOU HAVE SIX OR MORE DRINKS ON ONE OCCASION IN THE PAST YEAR?NEVER (0 POINTS) HOW MANY DRINKS DID YOU HAVE ON A TYPICAL DAY WHEN YOU WERE DRINKING IN THE PAST YEAR?1 OR 2 (0 POINTS) HOW OFTEN DID YOU HAVE A DRINK CONTAINING ALCOHOL IN THE PAST YEAR?MONTHLY OR LESS (1 POINT) POINTS1 INTERPRETATIONNEGATIVE RECREATIONAL DRUG USE DRUG USE?NO CAFFEINE CAFFEINE USE?YES HOW OFTEN AND HOW MUCH? 2-3 CUPS DAILY SAMARITAN [id number] ZOROASTRIANISM NO CONFUCIANISM BELIEFS THAT WOULD IMPACT HEALTH CARE. LANGUAGE LANGUAGES SPOKEN:LUX[place]BOURGISH EDUCATION LEVEL OF EDUCATION:NOT FINISHED HIGH SCHOOL LEARNING BARRIERS / SPECIAL NEEDS CHANGE FROM LAST VISIT?NO BARRIERS TO LEARNING?NO HEARING IMPAIRED?NO VISION IMPAIRED?YES :CORRECTIVE LENSES READING COGNITIVELY IMPAIRED?NO READINESS TO LEARN?YES LEARNING PREFERENCES?NO LEARNING CAPABILITIES PRESENT?YES EMOTIONAL BARRIERS?NO SPECIAL DEVICES?NO WOOD MACHINIST NEEDED?NO DOMESTIC VIOLENCE DO YOU FEEL SAFE IN YOUR ENVIRONMENT?YES OCCUPATION: DISABLED. DIET: REGULAR. EXERCISE: NO REGULAR EXERCISE. MARITAL STATUS: .. TODAY'S VISITNOTES 10/10/19 PATIENT DESCRIBES PAIN :ACHING, STABBING, THROBBING, SHOOTING FROM 0-10, WHAT LEVEL IS YOUR PAIN TODAY?9 - PFS REFERRAL NEEDED?NO CLERGY REFERRAL NEEDED?NO PUBLIC HEALTH REFERRAL NEEDED?NO WAS THE PROVIDER NOTIFIED OF ANY PERTINENT INFO?YES N/A HAS THE PATIENT BEEN EDUCATED REGARDING HIS/HER PLAN OF CARE?YES HAS THE PATIENT BEEN EDUCATED REGARDING PAIN, THE RISK FOR PAIN, THE IMPORTANCE OF EFFECTIVE PAIN MANAGEMENT, AND THE PAIN ASSESSMENT PROCESS?YES ADVANCE DIRECTIVE ADVANCE DIRECTIVE DISCUSSED WITH PATIENT:YES HCP ON FILE MALIK FERREIRA [phone] HOSPITALIZATION/MAJOR DIAGNOSTIC PROCEDURE CHEST PAIN 07/2015 REVIEW OF SYSTEMS CONSTITUTIONAL: ANY RECENT FEVER NO . CHILLS NO . WEIGHT CHANGE OF UNKNOWN REASONS NO . GASTROENTEROLOGY: NEW UNEXPLAINABLE CHANGES IN BOWEL CONTROL NO . CONSTIPATION NO . GENITOURINARY: ANY NEW CHANGE IN BLADDER CONTROL? NO . NEUROLOGY: NEW ONSET DIZZINESS OR NEUROLOGICAL CHANGES NOT MENTIONED NO . NEW NUMBNESS OR PAIN PATTERNS NOT MENTIONED AND PERTINENT TO TODAY'S VISIT NO . CARDIOLOGY: NEW CHEST PRESSURE NO . PATIENT DENIES NO . RESPIRATORY: UNEXPLAINABLE COUGH NO . NEW SHORTNESS OF BREATH NO . VITAL SIGNS WT 258.6 LBS, HT 69 IN, BMI 38.18 INDEX, BP 138/83 MM HG, HR 86 /MIN, RR 18 /MIN, TEMP 97.6 F, OXYGEN SAT % 100%, SAFE IN ENV? (Y/N) YES, NA INITIALS AW 0916T.LATONIA PATTERSON. EXAMINATION GENERAL EXAMINATION: GENERALNO ACUTE DISTRESS, WELL NOURISHED AND HYDRATED. PSYCHAPPROPRIATE MOOD AND AFFECT . LUNGS: LUNG SOUNDS ARE CLEAR . HEART: HEART RATE REGULAR . MUSCULOSKELETAL:*, MUSCLE STRENGTH TESTING 5/5 BILATERAL UPPER EXTREMITIES. . CERVICAL:+ FOR PAIN WITH PALPATION OF CERVICAL SPINE. + FOR PAIN WITH PALPATION OF CERVICAL PARASPINALS.SPECIFIC POINT TENDERNESS NOTED OV C5/6,C6/7 CERVICAL FACETS WITH EXTENSION AND FACET LOADING.. DIAGNOSTIC TESTS REVIEWED CERVICAL MRI -04/14/2020. ASSESSMENTS OTHER CHRONIC PAIN - G89.29 (PRIMARY) SPONDYLOSIS OF CERVICAL REGION WITHOUT MYELOPATHY OR RADICULOPATHY - M47.812 TREATMENT OTHER CHRONIC PAIN PAIN PROCEDURE LOGDATE OF PROCEDURE1PROCEDURE:TRIGGER POINT INJECTION BILATERAL NECK, BILATERAL SHOULDERSAMOUNT OF PRE SEDATEVALIUM 10MG, OXYCODONE 10MGRESULT:IMPROVEMENT WITH HEADACHES. NO IMPROVEMENT WITH NECK PAIN NOTES: BILATERAL DIAGNOSTIC CERVICAL FACET BLOCK C5-6,C6-7 REVIEWED PRE PROCEDURE INFORMATION, PATIENT VERBALIZED UNDERSTANDING, PATIENT IS DIABETIC AND KNOWS NOT TO TAKE HIS MEDICATION THE MORNING OF THE PROCEDURE TG PATTERSON. PROCEDURE CODES FA211 ESTABILISHED PATIENT MERGED WITH [facility] CHARGE DISPOSITION & COMMUNICATION FOLLOW UP POST (REASON: BILATERAL DIAGNOSTIC CERVICAL FACET BLOCK C5-6,C6-7) ELECTRONICALLY SIGNED BY RODRIGO HARTMANN ON 09/21/2020 AT 03:55 PM EDT DISCLAIMER : THIS IS A VISIT SUMMARY EXTRACTED FROM THE [facility] CHART. IT IS NOT A COPY OF THE [employer] PROGRESS NOTE. NERY
== END ==
LOC: M PAIN 09:15
PROVIDERS: ATTEND Nurse Practitioner Family
DX: G89.29 Other chronic pain (principal); M47.812 Spondylosis without myelopathy or radiculopathy, cervical region; R51.9 Headache, unspecified; F32.9 Major depressive disorder, single episode, unspecified; K21.9 Gastro-esophageal reflux disease without esophagitis; J45.909 Unspecified asthma, uncomplicated; R42 Dizziness and giddiness; E11.9 Type 2 diabetes mellitus without complications; H93.19 Tinnitus, unspecified ear; Z87.891 Personal history of nicotine dependence; Z79.1 Long term (current) use of non-steroidal anti-inflammatories (NSAID); Z79.84 Long term (current) use of oral hypoglycemic drugs; Z79.899 Other long term (current) drug therapy

== ENCOUNTER → 2020-11-11 | Outpatient (CLI) | payer OTHER ==
[~2020-11-11] MED LIST changes: +BUPIVACAINE HCL 0.25% 30ML VIAL As Ordered ONE; +ISOVUE-M 300 61% 15ML VIAL As Ordered ONE; +LIDOCAINE 1% SDV 30ML VIAL As Ordered ONE
--- NOTE | 2020-11-11 16:11 | REP ---
INDICATION: BILATERAL DIAGNOSTIC CERVICAL FACET BLOCK. COMPARISON: None. TECHNIQUE: Two views. 19.7 seconds of fluoroscopy time is reported. FINDINGS: A sequence of 2 last image hold fluoroscopically obtained spot radiograph(s) of the cervical spine document(s) needle position(s) and contrast injection associated with injection procedure. IMPRESSION: Procedural imaging. <Electronically signed by Jimmy Recinos > 11/11/20 [id number]
[2020-11-11 18:21] LABS: HEPATITIS B SURFACE ANTIGEN NEGATIVE (NEGATIVE); HIV SCREEN CENTAUR SOURCE NEGATIVE (NEGATIVE)
--- NOTE | 2020-11-13 02:31 | ECWPNPC ---
PATIENT NAME: FEDERICO FERREIRA : 1960 GENDER: MALE VISIT DATE: 11/11/2020 DISCHARGE DATE: 11/11/20 170 VISIT LOCKED DATE TIME: PHYSICIAN: SANDY STORY MD RESOURCE: SANDY STORY MD REASON FOR APPOINTMENT 1. BILATERAL DIAGNOSTIC CERVICAL FACET BLOCK C5-6,C6-7 HISTORY OF PRESENT ILLNESS GENERAL: -. FALL RISK SCREENING: SCREENING : NO FALLS REPORTED IN THE LAST YEAR. PAIN SCREENING: PATIENT HAS A COMPLAINT OF ACUTE OR CHRONIC PAIN :YES LOCATION OF PAIN:NECK INTENSITY OF PAIN (SCALE OF 1 TO 10):6 6-10 (UNBEARABLE) WHAT DOES YOUR PAIN FEEL LIKE:SHARP, STABBING, TENDER, SHOOTING DURATION:CONTINOUS, AWAKENS FROM SLEEP PAIN IS INCREASED BY:ACTIVITIES, PROLONGED STANDING PAIN IS DECREASED BY:USE OF PAIN MEDICATIONS, SITTING "DOESN'T REALLY DO MUCH OF ANYTHING FOR ME" PLAN/GOALS/TREATMENT/INTERVENTION/FOLLOW UP:SEE PLAN NURSING NOTE: -. PAIN CENTER INTAKE QUESTIONS: DO YOU HAVE A HISTORY OF MRSA? :NO DO YOU TAKE A BLOOD THINNERS? :NO DO YOU HAVE ANY BLEEDING DISORDERS? :NO ANY NEW NUMBNESS OR WEAKNESS IN YOUR LEGS OR ARMS? :NO ANY PACEMAKER,DEFIBRILLATOR, OR DORSAL COLUMN STIMULATOR? :NO DO YOU HAVE ANY RASHES OR OPEN SORES? :NO ARE YOU ALLERGIC TO IV DYE? :NO ARE YOU DIABETIC? :YES FSBS: 85 ANY NEW PROBLEMS WITH YOUR MEDICATIONS? :NO HAVE YOU RECEIVED A VACCINE IN THE PAST 30 DAYS? :NO DO YOU PLAN TO RECEIVE A VACCINE IN THE NEXT 21 DAYS? :NO DO YOU NEED ANY PRESCRIPTION? :NO DO YOU TAKE ANY IMMUNOSUPPRESSIVE MEDICATIONS? :NO ANY HISTORY OF SEIZURES? :NO ANY HISTORY OF CARDIAC ISSUES OR EVENTS? :NO DO YOU HAVE ANY KIDNEY OR LIVER DISEASE? :NO DO YOU HAVE SLEEP APNEA? :YES DO YOU WEAR A CPAP?YES ANY RECENT HEAD INJURY? :NO DO YOU HAVE ANY NEW INFECTIONS? :NO IS THERE A CHANCE YOU COULD BE ? :N/A ARE YOU BREAST FEEDING? :N/A WHEN DID YOU LAST EAT? : 0700 WHEN DID YOU LAST DRINK? : 1030 WHAT DID YOU LAST DRINK? : WATER NAME OF PERSON DRIVING YOU HOME? : WARD FERREIRA (MOTHER) DO YOU HAVE ANY OTHER QUESTIONS OR CONCERNS? : NO CURRENT MEDICATIONS TAKING ASPIRIN ADULT LOW DOSE 81 MG TABLET DELAYED RELEASE 1 TABLET ORALLY ONCE A DAY, NOTES: 0700 TAKING PANTOPRAZOLE SODIUM 40 MG TABLET DELAYED RELEASE 2 TABLETS ORALLY ONCE A DAY TAKING LOSARTAN POTASSIUM 50 MG TABLET 1 TABLET ORALLY ONCE A DAY, NOTES: 0700 TAKING LORATADINE 10 MG TABLET 1 TABLET ORALLY ONCE A DAY TAKING SIMVASTATIN 20 MG TABLET 1 TABLET IN THE EVENING ORALLY ONCE A DAY TAKING METFORMIN HCL 500 MG TABLET 1 TABLET WITH A MEAL ORALLY BID, NOTES: 11/10/20 2100 TAKING FUROSEMIDE 20 MG TABLET 1 TABLET ORALLY ONCE A DAY, NOTES: 0700 TAKING TIZANIDINE HCL 4 MG TABLET 1 TABLET NEEDED ORALLY THREE TIMES A DAY NEEDED FOR SEVERE PAIN EPISODES, NOTES: 0700 TAKING MOBIC 15 MG TABLET 1 TABLET ORALLY DAILY TAKING VENTOLIN HFA 108 (90 BASE) MCG/ACT AEROSOL SOLUTION 2 PUFFS NEEDED INHALATION 2-3X/WEEK X 4 WEEKS TAKING ROPINIROLE HCL 0.25 MG TABLET 1 TO 2 ORALLY BEFORE BEDTIME NOT-TAKING FLUTICASONE PROPIONATE 50 MCG/DOSE SUSPENSION 1 SPRAY IN EACH NOSTRIL NASALLY ONCE A DAY NOT-TAKING MELOXICAM 15 MG TABLET 1 TABLET ORALLY ONCE A DAY, NOTES: DUPLICATE NOT-TAKING TOPIRAMATE 50 MG TABLET 1 TABLET ORALLY TWICE A DAY NOT-TAKING LASIX 20 MG TABLET 1 TABLET ORALLY ONCE A DAY NOT-TAKING MAY HAVE - - MEDICAL MARIJUANA DIRECTED NOT-TAKING COLACE 100 MG CAPSULE 2 ORALLY Q8H TID PRN NOT-TAKING TAMSULOSIN HCL 0.4 MG CAPSULE 1 TAB ORALLY DAILY NOT-TAKING CYMBALTA 60 MG CAPSULE DELAYED RELEASE PARTICLES 1 CAPSULE ORALLY ONCE A DAY NOT-TAKING LYRICA 200 MG CAPSULE 1 CAPSULE ORALLY THREE TIMES DAILYMDD3, NOTES: CURRENTLY OUT OF MEDICATION LIST REVIEWED AND RECONCILED WITH THE PATIENT PAST MEDICAL HISTORY HEADACHE, NECK PAIN SLEEP APNEA ARTHRITIS DEPRESSION TINNITUS GERD LOWER BACK, NECK PROBLMES NERVE DAMAGE ASTHMA SEASONAL ALLERGIES DIZZINESS PFIZER 1ST: 07/30/2020 2ND : 08/20/2020 RIGHT ELBOW BURISITIS ALLERGIES SEASONAL: NASAL CONGESTION - ALLERGY SURGICAL HISTORY CARPAL TUNNEL SURGERY RIGHT 08/30 CARPAL TUNNEL SURGERY LEFT - DONE TWO TIMES 06/30 CHOLECYSTECTOMY LEFT KNEE SCOPE HERNIA REPAIR X3 NERVE BLOCKS VASECTOMY POLYPS REMOVED FROM SINUSES EPIDIDYMAL CYST REMOVAL 07/18/16 UPPER GI ENDOSCOPY AND COLONOSCOPY - 1 POLYP REMOVED 09/2019 SOCIAL HISTORY GENERAL: TOBACCO USE ARE YOU A:FORMER SMOKER HOW LONG HAS IT BEEN SINCE YOU LAST SMOKED?1-5 YEARS LATEX QUESTIONNAIRE LATEX ALLERGY : HAVE YOU EVER DEVELOPED ANY TYPE OF REACTION AFTER HANDLING LATEX PRODUCTS SUCH RUBBER GLOVES, CONDOMS, DIAPHRAGMS, BALLOONS, SOCKS, OR UNDERWEAR?NO LATEX ALLERGY : HAVE YOU EVER DEVELOPED ANY TYPE OF REACTION DURING OR AFTER DENTAL APPOINTMENT, VAGINAL/RECTAL EXAMINATION, SURGICAL PROCEDURE, OR ANY OTHER EXPOSURE?NO LATEX RISK : HAVE YOU EVER HAD ANY DIFFICULTY BREATHING OR HIVES AFTER EATING OR HANDLING ANY FRUITS, OR VEGETABLES; SUCH KIWI, BANANAS, STONE FRUITS, OR CHESTNUTSNO LATEX RISK : DO YOU HAVE A PREVIOUS PERSONAL HISTORY OF MORE THAN NINE SURGERIES, SPINA BIFIDA, OR REPEATED CATHERIZATIONS? NO LATEX RISK : ARE YOU FREQUENTLY EXPOSED TO LATEX PRODUCTS IN YOUR OCCUPATION?NO DATE ASKED : 11/05/2020 ALCOHOL USE: NO. ALCOHOL SCREENING DID YOU HAVE A DRINK CONTAINING ALCOHOL IN THE PAST YEAR?YES HOW OFTEN DID YOU HAVE SIX OR MORE DRINKS ON ONE OCCASION IN THE PAST YEAR?NEVER (0 POINTS) HOW MANY DRINKS DID YOU HAVE ON A TYPICAL DAY WHEN YOU WERE DRINKING IN THE PAST YEAR?1 OR 2 (0 POINTS) HOW OFTEN DID YOU HAVE A DRINK CONTAINING ALCOHOL IN THE PAST YEAR?MONTHLY OR LESS (1 POINT) POINTS1 INTERPRETATIONNEGATIVE RECREATIONAL DRUG USE DRUG USE?NO CAFFEINE CAFFEINE USE?YES HOW OFTEN AND HOW MUCH? 2-3 CUPS DAILY CHEONDOISM [id number] SCIENTOLOGIST NO SIKHISM BELIEFS THAT WOULD IMPACT HEALTH CARE. LANGUAGE LANGUAGES SPOKEN:MEXICAN EDUCATION LEVEL OF EDUCATION:NOT FINISHED HIGH SCHOOL LEARNING BARRIERS / SPECIAL NEEDS CHANGE FROM LAST VISIT?NO BARRIERS TO LEARNING?NO HEARING IMPAIRED?NO VISION IMPAIRED?YES COGNITIVELY IMPAIRED?NO :CORRECTIVE LENSES READING READINESS TO LEARN?YES LEARNING PREFERENCES?NO LEARNING CAPABILITIES PRESENT?YES EMOTIONAL BARRIERS?NO SPECIAL DEVICES?NO ROD BUSTER HELPER NEEDED?NO DOMESTIC VIOLENCE DO YOU FEEL SAFE IN YOUR ENVIRONMENT?YES OCCUPATION: DISABLED. DIET: REGULAR. EXERCISE: NO REGULAR EXERCISE. MARITAL STATUS: .. TODAY'S VISITNOTES 10/10/19 PATIENT DESCRIBES PAIN :ACHING, STABBING, THROBBING, SHOOTING FROM 0-10, WHAT LEVEL IS YOUR PAIN TODAY?9 - PFS REFERRAL NEEDED?NO CLERGY REFERRAL NEEDED?NO PUBLIC HEALTH REFERRAL NEEDED?NO WAS THE PROVIDER NOTIFIED OF ANY PERTINENT INFO?YES N/A HAS THE PATIENT BEEN EDUCATED REGARDING HIS/HER PLAN OF CARE?YES HAS THE PATIENT BEEN EDUCATED REGARDING PAIN, THE RISK FOR PAIN, THE IMPORTANCE OF EFFECTIVE PAIN MANAGEMENT, AND THE PAIN ASSESSMENT PROCESS?YES ADVANCE DIRECTIVE ADVANCE DIRECTIVE DISCUSSED WITH PATIENT:YES HCP ON FILE MALIK FERREIRA [phone] HOSPITALIZATION/MAJOR DIAGNOSTIC PROCEDURE CHEST PAIN 07/2015 VITAL SIGNS WT 260 LBS, HT 69 IN, BMI 38.39 INDEX, BP 133/77 MM HG, HR 57 /MIN, RR 18 /MIN, TEMP 97.5 F, OXYGEN SAT % 97%, SAFE IN ENV? (Y/N) Y, NA INITIALS AW 1321, REVIEWED BY: EJ. EXAMINATION GENERAL: THE PATIENT IS ALERT, ORIENTED TIMES THREE AND COOPERATIVE. LUNGS ARE CLEAR TO AUSCULTATION. HEART SHOWS REGULAR RHYTHM, NO MURMURS AND NO GALLOPS. ASSESSMENTS SPONDYLOSIS OF CERVICAL REGION WITHOUT MYELOPATHY OR RADICULOPATHY - M47.812 (PRIMARY) TREATMENT SPONDYLOSIS OF CERVICAL REGION WITHOUT MYELOPATHY OR RADICULOPATHY [facility] FACET BLOCK (PAIN)[id number] SALINE LOCKPETRAS,PATRICK R 11/11/2020 2:10:47 PM > 22G INSERTED INTO LEFT AC ON FIRST ATTEMPT, BLOOD RETURN PRESENT, FLUSHING WELL. COMPLETION OF PROCEDURAL VISIT WHEN MEETS CRITERIAWHITJUAN CARLOS 11/11/2020 5:36:31 PM > CRITERIA MET OTHERS NOTES: 11/05/20 PAT FADIA. Moris MCGOWAN, WORKFLOW DEVELOPER. PROCEDURES PAIN NURSING RECORD PROCEDURE IN ROOM 1518, PHYSICIAN IN ROOM 1532, START 1540, FINISH 1550, PHYSICIAN OUT OF ROOM 1552, OUT OF ROOM 1605, ECG OTHER SINUS BRADYCARDIA, PATIENT SHIELDED YES, SAFETY STRAP YES, PREP CHLOROPREP Austin LARA RN, DRESSING TEGADERM DR. STORY LOC: PETRAS,PATRICK R 11/11/2020 3:41:26 PM > , 1. ALERT, ORIENTED RESP: PETRAS,PATRICK R 11/11/2020 3:41:30 PM > , 1. REGULAR, NO DYSPNEA COLOR: PETRAS,PATRICK R 11/11/2020 3:41:33 PM > , 1. PINK SKIN: PETRAS,PATRICK R 11/11/2020 3:41:36 PM > , 1. WARM, DRY POSITION: PETRAS,PATRICK R 11/11/2020 3:41:41 PM > , 1. PRONE VITALS: PETRKARENPATRICK R 11/11/2020 3:21:08 PM > 127/75, 56, 18, 99% PETRAS,PATRICK R 11/11/2020 3:25:17 PM > 172/84, 56, 18, 100% PETRAS,PATRICK R 11/11/2020 3:39:11 PM > 163/81, 64, 18, 100% PETRAS,PATRICK R 11/11/2020 3:51:30 PM > 142/75, 65, 22, 98% PETRAS,PATRICK R 11/11/2020 3:56:12 PM > 169/99, 64,18, 99% POST PROCEDURE VS 168/86 64 18 99% RA SRIKANTH STONER NOTES Theodore SHERMAN RN THIS NURSE DISCHARGED PATIENT WENT OVER ENTIRE DISCHARGE INCLUDING THE IMPORTANCE OF THE PAIN DIARY AND RECORDING THE PAIN Q 30 MINS. COMPLETION OF PROCEDURE APPOINTMENT: POST PAIN 9, DRESSING SITE DRY AND INTACT, IV DISCONTINUED, SITE CLEAR, N/A, CATHETER INTACT, GAIT STEADY, TEACHING COMPLETED, PATIENT ACKNOWLEDGES UNDERSTANDING YES, PROCEDURE APPOINTMENT COMPLETED AT 1700 PRE PROCEDURE DIAGNOSIS CERVICAL SPONDYLOSIS POST PROCEDURE DIAGNOSIS CERVICAL SPONDYLOSIS PROCEDURE BILATERAL C5-C6 AND BILATERAL C6-C7 DIAGNOSTIC CERVICAL FACET BLOCK NUMBER [address] SANDY STORY MIDDLE SCHOOL ASSISTANT PRINCIPAL NONE ANESTHESIA LOCAL PRE PROCEDURE NOTE THE PATIENT HAS HISTORY OF CHRONIC CERVICAL PAIN. I EVALUATED THE PATIENT AND REVIEWED THE CHART. I WENT OVER THE RISKS, ALTERNATIVES, AND BENEFITS ASSOCIATED WITH THIS PROCEDURE. THE PATIENT WOULD LIKE TO PROCEED AND GIVE CONSENT TO PERFORMED THE PROCEDURE. AGREED WITH THE PATIENT, WE ARE DOING THIS PROCEDURE TO DETERMINE IF THE PATIENT IS A CANDIDATE FOR A RADIOFREQUENCY ABLATION OF THE FACETS JOINTS. THE PATIENT DENIES UNEXPLAINABLE WEIGHT LOSS, FEVER, CHILLS, OR NEW CHANGES IN URINARY OR BOWEL CONTROL. THE PATIENT IS COVID-19 NEGATIVE DESCRIPTION OF PROCEDURE THE PATIENT WAS BROUGHT TO THE PROCEDURE ROOM AND PLACED IN THE PRONE POSITION. THE CERVICOTHORACIC AREA WAS CLEANED WITH CHLORAPREP SOLUTION AND DRAPED ASEPTICALLY. THE PROCEDURE WAS DONE UNDER STERILE CONDITIONS. UNDER FLUOROSCOPIC GUIDANCE, THE TARGET POINT WAS SELECTED AT THE MORE MEDIAL POINT OF THE CONCAVE CURVE AT THE MID POINT OF THE LATERAL ARTICULAR PROCESS OF RIGHT AND LEFT C5, RIGHT AND LEFT C6 AND RIGHT AND LEFT C7. TARGET POINTS WERE SELECTED AFTER LATERAL ROTATION AND TILT OF THE MAGNIFIER OF THE C-ARM. I CONFIRMED AGAIN THE SITE OF TARGET. LIDOCAINE 0.5% WAS USED TO NUMB THE SKIN AND THE SUBCUTANEOUS TISSUE BELOW IT. SPINAL NEEDLES, 22-GAUGE, WERE ADVANCED UNDER FLUOROSCOPIC GUIDANCE AND FOLLOWING PATIENT FEEDBACK UNTIL THE TARGETS WERE TOUCHED. THE POSITION OF THE NEEDLES WAS VERIFIED WITH AP AND LATERAL VIEWS. AFTER PROPER POSITION OF THE NEEDLES WAS ACHIEVED, ISOVUE-M DYE 30%, 0.2 ML, WAS INJECTED SHOWING SPREAD OF THE DYE. THEN A SOLUTION OF 0.25 ML OF BUPIVACAINE 0.25% WAS INJECTED AT EACH SITE. THE MEDICATION WAS VERIFIED WITH THE NURSE. THERE WAS NO EVIDENCE OF BLOOD, PARESTHESIA OR CEREBROSPINAL FLUID DURING THE PROCEDURE. THE PATIENT WAS SENT TO THE RECOVERY ROOM. THE PATIENT WAS MOVING THE EXTREMITIES AND DOING WELL. THERE WERE NO COMPLICATIONS DURING THE PROCEDURE. ESTIMATED BLOOD LOSS WAS LESS THAN 5 ML. FLUOROSCOPY TIME WAS 19 SECONDS POST PROCEDURE NOTE THE PATIENT WILL DOCUMENT PAIN LEVEL AND RESPONSE TO THIS PROCEDURE PER PAIN DIARY. THE PATIENT WILL BE SEEN IN A FOLLOW UP IN THE NEXT FEW WEEKS. INSTRUCTIONS WERE GIVEN, QUESTIONS WERE ANSWERED, AND THE PATIENT EXPRESSED UNDERSTANDING AND AGREES WITH THE PLAN. I, JEFFREY KATHLEEN, DOCUMENTED THE ABOVE INFORMATION ACTING A SCRIBE FOR DR. STORY. I HAVE REVIEWED THE ABOVE DOCUMENT, WRITTEN BY JEFFREY KATHLEEN, MARKETING ENGINEER, AND I VERIFY THAT IT IS ACCURATE. PROCEDURE CODES 99661 INJ PARAVERT F JNT C/T 1 LEV, MODIFIERS: 50 [id number] INJ PARAVERT F JNT C/T 2 LEV, MODIFIERS: 50 DISPOSITION & COMMUNICATION FOLLOW UP FOLLOW UP WITH PUNCH [employer]ESS OPERATOR HELPER (REASON: POST BILATERAL DIAGNOSTIC CERVICAL FACET BLOCK C5-C6, C6-C7) ELECTRONICALLY SIGNED BY SANDY STORY MD, MD ON 11/12/2020 AT 12:18 PM EDT DISCLAIMER : THIS IS A VISIT SUMMARY EXTRACTED FROM THE [employer] CHART. IT IS NOT A COPY OF THE [employer] PROGRESS NOTE. MTDD
== END ==
LOC: M PAIN 13:20
PROVIDERS: ATTEND Anesthesiology
DX: M47.812 Spondylosis without myelopathy or radiculopathy, cervical region (principal); R51.9 Headache, unspecified; M54.2 Cervicalgia; F32.9 Major depressive disorder, single episode, unspecified; K21.9 Gastro-esophageal reflux disease without esophagitis; J45.909 Unspecified asthma, uncomplicated; R42 Dizziness and giddiness; Z87.891 Personal history of nicotine dependence; Z79.82 Long term (current) use of aspirin; Z79.84 Long term (current) use of oral hypoglycemic drugs; Z79.899 Other long term (current) drug therapy
CPT/HCPCS: 36415; 64490; 64491; 86803; 87340; 87389; Q9967

== ENCOUNTER → 2020-11-16 | Outpatient (CLI) | payer OTHER ==
[~2020-11-16] MED LIST changes: -BUPIVACAINE HCL 0.25% 30ML VIAL As Ordered ONE; -ISOVUE-M 300 61% 15ML VIAL As Ordered ONE; -LIDOCAINE 1% SDV 30ML VIAL As Ordered ONE; +LOSA25TA13 PO; -LOSA25TA14 PO
== END ==
LOC: M PAIN 13:45
PROVIDERS: ATTEND Nurse Practitioner Family
DX: G89.29 Other chronic pain (principal); M47.812 Spondylosis without myelopathy or radiculopathy, cervical region; G47.30 Sleep apnea, unspecified; F32.9 Major depressive disorder, single episode, unspecified; K21.9 Gastro-esophageal reflux disease without esophagitis; J45.909 Unspecified asthma, uncomplicated; R42 Dizziness and giddiness; M70.31 Other bursitis of elbow, right elbow; Z87.891 Personal history of nicotine dependence; Z79.82 Long term (current) use of aspirin; Z79.84 Long term (current) use of oral hypoglycemic drugs; Z79.1 Long term (current) use of non-steroidal anti-inflammatories (NSAID); Z79.899 Other long term (current) drug therapy

== ENCOUNTER → 2021-05-06 | Outpatient (CLI) | payer OTHER | LOC: M PAIN 11:30 | PROVIDERS: ATTEND Anesthesiology | DX: M48.062 Spinal stenosis, lumbar region with neurogenic claudication (principal); M51.16 Intervertebral disc disorders with radiculopathy, lumbar region; M54.2 Cervicalgia; R51.9 Headache, unspecified; G47.30 Sleep apnea, unspecified; F32.A Depression, unspecified; K21.9 Gastro-esophageal reflux disease without esophagitis; J45.909 Unspecified asthma, uncomplicated; M70.31 Other bursitis of elbow, right elbow; R42 Dizziness and giddiness; Z87.891 Personal history of nicotine dependence; Z79.82 Long term (current) use of aspirin; Z79.84 Long term (current) use of oral hypoglycemic drugs; Z79.1 Long term (current) use of non-steroidal anti-inflammatories (NSAID); Z79.899 Other long term (current) drug therapy ==

== ENCOUNTER → 2021-09-23 | Outpatient (CLI) | payer OTHER | LOC: M PAIN 10:00 | PROVIDERS: ATTEND Anesthesiology | DX: M46.1 Sacroiliitis, not elsewhere classified (principal); R51.9 Headache, unspecified; F32.A Depression, unspecified; K21.9 Gastro-esophageal reflux disease without esophagitis; J45.909 Unspecified asthma, uncomplicated; R42 Dizziness and giddiness; M70.31 Other bursitis of elbow, right elbow; Z87.891 Personal history of nicotine dependence; Z79.82 Long term (current) use of aspirin; Z79.899 Other long term (current) drug therapy; Z79.1 Long term (current) use of non-steroidal anti-inflammatories (NSAID) ==

== ENCOUNTER → 2022-01-05 | Outpatient (CLI) | payer OTHER | LOC: M PAIN 09:15 | PROVIDERS: ATTEND Anesthesiology | DX: M53.3 Sacrococcygeal disorders, not elsewhere classified (principal); M54.50 Low back pain, unspecified; G89.29 Other chronic pain; M54.2 Cervicalgia; R51.9 Headache, unspecified; G47.30 Sleep apnea, unspecified; M19.90 Unspecified osteoarthritis, unspecified site; F32.A Depression, unspecified; K21.9 Gastro-esophageal reflux disease without esophagitis; J45.909 Unspecified asthma, uncomplicated; R42 Dizziness and giddiness; M70.31 Other bursitis of elbow, right elbow; H93.19 Tinnitus, unspecified ear; Z87.891 Personal history of nicotine dependence; Z79.1 Long term (current) use of non-steroidal anti-inflammatories (NSAID); Z79.84 Long term (current) use of oral hypoglycemic drugs; Z79.899 Other long term (current) drug therapy ==

== ENCOUNTER → 2022-02-04 | Outpatient (CLI) | payer OTHER | LOC: M PAIN 10:30 | PROVIDERS: ATTEND Nurse Practitioner Family | DX: M46.1 Sacroiliitis, not elsewhere classified (principal); R51.9 Headache, unspecified; G47.30 Sleep apnea, unspecified; M19.90 Unspecified osteoarthritis, unspecified site; F32.A Depression, unspecified; H93.19 Tinnitus, unspecified ear; K21.9 Gastro-esophageal reflux disease without esophagitis; J45.909 Unspecified asthma, uncomplicated; R42 Dizziness and giddiness; M70.31 Other bursitis of elbow, right elbow; Z87.891 Personal history of nicotine dependence; Z79.1 Long term (current) use of non-steroidal anti-inflammatories (NSAID); Z79.84 Long term (current) use of oral hypoglycemic drugs; Z79.899 Other long term (current) drug therapy ==

== ENCOUNTER → 2022-02-04 | Outpatient (CLI) | payer OTHER | LOC: M RAD 11:25 | PROVIDERS: ATTEND Nurse Practitioner Family | DX: M46.1 Sacroiliitis, not elsewhere classified (principal) ==

== ENCOUNTER → 2022-05-20 | Outpatient (CLI) | payer OTHER | LOC: M PAIN 10:15 | PROVIDERS: ATTEND Nurse Practitioner Family | DX: M46.1 Sacroiliitis, not elsewhere classified (principal); G47.30 Sleep apnea, unspecified; M19.90 Unspecified osteoarthritis, unspecified site; F32.A Depression, unspecified; H93.19 Tinnitus, unspecified ear; K21.9 Gastro-esophageal reflux disease without esophagitis; J45.909 Unspecified asthma, uncomplicated; R42 Dizziness and giddiness; M70.31 Other bursitis of elbow, right elbow; Z87.891 Personal history of nicotine dependence; Z79.1 Long term (current) use of non-steroidal anti-inflammatories (NSAID); Z79.84 Long term (current) use of oral hypoglycemic drugs; Z79.899 Other long term (current) drug therapy; Z79.82 Long term (current) use of aspirin; Z88.8 Allergy status to other drugs, medicaments and biological substances ==

== ENCOUNTER → 2022-07-19 | Outpatient (CLI) | payer OTHER | LOC: M PAIN 09:00 | PROVIDERS: ATTEND Nurse Practitioner Family | DX: M46.1 Sacroiliitis, not elsewhere classified (principal); R51.9 Headache, unspecified; M54.2 Cervicalgia; F32.A Depression, unspecified; K21.9 Gastro-esophageal reflux disease without esophagitis; J45.909 Unspecified asthma, uncomplicated; Z87.891 Personal history of nicotine dependence; Z79.1 Long term (current) use of non-steroidal anti-inflammatories (NSAID); Z79.82 Long term (current) use of aspirin; Z79.899 Other long term (current) drug therapy; Z88.8 Allergy status to other drugs, medicaments and biological substances ==

== ENCOUNTER → 2022-09-20 | Outpatient (CLI) | payer OTHER | LOC: M PAIN 08:45 | PROVIDERS: ATTEND Nurse Practitioner Family | DX: M46.1 Sacroiliitis, not elsewhere classified (principal); R51.9 Headache, unspecified; M54.2 Cervicalgia; G47.30 Sleep apnea, unspecified; M19.90 Unspecified osteoarthritis, unspecified site; F32.A Depression, unspecified; K21.9 Gastro-esophageal reflux disease without esophagitis; J45.909 Unspecified asthma, uncomplicated; Z87.891 Personal history of nicotine dependence; Z79.1 Long term (current) use of non-steroidal anti-inflammatories (NSAID); Z79.82 Long term (current) use of aspirin; Z79.899 Other long term (current) drug therapy; Z88.8 Allergy status to other drugs, medicaments and biological substances ==

== ENCOUNTER → 2022-11-03 | Outpatient (CLI) | payer OTHER ==
[~2022-11-03] MED LIST changes: -ROPI0.253 PO; +ROPI5TAB19 PO
== END ==
LOC: M PAIN 14:00
PROVIDERS: ATTEND Nurse Practitioner Family
DX: M46.1 Sacroiliitis, not elsewhere classified (principal); E11.9 Type 2 diabetes mellitus without complications; M54.2 Cervicalgia; R51.9 Headache, unspecified; G47.30 Sleep apnea, unspecified; M19.90 Unspecified osteoarthritis, unspecified site; F32.A Depression, unspecified; K21.9 Gastro-esophageal reflux disease without esophagitis; J45.909 Unspecified asthma, uncomplicated; R42 Dizziness and giddiness; H93.19 Tinnitus, unspecified ear; Z87.891 Personal history of nicotine dependence; Z79.1 Long term (current) use of non-steroidal anti-inflammatories (NSAID); Z79.82 Long term (current) use of aspirin; Z79.899 Other long term (current) drug therapy; Z88.8 Allergy status to other drugs, medicaments and biological substances

== ENCOUNTER 2023-03-16 12:54 | Day surgery (SDC) | payer OTHER ==
[~2023-03-16] VITALS: Ht 175.3 cm; Wt 113.5 kg
[~2023-03-16 12:54] MED LIST changes: +AMLO1TAB24 PO; +ASPI-226 PO; +FURO20TA2 PO; +GLIM4TAB5 PO; +HEPARIN SOD (PORCINE) 5000UNITS/ML 1ML VIAL/SYRINGE SQ ONE; +LORA-1041 PO; +LOSA100T46 PO; +MELO7.5T35 PO; +PANT40TA29 PO; +PHEN37.58 PO; +PROA1AER2 IN; +ROSU10TA6 PO; +SEMA0.257 SC; +TAMS1CAP17 PO; +TREL1AER INH; +[UNRECOGNIZED DRUG - CODE] PO; +ceFAZolin SOD 2 GM in IV 1 EA IV ONE
[2023-03-16] MEDS ORDERED: GLUCOSE 4GM CHEW TABLET PO PRN (13:10)
[2023-03-16] MEDS ORDERED: GLUCAGON INJ 1MG VIAL SC PRN (13:10)
[2023-03-16] MEDS ORDERED: LIDOCAINE 1% SDV 5ML VIAL SC PRN (13:10)
[2023-03-16] MEDS ORDERED: DEXTROSE 50% 50ML SYRINGE IV PRN (13:10)
[2023-03-16] MEDS ORDERED: INSULIN LISPRO (NovoLOG) PER UNIT SC PRN (13:10)
[2023-03-16] MEDS ORDERED: LR 1,000 ML IV SCH ×2 (13:10→16:25)
[2023-03-16] MEDS ORDERED: MIDAZOLAM INJ 2MG/2ML VIAL As Ordered ONE (13:26)
[2023-03-16] MEDS ORDERED: fentaNYL 250 MCG/5 ML INJECTION As Ordered ONE (13:26)
[2023-03-16] MEDS ORDERED: KETOROLAC 60MG 2ML VIAL As Ordered ONE (13:27)
[2023-03-16] MEDS ORDERED: propofoL 200 MG/20 ML VIAL As Ordered ONE (13:27)
[2023-03-16] MEDS ORDERED: LIDOCAINE 2% 100MG/5ML SDV (FOR ANES.) As Ordered ONE (13:27)
[2023-03-16] MEDS ORDERED: ROCURONIUM BROMIDE 50MG/5ML VIAL As Ordered ONE (13:27)
[2023-03-16] MEDS ORDERED: ONDANSETRON 4MG 2ML VIAL As Ordered ONE (13:27)
[2023-03-16] MEDS ORDERED: PERCOCET PO (14:38)
[2023-03-16] MEDS ORDERED: ACETAMINOPHEN 1000MG 100ML IV BAG As Ordered ONE (14:55)
[2023-03-16] MEDS ORDERED: ePHEDrine SULFATE 25 MG/5 ML(5MG/ML) SYRINGE As Ordered ONE (15:07)
[2023-03-16] MEDS ORDERED: SUGAMMADEX SODIUM 500 MG/5 ML VIAL (BRIDION) As Ordered ONE (15:18)
[2023-03-16] MEDS ORDERED: fentaNYL 100 MCG/2 ML INJECTION IV PRN (16:25)
[2023-03-16] MEDS ORDERED: ONDANSETRON 4MG 2ML VIAL IV PRN (16:25)
[2023-03-16] MEDS ORDERED: oxyCODONE 5MG TAB PO PRN (16:25)
[2023-03-16] MEDS: HYDROMORPHONE HCL 0.5 MG/ 0.5 ML SYRINGE IV PRN ×4 (16:41→17:00)
[2023-03-16 18:08] VITALS: BP 119/64; TEMP 97.1; O2SAT 97
== END 2023-03-16 18:21 | disposition home or self-care (01) ==
LOC: M SDC 12:54
PROVIDERS: ATTEND Surgery
DX: K43.0 Incisional hernia with obstruction, without gangrene (principal); E11.9 Type 2 diabetes mellitus without complications; I10 Essential (primary) hypertension; E78.00 Pure hypercholesterolemia, unspecified; K21.9 Gastro-esophageal reflux disease without esophagitis; J44.9 Chronic obstructive pulmonary disease, unspecified; Z79.899 Other long term (current) drug therapy; Z79.82 Long term (current) use of aspirin; Z79.84 Long term (current) use of oral hypoglycemic drugs
CPT/HCPCS: 49592; J0131; J0665; J0690; J1100; J1170; J1885; J2250; J2405; J3010

== ENCOUNTER → 2023-06-01 | Outpatient (CLI) | payer OTHER ==
[~2023-06-01] MED LIST changes: -HEPARIN SOD (PORCINE) 5000UNITS/ML 1ML VIAL/SYRINGE SQ ONE; +PERCOCET PO; -ceFAZolin SOD 2 GM in IV 1 EA IV ONE
== END ==
LOC: M PAIN 15:00
PROVIDERS: ATTEND Nurse Practitioner Family
DX: M46.1 Sacroiliitis, not elsewhere classified (principal); G47.30 Sleep apnea, unspecified; F32.A Depression, unspecified; K21.9 Gastro-esophageal reflux disease without esophagitis; J45.909 Unspecified asthma, uncomplicated; Z87.891 Personal history of nicotine dependence; Z79.84 Long term (current) use of oral hypoglycemic drugs; Z79.1 Long term (current) use of non-steroidal anti-inflammatories (NSAID); Z79.899 Other long term (current) drug therapy; Z88.8 Allergy status to other drugs, medicaments and biological substances